=== PATIENT | male | born 1960 | race Caucasian/White ===

== ENCOUNTER 2023-09-16 15:38 | Observation (INO) ==
[2023-09-16 16:28] LABS: Basophils # (auto) 0.02 K/uL (0.00-0.20); Basophils % (auto) 0.5 %; Eosinophils # (auto) 0.02 K/uL (0.00-0.50); Eosinophils % (auto) 0.5 %; Hematocrit (blood only) 39.7 % (42.0-52.0); Hemoglobin 13.3 g/dl (14.0-18.0); Immature Granulocytes # (auto) 0.01 K/uL (0.01-0.20); Immature Granulocytes % (auto) 0.2 %; Lymphocytes # (auto) 0.83 K/uL (1.20-3.40); Lymphocytes % (auto) 19.3 %; Mean Corpuscular Hemoglobin 28.9 pg (25.0-34.0); Mean Corpuscular Hgb Conc 33.5 g/dL (32.0-36.0); Mean Corpuscular Volume 86.3 fL (80.0-100.0); Mean Platelet Volume 9.8 fL (9.4-12.4); Monocytes # (auto) 0.33 K/uL (0.11-0.59); Monocytes % (auto) 7.7 %; Neutrophils % (auto) 71.8 %; Platelet Count 212 K/uL (130-400); RDW Coefficient of Variation 14.6 % (11.5-14.5); RDW Standard Deviation 45.6 fL (36.4-46.3); White Blood Count 4.31 K/ul (4.8-10.8)
[2023-09-16 16:43] LABS: Albumin Globulin Ratio 1.1 (0.9-2); Albumin Level 3.9 gm/dl (3.4-5.0); BUN Creatinine Ratio 14.3 (10-20); Bilirubin,Total 0.6 mg/dl (0.2-1.0); Est GFR (African American) 94.1 ml/min; Est GFR (Non-African American) 81.2 ml/min; Globulin 3.5 gm/dl (2.5-4.0); Potassium 3.8 mmol/L (3.5-5.1); Total Protein 7.4 gm/dl (6.0-8.3)
--- NOTE | 2023-09-16 16:49 | XRay Report ---
XR chest 1V not portable CLINICAL HISTORY: Chest pain, nonspecific TECHNIQUE: Single frontal radiograph of the chest was obtained. Comparison: None available at the time of this dictation. FINDINGS: No lines and tubes are seen. Calcified aortic knob is seen. The lungs are clear. No evidence of pleur al effusion or pneumothorax. IMPRESSION: No acute chest disease. ACT 112: Negative or not required by law. Electronically signed by: Gage Sanford M.D. 09/16/2023 4:48 PM
[2023-09-16 16:50] LABS: Troponin I High Sensitivity 7.1 pg/ml (0-20)
[2023-09-16 16:53] LABS: INR 2.5 (0.9-1.1); Partial Thromboplastin Ratio 1.2; Partial Thromboplastin Time 35 Seconds (21-31); Prothrombin Time 25.7 Seconds (9.0-12.0)
--- NOTE | 2023-09-16 17:21 | Emergency Department Note ---
Impression & Plan Chest pain ADMIT ED Provider Note HPI: History obtained from patient. The patient is a 62-year-old gentleman with history of coronary artery disease, status post stent placement this past April at [facility] in [place], history of hypercoagulable state currently on Coumadin, presents emergency department chief complaint of increasing episodes of chest pain and dyspnea on exertion. Patient states his symptoms have been worsening over about the past month, patient states that they seem to be worsening more acutely over the past several days including shortness of breath on exertion. Patient states that the pain does feel similar to pain that he had in the past associated with acute coronary syndrome and failure of a stress test that led to his stent placement. On arrival here to the ED the patient is hemodynamically stable, he is not complaining of any pain at rest on my evaluation. ROS: - Per HPI Differential Diagnosis: Acute coronary syndrome/stent re- stenosis, pulmonary embolism, pneumonia, pneumothorax, acute CHF exacerbation, amongst other potential pathologies. *Outpatient medications and allergy history reviewed. PE: General: Alert, obese, no acute distress HEENT: Normocephalic, trachea midline Eyes: Extraocular eye movement is intact, no scleral erythema Pulmonary: Clear to auscultation bilaterally, no wheezing Cardio: Regular rate and rhythm GI: Abdomen is soft to palpation : No suprapubic tenderness MSK: No evidence of trauma or malformation of the extremities, no edema Skin: No evidence of rash Neuro: Alert, no focal deficits Psychiatric: Cooperative INDEPENDENT INTERPRETATIONS: school lunch monitor: (As interpreted by myself): - An order was placed for continuous cardiac monitoring - Patient was noted to be in sinus rhythm with a rate of 70 EKG: (As interpreted by myself): Rate: 81 Rhythm: Sinus rhythm with PVCs Intervals: Within normal limits ST changes: No ST elevation Time: 1546 Chest x-ray: (As interpreted by myself): No acute disease Medical Decision Making: IV was established and lab work obtained, patient was placed on school lunch monitor. EKG per my review shows sinus rhythm without any acute ischemic changes. Lab work shows a mild leukopenia of 4.3, hemoglobin is stable at 13.3, platelet count is normal, CMP does not show any critical findings, troponin is negative x 1, INR is noted to be therapeutic at 2.5. Chest x-ray per my interpretation does not show any evidence of acute disease. Overall, the patient has concerning symptoms of chest pain and dyspnea on exertion with history of ACS and I feel he would benefit from overnight observation admission for trending of troponin levels and likely cardiology consultation in the morning. Patient is high risk. He is in agreement for admission as this is significant other at the bedside. Case was discussed with the on-call midlevel provider for [facility], Ana Marina, and the patient was placed for admission in stable condition to the service of Dr. Cochran. Consultants/Discussions held with other healthcare providers: -Dr. Cochran, hospitalist service Disposition discussion held by myself with: -Patient Diagnosis: 1. Chest pain, acute 2. History of coronary artery disease Disposition: Admission Aditya Mack, Emergency Medicine Past Med/Surg History Social History Smoking Status: Never smoker Feels Safe at Home: Yes Allergies Allergies Allergy/AdvReac Type Severity Reaction Status Date / Time Sulfa (Sulfonamide Allergy Hives Verified 09/16/23 17:54 Antibiotics) Home Meds Home Medications Medication Instructions Recorded Confirmed atorvastatin 40 mg tablet 40 mg PO DAILY 09/16/23 09/16/23 diclofenac sodium 1 % topical gel 1 ea topical BID PRN knee pain 09/16/23 09/16/23 (Voltaren Arthritis Pain) guaifenesin 600 mg tablet, 600 mg PO BID PRN Congestion 09/16/23 09/16/23 extended release 12 hr (Mucinex) hydrochlorothiazide 12.5 mg capsule 12.5 mg PO DAILY 09/16/23 09/16/23 hydroxychloroquine 200 mg tablet 400 mg PO HS 09/16/23 09/16/23 metoprolol tartrate 25 mg tablet 25 mg PO BID 09/16/23 09/16/23 multivitamin 1 tab PO DAILY 09/16/23 09/16/23 nitroglycerin 0.4 mg sublingual 0.4 mg sublingual UD PRN Chest Pain 09/16/23 09/16/23 tablet prednisone 5 mg tablet 2.5 mg PO UD 09/16/23 09/16/23 terazosin 10 mg capsule 10 mg PO HS 09/16/23 09/16/23 ticagrelor 90 mg tablet (Brilinta) 90 mg PO BID 09/16/23 09/16/23 warfarin 5 mg tablet (Jantoven) 5 mg PO 5XWK 09/16/23 09/16/23 warfarin 5 mg tablet (Jantoven) 7.5 mg PO 2XWK 09/16/23 09/16/23 Results & Data (ED) Vital Signs Vital Signs - 24 hr 09/16/23 15:41 09/16/23 16:49 09/16/23 16:49 Temperature 36.6 C Temperature Source Temporal Artery Scan Pulse Rate 80 72 Pulse Rate [Apical] 66 Respiratory Rate 20 18 Respiratory Effort / Characteristics Non-Labored Non-Labored Spontaneous Respiratory Depth Normal Normal Respiratory Pattern Regular Blood Pressure 127/83 Blood Pressure [Right Arm] 140/80 Blood Pressure Mean 97 Blood Pressure Mean [Right Arm] 100 Blood Pressure Position [Right Arm] Semi-fowlers Pulse Oximetry 99 97 Oxygen Delivery Method Room Air Room Air Sepsis Recent Fever Within 48 Hours No Sepsis New/Unexplained Change in Mental Status No Sepsis Action Taken by Nursing No Action Required 09/16/23 16:50 09/16/23 16:50 09/16/23 17:49 Temperature Temperature Source Pulse Rate 66 Pulse Rate [Apical] Respiratory Rate 18 Respiratory Effort / Characteristics Respiratory Depth Respiratory Pattern Blood Pressure Blood Pressure [Right Arm] Blood Pressure Mean Blood Pressure Mean [Right Arm] Blood Pressure Position [Right Arm] Pulse Oximetry 96 96 96 Oxygen Delivery Method Room Air Room Air Room Air Sepsis Recent Fever Within 48 Hours Sepsis New/Unexplained Change in Mental Status Sepsis Action Taken by Nursing Laboratory Data 09/16/23 15:54 09/16/23 15:54 Lab Results 09/16/23 Range/Units 15:54 WBC 4.31 L (4.8-10.8) K/ul RBC 4.60 L (4.70-6.10) M/uL Hgb 13.3 L (14.0-18.0) g/dl Hct 39.7 L (42.0-52.0) % MCV 86.3 (80.0-100.0) fL MCH 28.9 (25.0-34.0) pg MCHC 33.5 (32.0-36.0) g/dL RDW Std Deviation 45.6 (36.4-46.3) fL RDW Coeff of Loly 14.6 H (11.5-14.5) % Plt Count 212 (130-400) K/uL MPV 9.8 (9.4-12.4) fL Immature Gran % (Auto) 0.2 % Neut % (Auto) 71.8 % Lymph % (Auto) 19.3 % Vernon % (Auto) 7.7 % Eos % (Auto) 0.5 % Baso % (Auto) 0.5 % Neut # (Auto) 3.10 (1.40-6.50) K/uL Lymph # (Auto) 0.83 L (1.20-3.40) K/uL Vernon # (Auto) 0.33 (0.11-0.59) K/uL Eos # (Auto) 0.02 (0.00-0.50) K/uL Baso # (Auto) 0.02 (0.00-0.20) K/uL Immature Gran # (Auto) 0.01 (0.01-0.20) K/uL PT 25.7 H (9.0-12.0) Seconds INR 2.5 H (0.9-1.1) APTT 35 H (21-31) Seconds PTT Ratio 1.2 Sodium 139 (136-145) mmol/L Potassium 3.8 (3.5-5.1) mmol/L Chloride 107 (98-107) mmol/L Carbon Dioxide 27 (21-32) mmol/L Anion Gap 5 (3-11) BUN 14 (6-23) mg/dl Creatinine 0.98 (0.6-1.4) mg/dl Est Cr Clr Drug Dosing 109.0 ml/min Est GFR ( Amer) 94.1 ml/min Est GFR (Non-Af Amer) 81.2 ml/min BUN/Creatinine Ratio 14.3 (10-20) Glucose 99 (70-99(Fasting)) mg/dl Calcium 9.0 (8.6-10.3) mg/dl Total Bilirubin 0.6 (0.2-1.0) mg/dl AST 33 (13-39) U/L ALT 32 (7-52) U/L Alkaline Phosphatase 65 (34-104) U/L Troponin I High Sens 7.1 (0-20) pg/ml Total Protein 7.4 (6.0-8.3) gm/dl Albumin 3.9 (3.4-5.0) gm/dl Globulin 3.5 (2.5-4.0) gm/dl Albumin/Globulin Ratio 1.1 (0.9-2) Administered Medications Guaifenesin (Guaifenesin 600 Mg Tabcr) 600 mg PO BID PRN PRN Reason: Congestion Stop: 10/16/23 20:40 Last Admin: 09/16/23 21:39 Dose: 600 mg Documented By: ELLY Hydroxychloroquine Sulfate (Hydroxychloroquine Sulfate 200 Mg Tab) 400 mg PO HS [facility] Stop: 10/16/23 20:59 Last Admin: 09/16/23 21:39 Dose: 400 mg Documented By: ELLY Metoprolol Tartrate (Metoprolol Tartrate 25 Mg Tab) 25 mg PO BID [facility] Stop: 10/16/23 20:59 Last Admin: 09/16/23 21:40 Dose: 25 mg Documented By: ELLY Terazosin HCl (Terazosin Hcl 5 Mg Cap) 10 mg PO HS [facility] Stop: 10/16/23 20:59 Last Admin: 09/16/23 21:39 Dose: 10 mg Documented By: ELLY Ticagrelor (Ticagrelor 90 Mg Tab) 90 mg PO BID [facility] Stop: 10/16/23 20:59 Last Admin: 09/16/23 21:40 Dose: 90 mg Documented By: ELLY Imaging Data Radiologist's Impression: Chest X-Ray 09/16/23 15:44 XR chest 1V not portable CLINICAL HISTORY: Chest pain, nonspecific TECHNIQUE: Single frontal radiograph of the chest was obtained. Comparison: None available at the time of this dictation. FINDINGS: No lines and tubes are seen. Calcified aortic knob is seen. The lungs are clear. No evidence of pleural effusion or pneumothorax. IMPRESSION: No acute chest disease. ACT 112: Negative or not required by law. Electronically signed by: Gage Sanford M.D. 09/16/2023 4:48 PM Discharge Plan Visit Data Chief Complaint: Chest Pain Stated Complaint: SOB, CHEST PAIN, HAND NUMBNESS ED Provider: Aditya Mack Discharge Problem: Chest pain Patient Disposition: Admitted As Inpatient Discharge Instructions Interventions: ED Discharge Assessment Last Done: 09/16/23 20:18 Discharge Problem: Chest pain Qualifiers: Chest pain type: unspecified Qualified Code(s): R07.9 - Chest pain, unspecified
--- NOTE | 2023-09-16 17:52 | History & Physical Report ---
Date of Service September 16, 2023 Assessment & Plan (1) Chest pain: (2) Exertional dyspnea: (3) History of CAD (coronary artery disease): Plan: Patient is 62 y/o M with PMH CAD s/p PCI, KIESHA to LAD on 05/20/23, Factor V Leiden, history DVT, PE, on chronic warfarin, HTN, dyslipidemia, mixed connective tissue disease, Sjogren's disease, history retinal branch occlusion presented to ER with c/o CP and SOB. Recurrent chest pressure past 1.5 months s/p stent. Ongoing exertional shortness of breath for 10 months without significant change after stent placement R/O ACS. DDX: pulmonary etiology INR: 2.5. HS troponin negative x 2. EKG without acute ST elevation per my interpretation No current chest pain. No shortness of breath at rest Trend troponin Echo NPO midnight Continue Brilinta, metoprolol tartrate, atorvastatin Will hold warfarin and start Lovenox bridge in case of procedure Obtain CT chest to evaluate for ILD EKG prn CP and repeat EKG in am CBC, BMP, lipid panel in am Cardiology consult (4) HTN (hypertension): Plan: Stable Continue metoprolol tartrate, HCTZ (5) Factor V Leiden: (6) Personal history of DVT (deep vein thrombosis): Plan: Chronically anticoagulated on warfarin INR: 2.5 Hold warfarin tonight and start Lovenox bridge in case of possible upcoming procedure (7) Mixed connective tissue disease: (8) Sjogren's disease: Plan: On chronic prednisone Continue prednisone, Plaquenil Follows with rheumatology, Dr. Cazares (9) BPH (benign prostatic hyperplasia): Plan: Continue terazosin DVT Prophylaxis Lovenox Full Code as per discussion with pt Follows with Dr Thornton for routine care Pt was seen and care coordinated with Dr Cochran. See addendum History of Present Illness Chief Complaint: CP Primary Care Provider: Dr Thornton Patient is 62 y/o M with PMH CAD s/p PCI, KIESHA to LAD on 05/20/23, Factor V Leiden, history DVT, PE, on chronic warfarin, HTN, dyslipidemia, mixed connective tissue disease, Sjogren's disease, history retinal branch occlusion presented to ER with c/o CP and SOB. History obtained from patient, spouse and outpatient chart review. Patient reports early 2023 having intermittent central chest pressure as well as exertional SOB. He had symptoms for months and followed up with cardiology and had positive stress test. Cardiac cath on 05/20/23 coronary arteries have significant 1 vessel disease. 60% distal LAD lesion s/p PCI with KIESHA. Patient states immediately after stent exertional SOB was gone as well as chest pressure. Reports approximately 1-2 weeks after stent placement exertional SOB returned. SOB with minimal ambulation through house. Also reports chest pressure started approximately 1.5 months ago. Describes as chest pressure that lasts 30-45 minutes. Self resolves. Has nitro to use as needed but has never tried it. Denies any associated diaphoresis, N/V, dizziness, palpations. Chest pressure can occur at rest or exertion but states occurs mostly at rest in the evening or during the night. Does not feel SOB with chest pressure typically. has had decreased appetite for months. Has been trying to cut back portion sizes and eat more balanced diet. Reports losing approximately 30 pounds in past 4 months. Does admit to a lot of stress in his life. had rhinorrhea, yellow/green productive cough for several weeks and was treated with doxycycline and recently finished. Denies pulmonary outpatient workup recently. States taking medications as prescribed. Denies fever/chills, diaphoresis, N/V/D/C, CONLEY, dizziness, syncope, neck pain, PND, palpitations, hemoptysis, choking, otalgia, abdominal pain, paresthesias, weakness, extremity edema, rashes, urinary symptoms. Allergies Allergy/AdvReac Type Severity Reaction Status Date / Time Sulfa (Sulfonamide Allergy Hives Verified 09/16/23 17:54 Antibiotics) Home Medications Medication Instructions Recorded Confirmed Type atorvastatin 40 mg tablet 40 mg PO DAILY 09/16/23 09/16/23 History diclofenac sodium 1 % topical gel 1 ea topical BID PRN knee pain 09/16/23 09/16/23 History (Voltaren Arthritis Pain) guaifenesin 600 mg tablet, 600 mg PO BID PRN Congestion 09/16/23 09/16/23 History extended release 12 hr (Mucinex) hydrochlorothiazide 12.5 mg capsule 12.5 mg PO DAILY 09/16/23 09/16/23 History hydroxychloroquine 200 mg tablet 400 mg PO HS 09/16/23 09/16/23 History metoprolol tartrate 25 mg tablet 25 mg PO BID 09/16/23 09/16/23 History multivitamin 1 tab PO DAILY 09/16/23 09/16/23 History nitroglycerin 0.4 mg sublingual 0.4 mg sublingual UD PRN Chest Pain 09/16/23 09/16/23 History tablet prednisone 5 mg tablet 2.5 mg PO UD 09/16/23 09/16/23 History terazosin 10 mg capsule 10 mg PO HS 09/16/23 09/16/23 History ticagrelor 90 mg tablet (Brilinta) 90 mg PO BID 09/16/23 09/16/23 History warfarin 5 mg tablet (Jantoven) 5 mg PO 5XWK 09/16/23 09/16/23 History warfarin 5 mg tablet (Jantoven) 7.5 mg PO 2XWK 09/16/23 09/16/23 History Past Med/Surg History Medical History (Updated 09/16/23 @ 22:24 by Beatriz Davidson PA-C) History of CAD (coronary artery disease) Personal history of DVT (deep vein thrombosis) Factor V Leiden BPH (benign prostatic hyperplasia) Mixed connective tissue disease Sjogren's disease HTN (hypertension) Surgical History History of cardiac catheterization 05/20/2023. S/P KIESHA SIMMS,[place] [facility] [place] Ryan Social History Smoking Status: Former smoker Hx Alcohol Use: Yes (4 drinks per week) Alcohol type: wine Hx Substance Use: Yes Last Used Substance Other:: 30 years ago Preferred Language: Bulgarian Communication Ability: Effective Yarn Salvager Required: No Beliefs That Will Affect Care: None Current Living Situation: Spouse Feels Safe at Home: Yes Assistive Devices: Glasses Review of Systems Review of Systems: All systems reviewed & are unremarkable except as noted in HPI & below Physical Exam Physical Exam: General: no distress, obese Head: normocephalic, atraumatic Eyes: conjunctiva non-injected, anicteric ENT: normal inspection external ears, nose, mucous membranes moist Neck: supple, trachea midline Lungs: clear, no respiratory distress, no wheezing/rhonchi/rales CV: RRR, no murmur, no pretibial edema Abd: normal BS, soft, non-tender Ext: no cyanosis, no calf tenderness Neuro: A&O x 3, no focal deficits noted, normal affect Skin: warm, dry Results & Data Results & Data Vital Signs (Past 12 Hours) Vital Signs Temp Pulse Pulse Resp BP BP Pulse Ox 09/16/23 16:50 66 18 96 09/16/23 16:50 96 09/16/23 16:49 72 09/16/23 16:49 66 18 140/80 97 09/16/23 15:41 36.6 C 80 20 127/83 99 O2 Del Method 09/16/23 16:50 Room Air 09/16/23 16:50 Room Air 09/16/23 16:49 09/16/23 16:49 Room Air 09/16/23 15:41 Room Air Laboratory Results Short CBC 09/16/23 Range/Units 15:54 WBC 4.31 L (4.8-10.8) K/ul Hgb 13.3 L (14.0-18.0) g/dl Hct 39.7 L (42.0-52.0) % Plt Count 212 (130-400) K/uL BMP 09/16/23 15:54 Sodium 139 Potassium 3.8 Chloride 107 Carbon Dioxide 27 BUN 14 Creatinine 0.98 Glucose 99 Calcium 9.0 Liver Function 09/16/23 Range/Units 15:54 Total Bilirubin 0.6 (0.2-1.0) mg/dl AST 33 (13-39) U/L ALT 32 (7-52) U/L Alkaline Phosphatase 65 (34-104) U/L Albumin 3.9 (3.4-5.0) gm/dl Diagnostic Findings Chest X-Ray 09/16/23 15:44 XR chest 1V not portable CLINICAL HISTORY: Chest pain, nonspecific TECHNIQUE: Single frontal radiograph of the chest was obtained. Comparison: None available at the time of this dictation. FINDINGS: No lines and tubes are seen. Calcified aortic knob is seen. The lungs are clear. No evidence of pleural effusion or pneumothorax. IMPRESSION: No acute chest disease. ACT 112: Negative or not required by law. Electronically signed by: Gage Sanford M.D. 09/16/2023 4:48 PM Supervising Physician Co-Signing Physician Notes I have seen and discussed the case with the collaborating ANTON. I agree with the above H&P. I have reviewed and confirmed the patients medical history, the findings on physical examination, and the patients diagnosis and treatment plan with Kiran WALTON and agree with the information documented. In short, Mr. Caruso is a 62 year old gentleman with history of factor Leiden v on Coumadin, Sjogrens, mixed connective tissue d/o, and CAD s/p stent 04/2023 who is being admitted for eval of KRISHNAN and atypical chest pain. KRISHNAN is long standing, ongoing follow up since 2017--at which point thought to be related to autoimmunity and improved with plaquenil reportedly. This year, KRISHNAN progressed--prompting work up for ischemic etiology, ultimately resulting in KIESHA placement, but out side of intervention, no other lesions that would lend itself to presentation. Patient also reports KRISHNAN has not improved since occult lesion stented. He "researched Brilinta" and feels maybe it is contributing--but does endorse that the KRISHNAN is no worse/better prior to its initiation. Chest pain is mostly in evening and described as pressure, but not on exertion, just as he lays down. He has not tried nitro to alleviate symptoms. Review of EMR shows multiple chest imaging with nodules and "subsegmental atelectasis" but no PFTS, or pulm work up. PE revealed clear airways, chest pain free Plan #Atypical Chest Pain -No suspicion for active ACS, will hold warfarin and start lovenox in case Cardiology feels otherwise -Trend troponin x 3, EKG for chest pain, nitro prn -Cards consult -Can discuss alternative to brilinta given fixation as contributing factor to KRISHNAN -INR 2.5, less likely PE/clot related -No pulm HTN noted on prior ECHO--will repeat #KRISHNAN -hx of autoimmunity; reports improvement years ago with initiation of plaquenil, OP CT chest with presence of scattered nodules, subsegmental atelectasis, no history of high res CT--will obtain to eval for ILD development. -PT/OT -Can consider pulm consult contingent on CT--otherwise no hypoxia, possible deconditioning contributing (no conversational dyspnea or hypoxia during exam) . Rest of plan as above (1) Chest pain Chest pain type: unspecified Qualified Code(s): R07.9 - Chest pain, unspecified
[2023-09-16] MEDS ORDERED: NITROGLYCERIN SL 0.4 MG/TAB TAB SL PRN (20:41)
[2023-09-16] MEDS ORDERED: ACETAMINOPHEN 325 MG TAB PO PRN (20:41)
[2023-09-16] MEDS ORDERED: POLYETHYLENE (MIRALAX) 17 GM PACK PO PRN (20:41)
[2023-09-16] MEDS ORDERED: ONDANSETRON INJ 2 MG/ML 2 ML VIAL IV PRN (20:41)
[2023-09-16] MEDS: guaiFENesin 600 MG TABCR PO PRN (21:39)
[2023-09-16] MEDS: TERAZOSIN HCL 5 MG CAP PO SCH (21:39)
[2023-09-16] MEDS: HYDROXYCHLOROQUINE SULFATE 200 MG TAB PO SCH (21:39)
[2023-09-16] MEDS: TICAGRELOR 90 MG TAB PO SCH (21:40)
[2023-09-16] MEDS: METOPROLOL TARTRATE 25 MG TAB PO SCH (21:40)
--- OUTSIDE RECORDS SUMMARY | 2023-09-16 22:38 | External Medical Summary | Summary of Care ---
Author Name Unknown Organization [facility] Address [address] [facility] [place] [address] Phone [phone] Care Team Providers Care Drywall Foreman Name Role Phone Louise Thornton MD Primary Care Provide r Encounter Details Date Type Department Care Team (Late st Contact Info) Description 09/16/2023 Telephone Pharmacy, [address] [place] [address] [facility] [place] [address] Allergies Active Allergy Reactions Criticality Noted Date Comments Sulfa Antibiotics 01/05/2001 rash documented as of this encounter (statuses as of 09/16/2023) Medications Medication Sig Dispensed Refills Start Date End Date Status Ammonium Lactate 12 % External Cream 0 01/06/2021 Active Multivitamin Men 50+ Oral Tablet Take by mouth as needed . 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,USP current use of anticoagulant therapy take 1 & 1/2 tablets on mondays and fridays. take 1 tablet all other days or as directed by anticoagulation clinic 110 Tablet 3 01/10/2023 Active Hydroxychloroquine Sulfate 200 MG Oral Tablet (Plaquenil) Take 2 Tablets by mouth at bedtime. 180 Tablet 3 01/28/2023 Active Metoprolol Tartrate 25 MG Oral Tablet (Lopressor)Indicat ions:Essential hypertension with goal blood pressure less than 140/90 TAKE ONE TABLET BY MOUTH TWICE DAILY 180 Tablet 3 03/23/2023 Active Ibuprofen 200 MG Oral Tablet (Motrin) Take 2 Tablets by mouth as needed. A couple times a week 0 Active predniSONE 5 MG Oral Tablet (Deltasone) take 1/2 tablet daily on tuesday, tuesday and tuesday. 6 Tablet 5 04/11/2023 Active hydroCHLOROthiazid e 12.5 MG Oral Capsule (Hydrodiuril) TAKE ONE CAPSULE BY MOUTH EVERY DAY 90 Capsule 1 04/23/2023 Active Atorvastatin Calcium 40 MG Oral Tablet (Lipitor) Take 1 Tablet by mouth in the morning. 34 Tablet 5 05/21/2023 Active Nitroglycerin 0.4 MG Sublingual Tablet Sublingual (Nitrostat) Place 1 Tablet under the tongue every 5 minutes as needed for Pain, Chest. up to 3 doses in 15 minutes 25 Tablet 11 06/07/2023 Active Terazosin HCl 10 MG Oral CapsuleIndications :BPH with obstruction/lower urinary tract symptoms Take 1 Capsule by mouth at bedtime. 90 Capsule 1 07/01/2023 Active Brilinta 90 MG Oral Tablet (Ticagrelor)Indica tions:Coronary artery disease involving [place] coronary artery of akut[place] heart without angina pectoris TAKE 1 TABLET BY MOUTH IN THE MORNING AND 1 TABLET BEFORE BEDTIME 60 Tablet 11 08/22/2023 Active documented as of this encounter (statuses as of 09/16/2023) Active Problems Problem Noted Date Diagnosed Date Acute right-sided low back pain with right-sided sciatica 07/23/2023 DDD (degenerative disc disease), lumbar 07/23/20 23 Current use of shelter anticoagulation 023 Presence of drug coated stent in LAD coronary ar joshua 06/07/2023 Coronary artery disease invo lving akut[place] coronary artery of akutan heart without angina pectoris 06/07/2023 S/P angioplasty with stent 05/24/2023 Branch retinal artery occlusion 05/24/2023 Anemia 05/24/2023 Abnormal nuclear stress test 05/24/2023 SOB (shortness of breath) 05/24/2023 Ascending aorta dilatation 04/04/2023 Dyslipidemia, goal LDL below 70 01/26/2022 Seasonal allergic rhinitis due to pollen 022 Prediabetes 10/09/2018 Overview: Per Prediabetes protocol #1 Primary osteoarthritis of both knees 06/19/2018 Encounter for long-term (current) use of medicat ions 02/09/2017 MCTD (mixed connective tissue disease) 7 Sjogren's syndrome with keratoconjunctivitis sic ca 12/30/2016 Elevated liver enzymes 12/28/2016 Hx of nonmelanoma skin cancer 10/20/2016 Overview: BCC (posterior neck) AK (actinic keratosis) 10/20/2016 Factor V Leiden mutation 09/16/2014 History of pulmonary embolism 09/02/2014 HTN, goal below 140/90 08/13/2009 Overview: Modified per HTN protocol #16. Venous insufficiency 11/05/2008 ADVANCE DIRECTIVE INFORMATION 09/13/2006 Overview: No, Advance Directive brochure given to patient at prior appointment. Displacement of lumbar inter vertebral disc without myelopathy History of DVT (deep vein thrombosis) Overview: right leg BPH (benign prostatic hyperplasia) documented as of this encounter (statuses as of 09/16/2023) Resolved Problems Problem Noted Date Diagnosed Date Resolved Date Elevated homocysteine 12/26/20182018 Pancytopenia 02/27/2018 09/17/2019 Primary osteoarthritis of left knee 02/27/2018 09/17/2019 Venous stasis dermatitis of right lower extremity 03/30/2016 09/17/2019 Other pulmonary embolism and infarction 08/09/2014 07/10/2015 Obesity, Class II, BMI 35-39 .9, isolated (see actual BMI) 12/22/2009 08/01/2014 Overview: Per Obesity Taxonomy HTN, goal to be determined 11/05/2008 1 10/13/2008 Overview: Modified per HTN protocol #16. Sicca syndrome 11/05/2008 02/09/2017 PEPTIC ULCER NOS 01/20/2006 09/17/2019 OBESITY, UNSPECIFIED 07/23/2004 010 Overview: Per Obesity Taxonomy BMI 40.0-44.9, adult 023 Impaired glucose tolerance 1 11/18/2018 Osteoarthritis of right knee 09/17/2019 documented as of this encounter (statuses as of 09/16/2023) Immunizations Name Administration Dates Next Due COVID-19 mRNA, LNP-s, No Pre serve, 2-Dose Series ([employer]) 06/30/2021,12/06/2020,11/15/2020 COVID-19, LNP-s, No Preserve , Tani-sucrose, Ages 12+ (Pfizer) 03/09/2022 COVID-19, MRNA-LNP, 23-24, P F, 30 MCG/0.3 mL, 12 YRS AND ABOVE, IM ([facility]) 06/30/2023 Covid-19, Mrna, Lnp-s, Pf, B ivalent, 30 Mcg, IM, 12 yrs and above ([employer]) 08/31/2022 PPD 04/20/2000 Pneumococcal Conjugate Vacci ne, 20-valent ([id number]) 08/09/2022 Season Influenza, Cell Cultu re, 18+ Yrs, With Preserv (Flucelvax) 08/09/2013 Seasonal Influenza, PF, 6 M & above, IM , (FluLaval or Fluzone) 07/19/2023,07/02/2022,08/12/2021,2019,07/03/2019,07/18/2018,09/09/2017 Seasonal Influenza, Quadriva lent, No Preserve, IM 07/08/2016,07/10/2015 Seasonal Influenza, Split, I IV3, With Preserve, Inj 07/02/2014,09/15/2012,09/14/2011,2009 TD - Tetanus/Diptheria (ADULT) 04/11/1995 TDAP (age 10 and older)(Boostrix) 09/17/2019 TDAP (age 11 and older)(Adacel) 05/06/2009 Zoster Vaccine Recombinant (Shingrix) 12/22/2020 ,10/07/2020 documented as of this encounter Social History Tobacco Use Types Packs/Day Years Used Date Smoking Tobacco: Former Smokeless Tobacco: Never Alcohol Use Standard Drinks/Week Comments Yes 0 (1 standard drink = 0.6 oz pur e alcohol) social PHQ-2 Answer Date Recorded PHQ Adult Total Score 0 08/24/2023 Sex and Gender Information Value Date Recorded Sex Assigned at Not on file Gender Identity Not on file Sexual Orientation Not on file Job Start Date Occupation Industry Not on file Not on file Not on file documented as of this encounter Functional Status Functional Status Response Date of Assess ment Are you deaf or do you have serious difficulty h earing? No 05/20/2023 Are you blind or do you have serious difficulty seeing, even when wearing glasses? No 05/20/2023 Do you have serious difficul ty walking or climbing stairs? (5 years old or older) No 05/20/2023 Do you have difficulty dress ing or bathing? (5 years old or older) No 05/20/2023 Because of a physical, menta l, or emotional condition, do you have difficulty doing errands alone such as visiting a doctor s office or shopping? (15 years old or older) No 05/20/20 Cognitive Status Response Date of Assessm ent Because of a physical, menta l, or emotional condition, do you have serious difficulty concentrating, remembering, or making decisions? (5 years old or older) No 05/20/2023 documented as of this encounter Miscellaneous Notes * Telephone Encounter - Louise Thornton MD - 09/16/2023 11:40 AM EST Recommend ED * Telephone Encounter - Eneida Navarro RPh - 09/16/2023 11:15 AM EST Patient presented to [facility] appointment today. Noted to having SOB/chest pain. States this has been occurring the last month. MyG message sent to cardio today. Patient declined further evaluation/ER visit. ER precautions given. Patient expressed understanding. Inquiring on sooner visit with Cardiology. Please advise patient with any additional recommendations at this time. Eneida Navarro RPh, PharmD Clinical Pharmacist - Rubber Production Machine Operator Medication Therapy Disease Management [facility] 09/16/2023, 11:16 AM [phone] documented in this encounter Plan of Treatment Upcoming Encounters Date Type Department Care Team (Late st Contact Info) Description 10/17/2023 8:10 AM EST 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ion Pharmacy, [address] [place] [address] [place] [address] 10/17/2023 8:40 AM EST Office Visit Rheumatology [address] [place] [phone] Jayson Villalobos MD [facility] [place] [address] 10/26/2023 8:15 AM EST Office Visit Ophthalmology, [facility] [address] [place] [address] Dewey Gross DO [address] [place] [address] 11/14/2023 2:20 PM EST Office Visit Family Medicine [address] [place] [phone] oLuise Tohrnton MD [address] [place] [address] [place] [address] 01/10/2024 8:30 AM EDT Office Visit Cardiology, [facility] [address] [place] [address] Bonnie Akins PA-C [address] [place] [address] 03/11/2025 8:40 AM EDT Office Visit Dermatology [address] [place] [address] Jennifer Lopez PA-C [address] [place] [address] [place] [address] Scheduled Procedures Name Priority Associated Diagnoses Date/Ti me COLONOSCOPY FLEXIBLE PROXIMAL DIAGNOSTIC Recall History of colon polyps Health Maintenance Due Date Last Done Comments HbA1c 05/21/2024 05/21/2023, 050 01/2023, 03/01/2022, Additional history exists Depression Screening 08/24/2024 08/24/2023 GFR 08/24/2024 08/24/2023, 04/27, 05/20/2023, Additional history exists Albumin/Creatinine Ratio 03/01/2025 03/01/2022, 02/24 COLONOSCOPY-EVERY 5 YRS AGES 18-100 06/23/2027 06/23/2022, 06/23/2022, 09/24/2016, Additional history exists DTaP,Tdap,and Td Vaccines (3 - Td or Tdap) 09/17/2029 09/17/2019, 05/06/2009, 04/11/1995 Zoster Vaccines Completed 12/22/2020, 10/07/2020 Pneumococcal Vaccine: Pediatrics (0 to 5 Years) and At-Risk Patients (6 to 64 Years) Completed 08/09/2022 COVID-19 Vaccine Completed 06/30/2023, 02/2022, 03/09/2022, Additional history exists Influenza Vaccine (FLU shot) Completed , 07/02/2022, 08/12/2021, Additional history exists GARDASIL-HPV IMMUNIZATION SERIES Aged Out No longer eligible based on patient's age to complete this topic Hepatitis B Aged Out No longer eligi ble based on patient's age to complete this topic MENINGOCOCCAL (MENACTRA/MENVEO) Aged Out No longer eligible based on patient's age to complete this topic documented as of this encounter Medical Devices Implanted Type Area Spinning Lathe Operator Automatic Device Identifier Shelf Expiration Date Model / Serial / Lot Stent Synergy Xd Mr [id number] - [id number] Implanted:Qty: 1 on 05/20/2023 by Cee Ryan MD at [facility] [place] [employer] [id number] 06/17/2023 [id number] 270 / / [id number] documented as of this encounter Visit Diagnoses Diagnosis 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ion management encounter- Primary Encounter for therapeutic drug monitoring documented in this encounter Advance Directives Latest Code Status on File Code Status Date Activated Date Inactivated Comments Full Code 05/20/2023 3:32 PM 05/21/2023 6:14 PM This order reflects the patients wishes and were consensually agreed upon. Question Answer Comments Discussion of Advance Directives occurred with: Patient Does the patient have a Living Will? No Does the patient have Health Care Power of Organic Chemistry Teacher? No Care Teams Drywall Foreman Relationship Specialty Start Date End Date Louise Thornton MD [address] [place] [address] [place] [address] PCP - General Family Medicine 07/10/15 documented as of this encounter
--- OUTSIDE RECORDS SUMMARY | 2023-09-16 22:38 | External Medical Summary | Summary of Care ---
Author Name Unknown Organization [facility] Address [address] [facility] [place] [address] Phone [phone] Care Team Providers Care Academic Counselor Name Role Phone Louise Thornton MD Primary Care Provide r Encounter Details Date Type Department Care Team (Late st Contact Info) Description 09/16/2023 Telephone Pharmacy, [address] [place] [address] [facility] 200 [facility] [place] [address] Allergies Active Allergy Reactions Criticality Noted Date [...] ons:Factor V Leiden mutation (HCC),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,[facility] current use of anticoagulant therapy take 1 [...] Oral Tablet (Ticagrelor)Indica tions:Coronary artery disease involving [place] coronary artery of [place] heart without angina pectoris TAKE 1 TABLET BY MOUTH IN THE MORNING AND 1 TABLET BEFORE BEDTIME 60 Tablet 11 08/22/2023 Active documented as of this encounter (statuses as of 09/16/2023) Active Problems Problem Noted Date Diagnosed Date Acute right-sided low back pain with right-sided sciatica 07/23/2023 DDD (degenerative disc disease), lumbar 07/23/20 23 Current use of [facility] anticoagulation 023 Presence of drug coated stent in LAD coronary ar joshua 06/07/2023 Coronary artery disease invo lving [place] coronary artery of [place] heart without angina pectoris 06/07/2023 S/P angioplasty [...] mRNA, LNP-s, No Pre serve, 2-Dose Series ([employer]) 06/30/2021,12/06/2020,11/15/2020 COVID-19, LNP-s, No Preserve , Tani-sucrose, Ages 12+ ([employer]) 03/09/2022 COVID-19, MRNA-LNP, 23-24, P F, 30 MCG/0.3 mL, 12 YRS AND ABOVE, IM ([facility]) 06/30/2023 Covid-19, Mrna, Lnp-s, Pf, B ivalent, 30 Mcg, IM, 12 yrs and above ([employer]) 08/31/2022 Pneumococcal Conjugate Vacci ne, 20-valent ([id number]) 08/09/2022 Season Influenza, Cell Cultu re, 18+ Yrs, With Preserv (Flucelvax) 08/09/2013 Seasonal Influenza, PF, 6 M & above, IM , (FluLaval or Fluzone) 07/19/2023,07/02/2022,08/12/2021,2019,07/03/2019,07/18/2018,09/09/2017 Seasonal Influenza, Quadriva lent, No Preserve, IM 07/08/2016,07/10/2015 Seasonal Influenza, Split, I IV3, With Preserve, Inj 07/02/2014,09/15/2012,09/14/2011,2009 TDAP (age 10 and older)(Boostrix) 09/17/2019 TDAP [...] encounter Miscellaneous Notes * Telephone Encounter - Eneida Navarro RPh - 09/16/2023 11:15 AM EST Patient presented to [facility] appointment today. Noted to having SOB/chest pain. States this has been occurring the last month. [employer] message sent to cardio today. Patient declined further evaluation/ER visit. ER precautions given. Patient expressed understanding. Inquiring on sooner visit with Cardiology. Please advise patient with any additional recommendations at this time. Eneida Navarro RPh, PharmD Clinical Pharmacist - In Flight Refueling System Repairer Medication Therapy Disease Management Clinic 09/16/2023, 11:16 AM [phone] documented in this encounter Plan of Treatment Upcoming Encounters Date Type Department Care Team (Late st Contact Info) Description 10/17/2023 8:10 AM EST 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ion Pharmacy, [address] [place] [address] [place] [address] 10/17/2023 8:40 AM EST Office Visit Rheumatology [address] [place] [phone] Jayson Villalobos MD [facility] [place] [address] 10/26/2023 8:15 AM EST Office Visit Ophthalmology, [facility] [address] [place] [address] Dewey Gross, [address] [place] [address] 11/14/2023 2:20 PM EST Office Visit Family Medicine [address] [place] [phone] Louise Thornton MD [address] [place] [address] [place] [address] 01/10/2024 8:30 AM EDT Office Visit Cardiology, [facility] [address] [place] [address] Bonnie Akins PA-C [address] [place] [address] 03/11/2025 8:40 AM EDT Office Visit Dermatology [address] [place] [address] Jennifer Lopez PA-C [address] [place] [address] [place] [address] Scheduled Procedures Name Priority Associated Diagnoses Date/Ti me COLONOSCOPY FLEXIBLE PROXIMAL DIAGNOSTIC Recall History of colon polyps Health Maintenance Due Date Last Done Comments HbA1c 05/21/2024 05/21/2023, 05/0 01/2023, 03/01/2022, Additional history exists Depression Screening [...] this encounter Medical Devices Implanted Type Area Pulper Tender Device Identifier Shelf Expiration Date Model / Serial / Lot Stent Synergy Xd Mr [id number] - [id number] Implanted:Qty: 1 on 05/20/2023 by Cee Ryan MD at [facility] [place] [email or web address] [id number] 06/17/2023 [id number] 270 / / [id number] documented as of this encounter Visit Diagnoses [...] the patient have Health Care Power of Evp Chief Exploration Officer? No Care Teams Academic Counselor Relationship Specialty Start Date End Date Louise Thornton MD [address] [place] [address] [place] [phone] PCP - General Family Medicine 07/10/15 documented as of this encounter
--- OUTSIDE RECORDS SUMMARY | 2023-09-16 22:38 | External Medical Summary | Summary of Care ---
Author Name Unknown Organization [facility] Address [address] [facility] [address] Phone [phone] Care Team Providers Care Freight Car Inspector Name Role Phone Louise Thornton MD Primary Care Provide r Reason for Visit * Reason Onset Date Comments Information 09/16/2023 Encounter Details Date Type Department Care Team (Late st Contact Info) Description 09/16/2023 Telephone Pharmacy, [address] [place] [phone] [facility] 200 [facility] [place] [address] Information Allergies Active Allergy Reactions Criticality Noted Date [...] ons:Factor V Leiden mutation (HCC),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,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 current use of anticoagulant therapy take 1 [...] Oral Tablet (Ticagrelor)Indica tions:Coronary artery disease involving [place] coronary artery of [place] heart without angina pectoris TAKE 1 TABLET BY MOUTH IN THE MORNING AND 1 TABLET BEFORE BEDTIME 60 Tablet 11 08/22/2023 Active documented as of this encounter (statuses as of 09/16/2023) Active Problems Problem Noted Date Diagnosed Date Acute right-sided low back pain with right-sided sciatica 07/23/2023 DDD (degenerative disc disease), lumbar 07/23/20 23 Current use of [facility] anticoagulation 023 Presence of drug coated stent in LAD coronary ar joshua 06/07/2023 Coronary artery disease invo lving [place] coronary artery of [place] heart without angina pectoris 06/07/2023 S/P angioplasty [...] mRNA, LNP-s, No Pre serve, 2-Dose Series ([facility]) 06/30/2021,12/06/2020,11/15/2020 COVID-19, LNP-s, No Preserve , Tani-sucrose, Ages 12+ ([facility]) 03/09/2022 COVID-19, MRNA-LNP, 23-24, P F, 30 MCG/0.3 mL, 12 YRS AND ABOVE, IM ([facility]) 06/30/2023 Covid-19, Mrna, Lnp-s, Pf, B ivalent, 30 Mcg, IM, 12 yrs and above ([facility]) 08/31/2022 PPD 04/20/2000 Pneumococcal Conjugate Vacci ne, 20-valent ([id number]) 08/09/2022 Season Influenza, Cell Cultu re, 18+ [...] encounter Miscellaneous Notes * Telephone Encounter - Susan Smith LPN - 09/16/2023 1:49 PM EST See also pt mychart message from today. Attempted pt on both home and mobile phone number, no answer. Left message for pt to return call [facility] office. * Telephone Encounter - Bonnie Akins PA-C - 09/16/2023 1:28 PM EST Patient needs to be seen in ER for current symptoms of CP and SOB. This is the only way to do quick testing/evaluation and verify nothing acute is going on. * Telephone Encounter - Louise Thornton MD - 09/16/2023 11:40 AM EST Recommend ED * Telephone Encounter - Eneida Navarro RPh - 09/16/2023 11:15 AM EST Patient presented to [facility] appointment today. Noted to having SOB/chest pain. States this has been occurring the last month. [employer] message sent to cardio today. Patient declined further evaluation/ER visit. ER precautions given. Patient expressed understanding. Inquiring on sooner visit with Cardiology. Please advise patient with any additional recommendations at this time. Eneida Navarro RP, PharmD Clinical Pharmacist - Senior Windows Engineer Medication Therapy Disease Management Clinic 09/16/2023, 11:16 AM [phone] documented in this encounter Plan of Treatment Upcoming Encounters Date Type Department Care Team (Late st Contact Info) Description 10/17/2023 8:10 AM EST 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ion Pharmacy, [address] [place] [address] [place] [address] 10/17/2023 8:40 AM EST Office Visit Rheumatology [address] [place] [phone] Jayson Villalobos MD [address] [place] [address] [place] [address] 10/26/2023 8:15 AM EST Office Visit Ophthalmology, [facility] [address] [place] [address] Dewey Gross DO [address] [place] [address] 11/14/2023 2:20 PM EST Office Visit Family Medicine [address] [place] [phone] Louise Thornton MD [address] [place] [address] [place] [address] 01/10/2024 8:30 AM EDT Office Visit Cardiology, [facility] [address] [place] [address] Bonnie Akins PA-C [address] [place] [address] 03/11/2025 8:40 AM EDT Office Visit Dermatology [address] [place] [address] Jennifer Lopez PA-C [address] [place] [address] [place] [address] Scheduled Procedures Name Priority Associated Diagnoses Date/Ti me COLONOSCOPY FLEXIBLE PROXIMAL DIAGNOSTIC Recall History of colon polyps Health Maintenance Due Date Last Done Comments HbA1c 05/21/2024 05/21/2023, 01/2023, 03/01/2022, Additional history exists Depression Screening [...] this encounter Medical Devices Implanted Type Area Resident Director Device Identifier Shelf Expiration Date Model / Serial / Lot Stent Synergy Xd Mr [id number] - [id number] Implanted:Qty: 1 on 05/20/2023 by Cee Ryan MD at [facility] [place] [place] [employer] [id number] 06/17/2023 [id number] / / [id number] documented as of this encounter Visit Diagnoses [...] the patient have Health Care Power of Supervisor Shop? No Care Teams Freight Car Inspector Relationship Specialty Start Date End Date Louise Thornton MD [address] [place] [address] [place] [address] PCP - General Family Medicine 07/10/15 documented as of this encounter
--- OUTSIDE RECORDS SUMMARY | 2023-09-16 22:38 | External Medical Summary | Summary of Care ---
Author Name Unknown Organization [facility] Address [address] [place] [address] Phone [phone] Care Team Providers Care Petrol Tanker Driver Name Role Phone Louise Thornton MD Primary Care Provide r Encounter Details Date Type Department Care Team (Late st Contact Info) Description 09/16/2023 Telephone Pharmacy, [address] [place] [address] [facility] [place] [address] Allergies Active Allergy Reactions Criticality Noted Date [...] ons:Factor V Leiden mutation (HCC),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,alf current use of anticoagulant therapy take 1 [...] Oral Tablet (Ticagrelor)Indica tions:Coronary artery disease involving [place] coronary artery of [place] heart without angina pectoris TAKE 1 TABLET BY MOUTH IN THE MORNING AND 1 TABLET BEFORE BEDTIME 60 Tablet 11 08/22/2023 Active documented as of this encounter (statuses as of 09/16/2023) Active Problems Problem Noted Date Diagnosed Date Acute right-sided low back pain with right-sided sciatica 07/23/2023 DDD (degenerative disc disease), lumbar 07/23/20 23 Current use of alf anticoagulation 023 Presence of drug coated stent in LAD coronary ar joshua 06/07/2023 Coronary artery disease invo lving [place] coronary artery of [place] heart without angina pectoris 06/07/2023 S/P angioplasty [...] mRNA, LNP-s, No Pre serve, 2-Dose Series ([employer]uc[employer]) 06/30/2021,12/06/2020,11/15/2020 COVID-19, LNP-s, No Preserve , Tani-sucrose, Ages 12+ (Pfizer) 03/09/2022 COVID-19, MRNA-LNP, 23-24, P F, 30 MCG/0.3 mL, 12 YRS AND ABOVE, IM ([employer]-Comirnat) 06/30/2023 Covid-19, Mrna, Lnp-s, Pf, B ivalent, 30 Mcg, IM, 12 yrs and above (GlucoTec) 08/31/2022 PPD 04/20/2000 Pneumococcal Conjugate Vacci ne, 20-valent ([id number]) 08/09/2022 Season Influenza, Cell Cultu re, 18+ [...] Eneida Navarro RPh, PharmD Clinical Pharmacist - National Facilities Manager Medication Therapy [facility] 09/16/2023, 11:16 AM [phone] documented in this encounter Plan of Treatment Upcoming Encounters Date Type Department Care Team (Late st Contact Info) Description 10/17/2023 8:10 AM EST 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ion Pharmacy, [address] [place] [address] [place] [address] 10/17/2023 8:40 AM EST Office Visit Rheumatology [address] [place] [address] Jayson Villalobos MD [facility] [place] [address] 10/26/2023 8:15 AM EST Office Visit Ophthalmology, [facility] [address] [place] [address] Dewey Gross DO [address] [place] [address] 11/14/2023 2:20 PM EST Office Visit Family Medicine [address] [place] [address] Louise Thornton MD [address] [place] [address] [place] [address] 01/10/2024 8:30 AM EDT Office Visit Cardiology, [facility] [address] [place] [address] Bonnie Akins PA-C [address] [place] [address] 03/11/2025 8:40 AM EDT Office Visit Dermatology [address] [place] [address] Jennifer Lopez PA-C [address] [place] [address] [place] [address] Scheduled Procedures Name Priority Associated Diagnoses Date/Ti [...] this encounter Medical Devices Implanted Type Area Import/Export Administrator Device Identifier Shelf Expiration Date Model / Serial / Lot Stent Synergy Xd Mr [id number] - [id number] Implanted:Qty: 1 on 05/20/2023 by Cee Ryan MD at [facility] [employer] [id number] 06/17/2023 [id number] 270 / / [id number] documented as of this encounter Visit Diagnoses [...] the patient have Health Care Power of Veterinary Milk Specialist? No Care Teams Petrol Tanker Driver Relationship Specialty Start Date End Date Louise Thornton MD [address] [place] [address] [place] [address] PCP - General Family Medicine 07/10/15 documented as of this encounter
--- OUTSIDE RECORDS SUMMARY | 2023-09-16 22:38 | External Medical Summary ---
Author Name Unknown Address Unknown Organization : Laboratory Report Ordering Provider Test Date Status SUMA STEPHENS 09/16/2023 11:08:13 Final Therapeutic ranges for non-o perative patients:
Prophylaxsis/treatment of DVT: (Range:2.0-3.0)
Treatment of pulmonary embolism:(Range:2.0-3.0)
Prevention of systemic embolism from:
-tissue heart valves
-acute myocardial infarction
-valvular heart disease
-atrial fibrillation
(Range: 2.0-3.0)
Mechanical prosthetic valves: (Range: 2.5-3.5) Observation Date Value Abnormality Reference (Units ) Status INR in Capillary blood by Coagulation assay 09/16/2023 11:08:13 2.7 (INR) Final Performing Location
--- OUTSIDE RECORDS SUMMARY | 2023-09-16 22:38 | External Medical Summary | Summary of Care ---
Author Name Unknown Organization [facility] Address [address] [facility] [place] [address] Phone [phone] Care Team Providers Care Nailing Machine Operator Automatic Name Role Phone Louise Thornton MD Primary Care Provide r Reason for Visit * Reason Comments Dosage Adjustment In Person (Anticoag Cl inic) Encounter Details Date Type Department Care Team (Latest Contact Info) Description 09/16/2023 11:00 AM [facility] 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ion Pharmacy, [address] [place] [address] [place] [address] Factor V Leiden mutation ([facility])*; 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ion management encounter; long term current use of anticoagulant therapy Allergies Active Allergy Reactions Criticality Noted Date [...] ons:Factor V Leiden mutation (HCC),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,[facility] current use of anticoagulant therapy take 1 [...] Oral Tablet (Ticagrelor)Indica tions:Coronary artery disease involving [place] coronary artery of [place] heart without angina pectoris TAKE 1 TABLET BY MOUTH IN THE MORNING AND 1 TABLET BEFORE BEDTIME 60 Tablet 11 08/22/2023 Active documented as of this encounter (statuses as of 09/16/2023) Active Problems Problem Noted Date Diagnosed Date Acute right-sided low back pain with right-sided sciatica 07/23/2023 DDD (degenerative disc disease), lumbar 07/23/20 23 Current use of fdc anticoagulation 023 Presence of drug coated stent in LAD coronary ar joshua 06/07/2023 Coronary artery disease invo lving [place] coronary artery of [place] heart without angina pectoris 06/07/2023 S/P angioplasty [...] mRNA, LNP-s, No Pre serve, 2-Dose Series ([employer]) 06/30/2021,12/06/2020,11/15/2020 COVID-19, LNP-s, No Preserve , Tani-sucrose, Ages 12+ ([employer]) 03/09/2022 COVID-19, MRNA-LNP, 23-24, P F, 30 MCG/0.3 mL, 12 YRS AND ABOVE, IM ([employer]) 06/30/2023 Covid-19, Mrna, Lnp-s, Pf, B ivalent, 30 Mcg, IM, 12 yrs and above ([employer]) 08/31/2022 Pneumococcal Conjugate Vacci ne, 20-valent ([id number]) 08/09/2022 Season Influenza, Cell Cultu re, 18+ [...] No 05/20/2023 documented as of this encounter Progress Notes * Eneida Navarro, [facility] - 09/16/2023 11:02 AM EST Medication Therapy Disease Management - 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ion Patient: Peter Caruso | : 1960 Subjective Patient-Reported Symptoms: Patient Findings Positives: Other complaints Negatives: Signs/symptoms of thrombosis, Signs/symptoms of bleeding, Change in health, Change in alcohol use, Change in activity, Upcoming invasive procedure, Missed doses, Extra doses, Change in medications, Change in diet/appetite, Bruising Objective Current Warfarin Dose As of 09/16/2023 Warfarin maintenance plan: 7.5 mg (5 mg x 1.5) every Mon, Fri; 5 mg (5 mg x 1) all other days INR Result As of 09/16/2023 INR goal: 2.0-3.0 INR used for dosin.7 (09/16/2023) Assessment & Plan Warfarin Plan As of 09/16/2023 Full warfarin instructions: 7.5 mg every Mon, Fri; 5 mg all other days No change documented: Eneida Navarro RPh Next INR check: 10/17/2023 Repeat PT/INR in 4 week(s) Weekly dose: not changed Additional Dosing Information: Chest pain, discussed in separate TE Eneida Navarro RPh Clinical Pharmacist 09/16/2023, 11:02 AM documented in this encounter Plan of Treatment Upcoming Encounters Date Type Department Care Team (Late st Contact Info) Description 10/17/2023 8:10 AM EST 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ion Pharmacy, [address] [place] [address] [place] [address] 10/17/2023 8:40 AM EST Office Visit Rheumatology [address] [place] [address] Jayson Villalobos MD [address] [place] [address] [place] [address] 10/26/2023 8:15 AM EST Office Visit Ophthalmology, [address] [place] [address] Dewey Gross, 132 [facility] [place] [address] 11/14/2023 2:20 PM EST Office Visit Family Medicine [address] [place] [address] Louise Thornton MD [address] [place] [address] [place] [address] 01/10/2024 8:30 AM EDT Office Visit Cardiology, [facility] [place] [address] Bonnie Akins PA-C [address] [place] [address] 03/11/2025 8:40 AM EDT Office Visit Dermatology [address] [place] [address] Jennifer Lopez PA-C [address] [place] [address] [place] [address] Scheduled Procedures Name Priority Associated Diagnoses Date/Ti [...] this encounter Medical Devices Implanted Type Area Controller Coal Or Ore Device Identifier Shelf Expiration Date Model / Serial / Lot Stent Synergy Xd Mr [id number] - [id number] Implanted:Qty: 1 on 05/20/2023 by Cee Ryan MD at [facility] [employer] [id number] 06/17/2023 [id number] / / [id number] documented as of this encounter Procedures Procedure Name Priority Date/Time Associated Diagnosis Comments INR FINGERSTICK, POINT OF CARE STAT 09/16/2023 11:08 AM EST Factor V Leiden mutation (HCC) 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ion management encounter long term current use of anticoagulant therapy documented in this encounter Results * INR FINGERSTICK, POINT OF CARE (09/16/2023 11:08 AM EST) Fingerstick INR 2.7 INR 11:14 AM EST [facility] Blood 09/16/2023 11:0 8 AM EST 09/16/2023 11:14 AM EST Narrative [facility] [place] 55-00 - 09/16/2023 11:14 AM EST Therapeutic ranges for non-operative patients: Prophylaxsis/treatment of DVT: (Range:2.0-3.0) Treatment of pulmonary embolism:(Range:2.0-3.0) Prevention of systemic embolism from: -tissue heart valves -acute myocardial infarction -valvular heart disease -atrial fibrillation (Range: 2.0-3.0) Mechanical prosthetic valves: (Range: 2.5-3.5) Eneida Navarro [facility] LAB POINT OF CARE TEST DOCKED DEVICE UNSOLICITED RESULTS LABORATORY [facility] [address] [place] [address] documented in this encounter Visit Diagnoses Diagnosis Factor V Leiden mutation (HCC)- Primary Primary hypercoagulable state 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ion management encounter Encounter for therapeutic drug monitoring [facility] current use of anticoagulant therapy documented in this encounter Advance Directives Latest Code Status on File Code Status Date Activated Date Inactivated Comments Full Code 05/20/2023 3:32 PM 05/21/2023 6:14 PM This order reflects the patients wishes and were consensually agreed upon. Question Answer Comments Discussion of Advance Directives occurred with: Patient Does the patient have a Living Will? No Does the patient have Health Care Power of Mud Tank Operator? No Care Teams Nailing Machine Operator Automatic Relationship Specialty Start Date End Date Louise Thornton MD [address] [place] [address] [place] [address] PCP - General Family Medicine 07/10/15 documented as of this encounter"
--- OUTSIDE RECORDS SUMMARY | 2023-09-16 22:38 | External Medical Summary | Summary of Care ---
Author Name Unknown Organization [facility] Address [address] [facility] [place] [address] Phone [phone] Care Team Providers Care Tourist Cabin Keeper Name Role Phone Louise Thornton MD Primary Care Provide r Encounter Details Date Type Department Care Team (Late st Contact Info) Description 09/16/2023 Telephone Pharmacy, [address] [place] [address] [facility] [place] [address] Allergies Active Allergy Reactions Criticality Noted Date [...] ons:Factor V Leiden mutation (HCC),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,[facility] current use of anticoagulant therapy take 1 [...] Oral Tablet (Ticagrelor)Indica tions:Coronary artery disease involving jamul coronary artery of jamul heart without angina pectoris TAKE 1 TABLET BY MOUTH IN THE MORNING AND 1 TABLET BEFORE BEDTIME 60 Tablet 11 08/22/2023 Active documented as of this encounter (statuses as of 09/16/2023) Active Problems Problem Noted Date Diagnosed Date Acute right-sided low back pain with right-sided sciatica 07/23/2023 DDD (degenerative disc disease), lumbar 07/23/20 23 Current use of retirement anticoagulation 023 Presence of drug coated stent in LAD coronary ar joshua 06/07/2023 Coronary artery disease invo lving jamul coronary artery of jamul heart without angina pectoris 06/07/2023 S/P angioplasty [...] mRNA, LNP-s, No Pre serve, 2-Dose Series ([employer]) 06/30/2021,12/06/2020,11/15/2020 COVID-19, LNP-s, No Preserve , Tani-sucrose, Ages 12+ (Pfizer) 03/09/2022 COVID-19, MRNA-LNP, 23-24, P F, 30 MCG/0.3 mL, 12 YRS AND ABOVE, IM ([employer]-Comirnat) 06/30/2023 Covid-19, Mrna, Lnp-s, Pf, B ivalent, 30 Mcg, IM, 12 yrs and above ([employer]) 08/31/2022 PPD 04/20/2000 Pneumococcal Conjugate Vacci ne, 20-valent ([id number]) 08/09/2022 Season Influenza, Cell Cultu re, 18+ [...] encounter Miscellaneous Notes * Telephone Encounter - Bonnie Akins PA-C [...] Eneida Navarro RPh, PharmD Clinical Pharmacist - Head And Neck Surgeon Medication Therapy Disease Management Clinic 09/16/2023, 11:16 AM [phone] documented in this encounter Plan of Treatment Upcoming Encounters Date Type Department Care Team (Late st Contact Info) Description 10/17/2023 8:10 AM EST 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ion Pharmacy, [address] [place] [address] [place] [address] 10/17/2023 8:40 AM EST Office Visit Rheumatology [address] [place] [address] Jayson Villalobos MD [address] [place] [address] [place] [address] 10/26/2023 8:15 AM EST Office Visit Ophthalmology, [address] [place] [address] Dewey Gross, 132 [facility] [place] [address] 11/14/2023 2:20 PM EST Office Visit Family Medicine [address] [place] [phone] Louise Thornton MD [address] [place] [address] [place] [address] 01/10/2024 8:30 AM EDT Office Visit Cardiology, [facility] 132 [facility] [place] [address] Bonnie Barber PA-C [address] [place] [address] 03/11/2025 8:40 AM EDT Office Visit Dermatology [address] [place] [address] Jennifer Lopez PA-C [address] [place] [address] [place] [address] Scheduled Procedures Name Priority Associated Diagnoses Date/Ti [...] this encounter Medical Devices Implanted Type Area Hot Metal Mixer Operator Helper Device Identifier Shelf Expiration Date Model / Serial / Lot Stent Synergy Xd Mr [id number] - [id number] Implanted:Qty: 1 on 05/20/2023 by Cee Ryan MD at [facility] [employer] (T[employer]A) [id number] 06/17/2023 [id number] 270 / / [id number] documented as of this encounter Visit Diagnoses [...] the patient have Health Care Power of Senior Counsel? No Care Teams Tourist Cabin Keeper Relationship Specialty Start Date End Date Louise Thornton MD [address] [place] [address] [place] [address] PCP - General Family Medicine 07/10/15 documented as of this encounter
--- OUTSIDE RECORDS SUMMARY | 2023-09-16 22:39 | External Medical Summary | Summary of Care ---
Author Name Unknown Organization [facility] Address [address] [facility] [place] [address] Phone [phone] Care Team Providers Care Cattle Feeder Name Role Phone Louise Thornton MD Primary Care Provide r Reason for Visit * Reason Onset Date Comments Fax 08/10/2023 Encounter Details Date Type Department Care Team (Late st Contact Info) Description 08/10/2023 Telephone Family [address] [place] [address] Louise Thornton MD [address] [place] [address] [place] [address] Fax Allergies Active Allergy Reactions Criticality Noted Date Comments Sulfa Antibiotics 01/05/2001 rash documented as of this encounter (statuses as of 08/11/2023) Medications Medication Sig Dispensed Refills Start Date [...] EVERY DAY 90 Capsule 1 04/23/2023 Active Ticagrelor 90 MG Oral Tablet (Brilinta)Indicati ons:Coronary artery disease involving [place]re[place] coronary artery of flandre[place] heart without angina pectoris Take 1 Tablet by mouth in the morning and 1 Tablet before bedtime. Do not start before May 21, 2023. 60 Tablet 2 05/21/2023 Active Atorvastatin Calcium 40 MG Oral Tablet [...] at bedtime. 90 Capsule 1 07/01/2023 Active Baclofen 20 MG Oral TabletIndications: Acute right-sided low back pain with right-sided sciatica Take 1 Tablet by mouth in the morning and 1 Tablet before bedtime. As needed for lower back pain. 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 023 Presence of drug coated stent in LAD coronary ar joshua 06/07/2023 Coronary artery disease invo lving flandreau coronary artery of flandre[place] heart without angina pectoris 06/07/2023 S/P angioplasty [...] as of this encounter (statuses as of 08/11/2023) Resolved Problems Problem Noted Date Diagnosed Date [...] as of this encounter (statuses as of 08/11/2023) Immunizations Name Administration Dates Next Due COVID-19 mRNA, LNP-s, No Pre serve, 2-Dose Series ([employer] 06/30/2021,12/06/2020,11/15/2020 COVID-19, LNP-s, No Preserve , Tani-sucrose, Ages 12+ (Pfizer) 03/09/2022 Covid-19, Mrna, Lnp-s, Pf, B ivalent, 30 Mcg, IM, 12 yrs and above (Pfizer) 06/30/2023,08/31/2022 PPD 04/20/2000 Pneumococcal Conjugate Vacci ne, 20-valent ([id number]) 08/09/2022 SEASONAL INFLUENZA, PF, 6 M & Above, IM , (FLULAVAL or FLUZONE) 07/19/2023,07/02/2022,08/12/2021,2019,07/03/2019,07/18/2018,09/09/2017 Season Influenza, Cell Culte r, 18+ Yrs, With Preserv (Flucelvax) 08/09/2013 Seasonal Influenza, Quadriva lent, No Preserve, IM [...] e alcohol) social PHQ-2 Answer Date Recorded PHQ-2 Score 0 03/15/2019 Sex and Gender Information Value Date Recorded [...] (15 years old or older) No 05/20/20 23 Cognitive Status Response Date of Assessm ent Because of a physical, menta l, or emotional condition, do you have serious difficulty concentrating, remembering, or making decisions? (5 years old or older) No 05/20/2023 documented as of this encounter Miscellaneous Notes * Telephone Encounter - Sudha Wilson OSA - 08/11/2023 10:01 AM EST L spine x-ray report faxed to [facility] at [phone]. * Telephone Encounter - Sudha Wilson OSA - 08/10/2023 1:04 PM EST This xray is still in process. * Telephone Encounter - Pamela Richards OSA - 08/10/2023 11:39 AM EST Caller requesting the following information to be faxed: Name/Company of caller: Peter Caruso Information requested to be faxed: Recent Xray on 08/09/23 Fax number: [phone] Attention to Name/Company: Leila MONTEZ Any additional information?: needs results from most recent xray imaging on 08/09/23 sent to [facility] they are resulted. documented in this encounter Plan of Treatment Upcoming Encounters Date Type Department Care Team (Late st Contact Info) Description 08/23/2023 2:20 PM EST 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ion Pharmacy, [address] [place] [address] [place] [address] 08/24/2023 9:40 AM EST Office Visit Family Medicine [address] [place] [address] Susu Burgess PA-C [address] [place] [address] [place] [address] 09/13/2023 8:45 AM EST Office Visit Ophthalmology, [address] [place] [address] Dewey Gross DO 132 [facility] [place] [address] 10/17/2023 8:40 AM EST Office Visit Rheumatology [address] [place] [phone] Jayson Villalobos MD [address] [place] [address] [place] [address] 10/19/2023 10:00 AM EST Office Visit Cardiology, [facility] 132 [facility] [place] [address] TashiBonnie hernandez PA-C [address] [place] [address] 11/14/2023 2:20 PM EST Office Visit Family Medicine [address] [place] [address] Louise Thornton MD [address] [place] [address] [place] [address] 03/11/2025 8:40 AM EDT Office Visit Dermatology [address] [place] [address] Jennifer Lopez PA-C [address] [place] [address] [place] [address] Scheduled Procedures Name Priority Associated Diagnoses Date/Ti me COLONOSCOPY FLEXIBLE PROXIMAL DIAGNOSTIC Recall History of colon polyps Health Maintenance Due Date Last Done Comments Depression Screening 03/15/2020 03/15/2019 COVID-19 Vaccine ( season) 2023 06/30/2023, 08/31/2022, 03/09/2022, Additional history exists GFR 05/21/2024 05/21/2023, 04/27, 05/03/2023, Additional history exists HbA1c 05/21/2024 05/21/2023, 05/0 01/2023, 03/01/2022, Additional history exists Albumin/Creatinine Ratio 03/01/2025 03/01/2022, 02/24 COLONOSCOPY-EVERY 5 YRS AGES 18-100 06/23/2027 06/23/2022, 06/23/2022, 09/24/2016, Additional history exists DTaP,Tdap,and Td Vaccines (3 - Td or Tdap) 09/17/2029 09/17/2019, 05/06/2009, 04/11/1995 Zoster Vaccines Completed 12/22/2020, 10/07/2020 Pneumococcal Vaccine: Pediatrics (0 to 5 Years) and At-Risk Patients (6 to 64 Years) Completed 08/09/2022 Influenza Vaccine (FLU shot) Completed , 07/02/2022, [...] this encounter Medical Devices Implanted Type Area Battery Technician Device Identifier Shelf Expiration Date Model / Serial / Lot Stent Synergy Xd Mr [id number] - [id number] Implanted:Qty: 1 on 05/20/2023 by Cee Ryan MD at [facility] [employer] [id number] 06/17/2023 [id number] 270 / / [id number] documented as of this encounter Advance Directives Latest Code Status on File Code Status Date Activated Date Inactivated Comments Full Code 05/20/2023 3:32 PM 05/21/2023 6:14 PM This order reflects the patients wishes and were consensually agreed upon. Question Answer Comments Discussion of Advance Directives occurred with: Patient Does the patient have a Living Will? No Does the patient have Health Care Power of Auditor/Quality? No Care Teams Cattle Feeder Relationship Specialty Start Date End Date Louise Thornton MD [address] [place] [address] [place] [address] PCP - General Family Medicine 07/10/15 documented as of this encounter
--- OUTSIDE RECORDS SUMMARY | 2023-09-16 22:39 | External Medical Summary | Summary of Care ---
Author Name Unknown Organization [facility] Address [address] [facility] [place] [address] Phone [phone] Care Team Providers Care Varnish Finisher Name Role Phone Louise Thornton MD Primary Care Provide r Reason for Visit * Reason Comments Dosage Adjustment In Person (Anticoag Cl inic) Encounter Details Date Type Department Care Team (Latest Contact Info) Description 08/23/2023 2:20 PM [facility] 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ion Pharmacy, [address] [place] [address] [place] [address] Factor V Leiden mutation ([facility])*; 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ion management encounter; roasterman current use of anticoagulant therapy Allergies Active Allergy Reactions Criticality Noted Date Comments Sulfa Antibiotics 01/05/2001 rash documented as of this encounter (statuses as of 08/23/2023) Medications Medication Sig Dispensed Refills Start Date End Date Status Ammonium Lactate 12 % External Cream 0 01/06/2021 Active Multivitamin Men 50+ Oral Tablet Take by mouth as needed . 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,roasterman current use of anticoagulant therapy take 1 [...] back pain. 30 Tablet 0 08/09/2023 Active Brilinta 90 MG Oral Tablet (Ticagrelor)Indica tions:Coronary artery disease involving [place] coronary artery of [place] heart without angina pectoris TAKE 1 TABLET BY MOUTH IN THE MORNING AND 1 TABLET BEFORE BEDTIME 60 Tablet 11 08/22/2023 Active documented as of this encounter (statuses as of 08/23/2023) Active Problems Problem Noted Date Diagnosed Date Acute right-sided low back pain with right-sided sciatica 07/23/2023 DDD (degenerative disc disease), lumbar 07/23/20 23 Current use of jail anticoagulation 023 Presence of drug coated stent in LAD coronary ar joshua 06/07/2023 Coronary artery disease invo lving [place] coronary artery of [place] heart without angina pectoris 06/07/2023 S/P angioplasty [...] as of this encounter (statuses as of 08/23/2023) Resolved Problems Problem Noted Date Diagnosed Date [...] as of this encounter (statuses as of 08/23/2023) Immunizations Name Administration Dates Next Due COVID-19 mRNA, LNP-s, No Pre serve, 2-Dose Series ([employer]) 06/30/2021,12/06/2020,11/15/2020 COVID-19, LNP-s, No Preserve , Tani-sucrose, Ages 12+ (Pfizer) 03/09/2022 Covid-19, Mrna, Lnp-s, Pf, B ivalent, 30 Mcg, IM, 12 yrs and above (Pfizer) 06/30/2023,08/31/2022 Pneumococcal Conjugate Vacci ne, 20-valent ([id number]) 08/09/2022 SEASONAL INFLUENZA, PF, 6 M & [...] this encounter Progress Notes * Eneida Navarro, [facility] - 08/23/2023 2:11 PM EST Medication Therapy Disease Management - 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ion Patient: Peter Caruso | : 1960 Subjective Patient-Reported Symptoms: Patient Findings Negatives: Signs/symptoms of thrombosis, Signs/symptoms of bleeding, Change in health, Change in alcohol use, Change in activity, Upcoming invasive procedure, Missed doses, Extra doses, Change in medications, Change in diet/appetite, Bruising Objective Current Warfarin Dose As of 08/23/2023 Warfarin maintenance plan: 7.5 mg (5 mg x 1.5) every Mon, Fri; 5 mg (5 mg x 1) all other days INR Result As of 08/23/2023 INR goal: 2.0-3.0 INR used for dosin.7 (08/23/2023) Assessment & Plan Warfarin Plan As of 08/23/2023 Full warfarin instructions: 7.5 mg every Mon, Fri; 5 mg all other days No change documented: Eneida Navarro RPh Next INR check: 09/16/2023 Repeat PT/INR in 4 week(s) Weekly dose: not changed Additional Dosing Information: Eneida Navarro RPh Clinical Pharmacist 08/23/2023, 2:11 PM documented in this encounter Plan of Treatment Upcoming Encounters Date Type Department Care Team (Late st Contact Info) Description 08/24/2023 9:40 AM EST Office Visit Family Medicine [address] [place] [phone] Susu Burgess PA-C [address] [place] [address] [place] [phone] 09/13/2023 8:45 AM EST Office Visit Ophthalmology, [facility] [address] [facility] [place] [address] Dewey Gross DO [address] [place] [address] 09/16/2023 11:00 AM EST 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ion Pharmacy, [address] [place] [address] [place] [address] 10/17/2023 8:40 AM EST Office Visit Rheumatology [address] [place] [phone] Jayson Villalobos MD [address] [facility] [place] [address] 10/19/2023 10:00 AM EST Office Visit Cardiology, [facility] [address] [facility] [place] [address] Bonnie Akins PA-C [address] [place] [address] 11/14/2023 2:20 PM EST Office Visit Family Medicine [address] [place] [phone] Louise Thornton MD [address] [place] [address] [place] [address] 03/11/2025 8:40 AM EDT Office Visit Dermatology [address] [place] [address] Jennifer Lopez PA-C [address] [place] [address] [place] [address] Scheduled Procedures Name Priority Associated Diagnoses Date/Ti me COLONOSCOPY FLEXIBLE PROXIMAL DIAGNOSTIC Recall History of colon polyps Health Maintenance Due Date Last Done Comments Depression Screening 03/15/2020 03/15/2019 COVID-19 Vaccine (2022- season) 2023 06/30/2023, 08/31/2022, 03/09/2022, Additional history exists GFR 05/21/2024 05/21/2023, 082 01/2023, 05/03/2023, Additional history exists HbA1c 05/21/2024 05/21/2023, [...] this encounter Medical Devices Implanted Type Area Hide Mill Man Device Identifier Shelf Expiration Date Model / Serial / Lot Stent Synergy Xd Mr [id number] - [id number] Implanted:Qty: 1 on 05/20/2023 by Cee Ryan MD at [facility] [employer] [id number] 06/17/2023 [id number] 270 / / [id number] documented as of this encounter Procedures Procedure Name Priority Date/Time Associated Diagnosis Comments INR FINGERSTICK, POINT OF CARE STAT 08/23/2023 2:18 PM EST Factor V Leiden mutation (HCC) 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ion management encounter [facility] current use of anticoagulant therapy documented in this encounter Results * INR FINGERSTICK, POINT OF CARE (08/23/2023 2:18 PM EST) Fingerstick INR 2.7 INR 2:19 PM EST [facility] [place] 55-00 Blood 08/23/2023 2:18 PM EST 08/23/2023 2:[address] [facility] [place] 55-00 - 08/23/2023 2:19 PM EST Therapeutic ranges for non-operative patients: Prophylaxsis/treatment of DVT: (Range:2.0-3.0) Treatment of pulmonary embolism:(Range:2.0-3.0) Prevention of systemic embolism from: -tissue heart valves -acute myocardial infarction -valvular heart disease -atrial fibrillation (Range: 2.0-3.0) Mechanical prosthetic valves: (Range: 2.5-3.5) Eneida Navarro [facility] POINT OF CARE TEST DOCKED DEVICE UNSOLICITED RESULTS [facility] 55-[address] [place] [address] Mariam [place] [address] documented in this encounter Visit Diagnoses Diagnosis Factor V Leiden mutation (HCC)- Primary Primary hypercoagulable state 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ion management encounter Encounter for therapeutic drug monitoring roasterman current use of anticoagulant therapy documented in [...] the patient have Health Care Power of Enamel Sprayer? No Care Teams Varnish Finisher Relationship Specialty Start Date End Date Louise Thornton MD [address] [place] [address] [place] [address] PCP - General Family Medicine 07/10/15 documented as of this encounter"
--- OUTSIDE RECORDS SUMMARY | 2023-09-16 22:39 | External Medical Summary | Summary of Care ---
Author Name Unknown Organization [facility] Address [address] [facility] [place] [address] Phone [phone] Care Team Providers Care Manager International Name Role Phone Louise Thornton MD Primary Care Provide r Reason for Visit * Reason Comments Outpatient Testing Encounter Details Date Type Department Care Team (Late st Contact Info) Description 08/24/2023 10:00 AM EST Laboratory Laboratory [address] [place] [phone] [address] [place] [address] SOB (shortness of breath) Allergies Active Allergy Reactions Criticality Noted Date Comments Sulfa Antibiotics 01/05/2001 rash documented as of this encounter (statuses as of 08/24/2023) Medications Medication Sig Dispensed Refills Start Date End Date Status Ammonium Lactate 12 % External Cream 0 01/06/2021 Active Multivitamin Men 50+ Oral Tablet Take by mouth as needed . 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,[facility] current use of anticoagulant therapy take 1 [...] Oral Tablet (Ticagrelor)Indica tions:Coronary artery disease involving [place] coronary artery of [place] heart without angina pectoris TAKE 1 TABLET BY MOUTH IN THE MORNING AND 1 TABLET BEFORE BEDTIME 60 Tablet 11 08/22/2023 Active documented as of this encounter (statuses as of 08/24/2023) Active Problems Problem Noted Date Diagnosed Date Acute right-sided low back pain with right-sided sciatica 07/23/2023 DDD (degenerative disc disease), lumbar 07/23/20 23 Current use of care home anticoagulation 023 Presence of drug coated stent in LAD coronary ar joshua 06/07/2023 Coronary artery disease invo lving [place] coronary artery of [place] heart without angina pectoris 06/07/2023 S/P angioplasty [...] as of this encounter (statuses as of 08/24/2023) Resolved Problems Problem Noted Date Diagnosed Date [...] as of this encounter (statuses as of 08/24/2023) Immunizations Name Administration Dates Next Due COVID-19 mRNA, LNP-s, No Pre serve, 2-Dose Series ([employer]) 06/30/2021,12/06/2020,11/15/2020 COVID-19, LNP-s, No Preserve , Tani-sucrose, Ages 12+ ([employer]) 03/09/2022 COVID-19, MRNA-LNP, 23-24, P F, 30 MCG/0.3 mL, 12 YRS AND ABOVE, IM ([facility]) 06/30/2023 Covid-19, Mrna, Lnp-s, Pf, B ivalent, 30 Mcg, IM, 12 yrs and above ([employer]) 08/31/2022 Pneumococcal Conjugate Vacci ne, 20-valent ([id number]) 08/09/2022 SEASONAL INFLUENZA, PF, 6 M & [...] No 05/20/2023 documented as of this encounter Plan of Treatment Upcoming Encounters Date Type Department Care Team (Late st Contact Info) Description 09/13/2023 8:45 AM EST Office Visit Ophthalmology, [facility] [address] [place] [address] Dewey Gross, DO [address] [place] [address] 09/16/2023 11:00 AM EST 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ion Pharmacy, [address] [place] [address] [place] [address] 10/17/2023 8:40 AM EST Office Visit Rheumatology [address] [place] [phone] Jayson Villalobos MD [address] [place], [place] [address] [address] 10/19/2023 10:00 AM EST Office Visit Cardiology, [facility] [address] [place] [address] Bonnie Akins PA-C [address] [place] [address] 11/14/2023 2:20 PM EST Office Visit Family Medicine [address] [place] [phone] Louise Thornton MD [address] [place] [address] [place] [address] 03/11/2025 8:40 AM EDT Office Visit Dermatology [address] [place] [address] Jennifer Lopez PA-C [address] [place] [address] [place] [address] Pending Results Name Type Priority Associated Diagnoses Date /Time CBC WITH WBC DIFFERENTIAL AND ANEMIA REFLEX WORKUP Lab Routine SOB (shortness of breath) 08/24/2023 9:57 AM EST COMPREHENSIVE METABOLIC PANEL Lab Routine SOB (shortness of breath) 08/24/2023 9:57 AM EST ANEMIA CBC Lab Routine SOB (shortness of breath) 08/24/2023 9:57 AM EST DIFFERENTIAL, AUTOMATED Lab Routine SOB (shortness of breath) 08/24/2023 9:57 AM EST ANEMIA REFLEX CHEMISTRY HOLD Lab Routine SOB (shortness of breath) 08/24/2023 9:57 AM EST Scheduled Procedures Name Priority Associated Diagnoses Date/Ti me COLONOSCOPY FLEXIBLE PROXIMAL DIAGNOSTIC Recall History of colon polyps Health Maintenance Due Date Last Done Comments Depression Screening 03/15/2020 03/15/2019 GFR 05/21/2024 05/21/2023, 082 01/2023, 05/03/2023, Additional [...] this encounter Medical Devices Implanted Type Area Rubber Stamp Die Inspector Device Identifier Shelf Expiration Date Model / Serial / Lot Stent Synergy Xd Mr [id number] - [id number] Implanted:Qty: 1 on 05/20/2023 by Cee Ryan MD at [facility] [employer] [id number] 06/17/2023 [id number] / / [id number] documented as of this encounter Visit Diagnoses Diagnosis SOB (shortness of breath) Shortness of breath documented in this encounter Advance Directives Latest Code Status on File Code Status Date Activated Date Inactivated Comments Full Code 05/20/2023 3:32 PM 05/21/2023 6:14 PM This order reflects the patients wishes and were consensually agreed upon. Question Answer Comments Discussion of Advance Directives occurred with: Patient Does the patient have a Living Will? No Does the patient have Health Care Power of Stiff Neck Loader? No Care Teams Manager International Relationship Specialty Start Date End Date Louise Thornton MD [address] [place] [address] [place] [phone] PCP - General Family Medicine 07/10/15 documented as of this encounter
--- OUTSIDE RECORDS SUMMARY | 2023-09-16 22:39 | External Medical Summary | Summary of Care ---
Author Name Unknown Organization [facility] Address [address] [facility] [place] [address] Phone [phone] Care Team Providers Care Rf Manager Name Role Phone Louise Thornton MD Primary Care Provide r Reason for Referral * Evaluate & Treat - Unlimited Visits (Within 30 days (routine)) - Pending Review Specialty Diagnoses / Procedures Referred By Katie t Referred To Contact Physical Therapy / Physical Medicine And Rehab Diagnoses DDD (degenerative disc disease), lumbar Acute right-sided low back pain with right-sided sciatica Kitty Murphy CRNP [address] [place] [address] Referral ID Status Reason Start Date Expiration Date Visits Requested Visits Authorized [id number] Pending Review Specialty Services Required 3 [phone] Question Answer Referral Priority Within 30 days (routine) Where should this appointment be scheduled? [facility] Reason for Visit * Reason Comments Acute Pt here for complain ts of back pain since Tuesday. Pt was shooting archery and believes this is the cause. Sitting here in the office pain is 8 out of 10. Pt states he has been using heat, bengay, rest and ibuprofen for the pain. Pt states that the heat has helped the most for the pain. 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,snf current use of anticoagulant therapy take 1 [...] Oral Tablet (Brilinta)Indicati ons:Coronary artery disease involving hopi coronary artery of hopi heart without angina pectoris Take 1 Tablet by mouth in the morning and 1 Tablet before bedtime. Do not start before May 21, 2023. 60 Tablet 2 05/21/2023 3 Active Atorvastatin Calcium 40 MG Oral Tablet [...] at bedtime. 90 Capsule 1 07/01/2023 Active predniSONE 20 MG Oral Tablet (Deltasone) Take 2 Tablets by mouth daily for 3 days, THEN 1 Tablet daily for 5 days, THEN 0.5 Tablets daily for 3 days. 13 Tablet 0 07/23/2023 3 Active Cyclobenzaprine HCl 10 MG Oral Tablet (Flexeril) Take 1 Tablet by mouth 2 times a day as needed for Muscle spasms. 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 023 Presence of drug coated stent in LAD coronary ar joshua 06/07/2023 Coronary artery disease invo lving hopi coronary artery of hopi heart without angina pectoris 06/07/2023 S/P angioplasty [...] as of this encounter (statuses as of 07/23/2023) Resolved Problems Problem Noted Date Diagnosed Date [...] as of this encounter (statuses as of 07/23/2023) Immunizations Name Administration Dates Next Due COVID-19 mRNA, LNP-s, No Pre serve, 2-Dose Series (CAD Best) 06/30/2021,12/06/2020,11/15/2020 COVID-19, LNP-s, No Preserve , Tani-sucrose, Ages 12+ (Pfizer) 03/09/2022 Covid-19, Mrna, Lnp-s, Pf, B ivalent, 30 Mcg, IM, 12 yrs and above (Pfizer) 06/30/2023,08/31/2022 Pneumococcal Conjugate Vacci ne, 20-valent ([id number]) 08/09/2022 SEASONAL INFLUENZA, PF, 6 M & [...] Date Smoking Tobacco: Former Smokeless Tobacco: Never Tobacco Cessation:Counseling Given: Not Answered Alcohol Use Standard Drinks/Week Comments Yes 0 [...] on file documented as of this encounter Last Filed Vital Signs Vital Sign Reading Time Taken Comments Blood Pressure 118/74 07/23/2023 10:10 AM EDT Pulse 63 07/23/2023 10:10 AM EDT Temperature 36.3 C (97.4 F) 07/23/2023 1 0:10 AM EDT Respiratory Rate 16 07/23/2023 10:1 0 AM EDT Oxygen Saturation 97% 07/23/2023 10: 10 AM EDT Inhaled Oxygen Concentration - - Weight 133.3 kg (293 lb 14.4 oz) 2022 10:10 AM EDT Height 186.7 cm (6' 1.5") 07/23/2023 10 :10 AM EDT Body Mass Index 38.25 07/23/2023 10:10 AM EDT documented in this encounter Functional Status Functional Status Response [...] or making decisions? (5 years old or older No 05/20/2023 documented as of this encounter Progress Notes * Kitty Murphy CRNP - 07/23/2023 10:17 AM EDT Acute Family Medicine Visit CC: Chief Complaint Patient presents with Acute Pt here for complaints of back pain since Tuesday night. Pt was shooting archery and believes this is the cause. Sitting here in the office pain is 8 out of 10. Pt states he has been using heat, bengay, rest and ibuprofen for the pain. Pt states that the heat has helped the most for the pain. History of Present Illness: Peter Caruso is a 62 year old male presenting with complaints of acute back pain. This started when he was pulling an arrow out of target on Tuesday. Denies hx of chornic pain. Started in the right lower back. There is sharp shooting pain down the back of right lower leg. He does have numbmenss and tingling. Denies weakness. Denies loss of bowel or bladder. 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 Tobacco Use Smoking status: Former Smokeless tobacco: Never Vaping Use Vaping Use: Never used Substance and Sexual Activity Alcohol use: Yes Comment: social Drug use: No Sexual activity: Yes Partners: Female Comment: Other Topics Concern Not on file Social History Narrative Not on file Social Determinants of Health Financial Resource Strain: Not on file Food Insecurity: Not on file Transportation Needs: Not on file Physical Activity: Not on file Stress: Not on file Social Connections: Not on file Intimate Partner Violence: Not on file Housing Stability: Not on file PMH: Past Medical History: Diagnosis Date BMI 40.0-44.9, adult (HCC) BPH (benign prostatic hyperplasia) Displacement of lumbar intervertebral disc without myelopathy DVT (deep venous thrombosis) (HCC) 08/09 right leg Factor V Leiden mutation (HCC) 09/16/2014 HTN, goal below 140/90 Impaired glucose tolerance Osteoarthritis of right knee Phlebitis and thrombophlebitis of other deep vessels of lower extremities 1980s right leg 19 years ago/ coumadin therapy Phlebitis and thrombophlebitis of superficial vessels of lower extremities 07/01 right leg ongoing Pulmonary emboli (HCC) 08/09 Sicca syndrome (HCC) Venous stasis ulcer (HCC) 2013 Past Surgical History: Procedure Laterality Date COLONOSCOPY, DIAGNOSTIC (RECTUM) 07/09/2009 wnl repeat in 10 yrs COLONOSCOPY, DIAGNOSTIC (RECTUM) 09/24/2016 adenomatous polyps, repeat 5 yrs/COLONOSCOPY FLEXIBLE PROXIMAL DIAGNOSTIC performed by Raf Perez MD at [facility] COLONOSCOPY, DIAGNOSTIC (RECTUM) 06/23/2022 MULTI POLYPS IN ASCENDING, HEPATIC , OTHERWISE NORMAL / BIOPSIE Stubulovillous adenoma / 3 YEAR RECALL / COLONOSCOPY FLEXIBLE PROXIMAL DIAGNOSTIC performed by Toshia Thorpe MD at [facility] CORONARY ANGIOGRAPHY W/LEFT HEART CATH N/A 05/20/2023 CORONARY ANGIOGRAPHY W/LEFT HEART CATH performed by Cee Ryan MD at [facility] [place] EGD, FLEXIBLE, DIAGNOSTIC 09/24/2016 acid reflux on bx/ESOPHAGOGASTRODUODENOSCOPY (EGD), FLEXIBLE, TRANSORAL, DIAGNOSTIC performed by Raf Perez MD at [facility] OTHER (INFORMATION) ACT 112 signed 05/26/23; dr gross [facility] ANKLE BRACHIAL INDEX 07/22/2014 1.2 right, 1.1 left, normal VASC DUPLEX VENOUS LE BILAT 07/29/2006 venous thrombophlebitis right greater saphenous vein VASC DUPLEX VENOUS LE BILAT 08/01/2014 Positive acute DVT in right common femoral vein, superficial venous thrombosis bilaterally Outpatient Medications Marked as Taking for the 07/23/23 encounter (Office Visit) with Emir Murphy CRNP Medication Sig Terazosin HCl 10 MG Oral Capsule Take 1 Capsule by mouth at bedtime. Nitroglycerin 0.4 MG Sublingual Tablet Sublingual (Nitrostat) Place 1 Tablet under the tongue every5 minutes as needed for Pain, Chest. up to 3 doses in 15 minutes Atorvastatin Calcium 40 MG Oral Tablet (Lipitor) Take 1 Tablet by mouth in the morning. Ticagrelor 90 MG Oral Tablet (Brilinta) Take 1 Tablet by mouth in the morning and 1 Tablet before bedtime. Do not start before May 21, 2023. hydroCHLOROthiazide 12.5 MG Oral Capsule (Hydrodiuril) TAKE ONE CAPSULE BY MOUTH EVERY DAY predniSONE 5 MG Oral Tablet (Deltasone) take 1/2 tablet daily on tuesday, tuesday and tuesday. Ibuprofen 200 MG Oral Tablet (Motrin) Take 2 Tablets by mouth as needed. A couple times a week Metoprolol Tartrate 25 MG Oral Tablet (Lopressor) TAKE ONE TABLET BY MOUTH TWICE DAILY Hydroxychloroquine Sulfate 200 MG Oral Tablet (Plaquenil) Take 2 Tablets by mouth at bedtime. Warfarin Sodium 5 MG Oral Tablet (Jantoven) take 1 & 1/2 tablets on mondays and fridays. take 1tablet all other days or as directed by anticoagulation clinic Multivitamin Men 50+ Oral Tablet Take by mouth as needed . Review of patient's allergies indicates: Allergen Reactions Sulfa Antibiotics rash Most Recent Immunizations Administered Date(s) Administered COVID-19 mRNA, LNP-s, No Preserve, 2-Dose Series (CAD Best) 06/30/2021 COVID-19, LNP-s, No Preserve, Tani-sucrose, Ages 12+ (CAD Best) 03/09/2022 Covid-19, Mrna, Lnp-s, Pf, Bivalent, 30 Mcg, IM, 12 yrs and above (Pfizer) 06/30/2023 PPD 04/20/2000 Pneumococcal Conjugate Vaccine, 20-valent ([id number]) 08/09/2022 SEASONAL INFLUENZA, PF, 6 M & Above, IM , (FLULAVAL or FLUZONE) 07/19/2023 Season Influenza, Cell Culter, 18+ Yrs, With Preserv (Flucelvax) 08/09/2013 Seasonal Influenza, Quadrivalent, No Preserve, IM 07/08/2016 Seasonal Influenza, Split, IIV3, With Preserve, Inj 07/02/2014 TD - Tetanus/Diptheria (ADULT) 04/11/1995 TDAP (age 10 and older)(Boostrix) 09/17/2019 TDAP (age 11 and older)(Adacel) 05/06/2009 Zoster Vaccine Recombinant (Shingrix) 12/22/2020 Review of Systems: Review of Systems Constitutional: Negative for fatigue and fever. Genitourinary: Negative for frequency and hematuria. Musculoskeletal: Positive for back pain and myalgias. Neurological: Positive for numbness. Psychiatric/Behavioral: Negative for sleep disturbance. Physical Exam: BP 118/74 | Pulse 63 | Temp 36.3 C (97.4 F) | Resp 16 | Ht 1.867 m (6' 1.5") | Wt 133.3 kg (293lb 14.4 oz) | SpO2 97% | BMI 38.25 kg/m | BSA 2.63 m Physical Exam Constitutional: Appearance: He is obese. HENT: Head: Normocephalic. Cardiovascular: Rate and Rhythm: Normal rate and regular rhythm. Pulmonary: Effort: Pulmonary effort is normal. Breath sounds: Normal breath sounds. Musculoskeletal: Lumbar back: Positive right straight leg raise test. Neurological: General: No focal deficit present. Mental Status: He is alert and oriented to person, place, and time. Psychiatric: Mood and Affect: Mood normal. Behavior: Behavior normal. Thought Content: Thought content normal. Judgment: Judgment normal. Back Exam Tenderness The patient is experiencing tenderness in the lumbar and sacroiliac. Range of Motion Extension: abnormal Flexion: abnormal Lateral bend right: abnormal Lateral bend left: abnormal Rotation right: abnormal Rotation left: abnormal Muscle Strength The patient has normal back strength. Tests Straight leg raise right: positive Other Gait: normal Assessment and Plan: 1. Acute right-sided low back pain with right-sided sciatica ACUTE ON CHRONIC hX OF l4-5/S1 ADD PREDNISONE TAPER ADD FLEXERIL Hold on x ray for now MEDICATION USE AND PRECAUTIONS - PHYSICAL THERAPY REFERRAL OP 2. DDD (degenerative disc disease), lumbar NOTED ON PREVIOUS MRI in 1998 - PHYSICAL THERAPY REFERRAL OP 3. 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 I spent a total of 20-29 minutes (exact time 25 mins) on the date of service in preparation, delivery, and documentation of the care provided to Peter Caruso excluding any time spent in the performance of separately billed services. Gary, MSN, [facility] documented in this encounter Plan of Treatment Upcoming Encounters Date Type Department Care Team (Late st Contact Info) Description 07/28/2023 9:40 AM EDT 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ion Pharmacy, [address] [place] [address] [place] [address] 09/13/2023 8:45 AM EST Office Visit Ophthalmology, [facility] [address] [facility] [place] [address] Dewey Gross, [address] [place] [address] 10/17/2023 8:40 AM EST Office Visit Rheumatology [address] [place] [phone] Jayson Villalobos MD [address] [facility] [place] [address] 10/19/2023 10:00 AM EST Office Visit Cardiology, [facility] [address] [place] [address] Bonnie Akins, ANTON [address] [place] [address] 11/14/2023 2:20 PM EST Office Visit Family [address] [place] [phone] Louise Thornton MD [address] [place] [address] [place] [address] Scheduled Procedures Name Priority Associated Diagnoses Date/Ti me COLONOSCOPY FLEXIBLE PROXIMAL DIAGNOSTIC Recall History of colon polyps Scheduled Referrals Name Type Priority Associated Diagnoses Orde r Schedule PHYSICAL THERAPY REFERRAL OP Referral Within 30 days (routine) DDD (degenerative disc disease), lumbar Acute right-sided low back pain with right-sided sciatica Ordered: 07/23/2023 Health Maintenance Due Date Last Done Comments [...] this encounter Medical Devices Implanted Type Area Start Up Specialist Device Identifier Shelf Expiration Date Model / Serial / Lot Stent Synergy Xd Mr [id number] - [id number] Implanted:Qty: 1 on 05/20/2023 by Cee Ryan MD at [facility] [employer] [id number] 06/17/2023 [id number] / / [id number] documented as of this encounter Visit Diagnoses Diagnosis Acute right-sided low back pain with right-sided sciatica- Primary DDD (degenerative disc disease), lumbar Degeneration of lumbar or lumbosacral intervertebral disc 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 Question Answer Comments Discussion of Advance Directives occurred with: Patient Does the patient have a Living Will? No Does the patient have Health Care Power of Design Drafter? No Care Teams Rf Manager Relationship Specialty Start Date End Date Louise Thornton MD [address] [place] [address] [place] [address] PCP - General Family Medicine 07/10/15 documented as of this encounter
--- OUTSIDE RECORDS SUMMARY | 2023-09-16 22:39 | External Medical Summary ---
Author Name Unknown Address Unknown Organization : Laboratory Report Ordering Provider Test Date Status SUMA STEPHENS 08/23/2023 14:18:06 Final Therapeutic ranges for non-o perative patients:
Prophylaxsis/treatment of DVT: (Range:2.0-3.0)
Treatment of pulmonary embolism:(Range:2.0-3.0)
Prevention of systemic embolism from:
-tissue heart valves
-acute myocardial infarction
-valvular heart disease
-atrial fibrillation
(Range: 2.0-3.0)
Mechanical prosthetic valves: (Range: 2.5-3.5) Observation Date Value Abnormality Reference (Units ) Status INR in Capillary blood by Coagulation assay 08/23/2023 14:18:06 2.7 (INR) Final Performing Location
--- OUTSIDE RECORDS SUMMARY | 2023-09-16 22:39 | External Medical Summary | Summary of Care ---
Author Name Unknown Organization [facility] [address] [facility] [address] Phone [phone] Care Team Providers Care Benefits Analyst Name Role Phone Louise Thornton MD Primary Care Provide r Reason for Visit * Reason Onset Date Comments Order Request 08/04/2023 Encounter Details Date Type Department Care Team (Late st Contact Info) Description 08/04/[address] [phone] Kitty Murphy CRNP [address] [place] [address] Order Request Allergies Active Allergy Reactions Criticality Noted Date Comments Sulfa Antibiotics 01/05/2001 rash documented as of this encounter (statuses as of 08/10/2023) Medications Medication Sig Dispensed Refills Start Date End Date Status Ammonium Lactate 12 % External Cream 0 01/06/2021 Active Multivitamin Men 50+ Oral Tablet Take by mouth as needed . 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,shelter current use of anticoagulant therapy take 1 [...] Oral Tablet (Brilinta)Indicati ons:Coronary artery disease involving huslia coronary artery of huslia heart without angina pectoris Take 1 Tablet [...] at bedtime. 90 Capsule 1 07/01/2023 Active documented as of this encounter (statuses as of 08/10/2023) Active Problems Problem Noted Date Diagnosed Date Acute right-sided low back pain with right-sided sciatica 07/23/2023 DDD (degenerative disc disease), lumbar 07/23/20 23 Current use of intermediate anticoagulation 023 Presence of drug coated stent in LAD coronary ar joshua 06/07/2023 Coronary artery disease invo lving huslia coronary artery of huslia heart without angina pectoris 06/07/2023 S/P angioplasty [...] as of this encounter (statuses as of 08/10/2023) Resolved Problems Problem Noted Date Diagnosed Date [...] as of this encounter (statuses as of 08/10/2023) Immunizations Name Administration Dates Next Due COVID-19 mRNA, LNP-s, No Pre serve, 2-Dose Series (Joystickers) 06/30/2021,12/06/2020,11/15/2020 COVID-19, LNP-s, No Preserve , Tani-sucrose, Ages 12+ (Pfizer) 03/09/2022 Covid-19, Mrna, Lnp-s, Pf, B ivalent, 30 Mcg, IM, 12 yrs and above (Joystickers) 06/30/2023,08/31/2022 PPD 04/20/2000 Pneumococcal Conjugate Vacci ne, 20-valent ([id number]) 08/09/2022 SEASONAL INFLUENZA, PF, 6 M & [...] encounter Miscellaneous Notes * Telephone Encounter - Pamela Richards OSA - 08/10/2023 11:31 AM EST Patient going to Physical therapy at [facility], [address] [facility] Phone number: [phone] And set up for follow up on: 08/24/23 at 9:40 with Susu Burgess * Telephone Encounter - Viktoriya Hall LPN - 08/09/2023 7:12 PM EST Patient active via myg. Sent message * Telephone Encounter - Lora Mirza LPN - 08/09/2023 11:31 AM EST Called pt and left a vm message Need to know where pt is going to PT Needs a f/u appoint with pcp * Telephone Encounter - Kitty Murphy CRNP - 08/04/2023 1:56 PM EST Need PT notes and needs follow up with pcp Gary, HANH, JOHN [facility] * Telephone Encounter - Cris Gomez LPN - 08/04/2023 1:50 PM EST 05/24/2023 (in office), Visit date not found (telemedicine) * Telephone Encounter - Sharyn Alcantara OSA - 08/04/2023 10:33 AM EST An order was requested for this patient. Name of Requesting Provider: Peter Caruso /patient Order Requested: MRI Back Diagnosis/Reason for Request: Patient was seen for his back and states that the pain is not gettingbetter. What location AND department does the patient wish to have their order completed at? [facility] Fax Number, if applicable: NA Call Back Number: [phone] If the caller is not a current patient, please advise the patient to call their current PCP to havethe order's prior to being seen in our office. The patient was informed that our providers would not order anything (medication, labs, etc.) prior to being seen. documented in this encounter Plan of Treatment Upcoming Encounters Date Type Department Care Team (Late st Contact Info) Description 08/23/2023 2:20 PM EST 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ion Pharmacy, [address] [place] [address] [place] [address] 08/24/2023 9:40 AM EST Office Visit Family Medicine [address] [phone] Susu Burgess PA-C [address] [place] [address] [place] [address] 09/13/2023 8:45 AM EST Office Visit Ophthalmology, [facility] [address] [facility] [place] [address] Dewey Gross DO [address] [place] [address] 10/17/2023 8:40 AM EST Office Visit Rheumatology [address] [place] [phone] Jayson Villalobos MD [address] [place], [place] [address] [address] 10/19/2023 10:00 AM EST Office Visit Cardiology, [facility] [address] [facility] [place] [address] Bonnie Akins PA-C [address] [facility] [place] [address] 11/14/2023 2:20 PM EST Office Visit Family Medicine [address] [phone] Louise Thornton MD [address] [place] [address] [place] [address] 03/11/2025 8:40 AM EDT Office Visit Dermatology [address] [place] [address] Jennifer Lopez PA-C [address] [place] [address] [place] [address] Scheduled Procedures Name Priority Associated Diagnoses Date/Ti [...] this encounter Medical Devices Implanted Type Area Journalist Device Identifier Shelf Expiration Date Model / Serial / Lot Stent Synergy Xd Mr [id number] - [id number] Implanted:Qty: 1 on 05/20/2023 by Cee [place] MD at [facility] [employer] 401 [id number] 06/17/2023 [id number] / / [id number] documented as of this encounter Advance Directives [...] the patient have Health Care Power of Isotope Technician? No Care Teams Benefits Analyst Relationship Specialty Start Date End Date Louise Thornton MD [address] [place] [address] [place] [address] PCP - General Family Medicine 07/10/15 documented as of this encounter
--- OUTSIDE RECORDS SUMMARY | 2023-09-16 22:39 | External Medical Summary | Summary of Care ---
Author Name Unknown Organization [facility] Address [address] [facility] [place] [address] Phone [phone] Care Team Providers Care Photographer'S Assistant Name Role Phone Louise Thornton MD Primary Care Provide r Reason for Referral * Evaluate & Treat - Unlimited Visits (Within 30 days (routine)) - Pending Review Specialty Diagnoses / Procedures Referred By Contac t Referred To Contact CARDIAC REHAB / Cardiology Diagnoses Coronary artery disease involving [place] coronary artery of [place] heart without angina pectoris Presence of drug coated stent in LAD coronary artery Factor V Leiden mutation (HCC) HTN, goal below 140/90 Dyslipidemia, goal LDL below 70 Ascending aorta dilatation (HCC) Branch retinal artery occlusion, unspecified laterality Javon Smith DO [address] [place] [id number] Referral ID Status Reason Start Date Expiration Date Visits Requested Visits Authorized [id number] Pending Review Specialty Services Required 06/08/[phone] Question Answer Referral Priority Within 30 days (routine) Cardiac Rehabilitation Modality No Preference, either is clinically appropriate Identify Cardiac Risk Low to Moderate Risk Comments S/p KIESHA to the LAD on April - patient prefers [place] Reason for Visit * Reason Onset Date Comments Fax 06/08/2023 Encounter Details Date Type Department Care Team (Late st Contact Info) Description 06/08/2023 Telephone Cardiology, [facility] [address] [place] [address] Bonnie Akins PA-C [address] [place] [address] Fax Allergies Active Allergy Reactions Criticality Noted Date Comments Sulfa Antibiotics 01/05/2001 rash documented as of this encounter (statuses as of 09/07/2023) Medications Medication Sig Dispensed Refills Start Date End Date Status Ammonium Lactate 12 % External Cream 0 01/06/2021 Active Multivitamin Men 50+ Oral Tablet Take by mouth as needed . 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 take 1 [...] 15 minutes 25 Tablet 11 06/07/2023 Active documented as of this encounter (statuses as of 09/07/2023) Active Problems Problem Noted Date Diagnosed Date Acute right-sided low back pain with right-sided sciatica 07/23/2023 DDD (degenerative disc disease), lumbar 10/28/20 23 Current use of chcf anticoagulation 023 Presence of drug coated stent in LAD coronary ar joshua 06/07/2023 Coronary artery disease invo lving [place] coronary artery of king [place] heart without angina pectoris 06/07/2023 S/P angioplasty [...] as of this encounter (statuses as of 09/07/2023) Resolved Problems Problem Noted Date Diagnosed Date [...] as of this encounter (statuses as of 09/07/2023) Immunizations Name Administration Dates Next Due COVID-19 mRNA, LNP-s, No Pre serve, 2-Dose Series ([employer]) 06/30/2021,12/06/2020,11/15/2020 COVID-19, LNP-s, No Preserve , Tani-sucrose, Ages 12+ ([employer]) 03/09/2022 Covid-19, Mrna, Lnp-s, Pf, B ivalent, 30 Mcg, IM, 12 yrs and above ([employer]) 08/31/2022 Pneumococcal Conjugate Vacci ne, 20-valent ([id number]) 08/09/2022 Season Influenza, Cell Cultu re, 18+ Yrs, With Preserv (Flucelvax) 08/09/2013 Seasonal Influenza, PF, 6 M & above, IM , (FluLaval or Fluzone) 07/02/2022,08/12/2021,06/24/2020,2018,07/18/2018,09/09/2017 Seasonal Influenza, Quadriva lent, No Preserve, IM [...] encounter Miscellaneous Notes * Telephone Encounter - Yue Aranda CMA - 06/08/2023 11:12 AM EDT Faxed updated Cardiac Rehab referral placed under Dr. Smith. Successful confirmation received. * Telephone Encounter - Juliet Machuca OSA - 06/08/2023 10:42 AM EDT Juliet calling in from [facility] stating they received an order for patient that was signed by Bonnie Akins PA-C, but the order needs to be signed by the doctor. Pleasefax signed order to [phone]. documented in this encounter Plan of Treatment Upcoming Encounters Date Type Department Care Team (Late st Contact Info) Description 09/13/2023 8:45 AM EST Office Visit Ophthalmology, [facility] [address] [place] [address] Dewey Gross, [address] [place] [address] 09/16/2023 11:00 AM EST 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ion Pharmacy, [address] [place] [address] [place] [address] 10/17/2023 8:40 AM EST Office Visit Rheumatology [address] [place] [phone] Jayson Villalobos MD [address] [place] [address] [place] [address] 10/19/2023 10:00 AM EST Office Visit Cardiology, [facility] [address] [place] [address] Bonnie Akins PA-C [address] [place] [address] 11/14/2023 2:20 PM EST Office Visit Family Medicine [address] [place] [phone] Louise Thornton MD [address] [place] [address] [place] [address] 03/11/2025 8:40 AM EDT Office Visit Dermatology [address] [place] [address] Jennifer Lopez PA-C [address] [place] [address] [place] [address] Scheduled Procedures Name Priority Associated Diagnoses Date/Ti me COLONOSCOPY FLEXIBLE PROXIMAL DIAGNOSTIC Recall History of colon polyps Scheduled Referrals Name Type Priority Associated Diagnoses Orde r Schedule CARDIAC REHAB REFERRAL OP Referral Within 30 days (routine) Coronary artery disease involving [place] coronary artery of king [place] heart without angina pectoris Presence of drug coated stent in LAD coronary artery Factor V Leiden mutation (HCC) HTN, goal below 140/90 Dyslipidemia, goal LDL below 70 Ascending aorta dilatation (HCC) Branch retinal artery occlusion, unspecified laterality Ordered: 06/08/2023 Health Maintenance Due Date Last Done Comments [...] this encounter Medical Devices Implanted Type Area Lead Systems Engineer Device Identifier Shelf Expiration Date Model / Serial / Lot Stent Benita Xd Mr [id number] - [id number] Implanted:Qty: 1 on 05/20/2023 by Cee Ryan MD at [facility] [place] [employer] [id number] 06/17/2023 [id number] 270 / / [id number] documented as of this encounter Visit Diagnoses Diagnosis Coronary artery disease involving [place] coronary artery of king [place] heart without angina pectoris- Primary Presence of drug coated stent in LAD coronary artery Postsurgical percutaneous transluminal coronary angioplasty status Factor V Leiden mutation (HCC) Primary hypercoagulable state HTN, goal below 140/90 Unspecified essential hypertension Dyslipidemia, goal LDL below 70 Other and unspecified hyperlipidemia Ascending aorta dilatation (HCC) Thoracic aortic ectasia Branch retinal artery occlusion, unspecified laterality documented in this encounter Advance Directives Latest Code Status on File Code Status Date Activated Date Inactivated Comments Full Code 05/20/2023 3:32 PM 05/21/2023 6:14 PM This order reflects the patients wishes and were consensually agreed upon. Question Answer Comments Discussion of Advance Directives occurred with: Patient Does the patient have a Living Will? No Does the patient have Health Care Power of Carbon Coater Machine Operator? No Care Teams Photographer'S Assistant Relationship Specialty Start Date End Date Louise Thornton MD [address] [place] [address] [place] [address] PCP - General Family Medicine 07/10/15 documented as of this encounter
--- OUTSIDE RECORDS SUMMARY | 2023-09-16 22:39 | External Medical Summary | Summary of Care ---
Author Name Unknown Organization [facility] Address [address] [place] [address] Phone [phone] Care Team Providers Care Stenciler Name Role Phone Louise Thornton MD Primary Care Provide r Reason for Visit * Reason Comments eRx-Medication Refill Encounter Details Date Type Department Care Team (Late st Contact Info) Description 08/20/2023 Refill Cardiology [facility] [address] [place] [address] Vance Reinoso CRNP [address] [place] [address] Coronary artery disease involving [place] coronary artery of [place] heart without angina pectoris Allergies Active Allergy Reactions Criticality Noted Date Comments Sulfa Antibiotics 01/05/2001 rash documented as of this encounter (statuses as of 08/22/2023) Medications Medication Sig Dispensed Refills Start Date End Date Status Ammonium Lactate 12 % External Cream 0 01/07/20 21 Active Multivitamin Men 50+ Oral Tablet Take by mouth as needed . 0 Active Warfarin Sodium 5 MG Oral Tablet (Jantoven)Indicat ions:Factor V Leiden mutation (HCC),Anticoagula tion management encounter,alf current use of anticoagulant therapy take 1 & 1/2 tablets on mondays and fridays. take 1 tablet all other days or as directed by anticoagulation clinic 110 Tablet 3 01/11/20 23 Active Hydroxychloroquin e Sulfate 200 MG Oral Tablet (Plaquenil) Take 2 Tablets by mouth at bedtime. 180 Tablet 3 01/29/20 23 Active Metoprolol Tartrate 25 MG Oral Tablet (Lopressor)Indica tions:Essential hypertension with goal blood pressure less than 140/90 TAKE ONE TABLET BY MOUTH TWICE DAILY 180 Tablet 3 03/23/20 23 Active Ibuprofen 200 MG Oral Tablet (Motrin) Take 2 Tablets by mouth as needed. A couple times a week 0 Active predniSONE 5 MG Oral Tablet (Deltasone) take 1/2 tablet daily on tuesday, tuesday and tuesday. 6 Tablet 5 04/11/20 23 Active hydroCHLOROthiazi de 12.5 MG Oral Capsule (Hydrodiuril) TAKE ONE CAPSULE BY MOUTH EVERY DAY 90 Capsule 1 04/23/20 23 Active Atorvastatin Calcium 40 MG Oral Tablet (Lipitor) Take 1 Tablet by mouth in the morning. 34 Tablet 5 05/21/20 23 Active Nitroglycerin 0.4 MG Sublingual Tablet Sublingual (Nitrostat) Place 1 Tablet under the tongue every 5 minutes as needed for Pain, Chest. up to 3 doses in 15 minutes 25 Tablet 11 06/07/20 23 Active Terazosin HCl 10 MG Oral CapsuleIndication s:BPH with obstruction/lower urinary tract symptoms Take 1 Capsule by mouth at bedtime. 90 Capsule 1 07/01/20 23 Active Baclofen 20 MG Oral TabletIndications :Acute right-sided low back pain with right-sided sciatica Take 1 Tablet by mouth in the morning and 1 Tablet before bedtime. As needed for lower back pain. 30 Tablet 0 08/09/20 23 Active Brilinta 90 MG Oral Tablet (Ticagrelor)Indic ations:Coronary artery disease involving [place] coronary artery of [place] heart without angina pectoris TAKE 1 TABLET BY MOUTH IN THE MORNING AND 1 TABLET BEFORE BEDTIME 60 Tablet 11 08/22/20 23 Active Ticagrelor 90 MG Oral Tablet (Brilinta)Indicat ions:Coronary artery disease involving [place] coronary artery of [place] heart without angina pectoris Take 1 Tablet by mouth in the morning and 1 Tablet before bedtime. Do not start before May 21, 2023. 60 Tablet 2 05/21/20 23 023 Discontinued documented as of this encounter (statuses as of 08/22/2023) Active Problems Problem Noted Date Diagnosed Date Acute right-sided low back pain with right-sided sciatica 07/23/2023 DDD (degenerative disc disease), lumbar 10/28/20 23 Current use of alf anticoagulation 023 Presence of drug coated stent in LAD coronary ar joshua 06/07/2023 Coronary artery disease invo lving [place] coronary artery of [place] heart without angina pectoris 06/07/2023 S/P angioplasty [...] as of this encounter (statuses as of 08/22/2023) Resolved Problems Problem Noted Date Diagnosed Date [...] as of this encounter (statuses as of 08/22/2023) Immunizations Name Administration Dates Next Due COVID-19 mRNA, LNP-s, No Pre serve, 2-Dose Series ([employer]) 06/30/2021,12/06/2020,11/15/2020 COVID-19, LNP-s, No Preserve , Tani-sucrose, Ages 12+ ([employer]) 03/09/2022 Covid-19, Mrna, Lnp-s, Pf, B ivalent, 30 Mcg, IM, 12 yrs and above ([employer]) 06/30/2023,08/31/2022 Pneumococcal Conjugate Vacci ne, 20-valent ([id number]) 08/09/2022 SEASONAL INFLUENZA, PF, 6 M & [...] encounter Miscellaneous Notes * Telephone Encounter - Katrin Silva PA-C - 08/22/2023 3:29 PM EST Signed Prescriptions: Disp Refills Brilinta 90 MG Oral Tablet (Ticagrelor) 60 Tab*11 Sig: TAKE 1 TABLET BY MOUTH IN THE MORNING AND 1 TABLET BEFORE BEDTIMEAuthorizing Provider: KATRIN SILVA-- documented in this encounter Plan of Treatment Upcoming Encounters Date Type Department Care Team (Late st Contact Info) Description 08/23/2023 2:20 PM EST 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ion Pharmacy, [address] [place] [phone] [place] [address] 08/24/2023 9:40 AM EST Office Visit Family Medicine [address] [place] [phone] Susu Burgess PA-C [address] [place] [address] [place] [address] 09/13/2023 8:45 AM EST Office Visit Ophthalmology, [facility] [address] [place] [address] Dewey Gross DO [address] [place] [address] 10/17/2023 8:40 AM EST Office Visit Rheumatology [address] [place] [phone] Jayson Villalobos MD [facility] [place] [address] 10/19/2023 10:00 AM EST Office Visit Cardiology, [facility] [address] [place] [address] Katrin iSlva PA-C [address] [place] [address] 11/14/2023 2:20 PM EST Office Visit Family Medicine [address] [place] [phone] Louise Thornton MD [address] [place] [address] [place] [address] 03/11/2025 8:40 AM EDT Office Visit Dermatology [address] [place] [address] Jennifer Lopez PA-C [address] [place] [address] [place] [address] Scheduled Procedures Name Priority Associated Diagnoses Date/Ti [...] this encounter Medical Devices Implanted Type Area Call Center Trainer Device Identifier Shelf Expiration Date Model / Serial / Lot Stent Benita Xd Mr [id number] - [id number] Implanted:Qty: 1 on 05/20/2023 by Cee Ryan MD at [facility] [employer] [id number] 06/17/2023 [id number] 270 / / [id number] documented as of this encounter Visit Diagnoses Diagnosis Coronary artery disease involving [place] coronary artery of [place] heart without angina pectoris documented in this encounter Advance Directives Latest Code Status on File Code Status Date Activated Date Inactivated Comments Full Code 05/20/2023 3:32 PM 05/21/2023 6:14 PM This order reflects the patients wishes and were consensually agreed upon. Question Answer Comments Discussion of Advance Directives occurred with: Patient Does the patient have a Living Will? No Does the patient have Health Care Power of Vessel Engineer? No Care Teams Stenciler Relationship Specialty Start Date End Date Louise Thornton MD [address] [place] [address] [place] [phone] PCP - General Family Medicine 07/10/15 documented as of this encounter
--- OUTSIDE RECORDS SUMMARY | 2023-09-16 22:39 | External Medical Summary ---
Author Name Unknown Address Unknown Organization : Laboratory Report Ordering Provider Test Date Status SUMA STEPHENS 08/02/2023 14:23:04 Final Therapeutic ranges for non-o perative patients:
Prophylaxsis/treatment of DVT: (Range:2.0-3.0)
Treatment of pulmonary embolism:(Range:2.0-3.0)
Prevention of systemic embolism from:
-tissue heart valves
-acute myocardial infarction
-valvular heart disease
-atrial fibrillation
(Range: 2.0-3.0)
Mechanical prosthetic valves: (Range: 2.5-3.5) Observation Date Value Abnormality Reference (Units ) Status INR in Capillary blood by Coagulation assay 08/02/2023 14:23:04 3.2 (INR) Final Performing Location
--- OUTSIDE RECORDS SUMMARY | 2023-09-16 22:39 | External Medical Summary | Summary of Care ---
Author Name Unknown Organization [facility] [address] [facility] [address] Phone [phone] Care Team Providers Care Supervisor Erection Shop Name Role Phone Louise Thornton MD Primary Care Provide r Reason for Visit * Reason Onset Date Comments Order Request 08/04/2023 Encounter Details Date Type Department Care Team (Late st Contact Info) Description 08/04/[address] [phone] Kitty Murphy CRNP [address] [place] [address] Order Request Allergies Active Allergy Reactions Criticality Noted Date Comments Sulfa Antibiotics 01/05/2001 rash documented as of this encounter (statuses as of 08/09/2023) Medications Medication Sig Dispensed Refills Start Date End Date Status Ammonium Lactate 12 % External Cream 0 01/06/2021 Active Multivitamin Men 50+ Oral Tablet Take by mouth as needed . 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 take 1 [...] Oral Tablet (Brilinta)Indicati ons:Coronary artery disease involving [place] coronary artery of [place] heart without angina pectoris Take 1 Tablet [...] as of this encounter (statuses as of 08/09/2023) Active Problems Problem Noted Date Diagnosed Date Acute right-sided low back pain with right-sided sciatica 07/23/2023 DDD (degenerative disc disease), lumbar 07/23/20 23 Current use of correction anticoagulation 023 Presence of drug coated stent in LAD coronary ar joshua 06/07/2023 Coronary artery disease invo lving [place] coronary artery of [place] heart without angina pectoris 06/07/2023 S/P angioplasty [...] as of this encounter (statuses as of 08/09/2023) Resolved Problems Problem Noted Date Diagnosed Date [...] as of this encounter (statuses as of 08/09/2023) Immunizations Name Administration Dates Next Due COVID-19 mRNA, LNP-s, No Pre serve, 2-Dose Series ([employer]) 06/30/2021,12/06/2020,11/15/2020 COVID-19, LNP-s, No Preserve , Tani-sucrose, Ages 12+ ([employer]) 03/09/2022 Covid-19, Mrna, Lnp-s, Pf, B ivalent, 30 Mcg, IM, 12 yrs and above ([employer]) 06/30/2023,08/31/2022 Pneumococcal Conjugate Vacci ne, 20-valent ([id number]) 08/09/2022 SEASONAL INFLUENZA, PF, 6 M & [...] encounter Miscellaneous Notes * Telephone Encounter - Viktoriya Hall LPN [...] follow up with pcp Gary, HANH, JOHN [facility] * Telephone Encounter - Cris Gomez LPN - 08/04/2023 1:50 PM EST 05/24/2023 (in office), Visit date not found (telemedicine) * Telephone Encounter - Shayrn Alcantara OSA - 08/04/2023 10:33 AM EST An order was requested for this patient. Name of Requesting Provider: Peter Caruso /patient Order Requested: MRI Back Diagnosis/Reason for Request: Patient was seen for his back and states that the pain is not gettingbetter. What location AND department does the patient wish to have their order completed at? [facility] Fax Number, if applicable: NA Call Back Number: [phone] If the caller is not a current [...] Description 08/23/2023 2:20 PM EST 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ion Pharmacy, [address] [place] [address] [place] [address] 09/13/2023 8:45 AM EST Office Visit Ophthalmology, [facility] [address] [place] [address] Dewey Gross DO [address] [place] [address] 10/17/2023 8:40 AM EST Office Visit Rheumatology [address] [place] [phone] Jayson Villalobos MD [address] [place] [address] 10/19/2023 10:00 AM EST Office Visit Cardiology, [facility] [address] [place] [address] Bonnie Akins PA-C [address] [place] [address] 11/14/2023 2:20 PM EST Office Visit Family Medicine [address] [place] [phone] Louise Thornton MD [address] [place] [address] [place] [address] 03/11/2025 8:40 AM EDT Office Visit Dermatology [address] [place] [address] Jennifer Lopez PA-C [address] [place] [address] [place] [address] Scheduled Procedures Name Priority Associated Diagnoses Date/Ti me COLONOSCOPY FLEXIBLE PROXIMAL DIAGNOSTIC Recall History of colon polyps Health Maintenance Due Date Last Done Comments Depression Screening 03/15/2020 03/15/2019 COVID-19 Vaccine ( season) 2023 06/30/2023, 08/31/2022, 03/09/2022, Additional history exists GFR 05/21/2024 05/21/2023, 0801/2023, 05/03/2023, Additional history exists HbA1c 05/21/2024 05/21/2023, 0501/2023, 03/01/2022, Additional history exists Albumin/Creatinine Ratio 03/01/2025 [...] this encounter Medical Devices Implanted Type Area Dancing Teacher Device Identifier Shelf Expiration Date Model / Serial / Lot Stent Synergy Xd Mr [id number] - [id number] Implanted:Qty: 1 on 05/20/2023 [place] Ryan [place] [facility] [place] [facility] [id number] 06/17/2023 [id number] / / [id number] documented as of this encounter Advance Directives [...] the patient have Health Care Power of Navy Diver? No Care Teams Supervisor Erection Shop Relationship Specialty Start Date End Date Louise Thornton MD [address] [place] [address] [place] [address] PCP - General Family Medicine 07/10/15 documented as of this encounter
--- OUTSIDE RECORDS SUMMARY | 2023-09-16 22:39 | External Medical Summary | Summary of Care ---
Author Name Unknown Organization [facility] Address [address] [facility] [place] [address] Phone [phone] Care Team Providers Care Body Make Up Artist Name Role Phone Louise Thornton MD Primary Care Provide r Reason for Visit * Reason Comments Re-Check Encounter Details Date Type Department Care Team (Late st Contact Info) Description 08/24/2023 9:40 AM EST Office Visit Family Medicine [address] [place] [address] Susu Burgess PA-C [address] [place] [address] [place] [address] SOB (shortness of breath)* Allergies Active Allergy Reactions Criticality Noted Date Comments Sulfa Antibiotics 01/05/2001 rash documented as of this encounter (statuses as of 08/24/2023) Medications Medication Sig Dispensed Refills Start Date End Date Status Ammonium Lactate 12 % External Cream 0 1 Active Multivitamin Men 50+ Oral Tablet Take by mouth as needed . 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,half-way current use of anticoagulant therapy take 1 & 1/2 tablets on mondays and fridays. take 1 tablet all other days or as directed by anticoagulation clinic 110 Tablet 3 3 Active Hydroxychloroquine Sulfate 200 MG Oral Tablet (Plaquenil) Take 2 Tablets by mouth at bedtime. 180 Tablet 3 3 Active Metoprolol Tartrate 25 MG Oral Tablet (Lopressor)Indicat ions:Essential hypertension with goal blood pressure less than 140/90 TAKE ONE TABLET BY MOUTH TWICE DAILY 180 Tablet 3 3 Active Ibuprofen 200 MG Oral Tablet (Motrin) Take 2 Tablets by mouth as needed. A couple times a week 0 Active predniSONE 5 MG Oral Tablet (Deltasone) take 1/2 tablet daily on tuesday, tuesday and tuesday. 6 Tablet 5 3 Active hydroCHLOROthiazid e 12.5 MG Oral Capsule (Hydrodiuril) TAKE ONE CAPSULE BY MOUTH EVERY DAY 90 Capsule 1 3 Active Atorvastatin Calcium 40 MG Oral Tablet (Lipitor) Take 1 Tablet by mouth in the morning. 34 Tablet 5 3 Active Nitroglycerin 0.4 MG Sublingual Tablet Sublingual (Nitrostat) Place 1 Tablet under the tongue every 5 minutes as needed for Pain, Chest. up to 3 doses in 15 minutes 25 Tablet 11 3 Active Terazosin HCl 10 MG Oral CapsuleIndications :BPH with obstruction/lower urinary tract symptoms Take 1 Capsule by mouth at bedtime. 90 Capsule 1 3 Active Brilinta 90 MG Oral Tablet (Ticagrelor)Indica tions:Coronary artery disease involving [place] coronary artery of [place]well heart without angina pectoris TAKE 1 TABLET BY MOUTH IN THE MORNING AND 1 TABLET BEFORE BEDTIME 60 Tablet 11 3 Active Aspirin 81 MG Oral Tablet Delayed Release Take 1 Tablet by mouth in the morning for 6 days. Do not start before May 22, 2023. 6 Tablet 0 3 08/24/20 23 Discontinu ed(Patient preference /discontin uation) Baclofen 20 MG Oral TabletIndications: Acute right-sided low back pain with right-sided sciatica Take 1 Tablet by mouth in the morning and 1 Tablet before bedtime. As needed for lower back pain. 30 Tablet 0 3 08/24/20 23 Discontinu ed(Patient preference /discontin uation) documented as of this encounter (statuses as of 08/24/2023) Active Problems Problem Noted Date Diagnosed Date Acute right-sided low back pain with right-sided sciatica 07/23/2023 DDD (degenerative disc disease), lumbar 07/23/20 23 Current use of assisted anticoagulation 023 Presence of drug coated stent in LAD coronary ar joshua 06/07/2023 Coronary artery disease invo lving [place] coronary artery of [place]well heart without angina pectoris 06/07/2023 S/P angioplasty [...] mRNA, LNP-s, No Pre serve, 2-Dose Series (tribalX) 06/30/2021,12/06/2020,11/15/2020 COVID-19, LNP-s, No Preserve , Tani-sucrose, Ages 12+ (tribalX) 03/09/2022 COVID-19, MRNA-LNP, 23-24, P F, 30 MCG/0.3 mL, 12 YRS AND ABOVE, IM ([facility] 06/30/2023 Covid-19, Mrna, Lnp-s, Pf, B ivalent, 30 Mcg, IM, 12 yrs and above (tribalX) 08/31/2022 Pneumococcal Conjugate Vacci ne, 20-valent ([id number]) 08/09/2022 SEASONAL INFLUENZA, PF, 6 M & [...] Sign Reading Time Taken Comments Blood Pressure 128/78 08/24/2023 9:25 AM EST Pulse 60 08/24/2023 9:25 AM EST Temperature 36.1 C (96.9 F) 08/24/2023 9:25 AM ES T Respiratory Rate 16 08/24/2023 9:25 AM EST Oxygen Saturation - - Inhaled Oxygen Concentration - - Weight 130.6 kg (288 lb) 08/24/2023 9:25 AM EST Height 186.7 cm (6' 1.5") 08/24/2023 9:25 AM EST Body Mass Index 37.48 08/24/2023 9:25 AM EST documented in this encounter Functional Status Functional [...] as of this encounter Progress Notes * Susu Burgess PA-C - 08/24/2023 9:30 AM EST Nursing Notes: Nhi Turpin RN 08/24/23 1391 Sign at exiting of workspace Check up Pt has been getting more SOB, even on Flat walking. Wonders if this is from his Brillinta. Pt had a stent placed in April. Next Cardio appt is in September Seeing [facility] for his back Pt here today with increasing SOB. It is worse with exertion. This is nothing new. This has been ongoing for nearly a year. He does follow with cardiology and has has complained about this. He doesn't see them for another 2 months. Pt denies chest pain, pain with deep breath, swelling in legs. Pt denies orthopnea or SOB at rest. He is taking brilinta and wondering if this is the cause. He knows it can be a side effect. EKG today is normal. Review of patient's allergies indicates: Allergen Reactions Sulfa Antibiotics rash Current Outpatient Medications Medication Sig Dispense Refill Ammonium Lactate 12 % External Cream Multivitamin Men 50+ Oral Tablet Take by mouth as needed . Warfarin Sodium 5 MG Oral Tablet (Jantoven) take 1 & 1/2 tablets on mondays and fridays. take 1tablet all other days or as directed by anticoagulation clinic 110 Tablet 3 Hydroxychloroquine Sulfate 200 MG Oral Tablet (Plaquenil) Take 2 Tablets by mouth at bedtime. 180 Tablet 3 Metoprolol Tartrate 25 MG Oral Tablet (Lopressor) TAKE ONE TABLET BY MOUTH TWICE DAILY 180 Tablet 3 Ibuprofen 200 MG Oral Tablet (Motrin) Take 2 Tablets by mouth as needed. A couple times a week predniSONE 5 MG Oral Tablet (Deltasone) take 1/2 tablet daily on tuesday, tuesday and tuesday. 6 Tablet 5 hydroCHLOROthiazide 12.5 MG Oral Capsule (Hydrodiuril) TAKE ONE CAPSULE BY MOUTH EVERY DAY 90 Capsule 1 Atorvastatin Calcium 40 MG Oral Tablet (Lipitor) Take 1 Tablet by mouth in the morning. 34 Tablet 5 Nitroglycerin 0.4 MG Sublingual Tablet Sublingual (Nitrostat) Place 1 Tablet under the tongue every5 minutes as needed for Pain, Chest. up to 3 doses in 15 minutes 25 Tablet 11 Terazosin HCl 10 MG Oral Capsule Take 1 Capsule by mouth at bedtime. 90 Capsule 1 Brilinta 90 MG Oral Tablet (Ticagrelor) TAKE 1 TABLET BY MOUTH IN THE MORNING AND 1 TABLET BEFORE BEDTIME 60 Tablet 11 No current facility-administered medications for this visit. Past Medical History: Diagnosis Date BMI 40.0-44.9, adult ([facility]) BPH (benign prostatic hyperplasia) Displacement of lumbar intervertebral disc without myelopathy DVT (deep venous thrombosis) ([facility]) 08/09 right leg Factor V Leiden mutation ([facility]) 09/16/2014 HTN, goal below 140/90 Impaired glucose tolerance Osteoarthritis of right knee Phlebitis and thrombophlebitis of other deep vessels of lower extremities 1980s right leg 19 years ago/ coumadin therapy Phlebitis and thrombophlebitis of superficial vessels of lower extremities 07/01 right leg ongoing Pulmonary emboli ([facility]) 08/09 Sicca syndrome ([facility]) Venous stasis ulcer ([facility]) 2013 Social History Socioeconomic History Marital status: Spouse name: Not on file Number of children: 2 Years of education: Not on file Highest education level: Not on file Occupational History 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 rate 16, height 1.867 m (6' 1.5"), weight 130.6 kg (288 lb). GENERAL: alert, healthy, and no distress HEART: regular rate & rhythm, no murmur, and no gallops LUNGS: chest symmetric with normal AP diameter, no chest deformities noted, no chest wall tenderness, lungs clear to auscultation EXTREMITIES: no edema A:SOB (shortness of breath) (Primary) - EKG; Future; Expected date: 08/24/2023 - EKG - CBC WITH WBC DIFFERENTIAL AND ANEMIA REFLEX WORKUP; Future; Expected date: 08/24/2023 - COMPREHENSIVE METABOLIC PANEL; Future; Expected date: 08/24/2023 Will check some labs. EKG normal. Needs to message cardiology. Any questions/problems, please call.If anything changes, worsens, develops new sx, please call [facility]ESS[facility]. Follow Up: Return if symptoms worsen or fail to improve. Susu Burgess PA-C documented in this encounter Nursing Notes * Nhi Turpin RN - 08/24/2023 9:25 AM EST Check up Pt has been getting more SOB, even on Flat walking. Wonders if this is from his Brillinta. Pt had a stent placed in April. Next Cardio appt is in September Seeing Leila for his back documented in this encounter Plan of Treatment Upcoming Encounters Date Type Department Care Team (Late st Contact Info) Description 09/13/2023 8:45 AM EST Office Visit Ophthalmology, [facility] [address] [place] [address] Dewey Gross, [address] [place] [address] 09/16/2023 11:00 AM EST 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ion Pharmacy, [address] [place] [address] [place] [address] 10/17/2023 8:40 AM EST Office Visit Rheumatology [address] [place] [phone] Jayson Villalobos MD [address] [place] [address] [facility] [address] 10/19/2023 10:00 AM EST Office Visit Cardiology, [facility] [address] [place] [address] Bonnie Akins PA-C [address] [place] [address] 11/14/2023 2:20 PM EST Office Visit Family Medicine [address] [place] [phone] Louise Thornton MD [address] [place] [address] [place] [address] 03/11/2025 8:40 AM EDT Office Visit Dermatology [address] [place] [address] Jennifer Lopez PA-C [address] [place] [address] [place] [address] Pending Results Name Type Priority Associated Diagnoses Date /Time CBC WITH WBC DIFFERENTIAL AND ANEMIA REFLEX WORKUP Lab Routine SOB (shortness of breath) 08/24/2023 9:57 AM EST COMPREHENSIVE METABOLIC PANEL Lab Routine SOB (shortness of breath) 08/24/2023 9:57 AM EST Scheduled Orders Name Type Priority Associated Diagnoses Orde r Schedule EKG EKG Routine SOB (shortness of breath) Expected: 08/24/2023 (Approximate), Expires: 09/23/2024 CBC WITH WBC DIFFERENTIAL AND ANEMIA REFLEX WORKUP Lab Routine SOB (shortness of breath) Expected: 08/24/2023 (Approximate), Expires: 08/24/2024 COMPREHENSIVE METABOLIC PANEL Lab Routine SOB (shortness of breath) Expected: 08/24/2023 (Approximate), Expires: 08/23/2024 Scheduled Procedures Name Priority Associated Diagnoses Date/Ti me COLONOSCOPY FLEXIBLE PROXIMAL DIAGNOSTIC Recall History of colon polyps Health Maintenance Due Date Last Done Comments Depression Screening 03/15/2020 03/15/2019 GFR 05/21/2024 05/21/2023, 04/27, 05/03/2023, Additional history [...] this encounter Medical Devices Implanted Type Area Bulkhead Carpenter Device Identifier Shelf Expiration Date Model / Serial / Lot Stent Synergy Xd Mr [id number] - [id number] Implanted:Qty: 1 on 05/20/2023 [place]ee Ryan [place] [facility] [place] [employer] [id number] 06/17/2023 [id number] / / [id number] documented as of this encounter Visit Diagnoses Diagnosis SOB (shortness of breath)- Primary Shortness of breath documented in this encounter [...] patient have Health Care Power of Supervisor Slitting And Shipping? No Care Teams Body Make Up Artist Relationship Specialty Start Date End Date Louise Thornton MD [address] [place] [address] [place] [address] PCP - General Family Medicine 07/10/15 documented as of this encounter
--- OUTSIDE RECORDS SUMMARY | 2023-09-16 22:39 | External Medical Summary | Summary of Care ---
Author Name Unknown Organization [facility] Address [address] [facility] [place] [address] Phone [phone] Care Team Providers Care Planning And Analysis Manager Name Role Phone Louise Thornton MD Primary Care Provide r Reason for Visit * Reason Onset Date Comments Fax 08/10/2023 Encounter Details Date Type Department Care Team (Late st Contact Info) Description 08/10/2023 Telephone [address] [place] [address] Louise Thornton MD [address] [place] [address] [place] [address] Fax Allergies Active Allergy Reactions Criticality Noted [...] ons:Factor V Leiden mutation (HCC),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,[facility] current use of anticoagulant therapy take 1 [...] Oral Tablet (Brilinta)Indicati ons:Coronary artery disease involving [place] coronary artery of [place] heart without angina pectoris Take 1 Tablet [...] disease), lumbar 07/23/20 23 Current use of buttermaker helper anticoagulation 023 Presence of drug coated stent in LAD coronary ar joshua 06/07/2023 Coronary artery disease invo lving [place] coronary artery of [place] heart without angina pectoris 06/07/2023 S/P [...] mRNA, LNP-s, No Pre serve, 2-Dose Series ([employer]) 06/30/2021,12/06/2020,11/15/2020 COVID-19, LNP-s, No Preserve , Tani-sucrose, Ages 12+ (Pfizer) 03/09/2022 Covid-19, Mrna, Lnp-s, Pf, B ivalent, 30 Mcg, IM, 12 yrs and above (Pfizer) 06/30/2023,08/31/2022 Pneumococcal Conjugate Vacci ne, 20-valent ([id number]) 08/09/2022 SEASONAL INFLUENZA, PF, 6 M & [...] faxed: Recent Xray on 08/09/23 Fax number: [phone] Attention to Name/Company: Leila MONTEZ Any additional information?: needs results from most recent xray imaging on 08/09/23 sent to [facility] they are resulted. documented in this encounter Plan of Treatment Upcoming Encounters Date Type Department Care Team (Late st Contact Info) Description 08/23/2023 2:20 PM EST 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ion Pharmacy, [address] [place] [address] [place] [address] 08/24/2023 9:40 AM EST Office Visit Family Medicine [address] [place] [phone] Susu Burgess PA-C [address] [place] [address] [place] [address] 09/13/2023 8:45 AM EST Office Visit Ophthalmology, [facility] [address] [place] [address] Dewey Gross DO [address] [place] [address] 10/17/2023 8:40 AM EST Office Visit Rheumatology [address] [place] [phone] Jayson Villalobos MD [address] [place], [place] [address] [address] 10/19/2023 10:00 AM EST Office Visit Cardiology, [facility] [address] [place] [address] Bonnie Akins PA-C [address] [place] [address] 11/14/2023 2:20 PM EST Office Visit Family Medicine [address] [place] [phone] Louise Thornton MD [address] [place] [address] [place] [address] 03/11/2025 8:40 AM EDT Office Visit Dermatology [address] [place] [address] Jennifer Lopez PA-C [address] [place] [address] [place] [address] Scheduled Procedures Name Priority Associated Diagnoses Date/Ti [...] this encounter Medical Devices Implanted Type Area Data Report Analyst Device Identifier Shelf Expiration Date Model / Serial / Lot Stent Synergy Xd Mr [id number] - [id number] Implanted:Qty: 1 on 05/20/2023 [place] Ryan [place] [facility] [place] [employer] [id number] 06/17/2023 [id number] / / [id number] documented as of this encounter Advance Directives [...] the patient have Health Care Power of Global Regulatory Affairs Manager? No Care Teams Planning And Analysis Manager Relationship Specialty Start Date End Date Louise Thornton MD [address] [place] [address] [place] [address] PCP - General Family Medicine 07/10/15 documented as of this encounter
--- OUTSIDE RECORDS SUMMARY | 2023-09-16 22:39 | External Medical Summary | Summary of Care ---
Author Name Unknown Organization [facility] [address] [facility] [address] Phone [phone] Care Team Providers Care Supervisor Fertilizer Processing Name Role Phone Louise Thornton MD Primary Care Provide r Reason for Visit * Reason Onset Date Comments Order Request 08/04/2023 Encounter Details Date Type Department Care Team (Late st Contact Info) Description 08/04/[address] [address] Kitty Murphy CRNP [address] [place] [address] Order Request Allergies Active Allergy [...] ons:Factor V Leiden mutation (HCC),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,care home current use of anticoagulant therapy take 1 [...] Oral Tablet (Brilinta)Indicati ons:Coronary artery disease involving [place] coronary artery of [place] heart without angina pectoris Take 1 [...] disease), lumbar 07/23/20 23 Current use of group home anticoagulation 023 Presence of drug coated [...] mRNA, LNP-s, No Pre serve, 2-Dose Series ([employer]) 06/30/2021,12/06/2020,11/15/2020 COVID-19, LNP-s, No Preserve , Tani-sucrose, Ages 12+ (Pfizer) 03/09/2022 Covid-19, Mrna, Lnp-s, Pf, B ivalent, 30 Mcg, IM, 12 yrs and above ([employer]) 06/30/2023,08/31/2022 PPD 04/20/2000 Pneumococcal Conjugate Vacci ne, 20-valent ([id number]) 08/09/2022 SEASONAL INFLUENZA, PF, 6 M & [...] EST Patient going to Physical therapy at [facility], [address] [facility] Phone number: [phone] And set up for follow up on: [...] up with pcp Gary, HANH, JOHN [facility] * Telephone Encounter - Cris Gomez LPN [...] wish to have their order completed at? [facility] Fax Number, if applicable: NA Call Back Number: [phone] If the caller is not a current [...] Description 08/23/2023 2:20 PM EST 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ion Pharmacy, [address] [place] [address] [place] [address] 08/24/2023 9:40 AM EST Office Visit Family Medicine [address] [phone] Suus Burgess PA-C [address] [place] [address] [place] [address] 09/13/2023 8:45 AM EST Office Visit Ophthalmology, [facility] [address] [facility] [place] [address] Dewey Gross DO [address] [place] [address] 10/17/2023 8:40 AM EST Office Visit Rheumatology [address] [place] [phone] Jayson Villalobos MD [address] [place], [place] [address] [address] 10/19/2023 10:00 AM EST Office Visit Cardiology, [facility] [address] [facility] [place] [address] Bonnie Akins PA-C [address] [facility] [place] [address] 11/14/2023 2:20 PM EST Office Visit Family Medicine [address] [phone] Louise Thornton MD [address] [place] [address] [place] [address] 03/11/2025 8:40 AM EDT Office Visit Dermatology [address] [place] [address] Jennifer Lopez PA-C [address] [place] [address] [place] [address] Scheduled Procedures Name Priority Associated Diagnoses Date/Ti [...] this encounter Medical Devices Implanted Type Area Tooling Engineering Tech Device Identifier Shelf Expiration Date Model / Serial / Lot Stent Synergy Xd Mr [id number] - [id number] Implanted:Qty: 1 on 05/20/2023 by Cee Ryan MD at [facility] [place] [employer] [id number] 06/17/2023 [id number] / / [id number] documented as of this encounter Advance Directives [...] the patient have Health Care Power of Director Of Convention Services? No Care Teams Supervisor Fertilizer Processing Relationship Specialty Start Date End Date Louise Thornton MD [address] [place] [address] [place] [address] PCP - General Family Medicine 07/10/15 documented as of this encounter
--- OUTSIDE RECORDS SUMMARY | 2023-09-16 22:39 | External Medical Summary | Summary of Care ---
Author Name Unknown Organization [facility] Address [address] [facility] [place] [address] Phone [phone] Care Team Providers Care Public Interviewer Name Role Phone Louise Thornton MD Primary Care Provide r Reason for Visit * Reason Comments Dosage Adjustment In Person (Anticoag Cl inic) Encounter Details Date Type Department Care Team (Latest Contact Info) Description 08/02/2023 2:20 PM [facility] 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ion Pharmacy, [address] [place] [address] [place] [address] Factor V Leiden mutation ([facility])*; 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ion management encounter; emt intermediate current use of anticoagulant therapy Allergies Active Allergy Reactions Criticality Noted Date Comments Sulfa Antibiotics 01/05/2001 rash documented as of this encounter (statuses as of 08/02/2023) Medications Medication Sig Dispensed Refills Start Date End Date Status Ammonium Lactate 12 % External Cream 0 01/06/2021 Active Multivitamin Men 50+ Oral Tablet Take by mouth as needed . 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,emt intermediate current use of anticoagulant therapy take 1 [...] Oral Tablet (Brilinta)Indicati ons:Coronary artery disease involving lower brule coronary artery of lower brule heart without angina pectoris Take 1 Tablet [...] as of this encounter (statuses as of 08/02/2023) Active Problems Problem Noted Date Diagnosed Date Acute right-sided low back pain with right-sided sciatica 07/23/2023 DDD (degenerative disc disease), lumbar 07/23/20 23 Current use of emt intermediate anticoagulation 023 Presence of drug coated stent in LAD coronary ar joshua 06/07/2023 Coronary artery disease invo lving lower brule coronary artery of lower brule heart without angina pectoris 06/07/2023 S/P angioplasty [...] as of this encounter (statuses as of 08/02/2023) Resolved Problems Problem Noted Date Diagnosed Date [...] as of this encounter (statuses as of 08/02/2023) Immunizations Name Administration Dates Next Due COVID-19 mRNA, LNP-s, No Pre serve, 2-Dose Series ([employer]) 06/30/2021,12/06/2020,11/15/2020 COVID-19, LNP-s, No Preserve , Tani-sucrose, Ages 12+ (Pfizer) 03/09/2022 Covid-19, Mrna, Lnp-s, Pf, B ivalent, 30 Mcg, IM, 12 yrs and above (Pfizer) 06/30/2023,08/31/2022 Pneumococcal Conjugate Vacci ne, 20-valent ([id number]) 08/09/2022 SEASONAL INFLUENZA, PF, 6 M & [...] this encounter Progress Notes * Eneida Navarro, [facility] - 08/02/2023 2:14 PM EST Images from the original note were not included. Medication Therapy Disease Management - 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ion Patient: Peter Caruso | : 1960 Subjective Patient-Reported Symptoms: Patient Findings Positives: Change in health, Change in medications Negatives: Signs/symptoms of thrombosis, Signs/symptoms of bleeding, Change in alcohol use, Change in activity, Upcoming invasive procedure, Missed doses, Extra doses, Change in diet/appetite, Bruising Objective Current Warfarin Dose As of 08/02/2023 Warfarin maintenance plan: 7.5 mg (5 mg x 1.5) every Mon, Fri; 5 mg (5 mg x 1) all other days INR Result As of 08/02/2023 INR goal: 2.0-3.0 INR used for dosin.2 (08/02/2023) Assessment & Plan Warfarin Plan As of 08/02/2023 Full warfarin instructions: 08/02: 2.5 mg; Otherwise 7.5 mg every Mon, Fri; 5 mg all other days Next INR check: 08/23/2023 Repeat PT/INR in 3 week(s) Weekly dose: not changed Additional Dosing Information: Recent back injury; course of prednisone; patient reports weight loss Eneida Navarro [facility] Clinical Pharmacist 08/02/2023, 2:14 PM documented in this encounter Plan of Treatment Upcoming Encounters Date Type Department Care Team (Late st Contact Info) Description 08/23/2023 2:20 PM EST 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ion Pharmacy, [address] [place] [address] [place] [address] 09/13/2023 8:45 AM EST Office Visit Ophthalmology, [facility] [address] [place] [address] Dewey Gross DO [address] [place] [address] 10/17/2023 8:40 AM EST Office Visit Rheumatology [address] [place] [phone] Jayson Villalobos MD [address] [place] [address] [place] [address] 10/19/2023 10:00 AM EST Office Visit Cardiology, [facility] [address] [place] [address] Bonnie Akins, PAHerreraC [address] [place] [address] 11/14/2023 2:20 PM EST Office Visit Family Medicine [address] [place] [phone] Louise Thornton MD [address] [place] [address] [place] [phone] Scheduled Procedures Name Priority Associated Diagnoses Date/Ti me COLONOSCOPY FLEXIBLE PROXIMAL DIAGNOSTIC Recall History of colon polyps Health Maintenance Due Date Last Done Comments Depression Screening 03/15/2020 03/15/2019 COVID-19 Vaccine (2022- season) 2023 06/30/2023, 08/31/2022, 03/09/2022, Additional history exists GFR 05/21/2024 05/21/2023, 2 01/2023, 05/03/2023, Additional history exists HbA1c 05/21/2024 [...] this encounter Medical Devices Implanted Type Area Enterprise Security Architect Device Identifier Shelf Expiration Date Model / Serial / Lot Stent Benita Xd Mr [id number] - [id number] Implanted:Qty: 1 on 05/20/2023 by Cee Ryan MD at [facility] [place] [employer] [id number] 06/17/2023 [id number] / / [id number] documented as of this encounter Procedures Procedure Name Priority Date/Time Associated Diagnosis Comments INR FINGERSTICK, POINT OF CARE STAT 08/02/2023 2:23 PM EST Factor V Leiden mutation (HCC) 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ion management encounter emt intermediate current use of anticoagulant therapy documented in this encounter Results * INR FINGERSTICK, POINT OF CARE (08/02/2023 2:23 PM EST) Fingerstick INR 3.2 INR 2:25 PM EST [facility] [employer] Blood 08/02/2023 2:23 PM EST 08/02/2023 2:25 PM EST Narrative [facility] 55-00 - 08/02/2023 2:25 PM EST Therapeutic ranges for non-operative patients: Prophylaxsis/treatment of DVT: (Range:2.0-3.0) Treatment of pulmonary embolism:(Range:2.0-3.0) Prevention of systemic embolism from: -tissue heart valves -acute myocardial infarction -valvular heart disease -atrial fibrillation (Range: 2.0-3.0) Mechanical prosthetic valves: (Range: 2.5-3.5) Eneida Navarro [facility] LAB POINT OF CARE TEST DOCKED DEVICE UNSOLICITED RESULTS [facility] [address] [place] [id number] documented in this encounter Visit Diagnoses Diagnosis Factor V Leiden mutation (HCC)- Primary Primary hypercoagulable state 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ion management encounter Encounter for therapeutic drug monitoring emt intermediate current use of anticoagulant therapy documented in [...] the patient have Health Care Power of Semiconductor Assembler? No Care Teams Public Interviewer Relationship Specialty Start Date End Date Louise Thornton MD [address] [place] [address] [place] [address] PCP - General Family Medicine 07/10/15 documented as of this encounter"
--- OUTSIDE RECORDS SUMMARY | 2023-09-16 22:39 | External Medical Summary ---
Author Name Unknown Address Unknown Organization [id number]:[facility] [place] [facility] [address] [facility] [place] [address] Laboratory Report Ordering Provider Test Date Status SOLIS MODI 08/24/2023 09:57:34 Final Observation Date Value Abnormality Reference (Units ) Status WBC, Total 08/24/2023 09:57:34 4.56 4.00-10.8 0 (K/uL) Final RBC 08/24/2023 09:57:34 4.57 4.50-5.25 (M/uL) Final Hemoglobin 08/24/2023 09:57:34 13.5 Below low normal 14 .0-16.8 (g/dL) Final Anemia reflex testing trigge rs on a HGB < 12.0 for Females and HGB < 13.0 for Males in accordance with the WHO Anemia Guidelines
Anemia reflex testing triggers on a HGB < 12.0 for Females and HGB < 13.0 for Males in accordance with the WHO Anemia Guidelines HCT 08/24/2023 09:57:34 42.2 40.0-48.4 (%) Final MCV 08/24/2023 09:57:34 92.3 82.0-99.5 (fL) Final MCH 08/24/2023 09:57:34 29.5 27.0-34.0 (pg) Final MCHC 08/24/2023 09:57:34 32.0 32.0-36.0 (g/dL) Final RDW 08/24/2023 09:57:34 14.7 11.5-15.5 (%) Final Platelets 08/24/2023 09:57:34 189 140-400 (K /uL) Final MPV 08/24/2023 09:57:34 10.0 6.6-11.1 ( fL) Final Nucleated erythrocytes/100 leukocytes [Ratio] in Blood by Automated count 08/24/2023 09:57:34 0 <=0 (/100 WBCs) Fi nal Performing Location LABOR[facility]ORY [facility] [place] - [address] [facility] [address]
--- OUTSIDE RECORDS SUMMARY | 2023-09-16 22:39 | External Medical Summary ---
Author Name Unknown Address Unknown Organization [id number]:[facility] [place] [place] [facility] [address] [facility] [place] [address] Laboratory Report Ordering Provider Test Date Status SOLIS MODI 08/24/2023 09:57:34 Final Observation Date Value Abnormality Reference (Units ) Status BUN 08/24/2023 09:57:34 13 6-20 (mg/dL) Final Creatinine 08/24/2023 09:57:34 1.0 0.6-1.2 (mg/dL) Final Glomerular filtration rate/1.73 sq M.predicted [Volume Rate/Area] in Serum, Plasma or Blood by Creatinine-based formula (CKD-EPI) 08/24/2023 09:57:34 82 >=60 (mL/min) Final eGFR is calculated based on the CKD-EPI 2020 equation SODIUM 08/24/2023 09:57:34 139 135-146 (m mol/L) Final Potassium 08/24/2023 09:57:34 4.1 3.5-5.1 (m mol/L) Final Cl 08/24/2023 09:57:34 105 98-107 (mm ol/L) Final CO2 08/24/2023 09:57:34 22 22-32 (mmo l/L) Final Anion gap 08/24/2023 09:57:34 12 7-15 (mmol /L) Final Glucose 08/24/2023 09:57:34 106 70-120 (mg /dL) Final Albumin 08/24/2023 09:57:34 4.1 3.8-5.0 (g /dL) Final AST (Aspartate aminotransferase) 08/24/2023 09:57:34 35 10-50 (U/L) Final Alk Phos 08/24/2023 09:57:34 78 35-130 (U/ L) Final Bilirubin, Total 08/24/2023 09:57:34 0.4 <=1 .2 (mg/dL) Final Calcium 08/24/2023 09:57:34 9.0 8.4-10.2 ( mg/dL) Final Protein 08/24/2023 09:57:34 6.9 6.0-8.3 (g /dL) Final ALT (Alanine aminotransferase) 08/24/2023 09:57:34 49 10-50 (U/L) Final Performing Location [facility]ORY [facility] [place] - [facility] [address] [facility] [address]
--- OUTSIDE RECORDS SUMMARY | 2023-09-16 22:39 | External Medical Summary | Summary of Care ---
Author Name Unknown Organization [facility] Address [address] [facility] [place] [address] Phone [phone] Care Team Providers Care Lead Software Qa Engineer Name Role Phone Louise Thornton MD Primary Care Provide r Reason for Visit * Reason Comments Acute Encounter Details Date Type Department Care Team (Late st Contact Info) Description 08/09/2023 11:40 AM EST Office Visit Family Medicine [address] [place] [phone] Susu Burgess PA-C [address] [place] [address] [place] [address] Acute right-sided low back pain with right-sided sciatica* Allergies Active Allergy Reactions Criticality Noted Date [...] ons:Factor V Leiden mutation (HCC),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,group home current use of anticoagulant therapy take [...] EVERY DAY 90 Capsule 1 3 Active Ticagrelor 90 MG Oral Tablet (Brilinta)Indicati ons:Coronary artery disease involving chitina coronary artery of chitina heart without angina pectoris Take 1 Tablet by mouth in the morning and 1 Tablet before bedtime. Do not start before May 21, 2023. 60 Tablet 2 3 08/19/20 23 Active Atorvastatin Calcium 40 MG Oral [...] at bedtime. 90 Capsule 1 3 Active Baclofen 20 MG Oral TabletIndications: Acute right-sided low back pain with right-sided sciatica Take 1 Tablet by mouth in the morning and 1 Tablet before bedtime. As needed for lower back pain. 30 Tablet 0 3 Active predniSONE 20 MG Oral Tablet (Deltasone) Take 2 Tablets by mouth daily for 3 days, THEN 1 Tablet daily for 5 days, THEN 0.5 Tablets daily for 3 days. 13 Tablet 0 3 08/09/20 23 Discontinu ed(Patient preference /discontin uation) Cyclobenzaprine HCl 10 MG Oral Tablet (Flexeril) Take 1 Tablet by mouth 2 times a day as needed for Muscle spasms. 20 Tablet 0 3 08/09/20 23 Discontinu ed(Patient preference /discontin uation) documented as of this encounter (statuses as of 08/09/2023) Active Problems Problem Noted Date Diagnosed Date Acute right-sided low back pain with right-sided sciatica 07/23/2023 DDD (degenerative disc disease), lumbar 07/23/20 23 Current use of alf anticoagulation 023 Presence of drug coated stent in LAD coronary ar joshua 06/07/2023 Coronary artery disease invo lving chitina coronary artery of chitina heart without angina pectoris 06/07/2023 S/P angioplasty [...] mRNA, LNP-s, No Pre serve, 2-Dose Series ([employer]) 06/30/2021,12/06/2020,11/15/2020 COVID-19, LNP-s, No Preserve , Tani-sucrose, Ages 12+ (Pfizer) 03/09/2022 Covid-19, Mrna, Lnp-s, Pf, B ivalent, 30 Mcg, IM, 12 yrs and above (Pfizer) 06/30/2023,08/31/2022 Pneumococcal Conjugate Vacci ne, 20-valent ([id number]) 08/09/2022 SEASONAL INFLUENZA, PF, 6 M & [...] Sign Reading Time Taken Comments Blood Pressure 118/62 08/09/2023 11:20 AM EST Pulse 68 08/09/2023 11:20 AM EST Temperature 36.1 C (96.9 F) 08/09/2023 11:[address] Respiratory Rate 16 08/09/2023 11:20 AM EST Oxygen Saturation - - Inhaled Oxygen Concentration - - Weight 131.1 kg (289 lb) 08/09/2023 11:20 AM EST Height - - Body Mass Index 37.61 07/23/2023 10:10 AM EDT documented in this [...] Progress Notes * Susu Burgess PA-C - 08/09/2023 11:26 AM EST Nursing Notes: Nhi Turpin RN 08/09/23 1125 Sign at exiting of workspace Acute visit for ongoing low back pain( pt was seen for this on 07/23/23 by Kitty Murphy) pt was given Flexeril and prednisone, he did not tolerate the Flexeril, but the prednisone did help while he was taking it. Pt starts PT tomorrow Pt here today with lower back pain. Pt states that it started a couple of weeks ago. He hurt it pulling an arrow out of his target. Pt doesn't normally have back issues. Pt does have pain into right leg. Numbness/tingling. Pt denies weakness. Pt has pain with movements. Pt denies bowel or bladder issues. Pt denies swelling, redness, bruising. Pt denies pain at left back or left leg. Pt did have an appt about 2 weeks ago. Was given prednisone and flexeril. The flexeril made him dizzy so he stopped it. The prednisone did help. He was referred to PT and his first candi tis tomorrow. He has been doing some home stretching exercises. Review of patient's allergies indicates: Allergen Reactions [...] BY MOUTH EVERY DAY 90 Capsule 1 Ticagrelor 90 MG Oral Tablet (Brilinta) Take 1 Tablet by mouth in the morning and 1 Tablet before bedtime. Do not start before May 21, 2023. 60 Tablet 2 Atorvastatin Calcium 40 MG Oral Tablet (Lipitor) [...] by mouth at bedtime. 90 Capsule 1 No current facility-administered medications for this visit. Past Medical History: Diagnosis Date BMI 40.0-44.9, adult ([facility]) BPH (benign prostatic hyperplasia) Displacement of lumbar intervertebral disc without myelopathy DVT (deep venous thrombosis) ([facility]) 08/09 right leg Factor V Leiden mutation ([facility]) 09/16/2014 HTN, goal below 140/90 Impaired glucose tolerance Osteoarthritis of right knee Phlebitis and thrombophlebitis of other deep vessels of lower extremities 1980s right leg 19 years ago/ coumadin therapy Phlebitis and thrombophlebitis of superficial vessels of lower extremities 07/01 right leg ongoing Pulmonary emboli ([facility]) 08/09 Sicca syndrome ([facility]) Venous stasis ulcer ([facility]) 2013 Social History Socioeconomic History Marital status: [...] Housing Stability: Not on file O:Blood pressure 118/62, pulse 68, temperature 36.1 C (96.9 F), resp. rate 16, weight 131.1 kg (289 lb). GENERAL: alert, healthy, and no distress A:Acute right-sided low back pain with right-sided sciatica (Primary) - XR L SPINE COMPLETE - Baclofen 20 MG Oral Tablet; Take 1 Tablet by mouth in the morning and 1 Tablet before bedtime. Asneeded for lower back pain. Baclofen as needed. Keep PT appt. Will xray today. Any questions/problems, please call. If anythingchanges, worsens, develops new sx, please call [facility]. Follow Up: Return if symptoms worsen or fail to improve. Susu Burgess PA-C documented in this encounter Nursing Notes * Nhi Turpin RN - 08/09/2023 11:20 AM EST Acute visit for ongoing low back pain( pt was seen for this on 07/23/23 by Kitty Murphy) pt was given Flexeril and prednisone, he did not tolerate the Flexeril, but the prednisone did help while he was taking it. Pt starts PT tomorrow documented in this encounter Plan of Treatment Upcoming Encounters Date Type Department Care Team (Late st Contact Info) Description 08/23/2023 2:20 PM EST 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ion Pharmacy, [address] [place] [address] [place] [address] 09/13/2023 8:45 AM EST Office Visit Ophthalmology, [facility] [address] [place] [address] Dewey Gross DO [address] [address] 10/17/2023 8:40 AM EST Office Visit Rheumatology [address] [place] [phone] Jayson Villalobos MD [address] [facility] [place] [address] 10/19/2023 10:00 AM EST Office Visit Cardiology, [facility] [address] [place] [address] Bonnie Akins PA-C [address] [place] [address] 11/14/2023 2:20 PM EST Office Visit Family Medicine [address] [place] [phone] Louise Thornton MD [address] [place] [address] [place] [address] 03/11/2025 8:40 AM EDT Office Visit Dermatology [address] [place] [address] Jennifer Lopez PA-C [address] [place] [address] [place] [address] Pending Results Name Type Priority Associated Diagnoses Date /Time XR L SPINE COMPLETE Medical Imaging Routine Acute right-sided low back pain with right-sided sciatica 08/09/2023 12:00 PM EST Scheduled Procedures Name Priority Associated Diagnoses [...] this encounter Medical Devices Implanted Type Area Supervisor Brew House Device Identifier Shelf Expiration Date Model / Serial / Lot Stent Synergy Xd Mr [id number] - [id number] Implanted:Qty: 1 on 05/20/2023 by Cee Ryan MD at [facility] [place] [employer] [id number] 06/17/2023 [id number] / / [id number] documented as of this encounter Visit Diagnoses Diagnosis Acute right-sided low back pain with right-sided sciatica- Primary documented in this encounter Advance Directives Latest Code Status on File Code Status Date Activated Date Inactivated Comments Full Code 05/20/2023 3:32 PM 05/21/2023 6:14 PM This order reflects the patients wishes and were consensually agreed upon. Question Answer Comments Discussion of Advance Directives occurred with: Patient Does the patient have a Living Will? No Does the patient have Health Care Power of Curb Attendant? No Care Teams Lead Software Qa Engineer Relationship Specialty Start Date End Date Louise Thornton MD [address] [place] [address] [place] [phone] PCP - General Family Medicine 07/10/15 documented as of this encounter
--- OUTSIDE RECORDS SUMMARY | 2023-09-16 22:40 | External Medical Summary | Summary of Care ---
Author Name Unknown Organization [facility] Address [address] [facility] [place] [address] Phone [phone] Care Team Providers Care Consulting It Architect Name Role Phone Louise Thornton MD Primary Care Provide r Reason for Visit * Reason Comments eRx-Medication Refill Encounter Details Date Type Department Care Team Description 06/30/2023 Refill Family Medicine [address] [place] [address] Kym Sulilvan PA-C [address] [place] [address] [place] [id number] BPH with obstruction/lower urinary tract symptoms Allergies Active Allergy Reactions Severity Noted Date Comments Sulfa Antibiotics 01/05/2001 rash documented as of this encounter (statuses as of 07/01/2023) Medications Medication Sig Dispensed Refills Start Date End Date Status Ammonium Lactate 12 % External Cream 0 01/06/2021 Active Multivitamin Men 50+ Oral Tablet Take by mouth as needed . 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 current use of anticoagulant therapy take 1 [...] (Brilinta)Indicati ons:Coronary artery disease involving [place] coronary artery of [place] heart without angina pectoris Take 1 Tablet [...] as of this encounter (statuses as of 07/01/2023) Active Problems Problem Noted Date Presence of drug coated stent in LAD cor onary artery 06/07/2023 Coronary artery disease invo lving [place] coronary artery of [place] heart without angina pectoris 06/07/2023 S/P angioplasty with stent 05/24/2023 Branch retinal artery occlusion 05/24/20 23 Anemia 05/24/2023 Abnormal nuclear stress test 05/24/2023 SOB (shortness of breath) 05/24/2023 Ascending aorta dilatation 04/04/2023 Dyslipidemia, goal LDL below 70 01/27/20 22 Seasonal allergic rhinitis due to pollen 01/26/2022 Prediabetes 10/09/2018 Overview: Per Prediabetes protocol #1 Primary osteoarthritis of both knees Encounter for long-term (current) use of medications 02/09/2017 MCTD (mixed connective tissue disease) 0 02/09/2017 Sjogren's syndrome with keratoconjunctiv itis sicca 12/30/2016 Elevated liver enzymes 12/28/2016 Hx of nonmelanoma skin cancer 10/20/2016 Overview: BCC (posterior neck) AK (actinic keratosis) 10/20/2016 Factor V Leiden mutation 09/16/2014 History of pulmonary embolism 09/02/2014 HTN, goal below 140/90 08/13/2009 Overview: Modified per HTN protocol #16. Venous insufficiency 11/05/2008 ADVANCE DIRECTIVE INFORMATION 09/13/2006 Overview: No, Advance Directive brochure given to patient at prior appointment. 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 History of DVT (deep vein thrombosis) Overview: right leg BPH (benign prostatic hyperplasia) documented as of this encounter (statuses as of 07/01/2023) Resolved Problems Problem Noted Date Resolved Date Elevated homocysteine 12/26/2018 09/17/2019 Pancytopenia 02/27/2018 09/17/2019 Primary osteoarthritis of left knee 02/27/2018 09/17/2019 Venous stasis dermatitis of right lower extremit y 03/30/2016 09/17/2019 Other pulmonary embolism and infarction 08/09/20 14 07/10/2015 Obesity, Class II, BMI 35-39.9, isolated (see ac tual BMI) 12/22/2009 08/01/2014 Overview: Per Obesity Taxonomy HTN, goal to be determined 11/05/200808/13 Overview: Modified per HTN protocol #16. Sicca syndrome 11/05/2008 02/09/2017 PEPTIC ULCER NOS 01/20/2006 09/17/2019 OBESITY, UNSPECIFIED 07/23/2004 12/22/2009 Overview: Per Obesity Taxonomy BMI 40.0-44.9, adult 03/22/2023 Impaired glucose tolerance 09/17 Osteoarthritis of right knee documented as of this encounter (statuses as of 07/01/2023) Immunizations Name Administration Dates Next Due COVID-19 mRNA, LNP-s, No Pre serve, 2-Dose Series (disco volante) 06/30/2021,12/06/2020,11/15/2020 COVID-19, LNP-s, No Preserve , Tani-sucrose, Ages 12+ (Pfizer) 03/09/2022 Covid-19, Mrna, Lnp-s, Pf, B ivalent, 30 Mcg, IM, 12 yrs and above (Pfizer) 08/31/2022 Pneumococcal Conjugate Vacci ne, 20-valent ([id number]) 08/09/2022 SEASONAL INFLUENZA, PF, 6 M & Above, IM , (FLULAVAL or FLUZONE) 07/02/2022,08/12/2021,06/24/2020,2018,07/18/2018,09/09/2017 Season Influenza, Cell Culte r, 18+ Yrs, [...] = 0.6 oz pur e alcohol) social Sex Assigned at Date Recorded Not on file Job Start Date Occupation [...] encounter Miscellaneous Notes * Telephone Encounter - Agusto Way RPh - 07/01/2023 11:20 AM EDTRefused Prescriptions: Disp Refills Terazosin HCl 10 MG Oral Capsule 90 Cap*0 Sig: TAKE ONE CAPSULEBY MOUTH AT BEDTIMERefused By: Keon WAY for Refusal: Duplicate Request documented in this encounter Plan of Treatment Upcoming Encounters Date Type Specialty Care Team Description 07/19/2023 Office Visit Ophthalmology Dewey Gross DO [address] [place] [address] 07/28/2023 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ion Pharmacy [address] [place] [phone] 10/17/2023 Office Visit Rheumatology Jayson Villalobos MD [address] [facility] [place] [address] 10/19/2023 Office Visit Cardiology Bonnie Akins PA-C [address] [place] [address] 11/14/2023 Office Visit Family Medicine NorbertoLouise leblanc MD [address] [place] [address] [place] [phone] Scheduled Procedures Name Priority Associated Diagnoses Date/Ti me COLONOSCOPY FLEXIBLE PROXIMAL DIAGNOSTIC Recall History of colon polyps Health Maintenance Due Date Last Done Comments Depression Screening 03/15/2020 03/15/2019 COVID-19 Vaccine (2022- season) 2023 08/31/2022, 03/09/2022, 06/30/2021, Additional history exists Influenza Vaccine (FLU shot) (#1) 2023 07/02/2022, 08/12/2021, 06/24/2020, Additional history exists GFR 05/21/2024 05/21/2023, 08/2 01/2023, 05/03/2023, Additional history exists HbA1c 05/21/2024 [...] Patients (6 to 64 Years) Completed 08/09/2022 GARDASIL-HPV IMMUNIZATION SERIES Aged Out No longer eligible based on patient's age to complete this topic Hepatitis B Aged Out No longer eligi ble based on patient's age to complete this topic MENINGOCOCCAL (MENACTRA/MENVEO) Aged Out No longer eligible based on patient's age to complete this topic documented as of this encounter Medical Devices Implanted Type Area Multi Disciplined Language Analyst Device Identifier Shelf Expiration Date Model / Serial / Lot Stent Synergy Xd Mr [id number] - [id number] Implanted:Qty: 1 on 05/20/2023 by Cee Ryan MD at [facility] [place], [place] Driverdo [id number] 06/17/2023 [id number] / / [id number] documented as of this encounter Visit Diagnoses Diagnosis BPH with obstruction/lower urinary tract symptoms Hypertrophy of prostate with urinary obstruction and other lower urinary tract symptoms (LUTS) documented in this encounter Advance Directives Latest Code Status on File Code Status Date Activated Date Inactivated Comments Full Code 05/20/2023 3:32 PM 05/21/2023 6:14 PM This order reflects the patients wishes and were consensually agreed upon. Question Answer Comments Discussion of Advance Directives occurred with: Patient Does the patient have a Living Will? No Does the patient have Health Care Power of Press Smith Helper? No Care Teams Consulting It Architect Relationship Specialty Start Date End Date Louise Thornton MD [address] [place] [address] [place] [phone] PCP - General Family Medicine 07/10/15 documented as of this encounter
--- OUTSIDE RECORDS SUMMARY | 2023-09-16 22:40 | External Medical Summary | Summary of Care ---
Author Name Unknown Organization [facility] Address [address] [facility] [place] [address] Phone [phone] Care Team Providers Care Contract Administration Specialist Name Role Phone Louise Thornton MD Primary Care Provide r Reason for Referral * Evaluate & Treat - Unlimited Visits (Within 30 days (routine)) - Pending Review Specialty Diagnoses / Procedures Referred By Contac t Referred To Contact CARDIAC REHAB / Cardiology Diagnoses Coronary artery disease involving [place] coronary artery of [place] heart without angina pectoris Presence of drug coated stent in LAD coronary artery Factor V Leiden mutation (HCC) HTN, goal below 140/90 Dyslipidemia, goal LDL below 70 Ascending aorta dilatation (HCC) Branch retinal artery occlusion, unspecified laterality Bonnie Akins PA-C [address] [place] [address] Referral ID Status Reason Start Date Expiration Date Visits Requested Visits Authorized [id number] Pending Review Specialty Services Required 06/07/[phone] Question Answer Referral Priority Within 30 days (routine) Cardiac Rehabilitation Modality No Preference, either is clinically appropriate Identify Cardiac Risk Low to Moderate Risk Comments S/p KIESHA to the LAD on April - patient prefers [place] Reason for Visit * Reason Comments Hospital Follow-Up C 05/20-05/21/23. Ca rdiac Cath 05/20/23. Doing better week by week- building stamina and strength. SOB has been improving since discharge. Dizziness once in awhile when SOB- will last about 5-10 seconds when getting up. Edema in ankles and feet about the same as prior. Denies chest pain and palpitations. * Evaluate & Treat - Unlimited Visits (Within 30 days (routine)) - Pending Review Specialty Diagnoses / Procedures Referred By Contact Referred To Contact Cardiovascular Medicine / Cardiology Diagnoses Coronary artery disease involving [place] coronary artery of [place] heart without angina pectoris S/P drug eluting coronary stent placement Molina Florez, DO [address] [place] [address] Javon Smith, [address] [facility] [place] [address] Referral ID Status Reason Start Date Expiration Date Visits Requested Visits Authorized [id number] Pending Review Specialty Services Required 05/21/[phone] Encounter Details Date Type Department Care Team Description 06/07/2023 Office Visit Cardiology, [facility] [address] [place] [id number] Bonnie Akins PA-C [address] [place] [address] Coronary artery disease involving [place] coronary artery of [place] heart without angina pectoris*; Presence of drug coated stent in LAD coronary artery; Factor V Leiden mutation ([facility]); HTN, goal below 140/90; Dyslipidemia, goal LDL below 70; Ascending aorta dilatation (HCC); Branch retinal artery occlusion, unspecified laterality Allergies Active Allergy Reactions Severity Noted Date Comments Sulfa Antibiotics 01/05/2001 rash documented as of this encounter (statuses as of 06/08/2023) Medications Medication Sig Dispensed Refills Start Date End Date Status Ammonium Lactate 12 % External Cream 0 01/06/2021 Active Multivitamin Men 50+ Oral Tablet Take by mouth as needed . 0 Active Terazosin HCl 10 MG Oral CapsuleIndications :BPH with obstruction/lower urinary tract symptoms Take 1 Capsule by mouth at bedtime. 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 take 1 [...] Oral Tablet (Brilinta)Indicati ons:Coronary artery disease involving [place] coronary artery of [place] heart without angina pectoris Take 1 Tablet [...] as of this encounter (statuses as of 06/08/2023) Active Problems Problem Noted Date Presence of drug coated stent in LAD cor onary artery 06/07/2023 Coronary artery disease invo lving color[place] river coronary artery of [place] heart without angina pectoris 06/07/2023 S/P angioplasty [...] as of this encounter (statuses as of 06/08/2023) Resolved Problems Problem Noted Date Resolved Date [...] as of this encounter (statuses as of 06/08/2023) Immunizations Name Administration Dates Next Due COVID-19 mRNA, LNP-s, No Pre serve, 2-Dose Series ([employer]) 06/30/2021,12/06/2020,11/15/2020 COVID-19, LNP-s, No Preserve , Tani-sucrose, Ages 12+ (Pfizer) 03/09/2022 Covid-19, Mrna, Lnp-s, Pf, B ivalent, 30 Mcg, IM, 12 yrs and above (Pfizer) 08/31/2022 Pneumococcal Conjugate Vacci ne, 20-valent ([id number]) 08/09/2022 Season Influenza, Cell Culte r, 18+ Yrs, With Preserv (Flucelvax) 08/09/2013 Seasonal Influenza, PF, 6 mo ns & Above, IM , (Flulaval) 07/02/2022,08/12/2021,06/24/2020,2018,07/18/2018,09/09/2017 Seasonal Influenza, Quadriva lent, No Preserve, [...] Sign Reading Time Taken Comments Blood Pressure 126/74 06/07/2023 2:58 PM EDT Pulse 64 06/07/2023 2:58 PM EDT Temperature - - Respiratory Rate 16 06/07/2023 2:58 PM EDT Oxygen Saturation - - Inhaled Oxygen Concentration - - Weight 137.1 kg (302 lb 4 oz) 06/07/2023 2:58 PM EDT Height - - Body Mass Index 39.34 03/22/2023 8:39 AM EDT documented in this encounter Functional [...] as of this encounter Progress Notes * Bonnie Akins PA-C - 06/07/2023 3:08 PM EDT 06/07/2023 Cardiology F/U: SUBJECTIVE: Peter Caruso is a 62 year old male here today for close cardiology follow-up. Last clinic evaluation approximately 2 months ago with the undersigned. Primary p 3 armament/ordnance ima technician is Dr. Smith. Since last visit, patient underwent nuclear stress testing which was abnormal with filling defect in the apical anterior wall. He was subsequently sent for diagnostic cardiac catheterization at [facility] on May 20, 2023. Cardiac catheterization revealed significant 1 vessel disease with 60% distal LAD lesion that was hemodynamically significant. He received PCI with 1 KIESHA on 05/20/23. After the procedure, the patient noted blurry/cloudy vision with red discoloration in the right hemisphere of vision of his left eye. This gradually improved such that the cloudiness only involved the right lower quadrant of his left eye visual field. The visual defect resolved with closure ofhis left eye. Neuro exam was otherwise benign. Neurology was consulted and he was diagnosed with a branch retinal artery occlusion. CTA of the head and neck showed mild atherosclerotic disease but nolarge defects or residual thrombi in or occlusion of larger vessels. They recommended outpatient follow up with ophthalmology. Which he has been seeing. The morning of 05/21/23, the patient's vision had improved further with the red discoloration softening to pink and the blurriness now confined to less than one quarter of his left eye field of vision. No other symptoms. No bleeding from cath siteor significant hematoma or complications. Atorvastatin was increased to 40 mg daily. Given patient's history of Factor V Leiden and history of DVT, he was scheduled for a Lovenox bridge while continuing his coumadin per pharmacy instructions. He is to continue with Lovenox/warfarin, Ticagrelor, andaspirin for one week and then continue with warfarin and Ticagrelor thereafter. Neurology agreed with antiplatelet/anticoagulation recommendations. Patient reports still mild blurred vision, but slow improvement. Continues to follow with ophthalmology. They are hopeful his symptoms will continue to improve. He reports improved chest pain/pressure. Still has mild dyspnea but also improving. Trying to lose weight. Tolerating medications. BP controlled. No chest pain, shortness of breath, palpitations, dizziness, syncope or near syncope. No orthopnea,PND, or increased lower extremity edema. No fever, chills, cough, hematochezia, melena, or hemoptysis. Review of Systems: See HPI for pertinent positives. All others negative, other than those noted in HPI. History includes: Hypertension dyslipidemia family history of coronary heart disease Obesity pulmonary embolism and factor V Leiden mutation with his initial DVT having been diagnosed in his 20's. He therefore remains on chronic anticoagulation with Coumadin. He follows with rheumatology due to his history of mixed connective tissue disease, Sjogren's and osteoarthritis and is on chronic low-dose prednisone and Plaquenil. 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 ADVANCE DIRECTIVE INFORMATION Venous insufficiency I87.2 Essential hypertension with goal blood pressure less than 140/90 I10 History of pulmonary embolism Z86.711 Factor V Leiden mutation (HCC) D68.51 History of DVT (deep vein thrombosis) Z86.718 BPH (benign prostatic hyperplasia) N40.0 Hx of nonmelanoma skin cancer Z85.828 AK (actinic keratosis) L57.0 Elevated liver enzymes R74.8 Sjogren's syndrome with keratoconjunctivitis sicca ([facility]) M35.01 Encounter for long-term (current) use of medications Z79.899 MCTD (mixed connective tissue disease) ([facility]) M35.1 Primary osteoarthritis of both knees M17.0 Prediabetes R73.03 Dyslipidemia, goal LDL below 130 E78.5 Seasonal allergic rhinitis due to pollen J30.1 Ascending aorta dilatation ([facility]) I77.810 S/P angioplasty with stent Z95.820 Branch retinal artery occlusion H34.239 Anemia D64.9 Abnormal nuclear stress test R94.39 SOB (shortness of breath) R06.02 Social History Tobacco Use Smoking status: Former Smokeless tobacco: Never Vaping Use Vaping Use: Never used Substance Use Topics Alcohol use: Yes Comment: social Drug use: No Family History: Mother: alive in her late 80's.H/O CAD, past coronary stents Father: in his 80's, H/O pacemaker, dementia Worked for [employer] Siblings: no heart problems Past Surgical History: Procedure Laterality Date COLONOSCOPY, DIAGNOSTIC (RECTUM) 07/09/2009 wnl repeat in 10 yrs COLONOSCOPY, DIAGNOSTIC (RECTUM) 09/24/2016 adenomatous polyps, repeat 5 yrs/COLONOSCOPY FLEXIBLE PROXIMAL DIAGNOSTIC performed by Raf Perez MD at ENDOSCOPY [facility] COLONOSCOPY, DIAGNOSTIC (RECTUM) 06/23/2022 MULTI POLYPS IN ASCENDING, HEPATIC , OTHERWISE NORMAL / BIOPSIE Stubulovillous adenoma / 3 YEAR RECALL / COLONOSCOPY FLEXIBLE PROXIMAL DIAGNOSTIC performed by Toshia Thorpe MD at ENDOSCOPY [facility] CORONARY ANGIOGRAPHY W/LEFT HEART CATH N/A 05/20/2023 CORONARY ANGIOGRAPHY W/LEFT HEART CATH performed by Cee Ryan MD at [facility] [place]GD, FLEXIBLE, DIAGNOSTIC 09/24/2016 acid reflux on bx/ESOPHAGOGASTRODUODENOSCOPY (EGD), FLEXIBLE, TRANSORAL, DIAGNOSTIC performed by Raf Perez MD at ENDOSCOPY [facility] OTHER (INFORMATION) ACT 112 signed 05/26/23; dr christine BANEGAS ANKLE BRACHIAL INDEX 07/22/2014 1.2 right, 1.1 left, normal VASC DUPLEX VENOUS LE BILAT 07/29/2006 venous thrombophlebitis right greater saphenous vein VASC DUPLEX VENOUS LE BILAT 08/01/2014 Positive acute DVT in right common femoral vein, superficial venous thrombosis bilaterally Review of patient's allergies indicates: Allergen Reactions Sulfa Antibiotics rash Current Outpatient Medications Medication Sig Dispense Refill Ammonium Lactate 12 % External Cream Multivitamin Men 50+ Oral Tablet Take by mouth as needed . Terazosin HCl 10 MG Oral Capsule Take 1 Capsule by mouth at bedtime. 90 Capsule 1 Warfarin Sodium 5 MG Oral Tablet (Jantoven) [...] doses in 15 minutes 25 Tablet 11 No current facility-administered medications for this visit. OBJECTIVE/PHYSICAL EXAMINATION: BP 126/74 | Pulse 64 | Resp 16 | Wt (!) 137.1 kg (302 lb 4 oz) | BMI 39.34 kg/m | BSA 2.67 m Wt Readings from Last 3 Encounters: 06/07/23 (!) 137.1 kg (302 lb 4 oz) 05/24/23 (!) 137.4 kg (302 lb 14.4 oz) 04/04/23 (!) 139.5 kg (307 lb 8 oz) General: no acute distress and stated age Eyes: conjunctiva are pink and non-injected, sclera clear Neck: normal jugular venous pulse, no hepatojugular reflux Chest: normal shape and normal respiratory effort Lungs: clear to auscultation , no rales rhonchi or wheezing Cardiac Exam: - regular heart sounds, no murmurs, rubs, or gallops Abdomen: abdomen soft, non-tender, no abnormal masses and no hepatosplenomegaly Musculoskeletal: no gait disturbance, no weakness Extremities: no edema and no cyanosis Neuro: grossly normal exam Psych: appropriate affect and insight. Data: Cardiac cath report reviewed dated May 20, 2023: * The coronary arteries have significant 1 vessel disease. * 60% distal LAD lesion that is hemodynamically significant (FFR 0.74) S/P PCI with KIESHA (2.75 mm x 24 mm Synergy XD, post-dilated with 3.0 mm x 12 mm NC Euphoria balloon) Nuclear stress test report reviewed dated March 2023: Interpretation Summary The combined low intensity exercise/pharmacologic myocardial perfusion imaging study is mildly abnormal. Stress images reveal a small-sized reversible perfusion defect encompassing the apical anterior segment and sparing the apex. On quantitative analysis, the reversible perfusion defect encompasses 15% of the left anterior descending coronary artery territory. Gated SPECT imaging reveals normal myocardial thickening and wall motion. The left ventricular ejection fraction was calculated to be 66% An amendment was made to the report on 04/06/2023 at 5:34 p.m. to correct a spelling air in the conclusion. Echocardiogram report reviewed dated January 2023: Interpretation Summary The examination is adequate to evaluate the referral indication. Sinus rhythm with premature atrial contractions present during the echocardiogram study. The LV wall thickness is mildly increased (concentric). The left ventricular wall motion is normal. The qualitative LV ejection fraction is 55-59% (normal). Mild mitral regurgitation is present. Mild tricuspid regurgitation is present. The estimated pulmonary artery systolic pressure is 36 mm Hg. The aortic root is mildly enlarged, 4 cm.. The proximal ascending thoracic aorta is mildly enlarged, 4.2 cm. Compared to the report of the prior study dated 03/24/2012, the aortic root diameter was 3.9 cm andthe proximal ascending aorta diameter was 3.8 cm at that time. EKG performed 01/31/2023 revealed sinus rhythm at 60 beats per minute with occasional PAC's, no significant repolarization changes. Latest Reference Range & Units 05/21/23 04:29 Triglycerides <=174 mg/dL 53 Cholesterol <200 mg/dL 115 Non-HDL Cholesterol <=159 mg/dL 77 HDL Cholesterol >39 mg/dL 38 (L) LDL Cholesterol <=129 mg/dL 66 Sodium 135 - 146 mmol/L 138 Potassium 3.5 - 5.1 mmol/L 4.1 Chloride 98 - 107 mmol/L 106 CO2 22 - 32 mmol/L 23 BUN 6 - 20 mg/dL 12 Creatinine 0.6 - 1.2 mg/dL 1.0 Estimated Glomerular Filtration Rate >=60 mL/min 84 Anion Gap 7 - 15 mmol/L 9 Glucose 70 - 120 mg/dL 103 Calcium 8.4 - 10.2 mg/dL 8.5 Estimated Average Glucose <126 mg/dL 117 (L): Data is abnormally low Latest Reference Range & Units 05/21/23 04:30 WBC 4.00 - 10.80 K/uL 3.68 (L) HGB 14.0 - 16.8 g/dL 11.9 (L) HCT 40.0 - 48.4 % 37.0 (L) MCV 82.0 - 99.5 fL 90.9 PLT 140 - 400 K/uL 145 (L): Data is abnormally low ASSESSMENT / PLAN: 62 year old male ICD-10-CM 1. Coronary artery disease involving [place] coronary artery of [place] heart without angina [id number] 2. Presence of drug coated stent in LAD coronary artery Z95.5 3. Factor V Leiden mutation ([facility]) D68.51 4. HTN, goal below 140/90 I10 5. Dyslipidemia, goal LDL below 70 E78.5 6. Ascending aorta dilatation ([facility]) I77.810 7. Branch retinal artery occlusion, unspecified laterality H34.239 PLAN: Patient doing well post cath without recurrent chest pressure/tightness. Ongoing dyspnea reported but improving. BP controlled. Appears euvolemic. Importance of antiplatelet and anticoagulation discussed. Unfortunately he still has mild visual field defect from retinal branch occlusion and is following with ophthalmology. Continue Brilinta and coumadin. He stopped ASA after 1 week post cath as per discharge instructions. We discussed cardiac rehab. He is interested in pursuing if available near his house in [facility]. Will refer. Increase activities as tolerated. Lipids controlled. Continue higher dose atorvastatin. The patient is to continue all current medications as listed above. No changes were made at today'is. I spent a total of 45 minutes on the date of service in preparation, delivery, and documentation ofthe care provided to Peter Caruso excluding any time spent in the performance of separately billedservices. The patient agrees to the above plan and will call with additional questions or concerns. ER with all emergencies advised. Follow-up: Return in about 3 months (around 09/06/2023). | Check-out note: [address] Luis Akins PA-C Department of Cardiology This chart was completed in part utilizing [email or web address] Speech Voice Recognition Software. Grammatical errors, random word insertions, prounoun errors, and incomplete sentences are an occasional consequence of this system due to software limitations, ambient noise, and hardware issues. Any formal questions or concerns about the content, text, or information contained within the body of this dictation should be directly addressed to the provider for clarification. documented in this encounter Nursing Notes * Rudy Good, JC - 06/07/2023 2:56 PM EDT Patient identified by full name and date of Chief Complaint Patient presents with Hospital Follow[place] [facility] [place]20-05[place]. Cardiac Cath 05/20/23. Doing better week by week- building stamina and strength. SOB has been improving since discharge. Dizziness once in awhile when SOB- will last about 5-10 seconds when getting up. Edema in ankles and feet about the same as prior. Denies chest pain and palpitations. Examination Room: 6 Name: Peter Caruso Date of : (1960). Reason for Visit: HD follow up Interim Hospitalization(s): [facility] [place] Problems/Concerns: See chief complaint Chest Pain/SOB: See chief complaint [facility] Discussed: Not applicable [facility] is a way you can talk to your provider online through e-mail. Would you like to sign up? I can activate it for you? ALREADY ACTIVE Patient was instructed to not get up on the exam table until directed and assisted by their provider; patient is to remain seated in the chair/ wheelchair/ exam table for fall prevention and safety reasons. Patient is aware to have assistance to step down off exam table with personnel. Patient voiced full comprehension of instructions. documented in this encounter Plan of Treatment Upcoming Encounters Date Type Specialty Care Team Description 06/29/2023 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ion Pharmacy [address] [place] [id number] 07/19/2023 Office Visit Ophthalmology Dewey Gross, [address] [place] [address] 10/17/2023 Office Visit Rheumatology Jayson Villalobos MD [facility] [place] [address] 10/19/2023 Office Visit Cardiology Bonnie Akins PA-C [address] [place] [address] 11/14/2023 Office Visit Family Medicine Louise Thornton MD [address] [place] [address] [place] [id number] Scheduled Procedures Name Priority Associated Diagnoses Date/Ti me COLONOSCOPY FLEXIBLE PROXIMAL DIAGNOSTIC Recall History of colon polyps Scheduled Referrals Name Type Priority Associated Diagnoses Orde r Schedule CARDIAC REHAB REFERRAL OP Referral Within 30 days (routine) Coronary artery disease involving [place] coronary artery of [place] heart without angina pectoris Presence of drug coated stent in LAD coronary artery Factor V Leiden mutation (HCC) HTN, goal below 140/90 Dyslipidemia, goal LDL below 70 Ascending aorta dilatation (HCC) Branch retinal artery occlusion, unspecified laterality Ordered: 06/07/2023 Health Maintenance Due Date Last Done Comments Depression Screening 03/15/2020 03/15/2019 Influenza Vaccine (FLU shot) (#1) 2023 07/02/2022, [...] 62 Years) Completed 08/09/2022 COVID-19 Vaccine Completed 08/31/2022, , 06/30/2021, Additional history exists GARDASIL-HPV IMMUNIZATION SERIES Aged Out No longer eligible based on patient's age to complete this topic Hepatitis B Aged Out No longer eligi ble based on patient's age to complete this topic MENINGOCOCCAL (MENACTRA/MENVEO) Aged Out No longer eligible based on patient's age to complete this topic documented as of this encounter Medical Devices Implanted Type Area Equipment Cleaner And Tester Device Identifier Shelf Expiration Date Model / Serial / Lot Stent Synergy Xd Mr [id number] - [id number] Implanted:Qty: 1 on 05/20/2023 by Cee Ryan MD at [facility] [place] TATTOFF [id number] 06/17/2023 [id number] 270 / / [id number] documented as of this encounter Visit Diagnoses Diagnosis Coronary artery disease involving [place] coronary artery of [place] heart without angina pectoris- Primary Presence of [...] the patient have Health Care Power of Lien Searcher? No Care Teams Contract Administration Specialist Relationship Specialty Start Date End Date Louise Thornton MD [address] [place] [address] [place] [phone] PCP - General Family Medicine 07/10/15 documented as of this encounter"
--- OUTSIDE RECORDS SUMMARY | 2023-09-16 22:40 | External Medical Summary | Summary of Care ---
Author Name Unknown Organization [facility] Address [address] [facility] [place] [address] Phone [phone] Care Team Providers Care Money Counter Name Role Phone Anne Thornton MD Primary Care Provide r Reason for Visit * Reason Onset Date Comments Medication Refill 06/30/2023 Encounter Details Date Type Department Care Team Description 06/30/2023 Refill Family Medicine [address] [phone] Anne Thornton MD [address] [place] [address] [place] [id number] BPH with obstruction/lower urinary tract symptoms Allergies [...] ons:Factor V Leiden mutation (HCC),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,jail current use of anticoagulant therapy take 1 [...] Oral Tablet (Brilinta)Indicati ons:Coronary artery disease involving [place] coronary artery of [place] heart without angina pectoris Take 1 Tablet [...] at bedtime. 90 Capsule 1 3 Active Terazosin HCl 10 MG Oral CapsuleIndications :BPH with obstruction/lower urinary tract symptoms Take 1 Capsule by mouth at bedtime. 90 Capsule 1 3 06/30/20 23 Discontinu ed(Refill) documented as of this encounter (statuses as of 07/01/2023) Active Problems Problem Noted Date Presence of drug coated stent in LAD cor onary artery 06/07/2023 Coronary artery disease invo lving [place] coronary artery of [place] heart without angina pectoris 06/07/2023 S/P angioplasty [...] mRNA, LNP-s, No Pre serve, 2-Dose Series (Anki) 06/30/2021,12/06/2020,11/15/2020 COVID-19, LNP-s, No Preserve , Tani-sucrose, Ages 12+ (Pfizer) 03/09/2022 Covid-19, Mrna, Lnp-s, Pf, B ivalent, 30 Mcg, IM, 12 yrs and above (Pfizer) 08/31/2022 Pneumococcal Conjugate Vacci ne, 20-valent ([id number]) 08/09/2022 SEASONAL INFLUENZA, PF, 6 M & [...] encounter Miscellaneous Notes * Telephone Encounter - Vidal Roberts RPh - 07/01/2023 10:38 AM EDTSigned Prescriptions: Disp Refills Terazosin HCl 10 MG Oral Capsule 90 Cap*1 Sig: Take 1 Capsule bymouth at bedtime.Authorizing Provider: ANNE THORNTON User: VIDAL ROBERTS----- documented in this encounter Plan of Treatment Upcoming Encounters Date Type Specialty Care Team Description 07/19/2023 Office Visit Ophthalmology Dewey Gross, DO [address] [place] [address] 07/28/[address] [place] [address] 10/17/2023 Office Visit Rheumatology Jayson Villalobos MD [address] [place], [place] [address] 10/19/2023 Office Visit Cardiology Bonnie Akins PA-C [address] [place] [address] 11/14/2023 Office Visit Family Medicine Anne Thornton MD [address] [place] [address] [place] [phone] Scheduled Procedures Name Priority Associated Diagnoses Date/Ti me COLONOSCOPY FLEXIBLE PROXIMAL DIAGNOSTIC Recall History of colon polyps Health Maintenance Due Date Last Done Comments Depression Screening 03/15/2020 03/15/2019 COVID-19 Vaccine ( season) 2023 08/31/2022, 03/09/2022, 06/30/2021, Additional history exists Influenza Vaccine (FLU shot) (#1) 2023 07/02/2022, 08/12/2021, 06/24/2020, Additional history exists GFR 05/21/2024 05/21/2023, 04/27, [...] this encounter Medical Devices Implanted Type Area Cook Starch Device Identifier Shelf Expiration Date Model / Serial / Lot Stent Benita Xd Mr [id number] - [id number] Implanted:Qty: 1 on 05/20/2023 by Cee Ryan MD at [facility] [employer] [id number] 06/17/2023 [id number] / / [id number] documented as of this encounter Visit Diagnoses [...] the patient have Health Care Power of Import/Export Specialist? No Care Teams Money Counter Relationship Specialty Start Date End Date Anne Thornton MD [address] [place] [address] [place] [address] PCP - General Family Medicine 07/10/15 documented as of this encounter
--- OUTSIDE RECORDS SUMMARY | 2023-09-16 22:40 | External Medical Summary | Summary of Care ---
Author Name Unknown Organization [facility] Address [address] [facility] [place] [address] Phone [phone] Care Team Providers Care Clerk Of Scales Name Role Phone Louise Thornton MD Primary Care Provide r Reason for Visit * Reason Comments Follow Up 6-8 week f/u; pt has no complaints since FRANK Encounter Details Date Type Department Care Team (Late st Contact Info) Description 07/19/2023 8:45 AM EDT Office Visit Ophthalmology, [facility] [address] [place] [address] Dewey Gross, [address] [place] [address] Retinal artery occlusion, branch, left*; Visual distortions of shape and size Allergies Active Allergy Reactions Criticality Noted Date Comments Sulfa Antibiotics 01/05/2001 rash documented as of this encounter (statuses as of 07/19/2023) Medications Medication Sig Dispensed Refills Start Date End Date Status Ammonium Lactate 12 % External Cream 0 01/06/2021 Active Multivitamin Men 50+ Oral Tablet Take by mouth as needed . 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 take 1 [...] Oral Tablet (Brilinta)Indicati ons:Coronary artery disease involving [place] coronary artery of [place] heart without angina pectoris Take 1 [...] as of this encounter (statuses as of 07/19/2023) Active Problems Problem Noted Date Diagnosed Date Presence of drug coated stent in LAD coronary ar joshua 06/07/2023 Coronary artery disease invo lving [place] coronary artery of [place] heart without angina pectoris 06/07/2023 S/P [...] as of this encounter (statuses as of 07/19/2023) Resolved Problems Problem Noted Date Diagnosed Date [...] as of this encounter (statuses as of 07/19/2023) Immunizations Name Administration Dates Next Due COVID-19 mRNA, LNP-s, No Pre serve, 2-Dose Series ([employer]) 06/30/2021,12/06/2020,11/15/2020 COVID-19, LNP-s, No Preserve , Tani-sucrose, Ages 12+ (Pfizer) 03/09/2022 Covid-19, Mrna, Lnp-s, Pf, B ivalent, 30 Mcg, IM, 12 yrs and above (Pfizer) 06/30/2023,08/31/2022 Pneumococcal Conjugate Vacci ne, 20-valent ([id number]) 08/09/2022 SEASONAL INFLUENZA, PF, 6 M & [...] as of this encounter Progress Notes * Dewey Gross, - 07/19/2023 8:45 AM EDT [facility] [place] Nursing notes reviewed. Eye vitals reviewed. Mood and Affect: normal HPI: Peter Caruso is a 62 year old male who presents for evaluation of BRAO No other eye complaints. Denies significant pain. Base Eye Exam Visual Acuity (Snellen - Linear) Right Left Dist cc 20/15 -1 20/40 Dist ph cc 20/30 -1 Tonometry (Tonopen, 8:51 AM) Right Left Pressure 11 13 Pupils Pupils Right PERRL Left PERRL Visual Tena (Counting fingers) Right Left Full Full Extraocular Movement Right Left Full, Ortho Full, Ortho Neuro/Psych Oriented x3: Yes Mood/Affect: Normal Dilation Both eyes: 0.5% Proparacaine @ 8:49 AM Dilation #2 Left eye: 1.0% Mydriacyl, 2.5% Phenylephrine @ 8:50 AM Dilation Comments Patient cautioned that effects of dilation may last 2-7 hours dependant upon individual reaction. It was discussed that driving while dilated is not recommended. EXTERNAL: The ocular adnexae are unremarkable. SLE: Lids/Lashes: wnl OU Conjunctiva/Sclera: quiet OU Cornea: clear OU Anterior Chamber: deep and quiet OU Iris: normal OU; no NVI OU Lens: +NSC OU Dilated fundus exam OD: vitreous: clear optic nerve: 0.3, no edema/pallor/NVD macula: wnl vessels: wnl periphery: wnl, no RT/RD Dilated fundus exam OS: vitreous: clear optic nerve: 0.3, no edema/pallor/NVD macula: resolved superior whitening vessels: wnl periphery: wnl, no RT/RD OCT Interpretation: OD: 05/26/23: no irf/srf, no pvd OS: superior thinning, hyperreflectivity inner superior macula(PAMM), no pvd-- OCTA Interpretation: 05/26/2023 OD: nml OS: nml A/P: 1. BRAO OS onset: 05/20/23 at time of cardiac cath -no HH plaque -had stent for CAD, VA symptoms following cardiac cath -Factor V Leiden, h/o DVT and PE's in past -on ASA 81 +coumadin -VF defect has improved, some residual defect to be expected -monitor for complications 2. Plaquenil -400mg/day x 5 years = 2.9 mg/kg/day -on for RA and Sjogren's -goal of screening is early detection, but it cannot prevent toxicity -retinopathy may progress even after cessation of drug F/u 8-10 weeks, OCT OS, OCTA OS Dewey Gross DO CC: Dr. Quiroz CC: PCP: Louise Thornton MD documented in this encounter Nursing Notes * VALARIE [place] - 07/19/2023 8:44 AM EDT Peter Caruso is a 62 year old year old male who presents for BRAO OS. Last Office Visit: 05/26/2023 (in office), Visit date not found (telemedicine) Patient currently states no change in vision. Are you diabetic? No Do you drive? yes OCT image(s) of left eye acquired and filed/scanned into chart. documented in this encounter Plan of Treatment Upcoming Encounters Date Type Department Care Team (Late st Contact Info) Description 07/28/2023 9:40 AM EDT 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ion Pharmacy, [address] [place] [address] [place] [address] 09/13/2023 8:45 AM EST Office Visit Ophthalmology, [facility] [address] [place] [address] Dewey Gross DO [address] [address] 10/17/2023 8:40 AM EST Office Visit Rheumatology [address] [place] [phone] Jayson Villalobos MD [address] [facility], [place] [address] 10/19/2023 10:00 AM EST Office Visit Cardiology, [facility] [address] [place] [address] Bonnie Akins, PAHerreraC [address] [place] [address] 11/14/2023 2:20 PM EST Office Visit Family Medicine [address] [place] [phone] Louise Thornton MD [address] [place] [address] [place] [phone] Scheduled Orders Name Type Priority Associated Diagnoses Orde r Schedule RETINA SCAN DIAGNOSTIC IMAGE, POSTERIOR Procedures Routine Retinal artery occlusion, branch, left Ordered: 07/19/2023 Scheduled Procedures Name Priority Associated Diagnoses Date/Ti [...] this encounter Medical Devices Implanted Type Area Private Duty Rn Device Identifier Shelf Expiration Date Model / Serial / Lot Stent Synergy Xd Mr [id number] - [id number] Implanted:Qty: 1 on 05/20/2023 by Cee Ryan [place] [facility] [employer] [id number] 06/17/2023 [id number] 270 / / [id number] documented as of this encounter Visit Diagnoses Diagnosis Retinal artery occlusion, branch, left- Primary Visual distortions of shape and size documented in this encounter Advance Directives Latest Code Status on File Code Status Date Activated Date Inactivated Comments Full Code 05/20/2023 3:32 PM 05/21/2023 6:14 PM This order reflects the patients wishes and were consensually agreed upon. Question Answer Comments Discussion of Advance Directives occurred with: Patient Does the patient have a Living Will? No Does the patient have Health Care Power of Bolt Labeler? No Care Teams Clerk Of Scales Relationship Specialty Start Date End Date Louise Thornton MD [address] [place] [address] [place] [address] PCP - General Family Medicine 07/10/15 documented as of this encounter
--- OUTSIDE RECORDS SUMMARY | 2023-09-16 22:40 | External Medical Summary | Summary of Care ---
Author Name Unknown Organization [facility] Address [address] [facility] [place] [address] Phone [phone] Care Team Providers Care Lead Technical Writer Name Role Phone Louise Thornton MD Primary Care Provide r Reason for Visit * Reason Comments Dosage Adjustment In Person (Anticoag Cl inic) Encounter Details Date Type Department Care Team Description 06/03/2023 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ion Pharmacy, [address] [place] [address] [place] [address] Factor V Leiden mutation ([facility]; 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ion management encounter; [facility] current use of anticoagulant therapy Allergies Active Allergy Reactions Severity Noted Date Comments Sulfa Antibiotics 01/05/2001 rash documented as of this encounter (statuses as of 06/03/2023) Medications Medication Sig Dispensed Refills Start Date [...] Oral Tablet (Brilinta)Indicati ons:Coronary artery disease involving tribal coronary artery of tribal heart without angina pectoris Take 1 Tablet by mouth in the morning and 1 Tablet before bedtime. Do not start before May 21, 2023. 60 Tablet 2 05/21/2023 Active Atorvastatin Calcium 40 MG Oral Tablet (Lipitor) Take 1 Tablet by mouth in the morning. 34 Tablet 5 05/21/2023 Active documented as of this encounter (statuses as of 06/03/2023) Active Problems Problem Noted Date S/P angioplasty with stent 05/24/2023 Branch retinal artery occlusion 05/24/20 23 Anemia 05/24/2023 Abnormal nuclear stress test 05/24/2023 SOB (shortness of breath) 05/24/2023 Ascending aorta dilatation 04/04/2023 Dyslipidemia, goal LDL below 130 022 Seasonal allergic rhinitis due to pollen 01/26/2022 [...] mutation 09/16/2014 History of pulmonary embolism 09/02/2014 Essential hypertension with goal blood p ressure less than 140/90 08/13/2009 Overview: Modified per HTN protocol #16. Venous insufficiency 11/05/2008 ADVANCE DIRECTIVE INFORMATION 09/13/2006 Overview: No, Advance Directive brochure given to patient at prior appointment. 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 History of DVT (deep vein thrombosis) Overview: right leg BPH (benign prostatic hyperplasia) documented as of this encounter (statuses as of 06/03/2023) Resolved Problems Problem Noted Date Resolved Date [...] as of this encounter (statuses as of 06/03/2023) Immunizations Name Administration Dates Next Due COVID-19 mRNA, LNP-s, No Pre serve, 2-Dose Series ([employer]) 06/30/2021,12/06/2020,11/15/2020 COVID-19, LNP-s, No Preserve , Tani-sucrose, Ages 12+ (Pfizer) 03/09/2022 Covid-19, Mrna, Lnp-s, Pf, B ivalent, 30 Mcg, IM, 12 yrs and above (Pfizer) 08/31/2022 Pneumococcal Conjugate Vacci ne, 20-valent ([id number]) 08/09/2022 Season Influenza, Cell Culte r, 18+ [...] of this encounter Progress Notes * Eneida Navarro RPh - 06/03/2023 8:49 AM EDT Medication Therapy Disease Management - 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ion Patient: Peter Caruso | : 1960 Subjective Patient-Reported Symptoms: Patient Findings Positives: Hospital admission Negatives: Signs/symptoms of thrombosis, Signs/symptoms of bleeding, Change in health, Change in alcohol use, Change in activity, Upcoming invasive procedure, Missed doses, Extra doses, Change in medications, Change in diet/appetite, Bruising Objective Current Warfarin Dose As of 06/03/2023 Warfarin maintenance plan: 7.5 mg (5 mg x 1.5) every Mon, Fri; 5 mg (5 mg x 1) all other days INR Result As of 06/03/2023 INR goal: 2.0-3.0 INR used for dosin.5 (06/03/2023) Assessment & Plan Warfarin Plan As of 06/03/2023 Full warfarin instructions: 7.5 mg every Mon, Fri; 5 mg all other days No change documented: Eneida Navarro RPh Next INR check: 06/29/2023 Repeat PT/INR in 4 week(s) Weekly dose: not changed Additional Dosing Information: Patient successfully completed Lovenox bridge. Underwent PCI with drug-eluting stent placement. Concerns with vision following procedure. Upon neuro consult was diagnosed with stroke with branch retinal artery occlusion. Following up with ophthalmology regarding this. Started on Brilinta 90mg BID + ASA 81mg daily. ASA now stopped. F/u with cardio next week. Eneida Navarro RPh Clinical Pharmacist 06/03/2023, 8:49 AM documented in this encounter Plan of Treatment Upcoming Encounters Date Type Specialty Care Team Description 06/07/2023 Office Visit Cardiology Bonnie Akins PA-C [address] [place] [address] 06/29/2023 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ion Pharmacy [facility], [address] [place] [address] 07/19/2023 Office Visit Ophthalmology Dewey Gross, [address] [place] [address] 10/17/2023 Office Visit Rheumatology Jayson Villalobos MD [address] [facility] [place] [address] 11/14/2023 Office Visit Family Medicine Louise Thornton MD [address] [place] [address] [place] [address] Scheduled Procedures Name Priority Associated Diagnoses Date/Ti me COLONOSCOPY FLEXIBLE PROXIMAL DIAGNOSTIC Recall History of colon polyps Health Maintenance Due Date Last Done Comments Depression Screening 03/15/2020 03/15/2019 Influenza Vaccine (FLU shot) (#1) 2023 07/02/2022, 08/12/2021, 06/24/2020, Additional history exists GFR 05/21/2024 05/21/2023, 04/27, 05/03/2023, Additional history exists HbA1c 05/21/2024 05/21/2023, 050 01/2023, 03/01/2022, Additional history exists Albumin/Creatinine Ratio 03/01/2025 03/01/2022, 02/24 COLONOSCOPY-EVERY 5 YRS AGES 18-100 06/23/2027 06/23/2022, 06/23/2022, 09/24/2016, Additional history exists Lipid Panel 05/21/2028 05/21/2023, 050 01/2023, 03/01/2022, Additional history exists DTaP,Tdap,and Td Vaccines (3 [...] this encounter Medical Devices Implanted Type Area Machinery Rigger Device Identifier Shelf Expiration Date Model / Serial / Lot Stent Synergy Xd Mr [id number] - [id number] Implanted:Qty: 1 on 05/20/2023 by Cee Ryan MD at [facility] [employer] [id number] 06/17/2023 [id number] / / [id number] documented as of this encounter Procedures Procedure Name Priority Date/Time Associated Diagnosis Comments INR FINGERSTICK, POINT OF CARE STAT 06/03/2023 8:54 AM EDT Factor V Leiden mutation (HCC) 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ion management encounter [facility] current use of anticoagulant therapy documented in this encounter Results * INR FINGERSTICK, POINT OF CARE (06/03/2023 8:54 AM EDT) Fingerstick INR 2.5 INR 8:55 AM EDT [facility] 55-00 Blood 06/03/2023 8:54 AM EDT 06/03/2023 8:55 AM EDT Narrative [facility] 55-00 - 06/03/2023 8:55 AM EDT Therapeutic ranges for non-operative patients: Prophylaxsis/treatment of DVT: (Range:2.0-3.0) Treatment of pulmonary embolism:(Range:2.0-3.0) Prevention of systemic embolism from: -tissue heart valves -acute myocardial infarction -valvular heart disease -atrial fibrillation (Range: 2.0-3.0) Mechanical prosthetic valves: (Range: 2.5-3.5) Eneida Navarro [facility] LAB POINT OF CARE TEST DOCKED DEVICE UNSOLICITED RESULTS LIGIA BLOOM 55-[address] [place] [address] [place] [address] documented in this encounter Visit Diagnoses Diagnosis Factor V Leiden mutation (HCC)- Primary Primary hypercoagulable state 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ion management encounter 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 No Care Teams Lead Technical Writer Relationship Specialty Start Date End Date Louise Thornton MD [address] [place] [address] [place] [address] PCP - General Family Medicine 07/10/15 documented as of this encounter"
--- OUTSIDE RECORDS SUMMARY | 2023-09-16 22:40 | External Medical Summary | Summary of Care ---
Author Name Unknown Organization [facility] Address [address] [facility] [place] [address] Phone [phone] Care Team Providers Care Clerk Funeral Detail Name Role Phone Louise Thornton MD Primary Care Provide r Reason for Visit * Reason Comments Rheum Follow Up Follow up - bilatera l knee injections Encounter Details Date Type Department Care Team Description 07/01/2023 Office Visit Rheumatology [address] [place] [phone] Jayson Villalobos MD [address] [facility] [place] [address] Primary osteoarthritis of both knees* Allergies Active Allergy Reactions Severity Noted Date [...] ons:Factor V Leiden mutation (HCC),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,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 90 Capsule 1 07/01/2023 Active Hospital, Clinic, or Other Facility Administered Medication Ordered Dose Route Frequency Start Date End Date Status Lidocaine (PF) 2 % (PF) inj 20 mgIndications:Primary osteoarthritis of both knees 20 mg IX ONCE 07/01/2023 07/01/2023 Ended Lidocaine (PF) 2 % (PF) inj 20 mgIndications:Primary osteoarthritis of both knees 20 mg IX ONCE 07/01/2023 07/01/2023 Ended methylPREDNISolone acetate (Depo-Medrol) 40 MG/ML inj 40 mgIndications:Primary osteoarthritis of both knees 40 mg IX ONCE 07/01/2023 07/01/2023 Ended methylPREDNISolone acetate (Depo-Medrol) 40 MG/ML inj 40 mgIndications:Primary osteoarthritis of both knees 40 mg IX ONCE 07/01/2023 07/01/2023 Ended documented as of this encounter (statuses as of 07/01/2023) Active Problems Problem Noted Date Presence of drug coated stent in LAD cor onary artery 06/07/2023 Coronary artery disease invo lving [place] coronary artery of [place] heart without angina pectoris 06/07/2023 S/P angioplasty with stent 05/24/2023 Branch retinal artery occlusion 05/24/20 Anemia 05/24/2023 Abnormal nuclear stress test 05/24/2023 SOB (shortness of breath) 05/24/2023 Ascending aorta dilatation 04/04/2023 Dyslipidemia, goal LDL below 70 01/27/20 Seasonal allergic rhinitis due to pollen 01/26/2022 [...] mRNA, LNP-s, No Pre serve, 2-Dose Series (CartiCure) 06/30/2021,12/06/2020,11/15/2020 COVID-19, LNP-s, No Preserve , Tani-sucrose, Ages 12+ (CartiCure) 03/09/2022 Covid-19, Mrna, Lnp-s, Pf, B ivalent, 30 Mcg, IM, 12 yrs and above (CartiCure) 06/30/2023,08/31/2022 Pneumococcal Conjugate Vacci ne, 20-valent ([id number]) 08/09/2022 SEASONAL INFLUENZA, PF, 6 M & [...] Sign Reading Time Taken Comments Blood Pressure - - Pulse - - Temperature 36.3 C (97.3 F) 07/01/2023 3:29 PM ED T Respiratory Rate - - Oxygen Saturation - - Inhaled Oxygen Concentration - - Weight 136.1 kg (300 lb) 07/01/2023 3:29 PM EDT Height - - Body Mass Index 39.04 03/22/2023 8:39 AM EDT documented in this [...] as of this encounter Progress Notes * Jayson Villalobos MD - 07/01/2023 4:01 PM EDTAssociated Order(s): LG Joint Inj/Arthro: bilateral knee Post-Procedure Diagnose(s): Primary osteoarthritis of both knees Peter Caruso is a 62 year old male patient. ICD-10-CM 1. Primary osteoarthritis of both knees M17.0 Past Medical History: Diagnosis Date BMI 40.0-44.9, adult (HCC) BPH (benign prostatic hyperplasia) Displacement of lumbar intervertebral disc without myelopathy DVT (deep venous thrombosis) ([facility]) 08/09 right leg Factor V Leiden mutation ([facility]) 09/16/2014 HTN, goal below 140/90 Impaired glucose tolerance Osteoarthritis of right knee Phlebitis and thrombophlebitis of other deep vessels of lower extremities 1980s right leg 19 years ago/ coumadin therapy Phlebitis and thrombophlebitis of superficial vessels of lower extremities 07/01 right leg ongoing Pulmonary emboli ([facility]) 08/09 Sicca syndrome ([facility]) Venous stasis ulcer ([facility]) 2013 Temperature 36.3 C (97.3 F), temperature source Infrared , weight 136.1 kg (300 lb). LG Joint Inj/Arthro: bilateral knee on 07/01/2023 4:01 PM Indications: pain Details: 25 G needle, anterior approach Medications (Right): (40mg of depomedrol and 1 ml of 2% lidocaine) Medications (Left): (40mg of depomedrol and 1 ml of 2% lidocaine) Outcome: tolerated well, no immediate complications Procedure, treatment alternatives, risks and benefits explained, specific risks discussed. Consent was given by the patient. Immediately prior to procedure a time out was called to verify the correctpatient, procedure, equipment, academic support specialist and site/side marked as required. Patient was prepped and draped in the usual sterile fashion. Jayson Villalobos MD 07/01/2023 documented in this encounter Nursing Notes * Mery Turner LPN - 07/01/2023 3:29 PM EDT Chief Complaint Patient presents with Rheum Follow Up Follow up - bilateral knee injections documented in this encounter Plan of Treatment Upcoming Encounters Date Type Specialty Care Team Description 07/19/2023 Office Visit Ophthalmology Dewey Gross, DO [address] [place] [address] 07/28/2023 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ion [facility], [address] [place] [address] 10/17/2023 Office Visit Rheumatology Jayson Villalobos MD [facility] [place] [address] 10/19/2023 Office Visit Cardiology Bonnie Akins PA-C [address] [place] [address] 11/14/2023 Office Visit Family Medicine Louise Thornton MD [address] [place] [address] [place] [address] Scheduled Procedures Name Priority Associated Diagnoses Date/Ti me COLONOSCOPY FLEXIBLE PROXIMAL DIAGNOSTIC Recall History of colon polyps Health Maintenance Due Date Last Done Comments Depression Screening 03/15/2020 03/15/2019 Influenza Vaccine (FLU shot) (#1) 2023 07/02/2022, 08/12/2021, 06/24/2020, Additional history exists COVID-19 Vaccine ( season) 2023 06/30/2023, 08/31/2022, [...] this encounter Medical Devices Implanted Type Area Ladies' Locker Room Attendant Device Identifier Shelf Expiration Date Model / Serial / Lot Stent Synergy Xd Mr [id number] - [id number] Implanted:Qty: 1 on 05/20/2023 by Cee Ryan MD at [facility] [employer] [id number] 06/17/2023 [id number] / / [id number] documented as of this encounter Procedures Procedure Name Priority Date/Time Associated Diagnosis Comments SC ARTHROCENTESIS ASPIR&/INJ MAJOR JT/BURSA W/O US Routine 07/01/2023 4:01 PM EDT Primary osteoarthritis of both knees documented in this encounter Results * SC ARTHROCENTESIS ASPIR&/INJ MAJOR JT/BURSA W/O US (07/01/2023 4:01 PM EDT) Narrative Jayson Villalobos MD - 07/01/2023 4:01 PM EDT Jayson Villalobos MD 07/01/2023 4:16 PM LG Joint Inj/Arthro: bilateral knee on 07/01/2023 4:01 PM Indications: pain Details: 25 G needle, anterior approach Medications (Right): (40mg of depomedrol and 1 ml of 2% lidocaine) Medications (Left): (40mg of depomedrol and 1 ml of 2% lidocaine) Outcome: tolerated well, no immediate complications Procedure, treatment alternatives, risks and benefits explained, specific risks discussed. Consent was given by the patient. Immediately prior to procedure a time out was called to verify the correct patient, procedure, equipment, academic support specialist and site/side marked as required. Patient was prepped and draped in the usual sterile fashion. Jayson Villalobos MD PROCDOC FORM documented in this encounter Visit Diagnoses Diagnosis Primary osteoarthritis of both knees- Primary Primary localized osteoarthrosis, lower leg documented in this encounter Administered Medications Inactive Administered Medications - up to 3 most recent administrations Medication Order MAR Action Action Date Dose Rate Site Lidocaine (PF) 2 % (PF) inj 20 mg 20 mg, Intra-Articular, ONCE, On Tue07/01/23 at 1645, For 1 dose Given 07/01/2023 4:01 PM EDT 20 mg Knee Left Lidocaine (PF) 2 % (PF) inj 20 mg 20 mg, Intra-Articular, ONCE, On Tue07/01/23 at 1645, For 1 dose Given 07/01/2023 4:01 PM EDT 20 mg Knee Right methylPREDNISolone acetate (Depo-Medrol) 40 MG/ML inj 40 mg 40 mg, Intra-Articular, ONCE, On Tue07/01/23 at 1645, For 1 dose Given 07/01/2023 4:01 PM EDT 40 mg Knee Right methylPREDNISolone acetate (Depo-Medrol) 40 MG/ML inj 40 mg 40 mg, Intra-Articular, ONCE, On Tue07/01/23 at 1645, For 1 dose Given 07/01/2023 4:00 PM EDT 40 mg Knee Left documented in this encounter Advance Directives Latest Code Status on File Code Status Date Activated Date Inactivated Comments Full Code 05/20/2023 3:32 PM 05/21/2023 6:14 PM This order reflects the patients wishes and were consensually agreed upon. Question Answer Comments Discussion of Advance Directives occurred with: Patient Does the patient have a Living Will? No Does the patient have Health Care Power of Psychology Fellow? No Care Teams Clerk Funeral Detail Relationship Specialty Start Date End Date Louise Thornton MD [address] [place] [address] [place] [address] PCP - General Family Medicine 07/10/15 documented as of this encounter
--- OUTSIDE RECORDS SUMMARY | 2023-09-16 22:40 | External Medical Summary ---
Author Name Unknown Address Unknown Organization : Laboratory Report Ordering Provider Test Date Status SUMA STEPHENS 06/03/2023 08:54:17 Final Therapeutic ranges for non-o perative patients:
Prophylaxsis/treatment of DVT: (Range:2.0-3.0)
Treatment of pulmonary embolism:(Range:2.0-3.0)
Prevention of systemic embolism from:
-tissue heart valves
-acute myocardial infarction
-valvular heart disease
-atrial fibrillation
(Range: 2.0-3.0)
Mechanical prosthetic valves: (Range: 2.5-3.5) Observation Date Value Abnormality Reference (Units ) Status INR in Capillary blood by Coagulation assay 06/03/2023 08:54:17 2.5 (INR) Final Performing Location
--- OUTSIDE RECORDS SUMMARY | 2023-09-16 22:40 | External Medical Summary | Summary of Care ---
Author Name Unknown Organization [facility] Address [address] [facility] [place] [address] Phone [phone] Care Team Providers Care Automobile Service Station Manager Name Role Phone Louise Thornton MD Primary Care Provide r Reason for Visit * Reason Onset Date Comments Appointment 06/30/2023 Both knees need injected Encounter Details Date Type Department Care Team Description 06/30/2023 Telephone [facility] [address] [facility] [place] [address] Jayson Villalobos MD [facility] [place] [address] Appointment (Both knees need injected) Allergies Active Allergy Reactions Severity Noted Date [...] ons:Factor V Leiden mutation (HCC),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,custodial current use of anticoagulant therapy take 1 [...] Oral Tablet (Brilinta)Indicati ons:Coronary artery disease involving [place] coronary artery of [place] heart without angina pectoris Take 1 Tablet [...] 15 minutes 25 Tablet 11 3 Active Additional Information Patient not taking.Reported on [...] artery 06/07/2023 Coronary artery disease invo lving [place] coronary artery of [place] heart without angina pectoris 06/07/2023 S/P angioplasty [...] mRNA, LNP-s, No Pre serve, 2-Dose Series ([employer]) 06/30/2021,12/06/2020,11/15/2020 COVID-19, LNP-s, No Preserve , Tani-sucrose, Ages 12+ (Pfizer) 03/09/2022 Covid-19, Mrna, Lnp-s, Pf, B ivalent, 30 Mcg, IM, 12 yrs and above (Pfizer) 06/30/2023,08/31/2022 Pneumococcal Conjugate Vacci ne, 20-valent ([id number]) 08/09/2022 SEASONAL INFLUENZA, PF, 6 M & [...] encounter Miscellaneous Notes * Telephone Encounter - Jayson Villalobos MD - 07/01/2023 4:39 PM EDT Seen today * Telephone Encounter - Johana Nava - 06/30/2023 10:04 AM EDT Patient would like apt to have both Knee's injected having problems. Unable to find an apt in the near future. Willing to go to [facility] or [place]. Please call with apt documented in this encounter Plan of Treatment Upcoming Encounters Date Type Specialty Care Team Description 07/19/2023 Office Visit Ophthalmology Dewey Gross, [address] [place] [address] 07/28/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 [place] [address] 10/17/2023 Office Visit Rheumatology Jayson Villalobos MD [address] [place] [address] [place] [address] 10/19/2023 Office Visit Cardiology Bonnie Akins PA-C [address] [place] [address] 11/14/2023 Office Visit Family Medicine Louise Thornton MD [address] [place] [address] [place] [address] Scheduled Procedures Name Priority Associated Diagnoses Date/Ti [...] this encounter Medical Devices Implanted Type Area Freezer Unloader Device Identifier Shelf Expiration Date Model / Serial / Lot Stent Synergy Xd Mr [id number] - [id number] Implanted:Qty: 1 on 05/20/2023 by Cee Ryan MD [place] [facility] [employer] [id number] 06/17/2023 [id number] 270 / / [id number] documented as of this encounter Advance Directives [...] the patient have Health Care Power of Solidworks Mechanical Designer? No Care Teams Automobile Service Station Manager Relationship Specialty Start Date End Date Louise Thornton MD [address] [place] [address] [place] [address] PCP - General Family Medicine 07/10/15 documented as of this encounter
--- OUTSIDE RECORDS SUMMARY | 2023-09-16 22:40 | External Medical Summary | Summary of Care ---
Author Name Unknown Organization [facility] Address [address] [facility] [place] [address] Phone [phone] Care Team Providers Care Manager Electronic Name Role Phone Louise Thornton MD Primary Care Provide r Reason for Visit * Reason Comments Dosage Adjustment In Person (Anticoag Cl inic) Encounter Details Date Type Department Care Team Description 05/03/2023 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ion Pharmacy, [address] [place] [address] [place] [address] Factor V Leiden mutation ([facility])*; 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ion management encounter; alf current use of anticoagulant therapy Allergies Active [...] 0 Active Terazosin HCl 10 MG Oral CapsuleIndication s:BPH with obstruction/lower urinary tract symptoms Take 1 Capsule by mouth at bedtime. 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 take [...] Capsule 1 04/23/20 23 Active Atorvastatin Calcium 10 MG Oral Tablet (Lipitor)Indicati ons:Elevated liver enzymes TAKE ONE TABLET BY MOUTH EVERY DAY 90 Tablet 3 06/10/20 22 023 Discontinued documented as of this encounter [...] mRNA, LNP-s, No Pre serve, 2-Dose Series (trippiece) 06/30/2021,12/06/2020,11/15/2020 COVID-19, LNP-s, No Preserve , Tani-sucrose, Ages 12+ (Pfizer) 03/09/2022 Covid-19, Mrna, Lnp-s, Pf, B ivalent, 30 Mcg, IM, 12 yrs and above (trippiece) 08/31/2022 PPD 04/20/2000 Pneumococcal Conjugate Vacci ne, 20-valent ([id number]) 08/09/2022 Season Influenza, Cell Culte r, 18+ [...] on file documented as of this encounter Progress Notes * Kat Navarro, [facility] - 05/03/2023 3:41 PM EDT Medication Therapy Disease Management - 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ion Patient: Peter Caruso | : 1960 Subjective Patient-Reported Symptoms: Patient Findings Positives: Upcoming invasive procedure Negatives: Signs/symptoms of thrombosis, Signs/symptoms of bleeding, Change in health, Change in alcohol use, Change in activity, Missed doses, Extra doses, Change in medications, Change in diet/appetite, Bruising Objective Current Warfarin Dose As of 05/03/2023 Warfarin maintenance plan: 7.5 mg (5 mg x 1.5) every Mon, Fri; 5 mg (5 mg x 1) all other days INR Result As of 05/03/2023 INR goal: 2.0-3.0 INR used for dosin.3 (05/03/2023) Assessment & Plan Warfarin Plan As of 05/03/2023 Full warfarin instructions: 05/04: Hold; 05/05: Hold; 05/06: Hold; 05/07: Hold; 05/08: Hold; 05/09: 10 mg;05/10: 10 mg; 05/11: 7.5 mg; Otherwise 7.5 mg every Mon, Fri; 5 mg all other days No change documented: Kat Navarro RPh Next INR check: 05/23/2023 Repeat PT/INR in 3 week(s) (2 weeks post proc) Weekly dose: not changed Additional Dosing Information: Patient is scheduled for cardiac catheterization at [facility] on 05/[address] Aranda[address] Dr Smith, would like to proceed with Lovenox bridge with 5-day hold. Last warfarin dose is today. Lovenox Dose: 140mg BID (patient feels comfortable wasting 10mg) Call placed to f/u on lab results tomorrow then will send in Lovenox syringes to pharmacy. Kat Navarro RPh Clinical Pharmacist 05/03/2023, 3:41 PM documented in this encounter Miscellaneous Notes * Addendum Note - Kat Navarro RPh - 06/03/2023 2:37 PM EDTAddended by: KAT NAVARRO on: 06/03/2023 02:37 PM Modules accepted: Level of Service documented in this encounter Plan of Treatment Upcoming Encounters Date Type Specialty Care Team Description 06/07/2023 Office Visit Cardiology Bonnie Akins PA-C [address] [place] [address] 06/29/2023 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ion Pharmacy [address] [place] [address] 07/19/2023 Office Visit Ophthalmology Dewey Gross, DO [address] [place] [address] 10/17/2023 Office Visit Rheumatology Jayson Villalobos MD [address] [employer] [place] [address] 11/14/2023 Office Visit Family Medicine Louise Thornton MD [address] [place] [address] [place] [address] Scheduled Procedures Name Priority Associated Diagnoses Date/Ti [...] Additional history exists Lipid Panel 05/21/2028 05/21/2023, 05/0 01/2023, 03/01/2022, Additional history exists DTaP,Tdap,and Td [...] this encounter Medical Devices Implanted Type Area Reconciliation Manager Device Identifier Shelf Expiration Date Model / Serial / Lot Stent Synergy Xd Mr [id number] - [id number] Implanted:Qty: 1 on 05/20/2023 by Cee Ryan MD at [facility] [employer] [id number] 06/17/2023 [id number] / / [id number] documented as of this encounter Procedures Procedure Name Priority Date/Time Associated Diagnosis Comments INR FINGERSTICK, POINT OF CARE STAT 05/03/2023 3:52 PM EDT Factor V Leiden mutation (HCC) 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ion management encounter alf current use of anticoagulant therapy documented in this encounter Results * INR FINGERSTICK, POINT OF CARE (05/03/2023 3:52 PM EDT) Fingerstick INR 2.3 INR 3:53 PM EDT [facility] [place] [address] Blood 05/03/2023 3:52 PM EDT 05/03/2023 3:53 PM EDT [facility] [place] - - 05/03/2023 3:53 PM EDT Therapeutic ranges for non-operative patients: Prophylaxsis/treatment of DVT: (Range:2.0-3.0) Treatment of pulmonary embolism:(Range:2.0-3.0) Prevention of systemic embolism from: -tissue heart valves -acute myocardial infarction -valvular heart disease -atrial fibrillation (Range: 2.0-3.0) Mechanical prosthetic valves: (Range: 2.5-3.5) Kat Navarro [facility] POINT OF CARE TEST DOCKED DEVICE UNSOLICITED RESULTS [facility] [place] [address] [place] [address] documented in this encounter Visit Diagnoses Diagnosis Factor V Leiden mutation (HCC)- Primary Primary hypercoagulable state 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ion management encounter 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 No Care Teams Manager Electronic Relationship Specialty Start Date End Date Louise Thornton MD [address] [place] [address] [place] [id number] PCP - General Family Medicine 07/10/15 documented as of this encounter"
--- OUTSIDE RECORDS SUMMARY | 2023-09-16 22:40 | External Medical Summary | Summary of Care ---
Author Name Unknown Organization [facility] Address [address] [facility] [place] [address] Phone [phone] Care Team Providers Care Terra Cotta Roofer Name Role Phone Louise Thornton MD Primary Care Provide r Reason for Visit * Reason Onset Date Comments Hospital Follow-Up 05/20/2023 Encounter Details Date Type Department Care Team Description 05/20/2023 Telephone Cardiology, [facility] [address] [place] [address] Javon Smith, [address] [place] [address] Hospital Follow-Up Allergies Active Allergy Reactions Severity Noted Date Comments Sulfa Antibiotics 01/05/2001 rash documented as of this encounter (statuses as of 06/12/2023) Medications Medication Sig Dispensed Refills Start Date End Date Status Ammonium Lactate 12 % External Cream 0 1 Active Multivitamin Men 50+ Oral Tablet Take by mouth as needed . 0 Active Terazosin HCl 10 MG Oral CapsuleIndications :BPH with obstruction/lower urinary tract symptoms Take 1 Capsule by mouth at bedtime. 90 Capsule 1 3 Active Warfarin Sodium 5 MG Oral Tablet (Jantoven)Indicati ons:Factor V Leiden mutation (HCC),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,assisted current use of anticoagulant therapy take 1 [...] Oral Tablet (Brilinta)Indicati ons:Coronary artery disease involving marshall coronary artery of marshall heart without angina pectoris Take 1 Tablet by mouth in the morning and 1 Tablet before bedtime. Do not start before May 21, 2023. 60 Tablet 2 3 08/19/20 23 Active Enoxaparin Sodium 150 MG/ML Injection Solution Prefilled Syringe (Lovenox) Inject 140 mg under the skin up to two times daily as directed by anticoagulation clinic 10 mL 0 3 05/24/20 23 Discontinu ed(Medicat ion List Clean Up) documented as of this encounter (statuses as of 06/12/2023) Active Problems Problem Noted Date Presence of drug coated stent in LAD cor onary artery 06/07/2023 Coronary artery disease invo lving marshall coronary artery of marshall heart without angina pectoris 06/07/2023 S/P angioplasty [...] as of this encounter (statuses as of 06/12/2023) Resolved Problems Problem Noted Date Resolved Date [...] as of this encounter (statuses as of 06/12/2023) Immunizations Name Administration Dates Next Due COVID-19 mRNA, LNP-s, No Pre serve, 2-Dose Series (Pfizer) 06/30/2021,12/06/2020,11/15/2020 COVID-19, LNP-s, No Preserve , Tani-sucrose, Ages 12+ (Pfizer) 03/09/2022 Covid-19, Mrna, Lnp-s, Pf, B ivalent, 30 Mcg, IM, 12 yrs and above (Pfizer) 08/31/2022 Pneumococcal Conjugate Vacci ne, 20-valent ([id number]) 08/09/2022 Season Influenza, Cell Culte r, 18+ [...] on file documented as of this encounter Miscellaneous Notes * Telephone Encounter - PHILOMENA Parrish - 05/23/2023 10:20 AM EDT Spoke with pt. Pt is scheduled 06/07/23 with Bonnie Akins PA-C. * Telephone Encounter - Javon Smith DO - 05/20/2023 4:45 PM EDT Cardio scheduling: pt had cardiac catheterization and stent at [facility] on 05/20/23. Please help arrange follow up visit with or Bonnie in 1-4 weeks. Javon Smith DO documented in this encounter Plan of Treatment Upcoming Encounters Date Type Specialty Care Team Description 06/29/2023 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ion Pharmacy [address] [place] [address] 07/19/2023 Office Visit Ophthalmology Dewey Gross DO [address] [place] [address] 10/17/2023 Office Visit Rheumatology Jayson Villalobos MD [address] [place] [address] [place] [address] 10/19/2023 Office Visit Cardiology Bonnie Akins PA-C [address] [place] [address] 11/14/2023 Office Visit Family Medicine Louise Thornton MD [address] [place] [address] [place] [address] Scheduled Procedures Name Priority Associated Diagnoses Date/Ti me COLONOSCOPY FLEXIBLE PROXIMAL DIAGNOSTIC Recall History of colon polyps Health Maintenance Due Date Last Done Comments Depression Screening 03/15/2020 03/15/2019 Influenza Vaccine (FLU shot) (#1) 2023 07/02/2022, 08/12/2021, 06/24/2020, Additional history exists GFR 05/21/2024 05/21/2023, 0801/2023, [...] this encounter Medical Devices Implanted Type Area Loan Underwriter Device Identifier Shelf Expiration Date Model / Serial / Lot Stent Synergy Xd Mr [id number] - [id number] Implanted:Qty: 1 on 05/20/2023 by Cee Ryan MD at [facility] [employer] [id number] 06/17/2023 [id number] / / [id number] documented as of this encounter Advance Directives [...] the patient have Health Care Power of Hotbed Operator? No Care Teams Terra Cotta Roofer Relationship Specialty Start Date End Date Louise Thornton MD [address] [place] [address] [place] [address] PCP - General Family Medicine 07/10/15 documented as of this encounter
--- OUTSIDE RECORDS SUMMARY | 2023-09-16 22:40 | External Medical Summary | Summary of Care ---
Author Name Unknown Organization [facility] Address [address] [place] [address] Phone [phone] Care Team Providers Care Blankbook Forwarder Name Role Phone Louise Thornton MD Primary Care Provide r Encounter Details Date Type Department Care Team Description 05/20/2023 CardioDiagnostic Study Cardiology [facility] [address] [place] [address] Vance Reinoso CRNP [address] [place] [address] EKG Report Allergies Active Allergy Reactions Severity Noted Date Comments Sulfa Antibiotics 01/05/2001 rash documented as of this encounter (statuses as of 05/30/2023) Medications Medication Sig Dispensed Refills Start Date [...] ons:Factor V Leiden mutation (HCC),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,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 Do not start before May 21, 2023. 60 Tablet 2 05/21/2023 Active Atorvastatin Calcium 40 MG Oral Tablet (Lipitor) Take 1 Tablet by mouth in the morning. 34 Tablet 5 05/21/2023 Active documented as of this encounter (statuses as of 05/30/2023) Active Problems Problem Noted Date S/P angioplasty [...] as of this encounter (statuses as of 05/30/2023) Resolved Problems Problem Noted Date Resolved Date [...] as of this encounter (statuses as of 05/30/2023) Immunizations Name Administration Dates Next Due COVID-19 mRNA, LNP-s, No Pre serve, 2-Dose Series (Venturesity) 06/30/2021,12/06/2020,11/15/2020 COVID-19, LNP-s, No Preserve , Tani-sucrose, Ages 12+ (Venturesity) 03/09/2022 Covid-19, Mrna, Lnp-s, Pf, B ivalent, 30 Mcg, IM, 12 yrs and above (Pfizer) 08/31/2022 Pneumococcal Conjugate Vacci ne, 20-valent ([id number]) 08/09/2022 Season Influenza, Cell Culte r, 18+ [...] on file documented as of this encounter Procedure Notes * Arturo Handley MD - 05/20/2023 12:23 PM EDTAssociated Order(s): EKG REPORT REASON FOR STUDY: POST PROCEDURE CONCLUSIONS: Sinus rhythm with Premature atrial complexes Otherwise normal ECG When compared with ECG of 20-MAY-2023 09:51, No significant change was found Ventricular Rate: 73 Atrial Rate: 73 AK Interval: 192 QRS Duration: 96 QT/QTc: 420/462 ms P-R-T [place]: 88 : 72 : 53 degrees documented in this encounter Plan of Treatment Upcoming Encounters Date Type Specialty Care Team Description 06/03/2023 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ion Pharmacy [place], [facility] [address] [place] [address] 06/07/2023 Office Visit Cardiology Bonnie Akins PA-C [address] [place] [address] 07/19/2023 Office Visit Ophthalmology Dewey Gross DO [address] [place] [address] 10/17/2023 Office Visit Rheumatology Jayson Villalobos MD [address] [place] [address] [place] [address] 11/14/2023 Office Visit Family Medicine Louise Thornton MD [address] [place] [address] [place] [address] Scheduled Procedures Name Priority Associated Diagnoses Date/Ti me COLONOSCOPY FLEXIBLE PROXIMAL DIAGNOSTIC Recall History of colon polyps Health Maintenance Due Date Last Done Comments Depression Screening, Annual for Pts 12 and Over 03/15/2020 03/15/2019 Influenza Vaccine (FLU shot) (#1) [...] this encounter Medical Devices Implanted Type Area Touring Production Manager Device Identifier Shelf Expiration Date Model / Serial / Lot Stent Synergy Xd Mr [id number] - [id number] Implanted:Qty: 1 on 05/20/2023 by Cee Ryan MD at [facility] [employer] [id number] 06/17/2023 [id number] 270 / / [id number] documented as of this encounter Procedures Procedure Name Priority Date/Time Associated Diagnosis Comments EKG REPORT 05/20/2023 12:23 PM EDT documented in this encounter Results * EKG REPORT (05/20/2023 12:23 PM EDT) 05/20/2023 12:2 3 PM EDT Procedure Note Arturo Handley MD - 05/20/2023 12:23 PM EDT REASON FOR STUDY: POST PROCEDURE CONCLUSIONS: Sinus rhythm with Premature atrial complexes Otherwise normal ECG When compared with ECG of 20-MAY-2023 09:51, No significant change was found Ventricular Rate: 73 Atrial Rate: 73 [place] Interval: 192 QRS Duration: 96 QT/QTc: 420/462 ms P-R-T [place]: 88 : 72 : 53 degrees Vance LOPEZ EKG documented in this encounter Advance Directives Latest Code Status on File Code Status Date Activated Date Inactivated Comments Full Code 05/20/2023 3:32 PM 05/21/2023 6:14 PM This order reflects the patients wishes and were consensually agreed upon. Question Answer Comments Discussion of Advance Directives occurred with: Patient Does the patient have a Living Will? No Does the patient have Health Care Power of Gifts Officer? No Care Teams Blankbook Forwarder Relationship Specialty Start Date End Date Louise Thornton MD [address] [place] [address] [place] [phone] PCP - General Family Medicine 07/10/15 documented as of this encounter
--- OUTSIDE RECORDS SUMMARY | 2023-09-16 22:40 | External Medical Summary | Summary of Care ---
Author Name Unknown Organization [facility] Address [address] [facility] [place] [address] Phone [phone] Care Team Providers Care Iron Melter Name Role Phone Louise Thornton MD Primary Care Provide r Reason for Visit * Reason Onset Date Comments Medication Administration 07/19/2023 Flu an d/or Pneumo Inj Encounter Details Date Type Department Care Team (Late st Contact Info) Description 07/19/2023 9:40 AM EDT Immunization Ancillary [address] [place] [address] [place] [address] [place] [address] Need for prophylactic vaccination and inoculation against influenza* Allergies Active Allergy Reactions Criticality Noted Date [...] ons:Factor V Leiden mutation (HCC),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,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 take [...] (Brilinta)Indicati ons:Coronary artery disease involving [place] coronary artery of [place] heart without angina pectoris Take 1 Tablet [...] Coronary artery disease invo lving [place] coronary artery of [place] heart without angina pectoris 06/07/2023 S/P angioplasty [...] mRNA, LNP-s, No Pre serve, 2-Dose Series (Symtavision) 06/30/2021,12/06/2020,11/15/2020 COVID-19, LNP-s, No Preserve , Tani-sucrose, Ages 12+ (Pfizer) 03/09/2022 Covid-19, Mrna, Lnp-s, Pf, B ivalent, 30 Mcg, IM, 12 yrs and above (Pfizer) 06/30/2023,08/31/2022 Pneumococcal Conjugate Vacci ne, 20-valent ([id number]) 08/09/2022 SEASONAL INFLUENZA, PF, 6 M & [...] as of this encounter Progress Notes * Nhi Turpin RN - 07/19/2023 9:45 AM EDT PRE - ADMINISTRATION DOCUMENTATION Are you experiencing any cold symptoms or fever? No Have you had Guillain-Panama Syndrome (an illness that causes paralysis) within the last 6 weeks? No Have you had the flu shot in the past? YES Have you ever had a reaction to the flu shot? No Nhi Turpin RN, 07/19/2023 9:45 AM Immunization Administration Documentation Time Out Procedure Performed: Yes Patient Identified (Ask Name/Date of ): Yes Does the patient have a fever greater than 101 degrees today? No Patient allergic to latex? No C Stock: No Immunization(s) verified: Yes, Immunization Name: Flu, VIS Sheet(s) given: Yes Verified Side and Site: Yes Verified Shot(s) with Parent(s)/Patient: Yes documented in this encounter Plan of Treatment Upcoming Encounters Date Type Department Care Team (Late st Contact Info) Description 07/28/2023 9:40 AM EDT 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ion Pharmacy, [address] [place] [address] [place] [address] 09/13/2023 8:45 AM EST Office Visit Ophthalmology, [facility] [address] [facility] [place] [address] Dewey Gross DO [address] [place] [address] 10/17/2023 8:40 AM EST Office Visit Rheumatology [address] [place] [phone] Jayson Villalobos MD [address] [place] [address] [place] [address] 10/19/2023 10:00 AM EST [facility], [facility] [place] [address] Bonnie Akins, PASonya [address] [place] [address] 11/14/2023 2:20 PM EST Office Visit Family Medicine [address] [place] [address] Louise Thornton MD [address] [place] [address] [place] [address] Scheduled Procedures Name Priority Associated Diagnoses Date/Ti [...] this encounter Medical Devices Implanted Type Area Laboratory Sampler Device Identifier Shelf Expiration Date Model / Serial / Lot Stent Synergy Xd Mr [id number] - [id number] Implanted:Qty: 1 on 05/20/2023 by Cee Ryan MD at [facility] [employer] [id number] 06/17/2023 [id number] 270 / / [id number] documented as of this encounter Visit Diagnoses Diagnosis Need for prophylactic vaccination and inoculation against influenza- Primary documented in this encounter Advance Directives [...] the patient have Health Care Power of Instructional Design Specialist? No Care Teams Iron Melter Relationship Specialty Start Date End Date Louise Thornton MD [address] [place] [address] [place] [address] PCP - General Family Medicine 07/10/15 documented as of this encounter
--- OUTSIDE RECORDS SUMMARY | 2023-09-16 22:40 | External Medical Summary | Summary of Care ---
Author Name Unknown Organization [facility] Address [address] [facility] [place] [address] Phone [phone] Care Team Providers Care Grants Officer Name Role Phone Louise Thornton MD Primary Care Provide r Reason for Visit * Reason Comments Follow Up 6-8 week f/u; pt has no complaints since FRANK Encounter Details Date Type Department Care Team (Late st Contact Info) Description 07/19/2023 8:45 AM EDT Office Visit Ophthalmology, [facility] [address] [place] [address] Dewey Gross, [address] [place] [address] Retinal artery occlusion, branch, left*; Visual distortions [...] ons:Factor V Leiden mutation (HCC),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,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 take 1 [...] (Brilinta)Indicati ons:Coronary artery disease involving [place] coronary artery of [place] heart without angina pectoris Take 1 Tablet [...] Coronary artery disease invo lving [place] coronary artery of [place] heart without angina pectoris 06/07/2023 S/P angioplasty [...] mRNA, LNP-s, No Pre serve, 2-Dose Series ([employer] App) 06/30/2021,12/06/2020,11/15/2020 COVID-19, LNP-s, No Preserve , Tani-sucrose, Ages 12+ (Pfizer) 03/09/2022 Covid-19, Mrna, Lnp-s, Pf, B ivalent, 30 Mcg, IM, 12 yrs and above (Pfizer) 06/30/2023,08/31/2022 Pneumococcal Conjugate Vacci ne, 20-valent ([id number]) 08/09/2022 SEASONAL INFLUENZA, PF, 6 M & [...] - 07/19/2023 8:45 AM EDT [facility] [place] Nursing notes reviewed. [...] Description 07/28/2023 9:40 AM EDT 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ion Pharmacy, [address] [place] [address] [place] [address] 09/13/2023 8:45 AM EST Office Visit Ophthalmology, [facility] [address] [place] [address] Dewey Gross DO [place] [address] 10/17/2023 8:40 AM EST Office Visit Rheumatology [address] [place] [phone] Jayson Villalobos MD [address] [facility], [place] [address] 10/19/2023 10:00 AM EST Office Visit Cardiology, [facility] [address] [place] [address] Bonnie Akins, PAHerreraC [address] [place] [address] 11/14/2023 2:20 PM EST Office Visit Family Medicine [address] [place] [phone] Louise Thornton MD [address] [place] [address] [place] [address] Scheduled Orders Name Type Priority Associated Diagnoses [...] this encounter Medical Devices Implanted Type Area Chocolate Dipper Device Identifier Shelf Expiration Date Model / Serial / Lot Stent Synergy Xd Mr [id number] - [id number] Implanted:Qty: 1 on 05/20/2023 by Cee Ryan MD at CARDIAC LABS [facility] [employer] [id number] 06/17/2023 [id number] / / [id number] documented as of this encounter Visit Diagnoses [...] the patient have Health Care Power of Home [employer]ot Rep? No Care Teams Grants Officer Relationship Specialty Start Date End Date Louise Thornton MD [address] [place] [address] [place] [address] PCP - General Family Medicine 07/10/15 documented as of this encounter
--- OUTSIDE RECORDS SUMMARY | 2023-09-16 22:40 | External Medical Summary ---
Author Name Unknown Address Unknown Organization : Laboratory Report Ordering Provider Test Date Status SUMA STEPHENS 06/30/2023 10:22:51 Final Therapeutic ranges for non-o perative patients:
Prophylaxsis/treatment of DVT: (Range:2.0-3.0)
Treatment of pulmonary embolism:(Range:2.0-3.0)
Prevention of systemic embolism from:
-tissue heart valves
-acute myocardial infarction
-valvular heart disease
-atrial fibrillation
(Range: 2.0-3.0)
Mechanical prosthetic valves: (Range: 2.5-3.5) Observation Date Value Abnormality Reference (Units ) Status INR in Capillary blood by Coagulation assay 06/30/2023 10:22:51 2.8 (INR) Final Performing Location
--- OUTSIDE RECORDS SUMMARY | 2023-09-16 22:40 | External Medical Summary | Summary of Care ---
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 coronary artery of [place] heart without angina pectoris Take 1 Tablet [...] as of this encounter (statuses as of 06/30/2023) Active Problems Problem Noted Date Presence of drug coated stent in LAD cor onary artery 06/07/2023 Coronary artery disease invo lving [place] coronary artery of [place] heart without angina pectoris 06/07/2023 S/P angioplasty [...] as of this encounter (statuses as of 06/30/2023) Resolved Problems Problem Noted Date Resolved Date [...] as of this encounter (statuses as of 06/30/2023) Immunizations Name Administration Dates Next Due COVID-19 mRNA, LNP-s, No Pre serve, 2-Dose Series (SpazioDati) 06/30/2021,12/06/2020,11/15/2020 COVID-19, LNP-s, No Preserve , Tani-sucrose, Ages 12+ (Pfizer) 03/09/2022 Covid-19, Mrna, Lnp-s, Pf, B ivalent, 30 Mcg, IM, 12 yrs and above (Pfizer) 08/31/2022 Pneumococcal Conjugate Vacci ne, 20-valent ([id number]) 08/09/2022 SEASONAL INFLUENZA, PF, 6 M & [...] Progress Notes * Eneida Navarro RPh - 06/30/2023 10:18 AM EDT Medication Therapy Disease Management - 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ion Patient: Peter Caruso | : 1960 Subjective Patient-Reported Symptoms: Patient Findings Negatives: Signs/symptoms of thrombosis, Signs/symptoms of bleeding, Change in health, Change in alcohol use, Change in activity, Upcoming invasive procedure, Missed doses, Extra doses, Change in medications, Change in diet/appetite, Bruising Objective Current Warfarin Dose As of 06/30/2023 Warfarin maintenance plan: 7.5 mg (5 mg x 1.5) every Mon, Fri; 5 mg (5 mg x 1) all other days INR Result As of 06/30/2023 INR goal: 2.0-3.0 INR used for dosin.8 (06/30/2023) Assessment & Plan Warfarin Plan As of 06/30/2023 Full warfarin instructions: 7.5 mg every Mon, Fri; 5 mg all other days No change documented: Eneida Navarro RPh Next INR check: 07/28/2023 Repeat PT/INR in 4 week(s) Weekly dose: not changed Additional Dosing Information: Eneida Navarro RPh Clinical Pharmacist 06/30/2023, 10:18 AM documented in this encounter Plan of Treatment Upcoming Encounters Date Type Specialty Care Team Description 07/19/2023 Office Visit Ophthalmology Dewey Gross DO [address] [place] [address] 07/28/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 [place] [address] 10/17/2023 Office Visit Rheumatology Jayson Villalobos MD [address] [place] [address] [place] [address] 10/19/2023 Office Visit Cardiology Bonnie Akins PA-C [address] [place] [address] 11/14/2023 Office Visit Family Medicine Louise Thornton MD [address] [place] [address] [place] [address] Scheduled Procedures Name Priority Associated Diagnoses Date/Ti [...] encounter Medical Devices Implanted Type Area Enterprise Systems Administrator Device Identifier Shelf Expiration Date Model / Serial / Lot Stent Synergy Xd Mr [id number] - [id number] Implanted:Qty: 1 on 05/20/2023 by Cee Ryan MD at [facility] [employer] [id number] 06/17/2023 [id number] / / [id number] documented as of this encounter Procedures Procedure Name Priority Date/Time Associated Diagnosis Comments INR FINGERSTICK, POINT OF CARE STAT 06/30/2023 10:22 AM EDT Factor V Leiden mutation (HCC) 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 documented in this encounter Results * INR FINGERSTICK, POINT OF CARE (06/30/2023 10:22 AM EDT) Fingerstick INR 2.8 INR 10:24 AM EDT LABORATORY [facility] 55-00 Blood 06/30/2023 10:2 2 AM EDT 06/30/2023 10:24 AM EDT Narrative LABORATORY [facility] 55-00 - 06/30/2023 10:24 AM EDT Therapeutic ranges for non-operative patients: Prophylaxsis/treatment of DVT: (Range:2.0-3.0) Treatment of pulmonary embolism:(Range:2.0-3.0) Prevention of systemic embolism from: -tissue heart valves -acute myocardial infarction -valvular heart disease -atrial fibrillation (Range: 2.0-3.0) Mechanical prosthetic valves: (Range: 2.5-3.5) Eneida Navarro [facility] LAB POINT OF CARE TEST DOCKED DEVICE UNSOLICITED RESULTS LABORATORY [facility] 55-[address] [place] [address] [place] [address] documented in this encounter Visit Diagnoses Diagnosis Factor V Leiden mutation (HCC)- Primary Primary hypercoagulable state 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ion management encounter Encounter for therapeutic drug monitoring assisted current use of anticoagulant therapy documented in [...] the patient have Health Care Power of Vector Control Assistant? No Care Teams Pediatric Speech Therapist Relationship Specialty Start Date End Date Louise Thornton MD [address] [place] [address] [place] [address] PCP - General Family Medicine 07/10/15 documented as of this encounter"
--- OUTSIDE RECORDS SUMMARY | 2023-09-16 22:41 | External Medical Summary ---
Author Name Unknown Address Unknown Organization [id number]:[facility] [place] [address] [place] [address] Laboratory Report Ordering Provider Test Date Status ELKE ALAS 05/20/2023 18:01:00 Final Observation Date Value Abnormality Reference (Units ) Status BUN 05/20/2023 18:01:00 11 6-20 (mg/dL) Final Creatinine 05/20/2023 18:01:00 1.0 0.6-1.2 (mg/dL) Final Glomerular filtration rate/1.73 sq M.predicted [Volume Rate/Area] in Serum, Plasma or Blood by Creatinine-based formula (CKD-EPI) 05/20/2023 18:01:00 88 >=60 (mL/min) Final eGFR is calculated based on the CKD-EPI 2020 equation SODIUM 05/20/2023 18:01:00 138 135-146 (m mol/L) Final Potassium 05/20/2023 18:01:00 4.0 3.5-5.1 (m mol/L) Final Cl 05/20/2023 18:01:00 106 98-107 (mm ol/L) Final CO2 05/20/2023 18:01:00 23 22-32 (mmo l/L) Final Anion gap 05/20/2023 18:01:00 9 7-15 (mmol /L) Final Glucose 05/20/2023 18:01:00 92 70-120 (mg /dL) Final Calcium 05/20/2023 18:01:00 9.0 8.4-10.2 ( mg/dL) Final Performing Location [facility] [place] [facility] [address] [place] [id number]
--- OUTSIDE RECORDS SUMMARY | 2023-09-16 22:41 | External Medical Summary | Summary of Care ---
Author Name Unknown Organization [facility] Address [address] [place] [address] Phone [phone] Care Team Providers Care Major Account Representative Name Role Phone Louise Thornton MD Primary Care Provide r Reason for Referral * Evaluate & Treat - Unlimited Visits (Within 30 days (routine)) - Pending Review Specialty Diagnoses / Procedures Referred By Contact Referred To Contact Cardiovascular Medicine / Cardiology Diagnoses Coronary artery disease involving saxman coronary artery of saxman heart without angina pectoris S/P drug eluting coronary stent placement Molina Florez DO [address] [place] [address] Franco Shaffer, [address] [place] [address] Referral ID Status Reason Start Date Expiration Date Visits Requested Visits Authorized [id number] Pending Review Specialty Services Required 05/21/[phone] Question Answer Referral Priority Within 30 days (routine) To which of the following clinics are you referring your patient? General Cardiology Clinic Comments Discharge Order * Evaluate & Treat - Unlimited Visits (Within 10 days (routine)) - Pending Review Specialty Diagnoses / Procedures Referred By Katie greene Referred To Contact Ophthalmology Diagnoses Retinal artery occlusion, branch, left Molina Florez DO [address] [place] [address] Referral ID Status Reason Start Date Expiration Date Visits Requested Visits Authorized [id number] Pending Review Specialty Services Required 05/21/[phone] Question Answer Referral Priority Within 10 days (routine) Comments Discharge Order Reason for Visit * Auth/Cert Specialty Diagnoses / Procedures Referred By Katie t Referred To Contact Diagnoses Abnormal nuclear stress test Abnormal nuclear stress test [R94.39] Procedures CORONARY ANGIOGRAPHY W/LEFT HEART CATH CORONARY ANGIOGRAPHY W/LEFT HEART CATH Referral ID Status Reason Start Date Expiration Date Visits Re quested Visits Authorized [id number] [phone] Encounter Details Date Type Department Care Team Description 05/20/2023 - 05/21/2023 Hospital Encounter [facility], [facility] 8th [address] [place], [place] [id number] Cee Ryan MD [address], [place] [address] Allergies Active Allergy Reactions Severity Noted Date Comments Sulfa Antibiotics 01/05/2001 rash documented as of this encounter (statuses as of 05/22/2023) Medications Medication Sig Dispensed Refills Start Date [...] ions:Factor V Leiden mutation (HCC),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 Do not start before May 21, 2023. 60 Tablet 2 05/21/20 23 023 Active Aspirin 81 MG Oral Tablet Delayed Release Take 1 Tablet by mouth in the morning for 6 days. Do not start before May 22, 2023. 6 Tablet 0 05/22/20 23 023 Active Atorvastatin Calcium 40 MG Oral Tablet (Lipitor) Take 1 Tablet by mouth in the morning. 34 Tablet 5 05/21/20 23 Active Atorvastatin Calcium 10 MG Oral Tablet (Lipitor)Indicati ons:Elevated liver enzymes TAKE ONE TABLET BY MOUTH EVERY DAY 90 Tablet 3 06/10/20 22 023 Discontinued documented as of this encounter (statuses as of 05/22/2023) Active Problems Problem Noted Date Ascending aorta dilatation 04/04/2023 Dyslipidemia, goal LDL [...] as of this encounter (statuses as of 05/22/2023) Resolved Problems Problem Noted Date Resolved Date [...] as of this encounter (statuses as of 05/22/2023) Immunizations Name Administration Dates Next Due COVID-19 mRNA, LNP-s, No Pre serve, 2-Dose Series (Instructure) 06/30/2021,12/06/2020,11/15/2020 COVID-19, LNP-s, No Preserve , Tani-sucrose, Ages 12+ (Pfizer) 03/09/2022 Covid-19, Mrna, Lnp-s, Pf, B ivalent, 30 Mcg, IM, 12 yrs and above (Pfizer) 08/31/2022 Pneumococcal Conjugate Vacci ne, 20-valent ([id number]) 08/09/2022 Season Influenza, Cell Culte r, 18+ [...] Sign Reading Time Taken Comments Blood Pressure 140/81 05/21/2023 7:30 AM EDT Pulse 64 05/21/2023 7:30 AM EDT Temperature 36 C (96.8 F) 05/21/2023 7:30 AM EDT Respiratory Rate 16 05/21/2023 7:30 AM EDT Oxygen Saturation 97% 05/21/2023 7:30 AM EDT Inhaled Oxygen Concentration - - Weight - - Height - - Body Mass Index - - documented in this encounter Functional Status Functional [...] No 05/20/2023 documented as of this encounter Discharge Summaries * Molina Stevevasile Florez, - 05/21/2023 7:31 AM EDT [address] [address] Admission Date: 05/20/2023 Discharge Date: 05/21/2023 DISCHARGE DIAGNOSES: There are no hospital problems to display for this patient. Attending Provider: Cee Ryan MD CONDITION ON DISCHARGE: stable DISPOSITION ON DISCHARGE: home FOLLOW-UP: Future Appointments Appt Date/Time Provider Department 06/03/2023 9:00 AM [facility] 10/17/2023 8:40 AM Jayson Villalobos MD Rheumatology [facility] 11/14/2023 2:20 PM Louise Thornton MD Family Medicine [facility] Ophthalmology referral placed for routine appointment within 10 days. Cardiology referral made to follow up with Dr. Shaffer within 2-4 weeks. Outpatient testing already scheduled: n/a Outpatient testing that needs to be arranged: n/a Inpatient test results pending: n/a MEDICATIONS ON DISCHARGE: MEDICATION UPDATES AT DISCHARGE START taking these medications INSTRUCTIONS aspirin enteric coated 81 MG Tbec Start taking on: May 22, 2023 Take 1 Tablet by mouth in the morning for 6 days. Do not start before May 22, 2023. Brilinta 90 MG Tablet Generic drug: Ticagrelor Take 1 Tablet by mouth in the morning and 1 Tablet before bedtime. Do not start before May 21, 2023. CHANGE how you take these medications INSTRUCTIONS atorvaSTATin 40 MG Tablet Commonly known as: Lipitor What changed: medication strength how much to take Take 1 Tablet by mouth in the morning. CONTINUE taking these medications INSTRUCTIONS Ammonium Lactate 12 % cream Commonly known as: Lac-Hydrin Enoxaparin 150 MG/ML injection Commonly known as: Lovenox Inject 140 mg under the skin up to two times daily as directed by anticoagulation clinic hydroCHLOROthiazide 12.5 MG Capsule Commonly known as: Hydrodiuril TAKE ONE CAPSULE BY MOUTH EVERY DAY hydroxychloroquine 200 MG Tablet Commonly known as: Plaquenil Take 2 Tablets by mouth at bedtime. Ibuprofen 200 MG Tablet Commonly known as: Motrin Take 2 Tablets by mouth as needed. A couple times a week Metoprolol Tartrate 25 MG Tablet Commonly known as: Lopressor TAKE ONE TABLET BY MOUTH TWICE DAILY Multivitamin Men 50+ Tabs Take by mouth as needed . predniSONE 5 MG Tabs Commonly known as: Deltasone take 1/2 tablet daily on tuesday, tuesday and tuesday. Terazosin HCl 10 MG Capsule Take 1 Capsule by mouth at bedtime. Warfarin Sodium 5 MG Tablet Commonly known as: Jantoven Take as directed. If you are unsure how to take this medication, talk to your nurse or doctor. Original instructions: take 1 & 1/2 tablets on mondays and fridays. take 1 tablet all other days or as directed by anticoagulation clinic ALLERGIES: Sulfa antibiotics INSTRUCTIONS: Activity: no strenuous activity for 24 hours Diet: heart healthy diet, 2 gram sodium diet Code status (this admission): Full Code Discussion of adv directives occurred with - adult: Patient Does patient have living will: No Does patient have health care power of mergers and acquisitions attorney: No [employer] patient: no ADMISSION HISTORY & PHYSICAL EXAM (focused): 62-year-old man with pertinent PMHx of HTN, dyslipidemia, and Factor V Leiden with DVT on warfarin who is referred for coronary angiogram after small perfusion defect on pharmacologic nuclear stress testing. Physical Examination: BP: 132 mmHg/83 mmHg (05/20/23 1018) Pulse: 72 (05/20/23 1018) Temp: 35.72 C (05/20/23 1018) Resp: 17 (05/20/23 1018) SpO2: 98 % (05/20/23 1018) Cardiac: Regular Rate, Irregular Rhythm Sinus c PAC Lungs: normal respiratory effort, lungs clear to auscultation and percussion Right Radial pulse 2+ Allens test normal Right Femoral pulse 1+ Right Femoral Bruit no HOSPITAL COURSE (focused): Patient presented 05/20/23 for cardiac catheterization after angina and abnormal stress test. 60% dLAD lesion was found with FFR of 0.74, hemodynamically significant. PCI with KIESHA placed (2.75 mm x 24mm Synergy XD, post-dilated with 3.0 mm x 12 mm NC Euphora balloon). After the procedure, the patient noted blurry/cloudy vision with red discoloration in the right hemisphere of vision of his left eye. This gradually improved such that the cloudiness only involved the right lower quadrant of his left eye visual field. The visual defect resolved with closure of his left eye. Neuro exam was otherwise benign. Neurology was consulted and he was diagnosed with a branch retinal artery occlusion. CTA of the head and neck showed mild atherosclerotic disease but no large defects or residual thrombi in or occlusion of larger vessels. They recommended outpatient follow up with ophthalmology. The morning of 05/21/23, the patient's vision had improved further with the red discoloration softening to pink and the blurriness now confined to less than one quarter of his left eye field of vision. No other symptoms. No bleeding from cath site or significant hematoma or complications. Atorvastatin was increased to 40mg daily. Given patient's history of Factor V Leiden and history of DVT, he was scheduled for a lovenox bridge while continuing his coumaind per pharmacy instructions. He has INR follow up arranged next week. He is to continue with lovenox/warfarin, ticagrelor, and aspirin for one week and then continue withwarfarin and ticagrelor thereafter. Neurology agreed with antiplatelet/anticoagulation recommendations. Physical Exam Constitutional: Appearance: Normal appearance. He is obese. HENT: Head: Normocephalic and atraumatic. Eyes: General: No scleral icterus. Right eye: No discharge. Left eye: No discharge. Extraocular Movements: Extraocular movements intact. Conjunctiva/sclera: Conjunctivae normal. Cardiovascular: Rate and Rhythm: Normal rate and regular rhythm. Pulses: Normal pulses. Heart sounds: No murmur heard. Pulmonary: Effort: Pulmonary effort is normal. Breath sounds: Normal breath sounds. Abdominal: General: Abdomen is flat. Palpations: Abdomen is soft. Musculoskeletal: Cervical back: Normal range of motion. Right lower leg: Edema present. Left lower leg: Edema present. Skin: General: Skin is warm and dry. Neurological: Mental Status: He is alert. Operations & Procedures: cardiac catheterization, coronary intervention or stent placement, andCTA head and neck [place] Interpretation (focused): 60% distal LAD lesion that is hemodynamically significant (FFR 0.74) s/p PCI with KIESHA (2.75 mm x 24mm Synergy XD, post-dilated with 3.0 mm x 12 mm NC Euphora balloon) SELECTED RESULTS: Last recorded weight: Laboratory: CARDIAC: Troponin T (see below for last three most recent values): No results found for: TROPT CHEMISTRY: BUN, Creatinine, GFR Estimated, Sodium, Potassium, Chloride, Carbon Dioxide, Glucose, Calcium (see below for most recent value): Lab Results Component Value Date/Time BUN 12 05/21/2023 04:29 AM BUN 14 10/07/2020 02:43 PM BUN 14 01/02/1997 12:00 PM CREAT 1.0 05/21/2023 04:29 AM CREAT 1.0 10/07/2020 02:43 PM CREAT 0.8 01/02/1997 12:00 PM GFRESTIMATED >60.0 10/07/2020 02:43 PM NA 138 05/21/2023 04:29 AM NA 139 10/07/2020 02:43 PM POTASSIUM 4.1 05/21/2023 04:29 AM POTASSIUM 4.4 10/07/2020 02:43 PM CL 106 05/21/2023 04:29 AM CL 104 10/07/2020 02:43 PM CO2 23 05/21/2023 04:29 AM CO2 25 10/07/2020 02:43 PM CA 8.5 05/21/2023 04:29 AM CA 9.2 10/07/2020 02:43 PM CREATININE: Creatinine (see below for last three most recent values): Lab Results Component Value Date/Time CREAT 1.0 05/21/2023 04:29 AM CREAT 1.0 05/20/2023 06:01 PM CREAT 1.0 05/03/2023 03:04 PM CREAT 1.0 10/07/2020 02:43 PM CREAT 1.0 10/07/2020 02:42 PM CREAT 1.0 03/20/2020 04:08 PM CREAT 0.8 01/02/1997 12:00 PM COAGS: PT, INR (see below for three most recent values): Lab Results Component Value Date/Time INR 1.1 05/21/2023 04:29 AM INR 1.0 05/20/2023 10:09 AM INR 2.3 05/03/2023 03:52 PM INR 2.0 (H) 05/03/2023 03:04 PM INR 2.7 03/24/2023 09:58 AM INR 2.4 02/14/2023 09:56 AM INR 2.21 (H) 10/07/2020 02:43 PM INR 2.5 10/07/2020 01:40 PM INR 2.6 08/06/2020 09:26 AM INR 2.4 06/24/2020 08:41 AM INR 3.17 (H) 08/09/2014 01:47 PM BLOOD COUNT: WBC, Hgb, Platelets (see below for most recent value): Lab Results Component Value Date/Time WBC 3.68 (L) 05/21/2023 04:30 AM WBC 3.14 (L) 10/07/2020 02:43 PM HGB 11.9 (L) 05/21/2023 04:30 AM HGB 12.9 (L) 10/07/2020 02:43 PM PLT 145 05/21/2023 04:30 AM PLT 164 10/07/2020 02:43 PM HEMOGLOBIN: Hgb (see below for last three most recent values): Lab Results Component Value Date/Time HGB 11.9 (L) 05/21/2023 04:30 AM HGB 13.9 (L) 05/03/2023 03:04 PM HGB 13.0 (L) 03/01/2022 10:10 AM HGB 12.9 (L) 10/07/2020 02:43 PM HGB 12.8 (L) 10/07/2020 02:42 PM HGB 12.2 (L) 03/20/2020 04:08 PM HEMOGLOBIN A1C: (see below for most recent value): Lab Results Component Value Date/Time HGBA1C 5.7 (H) 05/21/2023 04:29 AM HGBA1C 5.9 (H) 10/07/2020 02:43 PM LIVER FUNCTION TEST: Albumin, AST, ASTCMC (resulted at [facility] lab), Alkaline Phosphatase, ALT, ALTCMC (resulted at [facility] lab), Bilirubin Total, TBilCMC (resulted at [facility] lab), Protein - (see below for most recent value of each component): Lab Results Component Value Date/Time AST 26 01/28/2023 08:26 AM AST 33 10/07/2020 02:43 PM ALKP 61 01/28/2023 08:26 AM ALKP 64 10/07/2020 02:43 PM ALT 26 01/28/2023 08:26 AM ALT 32 10/07/2020 02:43 PM TBIL 0.3 01/28/2023 08:26 AM TBIL 0.4 10/07/2020 02:43 PM PROT 7.0 01/28/2023 08:26 AM PROT 8.2 10/07/2020 02:43 PM Complications: stroke and retinal artery occlusion CONSULTS ORDERED: NEUROLOGY CONSULT IP REFERRING PHYSICIAN: Ref: FRANCO SHAFFER[[id number]] [address] [place] [address] (office) [phone] (fax) PRIMARY CARE PROVIDER: PCP: Louise Thornton MD [address] [place] [address] Dr Arnulfo MOLINA [address] (office) [phone] (fax) Note: To contact a physician responsible for this patients hospital care, please call [facility] [phone]. documented in this encounter Discharge Instructions * Discharge Instr - AVS* Molina Florez DO - 05/20/2023 12:31 PM EDT Discharge Date: 05/20/[address] Ryan of the Department of Cardiology at [phone] during business hours for any questions or test results. For after-hours emergencies call [phone] and have your doctor paged. Scheduling services is available between the hours of 8:00 am and 9:00 pm by calling . For routine questions, your [facility] Cardiology Team prefers the use of [employer]ogen. [employer] is an online internet tool to help you meet your health care needs quickly by providing a secure, confidential way to view your health records and communicate with your [facility] Cardiology Team. To sign up for [employer] go to [email or web address], "Click" [place] Now on the right side of the screen and complete the user registration information. The information below provides you with the instructions and the list of medications you need to betaking following discharge from the hospital. If you have any questions, please ask before leaving.Please carry this letter with you when you see your doctor in the clinic. If you have questions, you can reach us at the numbers above. Brief summary of your inpatient care: There was a Stent placed in your Distal Left Anterior Descending Heart Artery. - 60% distal LAD lesion that is hemodynamically significant (FFR 0.74) s/p PCI with KIESHA (2.75 mm x 24 mm Synergy XD, post-dilated with 3.0 mm x 12 mm NC Euphora balloon) Your primary diagnosis at discharge was Coronary Artery Disease Your doctors during this hospitalization included: Dr. Ryan of the Department of Cardiology Inpatient test results pending: None Operations & Procedures: Cardiac Cath Stent Placement Complications: none significant Advance Directive Documented: Advance Directive Does the Patient have an Advance Directive? Not Addressed Diet: Heart healthy diet, 2 gram sodium diet Activity: no strenuous activity for 24 hours Driving: You may resume driving 24 hours . Laboratory tests: None Please call your primary care physician (Louise Thornton MD) for an appointment within 1 Month. Special Instructions: - Aspirin - You need to take aspirin every day for one week. The preferred dose of aspirin is 81 mgper day (one baby aspirin). - Statin Drugs (cholesterol pill) slow the growth of heart artery blockages. Your statin drug is Lipitor. - Nitroglycerin (nitro): Your should carry nitro at all times. When chest pain occurs take one nitro under tongue and call 911. You may take additional nitro every five minutes as needed for ongoing chest pain up to three pills. Lie down after using nitro. Do not drive after using nitro. Patients with chronic stable chest pain who frequently use nitro may not need to call 911. Ask your physician about this.. - Beta blockers are important for some cardiac patients and after a heart attack. Your beta blockeris Metoprolol - Do not use Motrin/Ibuprofen/Advil and other types of "NSAIDs" (nonsteroidal anti-inflammatory drugs) - "NSAIDs" make aspirin ineffective, can raise blood pressure, and can damage your kidneys. Try Tylenol for pain. Consult your pharmacist for questions about "NSAIDs".. Radial Artery Catheterization Instructions for Post Care Activity: Do not use the arm we used for your procedure today. Do not lift more than 10 lbs for 3 days with arm used for procedure. A responsible adult must be with the patient for 24 hours after your procedure. Rest today but you may resume your usual activity tomorrow. Do not drive, operate any appliances and/or machinery or sign legal documents for 24 hours due to the anesthesia. You may return to work in 24 hours. You may wash the wrist with soap and water and you may shower. Do not soak the wrist in water without a waterproof bandage until the small incision is healed. If you notice bleeding, increased swelling, tingling in the fingers or pain in your forearm that is not relieved by Tylenol, please seek medical attention. If you develop a fever over 101 degrees F you should contact your steeple jack. It is normal to have a small amount of discomfort for up to one week following your procedure but this should continue to improve with time, not worsen. If you have any questions or are concerned with how your arm is healing, call the doctor who did your procedure at . Keep the puncture site covered with a dry bandage for 24 hours, then remove the bandage. You shouldreplace it every 24 hours or if it gets wet. This should be done until the puncture site has completely healed. Cardiovascular RISK FACTOR control YOUR RISK FACTOR TREATMENT GOALS: Controlling the factors that cause arteries to form blockages will reduce your chance of having new blockages. Work with your health care providers to control your risk factors. If you have trouble reaching these goals then ask your health care provider to work with you further until they are controlled. Hypertension - Goal is less than 120/80. High cholesterol LDL cholesterol (bad cholesterol) - goal is less than 70 mg/dl. HDL cholesterol (good cholesterol) - goal is greater than 40 mg/dl in men and 50 mg/dl in women. Triglycerides (other blood fats that are especially elevated in diabetics and pre-diabetics) - goal is less than 150 mg/dl. Your Lipid Panel Results are: Results for orders placed or performed in visit on 01/28/23 LIPID PANEL WITH DIRECT LDL IF TG IS HIGH Result Value Ref Range Triglycerides 74 <=174 mg/dL Cholesterol 135 <200 mg/dL HDL Cholesterol 44 >39 mg/dL Non-HDL Cholesterol 91 <=159 mg/dL LDL Cholesterol 76 <=129 mg/dL Tobacco - Tobacco is poison to your arteries. It will cause blockages. Continuing to smoke tobacco may lead to heart attacks, strokes, or leg amputation. You should avoid tobacco. Your goal is to notsmoke at all. Talk with your primary care provider about counseling and medications to help you stop smoking. Exercise - The [place] [employer] recommends walking 30 minutes a day most days of the week; if you have to lose weight you should walk 60-90 minutes a day. Remember that if you develop chestpain, you should stop what you are doing. Do not continue to exercise if you have chest pain. See your special activity instructions above. * Pharmacy Instr - [facility]* Chele Peterson [facility] - 05/20/2023 4:40 PM EDT Dosing instructions for after discharge: You should have a prescription for Warfarin 5 mg tablets. Please take the following doses of warfarin by mouth after Discharge: This is the same plan from the coumadin clinic -just follow your chart Date Dose using warfarin 5 mg Tablets 05-21 Take 2 tablets = 10 mg 05-22 Take 1.5 tablets = 7.5 mg 05-23 Resume normal dosing Your dose of ENOXAPARIN is 140 mg subcutaneous injection twice daily. Take first dose on 05-21 in the pm, last dose on 05-23 in the pm. This is the same plan from the coumadin clinic -just follow your chart Your INR is scheduled for 06-03-23 at the coumadin clinic. The anticoagulation clinic pharmacist willprovide you with further dosing and appointment instructions. If you have any questions regarding your anticoagulation therapy, please Contact 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ion Clinic at [phone] or . documented in this encounter Progress Notes * Eri Goldberg [facility] - 05/20/2023 4:37 PM EDT Images from the original note were not included. PHARMACY ANTICOAGULATION WARFARIN (Coumadin) Assessment [address] [address] Name: Peter Caruso Location: [facility] Date: 05/20/2023 Time: 4:37 PM Peter Caruso is a 62 year old male admitted for No Principal Problem: There is no principal problem currently on the Problem List. Please update the Problem List and refresh.. Pharmacy was consultedfor warfarin dosing and monitoring. 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ion Therapy Goals Indication for 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ion: Deep Vein Thrombosis (DVT) acquired prior to this admission, Other (please specify) Other please comment: Factor 5 Leiden Anticipated Duration of Therapy: Lifetime Target INR: 2.0-3.0 (DVT/PE Treatment) Risk factors for anticoagulation therapy: Hypertension, Heart Failure Prior to Admission Management 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ion Managed By: 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ion Clinic Tablet Size/Strength: 5 mg 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ion Regimen: 7.5 mg every Mon, Fri; 5 mg all other days 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ion Episode Summary Current INR goal: 2.0-3.0 TTR: 95.4 % (1 y) Next INR check: 05/23/2023 INR from last check: Most recent INR: 1.0 (05/20/2023) Weekly max warfarin dose: Target end date: Indefinite INR check location: Preferred lab: Send INR reminders to: Indications Factor V Leiden mutation (HCC) (Primary) [D68.51] Other pulmonary embolism and infarction (Resolved) [I26.99] Comments: h/o of multiple VTE's, bridge; 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; heterozygous factor V leiden 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ion Care Providers Provider Role Specialty Phone number Louise Thornton MD Referring Family Medicine [phone] Labs INR Date/Time Value Ref Range Status 05/20/2023 10:09 AM 1.0 0.8 - 1.2 Final No results found for: HGB No results found for: HCT No results found for: PLT Objective Warfarin Administrations (last 720 hours) None Assessment & Plan Assessment Dietary Assessment: Normal/expected PO intake Today's INR : Subtherapeutic Does the patient have any medication interactions: Yes Are there bleeding concerns with the patient: No Does the patient have any upcoming procedures or bleeding concerns: No Plan Warfarin Plan: Start warfarin Specify Warfarin Dose: Warfarin 10 mg Is the patient receiving a Bridging Agent: No Warfarin Patient Education : Complete and documented Eri Goldberg [facility] * Chele Peterson [facility] - 05/20/2023 4:29 PM EDT PHARMACY ANTICOAGULATION CONSULT INPATIENT [address] [address] Name: Peter Caruso Location: [facility] Date: 05/20/2023 Time: 4:29 PM 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ion Therapy Goals: Indication for anticoagulation: Deep Vein Thrombosis (DVT) acquired prior to this admission This is an Existing diagnosis Anticipated duration of therapy: Lifetime Target INR: 2.0 - 3.0 (Prophylaxis of venous thrombosis) Risk factors for anticoagulation therapy: Other (please list): n/a Prior to admission management: 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ion regimen: 7.5 mg Mon and Fri and 5 mg all other days Tablet size/strength: 5 mg 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ion managed by: [facility]ueva [facility] [place]: Diet: Orders Placed This Encounter Procedures Heart Healthy Diet : Sodium: 2 gm --- Fluid Restriction (ml): None Patient Vitals for the past 24 hrs: PO %Meal/Snack 05/20/23 1300 240 ml -- 05/20/23 1400 360 ml 100 % Labs: Lab Results Component Value Date/Time INR 1.0 05/20/2023 10:09 AM INR 2.3 05/03/2023 03:52 PM INR 2.0 (H) 05/03/2023 03:04 PM INR 2.7 03/24/2023 09:58 AM INR 2.4 02/14/2023 09:56 AM INR 2.21 (H) 10/07/2020 02:43 PM INR 2.5 10/07/2020 01:40 PM INR 2.6 08/06/2020 09:26 AM INR 2.4 06/24/2020 08:41 AM INR 3.17 (H) 08/09/2014 01:47 PM HGB 13.9 (L) 05/03/2023 03:04 PM HGB 13.0 (L) 03/01/2022 10:10 AM HGB 13.0 (L) 03/25/2021 08:51 AM HGB 12.9 (L) 10/07/2020 02:43 PM HGB 12.8 (L) 10/07/2020 02:42 PM HGB 12.2 (L) 03/20/2020 04:08 PM PLT 177 05/03/2023 03:04 PM PLT 176 03/01/2022 10:10 AM PLT 162 03/25/2021 08:51 AM PLT 156 12/01/2020 08:53 AM PLT 164 10/07/2020 02:43 PM PLT 161 10/07/2020 02:42 PM PLT 280 03/20/2020 04:08 PM Planned upcoming inpatient/outpatient procedures: cardiac cath / PCI completed today Bleeding or other issues requiring modifications to therapy: no Summary of dosing to date: Date Warfarin Dose INR Interacting Medications 05/20/2023 10 mg 1 Brilinta/ASA Recommendations/Plan: This evenings warfarin dose: 10 mg PT/INR: daily Pharmacy will continue to follow and manage warfarin therapy. Discharge Planning: Patient will be followed by: 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ion clinic Preferred lab: [facility] Next appointment/lab date: 06-03-23 Patient education completed this admission: no 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ion clinic referral: currently followed by the anticoagulation clinic If you have any additional questions, please contact pharmacy at extension: [phone] documented in this encounter H&P Notes * JOHN Ramos - 05/20/2023 11:35 AM EDT HISTORY & PHYSICAL INTERVAL NOTE - Cardiology Service [address] [address] History and Physical Update: Name: Peter Caruso Location: CATH/Cath Date: 05/20/2023 Time: 11:35 AM DATE OF HISTORY AND PHYSICAL: 05/06/2023 REFERRED BY: Franco Shaffer DO Chief Complaint: SOB, Abnormal Stress Test I have reviewed the H&P previously performed and examined the patient today. There are no new findings noted. Physical Examination: BP: 132 mmHg/83 mmHg (05/20/23 1018) Pulse: 72 (05/20/23 1018) Temp: 35.72 C (05/20/23 1018) Resp: 17 (05/20/23 1018) SpO2: 98 % (05/20/23 1018) Cardiac: Regular Rate, Irregular Rhythm Sinus c PAC Lungs: normal respiratory effort, lungs clear to auscultation and percussion Right Radial pulse 2+ Allens test normal Right Femoral pulse 1+ Right Femoral Bruit no IV Contrast Allergy: no Contraindications to dual anti-platelet therapy: No History of anemia: Yes (Factor Deficiency) ASA: 325 mg of ASA given if not on chronic daily ASA (ASA TO BE CHEWED IF GIVEN JUST PRIOR TO CATH) 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ion: Yes - Warfarin Bridged to Lovenox for Cath Labs reviewed as indicated below: PT INR 05/20/2023 Latest Reference Range & Units 05/20/23 10:09 INR 0.8 - 1.2 1.0 Prothrombin Time 11.6 - 15.2 seconds 13.9 CBC 05/03/2023 Latest Reference Range & Units 05/03/23 15:04 WBC 4.00 - 10.80 K/uL 4.09 HGB 14.0 - 16.8 g/dL 13.9 (L) HCT 40.0 - 48.4 % 43.1 MCV 82.0 - 99.5 fL 91.7 PLT 140 - 400 K/uL 177 BMP 05/03/2023 Latest Reference Range & Units 05/03/23 15:04 Sodium 135 - 146 mmol/L 139 Potassium 3.5 - 5.1 mmol/L 4.7 Chloride 98 - 107 mmol/L 104 CO2 22 - 32 mmol/L 24 BUN 6 - 20 mg/dL 15 Creatinine 0.6 - 1.2 mg/dL 1.0 Estimated Glomerular Filtration Rate >=60 mL/min 85 Anion Gap 7 - 15 mmol/L 11 Glucose 70 - 120 mg/dL 105 Calcium 8.4 - 10.2 mg/dL 9.4 * Carl JOHN Harris - 05/06/2023 8:04 AM EDT CARDIOLOGY H&P 05/06/2023 PCP: Louise Thornton MD Billboard Erector Helper: Franco Shaffer DO CC: KRISHNAN, abnormal nuclear stress test HPI: Peter Caruso had reported feeling relatively well. Prior complaints of intermittent chest pressure resolved, no recent recurrences. Continues to report dyspnea, but this is stable and recovers quickly. He was gardening and noted mild dyspnea after about 15 min of activity. He took a quick break and the symptom resolved. No exertional chest pain. No palpitations. BP controlled. No orthopnea,PND or edema. No fever, cough, chills. In January he consulted with Dr. Shaffer and a nuclear stress test was ordered for evaluation. This showed a small-sized reversible perfusion defect encompassing the apical anterior segment and sparing the apex. He did also have an echocardiogram completed which revealed normal LVEF with mildly dilated aortic root at 4.0 and ascending aorta measuring 4.2 cm. Risk Factors for CAD: ( NO ) Diabetes mellitus, prediabetes ( YES ) Hypertension ( YES ) Dyslipidemia ( former ) Smoking ( NO ) CVA / TIA ( YES ) Other vascular disease ( NO ) Renal disease ( YES ) Family history of premature CAD ( YES ) 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ion, warfarin ( NO ) Upcoming surgeries or procedures ( NO ) Previous coronary procedures ( NO ) Anemia or abnormal bleeding, history of factor V Leiden mutation PERTINENT IMAGING: Nuclear stress test 04/06/2023: Interpretation Summary The combined low intensity exercise/pharmacologic [...] ventricular ejection fraction was calculated to be 66%. TTE 02/11/2023: The examination is adequate to evaluate the referral indication. Sinus rhythm with premature atrial contractions present during the echocardiogram study. The LV wall thickness is mildly increased (concentric). The left ventricular wall motion is normal. The qualitative LV ejection fraction is 55-59% (normal). Mild mitral regurgitation is present. Mild tricuspid regurgitation is present. The estimated pulmonary artery systolic pressure is 36 mmHg. The aortic root is mildly enlarged, 4.0 cm. The proximal ascending thoracic aorta is mildly enlarged, 4.2 cm. Compared to the report of the prior study dated 03/24/2012, the aortic root diameter was 3.9 cm andthe proximal ascending aorta diameter was 3.8 cm at that time. Past Medical History: Diagnosis Date BMI 40.0-44.9, adult (HCC) BPH (benign prostatic hyperplasia) Displacement of lumbar intervertebral disc without myelopathy DVT (deep venous thrombosis) ([facility]) 08/09 right leg Factor V Leiden [...] performed by Raf Perez MD at [facility] COLONOSCOPY, DIAGNOSTIC (RECTUM) 06/23/2022 MULTI POLYPS IN ASCENDING, HEPATIC , OTHERWISE NORMAL / BIOPSIE Stubulovillous adenoma / 3 YEAR RECALL / COLONOSCOPY FLEXIBLE PROXIMAL DIAGNOSTIC performed by Toshia Thorpe MD at [facility] EGD, FLEXIBLE, DIAGNOSTIC 09/24/2016 acid reflux on bx/ESOPHAGOGASTRODUODENOSCOPY (EGD), FLEXIBLE, TRANSORAL, DIAGNOSTIC performed by Raf Perez MD at [facility] VAS ANKLE BRACHIAL INDEX 07/22/2014 1.2 right, 1.1 left, normal VASC DUPLEX VENOUS LE BILAT 07/29/2006 venous thrombophlebitis right greater saphenous vein VASC DUPLEX VENOUS LE BILAT 08/01/2014 Positive acute DVT in right common femoral vein, superficial venous thrombosis bilaterally Social History Socioeconomic History Marital status: Number of children: 2 Occupational History 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 Current Outpatient Medications Medication Instructions Ammonium Lactate 12 % External Cream No dose, route, or frequency recorded. Atorvastatin Calcium 10 MG Oral Tablet (Lipitor) TAKE ONE TABLET BY MOUTH EVERY DAY Enoxaparin Sodium 150 MG/ML Injection Solution Prefilled Syringe (Lovenox) Inject 140 mg under the skin up to two times daily as directed by anticoagulation clinic hydroCHLOROthiazide 12.5 MG Oral Capsule (Hydrodiuril) TAKE ONE CAPSULE BY MOUTH EVERY DAY hydroxychloroquine (PLAQUENIL) 400 mg, Oral, HS Ibuprofen (MOTRIN) 400 mg, Oral, PRN, A couple times a week Metoprolol Tartrate 25 MG Oral Tablet (Lopressor) TAKE ONE TABLET BY MOUTH TWICE DAILY Multivitamin Men 50+ Oral Tablet Oral, PRN predniSONE 5 MG Oral Tablet (Deltasone) take 1/2 tablet daily on tuesday, tuesday and tuesday. Terazosin HCl 10 mg, Oral, HS Warfarin Sodium 5 MG Oral Tablet (Jantoven) take 1 & 1/2 tablets on mondays and fridays. take 1 tablet all other days or as directed by anticoagulation clinic ROS: See HPI. PE: To be performed when patient arrives for cardiac catheterization. IMPRESSION / PLAN: 1. KRISHNAN 2. Abnormal nuclear stress test 3. TAA 4. Cardiac catheterization has been recommended to define the coronary anatomy and the procedure isscheduled to be performed [place] [facility] [place]. Associated attestation - Kendell Aranda DO - 05/06/2023 10:28 AM EDT I have reviewed the advanced practitioner documentation and agree. I saw and evaluated the patient on date of service referenced in note and have performed the following medically appropriate historyand/or exam: . documented in this encounter Procedure Notes * Sorin Edgar MD - 05/20/2023 12:06 PM EDT [address] [address] CARDIAC ARTIFICIAL CANDY MAKER BRIEF PROCEDURE NOTE Name: Peter Caruso Date: 05/20/2023 Time: 12:06 PM Location: CARDIAC LABS [facility] Date of Procedure: 05/20/2023 Pre-op Diagnosis: Angina with abnormal stress test Post-op Diagnosis: Coronary artery disease Procedure: Coronary angiography Licensed And Certified Midwife: Dr. Ryan Factory Helper(s): Dr. Luna, Dr. Edgar Anesthesia: Monitored local anesthesia with sedation Additional Findings: 60% distal LAD lesion that is hemodynamically significant (FFR 0.74) s/p PCI with KIESHA (2.75 mm x 24mm Synergy XD, post-dilated with 3.0 mm x 12 mm NC Euphora balloon) Complications: none Condition of patient: Stable Recommendations: Optimal medical therapy for CAD. Triple therapy for 1 week (warfarin, aspirin, andticagrelor/clopidogrel), followed by indefinite warfarin + ticagrelor/clopidogrel (can be discussedwith outpatient steeple jack). documented in this encounter Consult Notes * Chele Peterson [facility] - 05/20/2023 4:27 PM EDT PHARMACY MEDICATION TEACHING CONSULT ANTIPLATELET THERAPY [address] [address] Name: Peter Caruso Location: [facility] Date: 05/20/2023 Time: 4:27 PM Requesting Service: cardiology Patient Active Problem List Diagnosis Code Displacement of lumbar intervertebral disc without myelopathy M51.26 ADVANCE DIRECTIVE INFORMATION Venous insufficiency I87.2 Essential hypertension with goal blood pressure less than 140/90 I10 History of pulmonary embolism Z86.711 Factor V Leiden mutation ([facility]) D68.51 History of DVT (deep vein thrombosis) Z86.718 BPH (benign prostatic hyperplasia) N40.0 Hx of nonmelanoma skin cancer Z85.828 AK (actinic keratosis) L57.0 Elevated liver enzymes R74.8 Sjogren's syndrome with keratoconjunctivitis sicca ([facility]) M35.01 Encounter for long-term (current) use of medications Z79.899 MCTD (mixed connective tissue disease) ([facility]) M35.1 Primary osteoarthritis of both knees M17.0 Prediabetes R73.03 Dyslipidemia, goal LDL below 130 E78.5 Seasonal allergic rhinitis due to pollen J30.1 Ascending aorta dilatation ([facility]) I77.810 Medication covered during teaching session: Ticagrelor Indication for Antiplatelet Therapy: Stent Duration of Antiplatelet Therapy: 6-12 months Teaching points covered with patient and/or family: Route, Dosage Form and Schedule, Medication Intended Use/Action, Precautions to be Observed while using this Medication, Commonly Encountered Adverse Effects, Methods for Self- monitoring, Laboratory Monitoring, Potential Food and Drug Interactions, Therapeutic Contraindications, Prescription Refill Information, Action for a Missed Dose, and Patient Specific Information Written documentation regarding all of the teaching points was provided to the patient and/or family members present. accepted patient education handout. Outpatient antiplatelet medication supply: Patient requires a prescription for this antiplatelet medication: Patient is agreeable to using [facility] to obtain the supply. The [facility] program and the primary team has been notified. Family member(s) present: Patient agreed to allow visitors to attend teaching, if present. Assessment of teaching effectiveness: reviewed medications with patient, he participated in discussion, all questions were answered. Triple therapy x 1 week then stop ASA Has the patient expressed potential cost concerns? No Length of teaching: Brief (less than 15 minutes) Teaching completed according to pharmacy teaching standard 508. * Arnold Guajardo, DO - 05/20/2023 4:26 PM EDTAssociated Order(s): NEUROLOGY CONSULT IP CONSULT - Stroke / Vascular Neurology [facility] [address] Name: Peter Caruso Location: [facility] Date: 05/20/2023 Time: 4:27 PM Date and Time Service was Contacted: Time: 1630 Date: 05/20/2023 REQUESTING SERVICE: Cardiac Cerner Analyst PRESENTING PROBLEM: Acute post catheterization visual changes. REASON FOR CONSULT: Acute post catheterization visual changes. Last Known Well (LKW): Time: 1100 Date: 05/20/2023 Time patient seen 1650 HPI: Peter Caruso is a 62 year old male with stroke risk factors as outlined below, seen by neurology for acute post catheterization visual changes. He was receiving a heart catheterization today for KRISHNAN and chest pressure. In January he consulted withDr. Shaffer and a nuclear stress test was ordered for evaluation. This showed a small-sized reversible perfusion defect encompassing the apical anterior segment and sparing the apex. He did also have an echocardiogram completed which revealed normal LVEF with mildly dilated aortic root at 4.0 and ascending aorta measuring 4.2 cm. Following the cath he had a cloudy haze obscuring the right half of his left visual field. This gradually improved until the scotoma was only th right lower quadrant in the left eye. If he closes hisleft eye the defect goes away entirely. 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 Ordered medicationsto be given in the future also display. Current Facility-Administered Medications Medication Dose Route Frequency Provider Acetaminophen (Tylenol) tab 650 mg 650 mg Oral Q6H PRN Sorin Edgar MD [START ON 05/21/2023] atorvaSTATin (Lipitor) tab 10 mg 10 mg Oral Daily(AM) JOHN Ramos house antacid (Mi-Acid II) oral susp 30 mL 30 mL Oral Q4H PRN JOHN Ramos [START ON 05/21/2023] hydroCHLOROthiazide (Hydrodiuril) cap 12.5 mg 12.5 mg Oral Daily(AM) JOHN Ramos hydroxychloroquine (Plaquenil) tab 400 mg 400 mg Oral HS JOHN Ramos Metoprolol Tartrate (Lopressor) tab 25 mg 25 mg Oral BID(AM/PM) JOHN Ramos Nitroglycerin (Nitrostat) sl tab 0.4 mg 0.4 mg Sublingual Q5 Min PRN JOHN Ramos NSS infusion 100 mL/hr Intravenous Continuous Sorin Edgar MD terazosin (Hytrin) cap 10 mg 10 mg Oral HS JOHN Ramos Ticagrelor (Brilinta) tab 90 mg 90 mg Oral BID(AM/PM) JOHN Ramos [START ON 05/21/2023] Ticagrelor (Brilinta) tab 90 mg 90 mg Oral BID(AM/PM) JOHN Ramos warfarin check daily dose (PHARMACIST MANAGED) Does Not Apply Daily 1499 Chele Peterson RPh Warfarin Sodium (Coumadin) tab 10 mg 10 mg Oral QPM 1999 Chele Peterson RPh ALLERGIES: Sulfa antibiotics PAST MEDICAL HISTORY: Past Medical History: Diagnosis Date BMI 40.0-44.9, adult (HCC) BPH (benign prostatic hyperplasia) Displacement of lumbar intervertebral disc without myelopathy DVT (deep venous thrombosis) ([facility]) 08/09 right leg Factor V Leiden mutation ([facility]) 09/16/2014 HTN, goal below 140/90 Impaired glucose tolerance Osteoarthritis of right knee Phlebitis and thrombophlebitis of other deep vessels of lower extremities 1980s right leg 19 years ago/ coumadin therapy Phlebitis and thrombophlebitis of superficial vessels of lower extremities 07/01 right leg ongoing Pulmonary emboli (HCC) 08/09 Sicca syndrome (HCC) Venous stasis ulcer (HCC) 2013 PAST SURGICAL HISTORY: Past Surgical History: Procedure Laterality Date COLONOSCOPY, DIAGNOSTIC (RECTUM) 07/09/2009 wnl repeat in 10 yrs COLONOSCOPY, DIAGNOSTIC (RECTUM) 09/24/2016 adenomatous polyps, repeat 5 yrs/COLONOSCOPY FLEXIBLE PROXIMAL DIAGNOSTIC performed by Raf Perez MD at [facility] COLONOSCOPY, DIAGNOSTIC (RECTUM) 06/23/2022 MULTI POLYPS IN ASCENDING, HEPATIC , OTHERWISE NORMAL / BIOPSIE Stubulovillous adenoma / 3 YEAR RECALL / COLONOSCOPY FLEXIBLE PROXIMAL DIAGNOSTIC performed by Toshia Thorpe MD at [facility] EGD, FLEXIBLE, DIAGNOSTIC 09/24/2016 acid reflux on bx/ESOPHAGOGASTRODUODENOSCOPY (EGD), FLEXIBLE, TRANSORAL, DIAGNOSTIC performed by Raf Perez MD at [facility] VAS ANKLE BRACHIAL INDEX 07/22/2014 1.2 right, 1.1 left, normal VASC DUPLEX VENOUS LE BILAT 07/29/2006 venous thrombophlebitis right greater saphenous vein VASC DUPLEX VENOUS LE BILAT 08/01/2014 Positive acute DVT in right common femoral vein, superficial venous thrombosis bilaterally FAMILY HISTORY: Family History Problem Relation Age of Onset Diabetes Mother now 60s Hypertension Mother Hypertension Father Lung Disorder Grandmother (Maternal) Blood Disorder Father ?blood clot leg? No Past Hx Sister No Past Hx Sister varicose veins (spider) Other (aaa) Sister No family history Blood Disorder Son FActor V - Blood clots Other (Other) Aunt (Unspecified) Lupus - paternal Family History: see above SOCIAL HISTORY: Social History Tobacco Use Smoking status: Former Smokeless tobacco: Never Vaping Use Vaping Use: Never used Substance Use Topics Alcohol use: Yes Comment: social Drug use: No ROS: All negative other than as noted in HPI PHYSICAL EXAMINATION: Most Recent Vital Signs: BP: 115 mmHg/70 mmHg (05/20/23 1600) Pulse: 69 (05/20/23 1600) Temp: 36.22 C (05/20/23 1214) Resp: 11 (05/20/23 1600) SpO2: 98 % (05/20/23 1600) There is no height or weight on file to calculate BMI. Vital Signs Last 24 Hours: Systolic BP: Most Recent Systolic BP Av.3 mmHg Min: 115 mmHg Max: 141 mmHg Temperature: Most Recent Temperature Av C Min: 35.72 C Max: 36.22 C Pulse: Pulse Av.4 Min: 65 Max: 80 Respirations: Resp Av.9 Min: 11 Max: 20 SpO2: SpO2 Av.8 % Min: 93 % Max: 100 % General Examination: Constitutional: Appearance non-obese, no deformities, and well groomed Head/face, ears, nose, throat: normocephalic, atraumatic Cardiovascular: normal heart sounds, regular rate, regular rhythm, normal pulses, and no carotid bruit Psychiatric: normal judgement and insight, normal mood, and normal affect Neurologic Examination: Mental Status and Orientation: awake, alert, oriented x 3 Memory: intact to recent and remote recall Attention: normal Knowledge:normal Language: no aphasia Speech: no dysarthria Cranial Nerves: CN 2 - Right lower quadrant of left eye is missing, otherwise visual tena intact to confrontation. CN 3, 4, 6 - extra-ocular movements intact and no nystagmus CN 5 - facial sensation intact V1-3 CN 7 - no facial asymmetry CN 8 - intact hearing CN 9, 10 - palate symmetric, uvula midline, no deviation CN 11 - shoulder shrug full strength CN 12 - tongue protrudes midline Sensory: intact to light touch Coordination: intact with finger to nose testing and heel to vaca normal Gait: stable and no ataxia Muscle Tone: normal Muscle exam: strength 5/5 upper and lower extremities and no drift Reflexes: Brachioradialis Biceps Triceps Patellar Achilles Plantars Ramon's Right 2+ 2+ 2+ 2+ 2+ downgoing not present Left 2+ 2+ 2+ 2+ 2+ downgoing not present SEVERITY SCORES: National [place] [employer] Stroke Scale: 1A. LOC: 0 1B. Question: 0 1C. Commands: 0 2. Gaze: 0 3. Visual Tena: 1 4. Facial Palsy: 0 5A. Arm Left: 0 5B. Arm Right: 0 6A. Leg Left: 0 6B. Leg Right: 0 7. Ataxia: 0 8. Sensory: 0 9. Aphasia: 0 10. Dysarthria: 0 11. Extinction: 0 Total: 1 Baseline / Pre-morbid Level of Function by Modified [place] Scale: 0 - No Sxs; 6 - 3 - Mod disability can walk independently 1 - Sxs no disability 4 - Mod disability walks w/ assistance 2 - Sxs slight disability 5 - Severe disability bedridden Modified Westfield Scale = 0 - No symptoms. ABCD2 (Age, BP, Clinical Features of TIA, Duration, Diabetes) Score: N/A ASPECTS (CT Scan): N/A ASPECTS (CT Angiogram-Source Images): N/A ASPECTS (MRI Brain Diffusion Images): N/A Intracerebral Hemorrhage (ICH) Score: N/A Ji & Guerin Score: N/A Arenas SAH Grade: N/A Personal Review of Neuroimaging, my interpretations are as follows: CT Head without contrast: Unremarkable CT Angiogram: N/A CT Perfusion: N/A MRI Brain: N/A I have reviewed Radiologic Studies and noted significant findings as follows: No relevant studies available for review. I have reviewed the following Diagnostic Tests and noted significant findings as follows: TTE w/o bubble study: : 02/11/23 Interpretation Summary The examination is adequate to [...] diameter was 3.8 cm at that time. VIRIDIANA w bubble study NA EKG NSR Prolonged Cardiac Monitoring NA Carotid US NA TCD US NA Duplex US LE/UE NA EEG NA EMG/NCS NA LABS: Labs reviewed as indicated below: INR 1.0 CONSIDERATION OF ACUTE STROKE THERAPIES: IV Thrombolysis Exclusion Criteria: - Last known well beyond the 4.5 hour time period - LMWH at a treatment dose within 24 hours (ie not a prophylactic dose) IV Thrombolysis Relative Exclusion Criteria: - Nondisabling stroke symptoms (severity too mild) IV Thrombolytic Therapy Considerations and Discussion: Patient is not eligible for IV thrombolytic therapy due to having the exclusion criteria above, andrisk to benefit is considered unfavorable. IV Thrombolysis Administration Recommendation: Do not administer IV thrombolytic agent. See any additional recommendations below for acute stroke care. Reason for delay in thrombolytic initiated > 30 minutes after hospital arrival: None. Endovascular Therapy Exclusion Criteria: - None Endovascular Therapy Relative Exclusion Criteria: - None Endovascular Therapy Assessment: - Patient is not a candidate for endovascular acute stroke therapy due to the above exclusion criteria, and risk to benefit is considered unfavorable. Reason for delay in endovascular therapy: None. IMPRESSION: This is a 62 year old male admitted for routine cardiac cath with subsequent right lower quadrantanopia. History is pertinent for factor V leiden on warfarin (bridging with lovenox for procedure). Last known well 6 hours prior to evaluation. Otherwise exam is nonfocal. 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 It was explained to the patient that this senia known complication of cardiac cath an the most likely outcome is a persistent visual field defectwith with gradual adaptation. RECOMMENDATIONS / PLAN: - CTA head and neck to assess for residual thrombus - Follow up with Ophthalmology as an outpatient - if CTA shows no critical stenosis then neurology will sign off, no neurology follow up needed. - if CTA abnormal will give updated recommendation. Patient discussed with Dr Bell. Associated attestation - Josh Bell MD - 05/20/2023 6:28 PM EDT I saw and evaluated the patient today. I have reviewed the trainee note and agree. 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 Recommend CTA for carotid evaluation but otherwise no further neurologic work up. Continue coumadin when able. documented in this encounter Nursing Notes * Jackie Tripp RN - 05/21/2023 10:21 AM EDT [facility] PATIENT NURSING DISCHARGE [address] [address] Name: Peter Caruso Location: [facility] Date: 05/21/2023 Time: 10:21 AM Date of Discharge:05/21/2023 Time: 1000 Accompanied by: Destination: Home Belongings Present at Discharge: yes Belongings Sent Home Prior to discharge: no FUNCTIONAL INDEPENDENCE MEASURE (FIM): (Must be completed for ALL patients on discharge) Feedin = complete independence Expression: 4 = complete independence Social Interaction: 4 = complete independence Locomotion: 4 = complete independence Transfer Mobility: 4 = complete independence Dressin = complete independence Hygiene: 4 = complete independence COMFORT: Pain or Discomfort: No Analgesia: no COPING: Family/Community Support Systems in place: Yes, explain: ADDITIONAL COMMENTS: none * Lizeth Fernandes RN - 05/21/2023 2:23 AM EDT Pt states vision is improving only noted a small are on left eye the inner lower corner of the eye.Crow any other symptoms . Continuing to monitor eye changes . Advised that is patient notes any changes in his vision to call for nurse. * Jackie Tripp RN - 05/20/2023 4:17 PM EDT Pt states that left eye visual disturbances have improved but not fully resolved. Pt still is visualizing red colors and stars, however states that the cloudiness noted on right side of visual field has improved. Neuro assessment remains benign,strengths are equal and strong-see detailed neuro assessment on flowsheet. however when patient follows finger with eyes, left eye motion noted to be slightly asymmetrical/different than right eye especially when finger is motioned/moved towards patient's nose. Dr. Luna and Dr. Ryan continue to follow up with patient and re-assess at bedside. Willcontinue to monitor, neuro has been consulted awaiting evaluation. * Jackie Tripp RN - 05/20/2023 12:20 PM EDT Pt returned from PCI procedure, complaining of 3/10 non-radiating chest pressure which is unchangedfrom intra-op and also complains of left eye visual disturbances. Pt states he is seeing cloudy on the right side of his visual field and multiple colors and flashing stars. Neuro assessment benign, facial and bilateral UE and LE symmetrical and strong, Pt is able to follow finger with eyes symmetrically. PLUMBING CONTRACTOR Vance at bedside to assess patient and also Dr. Ryan notified and at bedside to assess patient status. IV fluids being administered per orders and will continue to monitor. documented in this encounter Miscellaneous Notes * Communication - Dewey Alejandra MD - 05/21/2023 8:40 AM EDT Mr. Caruso is a 62 yo man with CAD s/p KIESHA to LAD 05/20 who developed mono-ocular left eye - nasal inferior quadrant suspicious for BRAO. Had CTA H/N that showed minimal atherosclerotic disease. He ishypercoagulable from FVL and was off coumadin with bridge for procedure. Could be due to FVL or saeed procedural. Either way, current plan of patient restarting coumadin and treating cardiac and stroke risk factor is appropriate. Would have patient follow up with Ophthalmology as an outpatient. No need for Neurology follow up at this time. * Communication - Liz Dietrich DO - 05/20/2023 5:40 PM EDT Images from the original note were not included. Brief Cardiology Communication Note Peter Caruso is status post left heart catheterization after an abnormal stress test in the setting of angina. Patient was found to have a 60% distal LAD lesion status post KIESHA. Postprocedure the patient was having blurry/cloudy vision on the bottom right quadrant of the left eye. 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 Neurology reached out to the interventional cardiology this evening and asked for CTA of the head and neck to rule out any thrombus lower down. Per Neurology he will have outpatient follow-up with Ophthalmology. PLAN: BMP to assess creatinine Addendum Creat is 1 Fluids at 75/hour for 10 hours given contrast load CTA of the head and neck ordered Addendum 1. No acute intracranial abnormalities identified by CT. 2. Atherosclerosis without significant stenosis by NASCET criteria at the carotid bulbs and no evidence of intracranial large vessel occlusion. Outpatient ophthalmology follow-up Liz Dietrich DO Cardiovascular Disease Fellow, PGY5 [facility] Available on [employer] 05/20/2023 5:41 PM Patient was discussed with interventional straightening press operator * Communication - Joselo Luna DO - 05/20/2023 3:37 PM EDT Patient having blurry/cloudy vision on the bottom right quadrant of the left eye. Patient reported mild improvement initially but not completely resolved. Started after cardiac catheterization. Neuroexam otherwise benign. I spoke to neurology team and they help with assessing the patient. Will keep patient overnight for monitoring. Further recs to follow from neurology. * Ancillary Progress Note - USAMA Hewitt - 05/20/2023 12:15 PM EDT [facility] [address] Ancillary Progress Note Patient Name: Peter Caruso Date: 05/20/2023 Patient will be escorted to Cardiac Recovery Suite. We performed a stent procedure on this patient.We placed 1 stents in the LAD. The right radial artery was used for access with a 6 Monegasque sheath. A Radial Band was applied at 8 mL. of air to close the site. There is no hematoma and no ooze from the cath site noted. No sterile dressing applied to site. Radial band applied. Distal pulses were palpated and instructions to patient were given. There were no complications during the case. Please see the MAR for the medications that were given. See Cath Procedure Log for patient vitals during the case. * Communication - Sorin Edgar MD - 05/20/2023 10:24 AM EDT INFORMED CONSENT FOR CARDIAC CATH AND INTERVENTIONAL PROCEDURES: Dr. Ryan discussed with patient the alternatives to cardiac cath including medical therapy and if appropriate exercise testing. Dr. Ryan discussed the risks of cath including 11/999 , GA, CVA and 2/100 risk of allergic reaction, bleeding, infection, arrhythmia requiring shock, damage to artery requiring surgery or amputation, radiation skin parada. Dr. Ryan discussed technique of catheterization. The patient indicated understanding and a preference for proceeding with catheterization considering these factors. Dr. Ryan discussed with the patient coronary intervention and alternatives i ncluding bypass surgery and medical therapy. Dr. Ryan discussed the risks of intervention including 5-10% risk of GA, 5% risk of bleeding possibly requiring transfusion, 1% risk of , 1% risk ofemergency CABG, and 20- 30% risk of restenosis, and the chance that even a successful procedure will not relieve symptoms if they are not due to cardiac ischemia. The patient would like to have ad hoc intervention done at the time of the catheterization if it seems appropriate. * Communication - Sorin Edgar MD - 05/20/2023 7:11 AM EDT PROGRESS NOTE - Interventional Cardiology [facility] [address] Name: Peter Caruso Date: 05/20/2023 Time: 7:11 AM Name: Peter Caruso Referring Provider: Dr. Shaffer [facility]: [id number] Referring Billboard Erector Helper: same as above Procedure Requested: Left heart cath, Coronary angiography Indication for Cath: abnormal stress test Medical History Medication List ( - ) DM Prior to Admission medications Medication Sig Last Dose Discont. Enoxaparin Sodium 150 MG/ML Injection Solution Prefilled Syringe (Lovenox) Inject 140 mg under the skin up to two times daily as directed by anticoagulation clinic hydroCHLOROthiazide 12.5 MG Oral Capsule (Hydrodiuril) TAKE [...] days or as directed by anticoagulation clinic Terazosin HCl 10 MG Oral Capsule Take 1 Capsule by mouth at bedtime. Multivitamin Men 50+ Oral Tablet Take by mouth as needed . 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 Frailty Score: Very Fit - 1 Well - 2 Managing Well - 3 Vulnerable - 4 Mildly Frail - 5 Moderately Frail - 6 Severely Frail - 7 Very Severely Frail - 8 Terminally Ill - 9 Current Presentation Admission Date: (Not on file) 05/20/2023 | Admission Time: 1000 CAD Presentation: (None, Unlikely to be ischemic, Stable, Unstable): stable Anginal Class: 0 Anti-Anginals in the last 2 weeks: ( +) Beta Blockers | ( - ) Calcium Channel | ( - ) Long Acting Nitrates LV Dysfunction/ Cardiomyopathy: No EF in last 6 months: 55-59% (02/11/2023) Stress Test (Last 6 months): yes | Type of stress test: pharmacologic nuclear (04/06/2023) Result (No test, Low Risk, Intermediate Risk, High Risk, Negative, Indeterminate): small reversibleapical anterior perfusion defect Labs Last Creatinine: Lab Results Component Value Date/Time CREATININE 0.8 01/02/1997 12:00 PM CREATININE - [facility] 1.0 05/03/2023 03:04 PM CREATININE - [facility] 1.0 10/07/2020 02:43 PM CREATININE, RAND URINE-MET 138 03/18/2006 09:28 AM CREATININE, RANDOM URINE - [facility] 114 03/01/2022 10:10 AM CREATININE, RANDOM URINE - [facility] 115 01/07/2017 09:56 AM CREATININE-OUTSIDE LAB 0.98 12/17/2016 12:00 AM Last GFR: No components found for: E GLOM FILT RATE Last INR: INR Date Value 05/03/2023 2.0 (H) 10/07/2020 2.21 (H) Fingerstick INR (INR) Date Value 05/03/2023 2.3 10/07/2020 2.5 Last Hb/Hct: HGB (g/dL) Date Value 05/03/2023 13.9 (L) 10/07/2020 12.9 (L) HCT (%) Date Value 05/03/2023 43.1 10/07/2020 41.4 Misc. Notes 62-year-old man with pertinent PMHx of HTN, dyslipidemia, and Factor V Leiden with DVT on warfarin who is referred for coronary angiogram after small perfusion defect on pharmacologic nuclear stress testing. No dye allergy. Renal function: Cr 1.0, eGFR 85 (05/03/2023) Reg SPECT (04/06/2023): small reversible apical anterior perfusion defect; normal LV thickening and wall motion; LVEF 66%. TTE (02/11/2023): LVEF 55-59%, moderate concentric LVH (15/14 mm), mild MR/TR, ePASP 36 mmHg. * Progress Notes - Non-Billable - Jayson Gao DO - 05/08/2023 10:30 PM EDT PROGRESS NOTE - Interventional Cardiology [facility] [address] Name: Peter Caruso Date: 05/08/2023 Time: 10:30 PM Name: Peter Caruso Referring Provider: Dr. Shaffer [facility]: [id number] Referring Billboard Erector Helper: same as above Procedure Requested: Left heart cath, Coronary angiography Indication for Cath: Abnormal stress test Dyspnea Medical History Medication List (-) DM, if yes, what meds: - Prior to Admission medications Medication Sig Last Dose Discont. Enoxaparin Sodium 150 MG/ML Injection Solution Prefilled Syringe (Lovenox) Inject 140 mg under the skin up to two times daily as directed by anticoagulation clinic hydroCHLOROthiazide 12.5 MG Oral Capsule (Hydrodiuril) TAKE [...] days or as directed by anticoagulation clinic Terazosin HCl 10 MG Oral Capsule Take 1 Capsule by mouth at bedtime. Multivitamin Men 50+ Oral Tablet Take by mouth as needed . Atorvastatin Calcium 10 MG Oral Tablet (Lipitor) TAKE ONE TABLET BY MOUTH EVERY DAY Ammonium Lactate 12 % External Cream (+) HTN (-) Prior CHF in last 2 weeks, NYHA Class: 0 (-) PVD (-) Dialysis (-) Smoked in the past year (former smoking) (+) HLD (+) Family heart disease (male<55, female<65) (-) Prior GA (-) Prior PCI, if yes, when: - (-) Valve Surgery (-) CABG, if yes, when - (-) Stroke/TIA (-) COPD/Emphysema (-) ASA in the last 24 hours (-) Dual Anti-platelet Therapy, if yes, what med: - (-) History of HIT (-) Allergic to Dye, if yes, were they prepped: - Review of patient's allergies indicates: Allergen Reactions Sulfa Antibiotics rash [facility] Frailty Score: Very Fit - 1 Well - 2 Managing Well - 3 Vulnerable - 4 Mildly Frail - 5 Moderately Frail - 6 Severely Frail - 7 Very Severely Frail - 8 Terminally Ill - 9 Current Presentation Admission Date: (Not on file) | Admission Time: 0700 CAD Presentation: (None, Unlikely to be ischemic, Stable, Unstable): stable Anginal Class: 0 Anti-Anginals in the last 2 weeks: + Beta Blockers | - Calcium Channel | - Long Acting Nitrates LV Dysfunction/ Cardiomyopathy: No EF in last 6 months: 55-59 % Stress Test (Last 6 months): yes | Type of stress test: nuclear stress test Result (No test, Low Risk, Intermediate Risk, High Risk, Negative, Indeterminate): positive for reversible perfusion defect Labs Last Creatinine: Lab Results Component Value Date/Time CREATININE 0.8 01/02/1997 12:00 PM CREATININE - [facility] 1.0 05/03/2023 03:04 PM CREATININE - [facility] 1.0 10/07/2020 02:43 PM CREATININE, RAND URINE-MET 138 03/18/2006 09:28 AM CREATININE, RANDOM URINE - [facility] 114 03/01/2022 10:10 AM CREATININE, RANDOM URINE - [facility] 115 01/07/2017 09:56 AM CREATININE-OUTSIDE LAB 0.98 12/17/2016 12:00 AM Last GFR: No components found for: E GLOM FILT RATE Last INR: INR Date Value 05/03/2023 2.0 (H) 10/07/2020 2.21 (H) Fingerstick INR (INR) Date Value 05/03/2023 2.3 10/07/2020 2.5 Last Hb/Hct: HGB (g/dL) Date Value 05/03/2023 13.9 (L) 10/07/2020 12.9 (L) HCT (%) Date Value 05/03/2023 43.1 10/07/2020 41.4 Misc. Notes This is a 62 YO M with significant hx of factor V leiden, HTN, HLD, DVT, and family hx of prematureCAD who recently underwent a nuclear stress test for symptoms of dyspnea and was found to have a small reversible perfusion defect in the apical anterior segment but sparing the apex. He was subsequently referred for coronary angiography to assess for hemodynamically significant CAD. Nuclear stress test 04/06/2023: Interpretation Summary The combined low intensity exercise/pharmacologic [...] ventricular ejection fraction was calculated to be 66%. TTE 02/11/2023: The examination is adequate to evaluate the referral indication. Sinus rhythm with premature atrial contractions present during the echocardiogram study. The LV wall thickness is mildly increased (concentric). The left ventricular wall motion is normal. The qualitative LV ejection fraction is 55-59% (normal). Mild mitral regurgitation is present. Mild tricuspid regurgitation is present. The estimated pulmonary artery systolic pressure is 36 mmHg. The aortic root is mildly enlarged, 4.0 cm. The proximal ascending thoracic aorta is mildly enlarged, 4.2 cm. Compared to the report of the prior study dated 03/24/2012, the aortic root diameter was 3.9 cm andthe proximal ascending aorta diameter was 3.8 cm at that time. documented in this encounter Plan of Treatment Upcoming Encounters Date Type Specialty Care Team Description 06/03/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 [place] [address] 10/17/2023 Office Visit Rheumatology [facility] Villalobos [facility] [address] 11/14/2023 Office Visit Family Medicine Louise Thornton MD [address] [place] [address] [place] [address] Scheduled Orders Name Type Priority Associated Diagnoses Orde r Schedule EKG EKG Routine SOB (shortness of breath) One Time for 1 Occurrences starting 05/20/2023 until 05/20/2023 EKG EKG Routine S/P drug eluting coronary stent placement One Time for 1 Occurrences starting 05/21/2023 until 05/21/2023 Scheduled Procedures Name Priority Associated Diagnoses Date/Ti me COLONOSCOPY FLEXIBLE PROXIMAL DIAGNOSTIC Recall History of colon polyps Scheduled Referrals Name Type Priority Associated Diagnoses Order Schedule OPHTHALMOLOGY REFERRAL OP Referral Within 10 days (routine) Retinal artery occlusion, branch, left Ordered: 05/21/2023 CARDIOLOGY REFERRAL OP Referral Within 30 days (routine) Coronary artery disease involving saxman coronary artery of saxman heart without angina pectoris S/P drug eluting coronary stent placement Ordered: 05/21/2023 Health Maintenance Due Date Last Done Comments [...] this encounter Medical Devices Implanted Type Area District Branch Manager Device Identifier Shelf Expiration Date Model / Serial / Lot Stent Synergy Xd Mr [id number] - [id number] Implanted:Qty: 1 on 05/20/2023 by Cee Ryan MD at [facility] [employer] [id number] 06/17/2023 [id number] / / [id number] documented as of this encounter Procedures Procedure Name Priority Date/Time Associated Diagnosis Comments CBC Routine 05/21/2023 4:30 AM EDT HEMOGLOBIN A1C Routine 05/21/2023 4:29 AM EDT BASIC METABOLIC PANEL Routine 05/21/2023 4:29 AM EDT PT INR Routine 05/21/2023 4:29 AM EDT LIPID PANEL WITHOUT DIRECT LDL Routine 05/21/2023 4:29 AM EDT CTA HEAD/CTA NECK STAT 05/20/2023 7:1 5 PM EDT BASIC METABOLIC PANEL STAT 05/20/2023 6:01 PM EDT ACT, POINT OF CARE YESSY 05/20/2023 12 :06 PM EDT PT INR STAT 05/20/2023 10:09 AM EDT CARDIAC CATHETERIZATION REPORT Routine 05/20/2023 documented in this encounter Results * (ABNORMAL) CBC (05/21/2023 4:30 AM EDT) WBC 3.68(L) 4.00 - 10.80 K/uL 05/21/2023 4:49 AM EDT [facility] RBC 4.07 4.50 - 5.25 M/uL 05/21/2023 4:49 AM EDT [facility] HGB 11.9(L) 14.0 - 16.8 g/dL 05/21/2023 4:49 AM EDT [facility] HCT 37.0(L) 40.0 - 48.4 % 05/21/2023 4:49 AM EDT [facility] MCV 90.9 82.0 - 99.5 fL 05/21/2023 4:49 AM EDT [facility] MCH 29.2 27.0 - 34.0 pg 05/21/2023 4:49 AM EDT [facility] MCHC 32.2 32.0 - 36.0 g/dL 05/21/2023 4:49 AM EDT LABORATORY [facility] RDW 13.7 11.5 - 15.5 % 05/21/2023 4:49 AM EDT LABORATORY [facility] PLT 145 140 - 400 K/uL 05/21/2023 4:49 AM EDT LABORATORY [facility] MPV 9.6 6.6 - 11.1 fL 05/21/2023 4:49 AM EDT LABORATORY [facility] nRBCs 0 <=0 /100 WBCs 05/21/2023 4:49 AM EDT LABOR[facility]ORY [facility] Blood Venous blood specimen / Unknown Venipuncture / Unknown 05/21/2023 4:30 AM EDT 05/21/2023 4:35 AM EDT Vance LOPEZ LAB BLOOD OR DERABLES LAB[facility]ATORY [facility] [address] [place] [address] * BASIC METABOLIC PANEL (05/21/2023 4:29 AM EDT) BUN 12 6 - 20 mg/dL 05/21/2023 5:09 AM EDT LABORATORY [facility] Creatinine 1.0 0.6 - 1.2 mg/dL 05/21/2023 5:09 AM EDT LABORATORY [facility] Estimated Glomerular Filtration Rate 84 >=60 mL/min 05/21/2023 5:09 AM EDT LABORATORY C Comment:eGFR is calculated b ased on the CKD-EPI 2020 equation Sodium 138 135 - 146 mmol/L 05/21/2023 5:09 AM EDT [facility] Potassium 4.1 3.5 - 5.1 mmol/L 05/21/2023 5:09 AM EDT [facility] Chloride 106 98 - 107 mmol/L 05/21/2023 5:09 AM EDT LABORATORY C CO2 23 22 - 32 mmol/L 05/21/2023 5:09 AM EDT LABORATORY C Anion Gap 9 7 - 15 mmol/L 05/21/2023 5:09 AM EDT [facility] Glucose 103 70 - 120 mg/dL 05/21/2023 5:09 AM EDT LABORATORY [facility] Calcium 8.5 8.4 - 10.2 mg/dL 05/21/2023 5:09 AM EDT LABORATORY [facility] Blood Venous blood specimen / Unknown Venipuncture / Unknown 05/21/2023 4:29 AM EDT 05/21/2023 4:35 AM EDT Vance Leal Kemar [facility] LAB BLOOD OR DERABLES Performing Organization Address [facility] Co de Phone Number LABORATORY [facility] [address] [place] [address] * PT INR (05/21/2023 4:29 AM EDT) Prothrombin Time 14.3 11.6 - 15.2 seconds 05/21/2023 5:02 AM EDT LABORATORY [facility] INR 1.1 0.8 - 1.2 05/21/2023 5:02 AM EDT LABORATORY [facility] Blood Venous blood specimen / Unknown Venipuncture / Unknown 05/21/2023 4:29 AM EDT 05/21/2023 4:35 AM EDT Narrative LABORATORY [facility] - 05/21/2023 5:02 AM EDT Warfarin Therapy INR: 2.0-3.0 conventional anticoagulation INR: 2.5-3.5 high intensity anticoagulation Vance LOPEZ LAB BLOOD OR DERABLES Performing Organization Address [facility] de Phone Number LABORATORY [place] [address] [place] [address] * (ABNORMAL) HEMOGLOBIN A1C (05/21/2023 4:29 AM EDT) Hemoglobin A1C 5.7(H) 4.0 - 5.6 % 05/21/2023 4:57 AM EDT LABORATORY [facility] Comment:The use of HbA1c to monitor glycemic status is based on normal hemoglobin and HbA composition. This test should not be used in patients with abnormal hemoglobin that affects the half life of the red blood cell or the in vivo glycation rates. Estimated Average Glucose 117 <126 mg/dL 05/21/2023 4:57 AM EDT LABORATORY [facility] Blood Venous blood specimen / Unknown Venipuncture / Unknown 05/21/2023 4:29 AM EDT 05/21/2023 4:35 AM EDT Vance LOPEZ LAB BLOOD OR DERABLES LABORATORY [facility] [address] [place] [address] * (ABNORMAL) LIPID PANEL WITHOUT DIRECT LDL (05/21/2023 4:29 AM EDT) Triglycerides 53 <=174 mg/dL 05/21/2023 5:09 AM EDT LABORATORY [facility] Comment: Triglyceride Reference Ranges (mg/dL): <150 Acceptable 150-174 Borderline high 175-499 High >=500 Very high Cholesterol 115 <200 mg/dL 05/21/2023 5:09 AM EDT LABORATORY [facility] Comment: Total Cholesterol Reference Ranges (mg/dL): <200 Desirable 200-239 Borderline high >=240 High HDL Cholesterol 38(L) >39 mg/dL 5:09 AM EDT LABORATORY [facility] Comment: HDL Cholesterol Reference Ranges (mg/dL): >=60 High (Desirable) <50 Low (Undesirable) For Females <40 Low (Undesirable) For Males Non-HDL Cholesterol 77 <=159 mg/dL 05/21/2023 5:09 AM EDT LABORATORY [facility] Comment: Non-HDL Cholesterol Reference Range (mg/dL): <100 Target level for high risk ASCVD patient <130 Optimal for general population 130-159 Near optimal for general population 160-189 Borderline High 190-219 High >=220 Very High LDL Cholesterol 66 <=129 mg/dL 05/21/2023 5:09 AM EDT LABORATORY [facility] Comment: LDL Cholesterol Reference Ranges (mg/dL): <70 Target level for high risk ASCVD patient <100 Optimal for general population 100-129 Near optimal for general population 130-159 Borderline high 160-189 High >=190 Very high Blood Venous blood specimen / Unknown Venipuncture / Unknown 05/21/2023 4:29 AM EDT 05/21/2023 4:35 AM EDT Vance Reinoso JOHN LAB BLOOD OR DERABLES [facility] [address] [place] [address] * CTA HEAD/CTA NECK (05/20/2023 7:15 PM EDT) Anatomical Region Laterality Modality Neck, Head, Cspine, Spine Comput ed Tomography 05/20/2023 7:35 PM EDT Impressions 05/20/2023 7:33 PM EDT IMPRESSION 1. No acute intracranial abnormalities identified by CT. 2. Atherosclerosis without significant stenosis by NASCET criteria at the carotid bulbs and no evidence of intracranial large vessel occlusion. Narrative 05/20/2023 7:33 PM EDT EXAM CTA HEAD/CTA NECK-05/20/2023 7:15 pm HISTORY retinal artery occlusion, COMPARISON None TECHNIQUE CT scan of the head was performed without contrast. Subsequently,CT angiogram of the head and neck was performed following dynamic intravenous bolus contrast administration. 3D/MIP reformatted images are provided. FINDINGS CT HEAD: There is no evidence of intracranial hemorrhage or transcortical infarction. Brain volume is within normal limits.Patchy hypodensities in the periventricular and deep cerebral white matter are nonspecific, but most commonly associated chronic microvascular ischemic changes. Mild intracranial vascular calcifications. There is no significant mass effect, hydrocephalus, or extra-axial fluid collection. Minimal mucosal thickening is noted in the paranasal sinuses. The mastoid air cells are clear. The calvarium is intact. Degenerative changes of the right TMJ. There is partial fatty replacement of the parotid glands. CTA: The aortic arch is conventional in branching pattern. The great vessel origins are widely patent. RIGHT ANTERIOR CIRCULATION: The innominate and common carotid arteries are normal in caliber. There is mild calcified plaque at the carotid bifurcation without significant stenosis by NASCET criteria. The cervical segment of the internal carotid artery is normal in caliber. Vascular calcifications are present in the cavernous and supraclinoid segments of the internal carotid artery without significant stenosis. The A1 segment, anterior communicating artery complex, and A2 segment are within normal limits. The M1 segment and MCA bifurcation are unremarkable. LEFT ANTERIOR CIRCULATION: The common carotid artery is normal in caliber. There is mild calcified plaque at the carotid bifurcation without significant stenosis by NASCET criteria. The cervical segment of the internal carotid artery is normal in caliber. Vascular calcifications are present in the cavernous and supraclinoid segments of the internal carotid artery without significant stenosis. The A1 segment, anterior communicating artery complex, and A2 segment are within normal limits. The M1 segment and MCA bifurcation are unremarkable. POSTERIOR CIRCULATION: The vertebral arteries are patent and uniform in caliber throughout the neck. Left vertebral artery is dominant. The intradural vertebral and basilar arteries are normal in caliber. The P1 and P2 segments are within normal limits. OTHER: Multilevel degenerative changes are present in the cervical spine, including moderate neural foraminal narrowing at C5-C6 on the right and C6-C7 on the left. There is chronic deformity involving the right facet joint with mild compression deformity of C6 vertebral body, likely sequela of prior trauma. Procedure Note DebraCharlotte Cecy Cartwright, DO - 05/20/2023 EXAM CTA HEAD/CTA NECK-05/20/2023 7:15 pm HISTORY retinal artery occlusion, COMPARISON None TECHNIQUE CT scan of the head was performed without contrast. Subsequently,CTangiogram of the head and neck was performed following dynamic intravenousbolus contrast administration. 3D/MIP reformatted images are provided. FINDINGS CT HEAD: There is no evidence of intracranial hemorrhage or transcorticalinfarction. Brain volume is within normal limits.Patchy hypodensities in theperiventricular and deep cerebral white matter are nonspecific, but mostcommonly associated chronic microvascular ischemic changes. Mildintracranial vascular calcifications. There is no significant mass effect, hydrocephalus, or extra-axial fluidcollection. Minimal mucosal thickening is noted in the paranasal sinuses. The mastoidair cells are clear. The calvarium is intact. Degenerative changes ofthe right TMJ. There is partial fatty replacement of the parotidglands. CTA: The aortic arch is conventional in branching pattern. The great vesselorigins are widely patent. RIGHT ANTERIOR CIRCULATION: The innominate and common carotid arteries are normal in caliber. Thereis mild calcified plaque at the carotid bifurcation without significantstenosis by NASCET criteria. The cervical segment of the internal carotidartery is normal in caliber. Vascular calcifications are present in the cavernous and supraclinoidsegments of the internal carotid artery without significant stenosis. TheA1 segment, anterior communicating artery complex, and A2 segment arewithin normal limits. The M1 segment and MCA bifurcation areunremarkable. LEFT ANTERIOR CIRCULATION: The common carotid artery is normal in caliber. There is mild calcifiedplaque at the carotid bifurcation without significant stenosis by NASCETcriteria. The cervical segment of the internal carotid artery is normal incaliber. Vascular calcifications are present in the cavernous and supraclinoidsegments of the internal carotid artery without significant stenosis. TheA1 segment, anterior communicating artery complex, and A2 segment arewithin normal limits. The M1 segment and MCA bifurcation areunremarkable. POSTERIOR CIRCULATION: The vertebral arteries are patent and uniform in caliber throughout theneck. Left vertebral artery is dominant. The intradural vertebral and basilar arteries are normal in caliber. TheP1 and P2 segments are within normal limits. OTHER: Multilevel degenerative changes are present in the cervical spine,including moderate neural foraminal narrowing at C5-C6 on the right andC6-C7 on the left. There is chronic deformity involving the right facetjoint with mild compression deformity of C6 vertebral body, likely sequelaof prior trauma. IMPRESSION IMPRESSION 1. No acute intracranial abnormalities identified by CT. 2. Atherosclerosis without significant stenosis by NASCET criteria at thecarotid bulbs and no evidence of intracranial large vessel occlusion. Liz Dietrich DO [facility] CT * BASIC METABOLIC PANEL (05/20/2023 6:01 PM EDT) BUN 11 6 - 20 mg/dL 05/20/2023 6:29 PM EDT [facility] Creatinine 1.0 0.6 - 1.2 mg/dL 05/20/2023 6:29 PM EDT [facility] Estimated Glomerular Filtration Rate 88 >=60 mL/min 05/20/2023 6:29 PM EDT [facility] Comment:eGFR is calculated b ased on the CKD-EPI 2020 equation Sodium 138 135 - 146 mmol/L 05/20/2023 6:29 PM EDT [facility] Potassium 4.0 3.5 - 5.1 mmol/L 05/20/2023 6:29 PM EDT [facility] Chloride 106 98 - 107 mmol/L 05/20/2023 6:29 PM EDT [facility] CO2 23 22 - 32 mmol/L 05/20/2023 6:29 PM EDT [facility] Anion Gap 9 7 - 15 mmol/L 05/20/2023 6:29 PM EDT [facility] Glucose 92 70 - 120 mg/dL 05/20/2023 6:29 PM EDT [facility] Calcium 9.0 8.4 - 10.2 mg/dL 05/20/2023 6:29 PM EDT [facility] Blood Venous blood specimen / Unknown Venipuncture / Unknown 05/20/2023 6:01 PM EDT 05/20/2023 6:08 PM EDT Liz Dietrich DO LAB BLOOD ORDERABLES LAB[facility]AT[facility] [address] [place] [address] * ACT, POINT OF CARE (05/20/2023 12:06 PM EDT) ACT 161 50 - 1,000 secs 05/20/2023 12:45 PM EDT [facility] Blood 05/20/2023 12:0 6 PM EDT 05/20/2023 12:45 PM EDT Narrative [facility] - 05/20/2023 12:45 PM EDT NORMAL (NON-HEPARINIZED) 74-137 SECONDS HEPARINIZED 200+ SECONDS CRITICAL GREATER THAN 1000 SECONDS Cee Ryan MD LAB POINT OF CARE TE ST DOCKED DEVICE UNSOLICITED RESULTS Performing Organization Address City/[facility] Co de Phone Number [facility] [address] [place] [address] * PT INR (05/20/2023 10:09 AM EDT) Prothrombin Time 13.9 11.6 - 15.2 seconds 05/20/2023 10:56 AM EDT LAB[facility]ATORY [facility] INR 1.0 0.8 - 1.2 05/20/2023 10:56 AM EDT [facility] Blood Venous blood specimen / Unknown Venipuncture / Unknown 05/20/2023 10:09 AM EDT 05/20/2023 10:17 AM EDT Narrative [facility]AT[facility] - 05/20/2023 10:56 AM EDT Warfarin Therapy INR: 2.0-3.0 conventional anticoagulation INR: 2.5-3.5 high intensity anticoagulation Carl LOPEZ LAB BLOOD ORDERABLE S LAB[facility]AT[facility] [address] [place] [address] * CARDIAC CATHETERIZATION REPORT (05/20/2023) DATE OF PROCEDURE 05/20/2023 [facility] Cee Bond MD [employer] [facility] [facility] INTERVENTIONAL Cee Bond MD [employer] [employer] [facility] CONCLUSIONS * The coronary arteries have significant 1 vessel disease. * 60% distal LAD lesion that is hemodynamically significant (FFR 0.74) s/p PCI with KIESHA (2.75 mm x 24 mm Synergy XD, post-dilated with 3.0 mm x 12 mm NC Euphora balloon) [facility] CARDIOLOGY PROCEDURES Coronary Angiography - 59 Modifier Procedure Fractional Flow [place] (FFR) KIESHA Stenting 0:38-0:52 hours:minutes Sedation [employer] C[facility] TOTAL CONTRAST VOLUME 100 ml [facility] CARDIOLOGY TOTAL RADIATION 0.39 Gy [employer] CARDIOLOGY COMPLICATIONS No complication None [employer] [facility] 05/20/2023 05/21/2023 12: 06 PM EDT Franco Shaffer DO CARD CATH Performing Organization Address [facility] Co de Phone Number [employer] [facility] documented in this encounter Visit Diagnoses Diagnosis Coronary artery disease involving saxman coronary artery of saxman heart without angina pectoris- Primary SOB (shortness of breath) Shortness of breath Chest pain Chest pain, unspecified S/P drug eluting coronary stent placement Postsurgical percutaneous transluminal coronary angioplasty status Elevated liver enzymes Nonspecific elevation of levels of transaminase or lactic acid dehydrogenase (LDH) Retinal artery occlusion, branch, left documented in this encounter Administered Medications Inactive Administered Medications - up to 3 most recent administrations Medication Order MAR Action Action Date Dose Rate Site Acetaminophen (Tylenol) tab 650 mg 650 mg, Oral, Q6H PRN Pain, Mild, Other, non cardiac pain, Starting on 05/20/23 at 1204, Until 05/21/23 at 1814, Maximum of 4 grams (4000 mg) per day., Post-op adenosine 24 mcg/ml infusion for intracoronary 216 mcg, Intracoronary, PRN, Starting on Tue05/20/23 at 1156, Until Tue05/20/23 at 1218, To be administered in [employer] [employer] intra-procedure only, Intra-Op New Bag 05/20/2023 11:38 AM EDT 216 mcg aspirin chew tab 324 mg 324 mg, Oral, ONCE, On Tue05/20/23 at 1000, For 1 dose, Pre-Op Given 05/20/2023 10:15 AM EDT 324 mg aspirin enteric coated tab 81 mg 81 mg, Oral, ONCE, On 05/21/23 at 0930, For 1 dose, This med should NOT be Crushed or Chewed Given 05/21/2023 9:37 AM EDT 81 mg atorvaSTATin (Lipitor) tab 40 mg 40 mg, Oral, ONCE, On 05/21/23 at 1015, For 1 dose Given 05/21/2023 9:38 AM EDT 40 mg atorvaSTATin (Lipitor) tab 80 mg 80 mg, Oral, ONCE, On Tue05/20/23 at 1000, For 1 dose, Pre-Op Given 05/20/2023 10:15 AM EDT 80 mg fentaNYL (PF) inj 50 mcg 50 mcg, IV Push, PRN Pain, Severe, Starting on Tue05/20/23 at 1118, Until Tue05/20/23 at 1218, For 2 hours, To be administered in [facility] [employer] intra-procedure only When given IV Push its recommended that the dose be given over 3 to 5 minutes. , Intra-Op Given 05/20/2023 11:20 AM EDT 50 mcg hEParin inj 5,000 Units 5,000 Units, Intra-Arterial, PRN Other, Inadequate anticoagulation, Starting on Tue05/20/23 at 1118, Until Tue05/20/23 at 1133, For 1 dose, To be administered in Cardiac [employer] intra-procedure only , Intra-Op Given 05/20/2023 11:33 AM EDT 5,000 Units house antacid (Mi-Acid II) oral susp 30 mL 30 mL, Oral, Q4H PRN Indigestion, Other, dyspepsia, Starting on Tue05/20/23 at 1531, Until 05/21/23 at 1814, [place] hydroCHLOROthiazide (Hydrodiuril) cap 12.5 mg 12.5 mg, Oral, Daily(AM), First dose on Tue05/21/23 at 0900, Until Discontinued Given 05/21/2023 9:38 AM EDT 12.5 mg hydroxychloroquine (Plaquenil) tab 400 mg 400 mg, Oral, HS, First dose on Tue05/20/23 at 2200, Until Discontinued Given 05/20/2023 9:25 PM EDT 400 mg Ioversol (Optiray 350) 74 % inj 100 mL 100 mL, Intracoronary, ONCE, On Tue05/20/23 at 1245, For 1 dose, Intra-Op Given 05/20/2023 12:08 PM EDT 100 mL Ioversol (Optiray 350) 74 % inj 100 mL 100 mL, Intravenous, ONCE, On Tue05/20/23 at 2000, For 1 dose, Radiology Medication Routing (Non-IR) Given 05/20/2023 8:00 PM EDT 100 mL isolyte-S pH 7.4 infusion Intravenous, at 75 mL/hr, Plasma-LYTE 148, isolyte-S, and isolyte-S pH 7.4 are considered equivalent - including for MAR barcode scanning., CONTINUOUS, Starting on Tue05/20/23 at 1815, Until Tue05/21/23 at 0414 New Bag 05/20/2023 6:07 PM EDT 75 mL 75 mL/hr Metoprolol Tartrate (Lopressor) tab 25 mg 25 mg, Oral, BID(AM/PM), First dose on Tue05/20/23 at 2100, Until Discontinued, Hold for HR less than 60 or SBP below 100 and notify service if dose is held Given 05/21/2023 9:38 AM EDT 25 mg Given 05/20/2023 9:25 PM EDT 25 mg midazolam (Versed) 2 MG/2ML inj 1 mg 1 mg, IV Push, PRN Anxiety, Starting on Tue05/20/23 at 1118, Until Tue05/20/23 at 1218, For 2 hours, To be administered in Cardiac [employer] intra-procedure only, Intra-Op Given 05/20/2023 11:38 AM EDT 1 m g Given 05/20/2023 11:20 AM EDT 1 mg Nitroglycerin (Nitrostat) sl tab 0.4 mg 0.4 mg, Sublingual, Q5 MIN PRN Pain, Chest, Starting on Tue05/20/23 at 1531, Until Tue05/21/23 at 1814, May give 2x if systolic BP is greater than 100mm Hg. If no relief after second tablet notify the lead housekeeper STAT. May give third tablet if systolic BP greater than 100 while waiting for response. This med should NOT be Crushed or Chewed NSS infusion Intravenous, at 100 mL/hr, CONTINUOUS, Starting on Tue05/20/23 at 1000, Until Tue05/20/23 at 1205, Pre-Op New Bag 05/20/2023 10:15 AM EDT 100 mL/hr NSS infusion 100 mL/hr, Intravenous, CONTINUOUS, Starting on Tue05/20/23 at 1245, Until Tue05/20/23 at 1744, Post-op Rate Change 05/20/2023 12:45 PM EDT 100 mL/hr 100 mL/hr terazosin (Hytrin) cap 10 mg 10 mg, Oral, HS, First dose on Tue05/20/23 at 2200, Until Discontinued Given 05/20/2023 9:26 PM EDT 10 mg Ticagrelor (Brilinta) tab 180 mg 180 mg, Oral, ONCE, On Tue05/20/23 at 1230, For 1 dose, Intra-Op Given 05/20/2023 12:01 PM EDT 180 mg Ticagrelor (Brilinta) tab 90 mg 90 mg, Oral, BID(AM/PM), First dose on Tue05/20/23 at 2100, Until Discontinued Given 05/20/2023 9:25 PM EDT 90 mg Ticagrelor (Brilinta) tab 90 mg 90 mg, Oral, BID(AM/PM), First dose (after last modification) on 05/21/23 at 0900, Last dose on [place] 08/18/23 at 2100, For 90 days Given 05/21/2023 9:37 AM EDT 90 mg verapamil (Isoptin) inj 2.5 mg 2.5 mg, Intra-Arterial, PRN Other, arterial spasm, Starting on Tue05/20/23 at 1118, Until Tue05/20/23 at 1217, For 1 hour, To be administered in Cardiac [employer] intra-procedure only, Intra-Op Given 05/20/2023 11:33 AM EDT 2.5 mg warfarin check daily dose (PHARMACIST MANAGED) [id number], First dose on Tue05/20/23 at 1700, Until Discontinued, Routine, Contact the pharmacy if there is not a warfarin dose entered by 1500 and document with whom it was discussed. Warfarin Sodium (Coumadin) tab 10 mg 10 mg, Oral, QPM-1999, First dose on Tue05/20/23 at 1999, Last dose on Tue05/20/23 at 1999, For 1 day, WASTE INFO: Return packaging and waste medication in zip lock bag to pharmacy - [facility] container. Given 05/20/2023 9:25 PM EDT 10 mg documented in this encounter Active and Recently Administered Medications Times are shown in EDT. Scheduled Medication Order 05/19/2023 05/20/2023 05/21/2023 aspirin chew tab 324 mg (COMPLETED) 324 mg, Oral, ONCE, On Tue05/20/23 at 1000, For 1 dose, Pre-Op 1015 (Given - Provider: Jackie Tripp RN) aspirin enteric coated tab 81 mg (COMPLETED) 81 mg, Oral, ONCE, On Tue05/21/23 at 0930, For 1 dose, This med should NOT be Crushed or Chewed 0937 (Given - Provid er: Jackie Tripp RN) atorvaSTATin (Lipitor) tab 40 mg (COMPLETED) 40 mg, Oral, ONCE, On Tue05/21/23 at 1015, For 1 dose 0938 (Given - Provid er: Jackie Tripp RN) atorvaSTATin (Lipitor) tab 80 mg (COMPLETED) 80 mg, Oral, ONCE, On Tue05/20/23 at 1000, For 1 dose, Pre-Op 1015 (Given - Provider: Jackie Tripp RN) hydroCHLOROthiazide (Hydrodiuril) cap 12.5 mg 12.5 mg, Oral, Daily(AM), First dose on Tue05/21/23 at 0900, Until Discontinued 937 (Given - Provid er: Jackie Tripp RN) hydroxychloroquine (Plaquenil) tab 400 mg 400 mg, Oral, HS, First dose on Tue05/20/23 at 2200, Until Discontinued 2124 (Given - Provider: Lizeth Fernandes RN) Ioversol (Optiray 350) 74 % inj 100 mL (COMPLETED) 100 mL, Intracoronary, ONCE, On Tue05/20/23 at 1245, For 1 dose, Intra-Op 1208 (Given - Provider: Flakita Gilman, RT) Ioversol (Optiray 350) 74 % inj 100 mL (COMPLETED) 100 mL, Intravenous, ONCE, On Tue05/20/23 at 2000, For 1 dose, Radiology Medication Routing (Non-IR) 1999 (Given - Provider: Olivia Arora, RT (R)) Metoprolol Tartrate (Lopressor) tab 25 mg 25 mg, Oral, BID(AM/PM), First dose on Tue05/20/23 at 2100, Until Discontinued, Hold for HR less than 60 or SBP below 100 and notify service if dose is held 2124 (Given - Provider: Lizeth Fernandes RN) 09 (Given - Provider: Jackie Tripp, DISHA) terazosin (Hytrin) cap 10 mg 10 mg, Oral, HS, First dose on Tue05/20/23 at 2200, Until Discontinued 2125 (Given - Provider: Lizeth Fernandes RN) Ticagrelor (Brilinta) tab 180 mg (COMPLETED) 180 mg, Oral, ONCE, On Tue05/20/23 at 1230, For 1 dose, Intra-Op 1201 (Given - Provider: Haylee Prather RN) Ticagrelor (Brilinta) tab 90 mg 90 mg, Oral, BID(AM/PM), First dose on Tue05/20/23 at 2100, Until Discontinued 2124 (Given - Provider: Lizeth Fernandes RN) 0900 (Due) Ticagrelor (Brilinta) tab 90 mg 90 mg, Oral, BID(AM/PM), First dose (after last modification) on 05/21/23 at 0900, Last dose on [place] 08/18/23 at 2100, For 90 days 0937 (Given - Provid er: Jackie Tripp RN) warfarin check daily dose (PHARMACIST MANAGED) [id number], First dose on Tue05/20/23 at 1700, Until Discontinued, Routine, Contact the pharmacy if there is not a warfarin dose entered by 1500 and document with whom it was discussed. 1700 (Order Check Addressed - Provider: Jackie Tripp, DISHA) Warfarin Sodium (Coumadin) tab 10 mg (COMPLETED) 10 mg, Oral, QPM-1999, First dose on Tue05/20/23 at 2000, Last dose on Tue05/20/23 at 1999, For 1 day, WASTE INFO: Return packaging and waste medication in zip lock bag to pharmacy - [facility] container. 2124 (Given - Provider: Lizeth Fernandes, RN) Continuous Medication Order 05/19/2023 05/20/2023 05/21/2023 isolyte-S pH 7.4 infusion Intravenous, at 75 mL/hr, Plasma-LYTE 148, isolyte-S, and isolyte-S pH 7.4 are considered equivalent - including for MAR barcode scanning., CONTINUOUS, Starting on Tue05/20/23 at 1815, Until 05/21/23 at 0414 1807 (New Bag - Provider: Lauren Bland RN) 0400 (Stopped - Provider: Lizeth Fernandes, DISHA) NSS infusion (CANCELED) Intravenous, at 100 mL/hr, CONTINUOUS, Starting on Tue05/20/23 at 1000, Until Tue05/20/23 at 1205, Pre-Op 1015 (New Bag - Provider: Jackie Tripp RN)1205 (Stopped - Provider: Jackie Tripp RN) NSS infusion 100 mL/hr, Intravenous, CONTINUOUS, Starting on Tue05/20/23 at 1245, Until Tue05/20/23 at 1744, Post-op 1245 (Rate Change - Provider: Jackie Tripp, DISHA) PRN Medication Order 05/19/2023 05/20/2023 05/21/2023 Acetaminophen (Tylenol) tab 650 mg 650 mg, Oral, Q6H PRN Pain, Mild, Other, non cardiac pain, Starting on Tue05/20/23 at 1204, Until 05/21/23 at 1814, Maximum of 4 grams (4000 mg) per day., Post-op adenosine 24 mcg/ml infusion for intracoronary (CANCELED) 216 mcg, Intracoronary, PRN, Starting on Tue05/20/23 at 1156, Until Tue05/20/23 at 1218, To be administered in Cardiac [employer] intra-procedure only, Intra-Op 1138 (New Bag - Provider: Haylee Prather RN - Comment: for FFR IC BOLUS ONLY. NO INFUSION)1218 (Stopped - Provider: Lizeth Fernandes RN) fentaNYL (PF) inj 50 mcg (CANCELED) 50 mcg, IV Push, PRN Pain, Severe, Starting on Tue05/20/23 at 1118, Until Tue05/20/23 at 1218, For 2 hours, To be administered in Cardiac [employer] intra-procedure only When given IV Push its recommended that the dose be given over 3 to 5 minutes. , Intra-Op 1120 (Given - Provider: Thuy Prather RN) hEParin inj 5,000 Units (COMPLETED) 5,000 Units, Intra-Arterial, PRN Other, Inadequate anticoagulation, Starting on Tue05/20/23 at 1118, Until Tue05/20/23 at 1133, For 1 dose, To be administered in Cardiac [employer] intra-procedure only , Intra-Op 1133 (Given - Provider: Thuy Prather RN) house antacid (Mi-Acid II) oral susp 30 mL 30 mL, Oral, Q4H PRN Indigestion, Other, dyspepsia, Starting on Tue05/20/23 at 1531, Until 05/21/23 at 1814, [place]KE [place] midazolam (Versed) 2 MG/2ML inj 1 mg (CANCELED) 1 mg, IV Push, PRN Anxiety, Starting on Tue05/20/23 at 1118, Until Tue05/20/23 at 1218, For 2 hours, To be administered in Cardiac [employer]ner [employer] intra-procedure only, Intra-Op 1120 (Given - Provider: Thyu Prather RN)1138 (Given - Provider: Haylee Prather RN) Nitroglycerin (Nitrostat) sl tab 0.4 mg 0.4 mg, Sublingual, Q5 MIN PRN Pain, Chest, Starting on Tue05/20/23 at 1531, Until 05/21/23 at 1814, May give 2x if systolic BP is greater than 100mm Hg. If no relief after second tablet notify the lead housekeeper STAT. May give third tablet if systolic BP greater than 100 while waiting for response. This med should NOT be Crushed or Chewed verapamil (Isoptin) inj 2.5 mg () 2.5 mg, Intra-Arterial, PRN Other, arterial spasm, Starting on Tue05/20/23 at 1118, Until Tue05/20/23 at 1217, For 1 hour, To be administered in Cardiac [employer] intra-procedure only, Intra-Op 1133 (Given - Provider: Thuy Prather RN) documented in this encounter Advance Directives Latest Code Status on File Code Status Date Activated Date Inactivated Comments Full Code 05/20/2023 3:32 PM 05/21/2023 6:14 PM This order reflects the patients wishes and were consensually agreed upon. Question Answer Comments Discussion of Advance Directives occurred with: Patient Does the patient have a Living Will? No Does the patient have Health Care Power of Deli Department Manager? No Care Teams Major Account Representative Relationship Specialty Start Date End Date Louise Thornton MD [address] [place] [address] TRACY Rodriguez [phone] PCP - General Family Medicine 07/10/15 documented as of this encounter
--- OUTSIDE RECORDS SUMMARY | 2023-09-16 22:41 | External Medical Summary ---
Author Name Unknown Address Unknown Organization [id number]:[facility] [place] [address] [place] [address] Laboratory Report Ordering Provider Test Date Status FAINA SANDRA 05/21/2023 04:29:00 Final Warfarin Therapy
INR: 2 .0-3.0 conventional anticoagulation
INR: 2.5- 3.5 high intensity anticoagulation Observation Date Value Abnormality Reference (Units ) Status PT 05/21/2023 04:29:00 14.3 11.6-15.2 (seconds) Final INR 05/21/2023 04:29:00 1.1 0.8-1.2 Final Performing Location [facility] [place] [address] [place] [address]
--- OUTSIDE RECORDS SUMMARY | 2023-09-16 22:41 | External Medical Summary ---
Author Name Unknown Address Unknown Organization K01:LABORATORY [facility] - [facility] [address] [place] [address] Laboratory Report Ordering Provider Test Date Status JUAN JOSE SANDRAMARIANGEL 05/21/2023 04:29:00 Final Observation Date Value Abnormality Reference (Units ) Status BUN 05/21/2023 04:29:00 12 6-20 (mg/dL) Final Creatinine 05/21/2023 04:29:00 1.0 0.6-1.2 (mg/dL) Final Glomerular filtration rate/1.73 sq M.predicted [Volume Rate/Area] in Serum, Plasma or Blood by Creatinine-based formula (CKD-EPI) 05/21/2023 04:29:00 84 >=60 (mL/min) Final eGFR is calculated based on the CKD-EPI 2020 equation SODIUM 05/21/2023 04:29:00 138 135-146 (m mol/L) Final Potassium 05/21/2023 04:29:00 4.1 3.5-5.1 (m mol/L) Final Cl 05/21/2023 04:29:00 106 98-107 (mm ol/L) Final CO2 05/21/2023 04:29:00 23 22-32 (mmo l/L) Final Anion gap 05/21/2023 04:29:00 9 7-15 (mmol /L) Final Glucose 05/21/2023 04:29:00 103 70-120 (mg /dL) Final Calcium 05/21/2023 04:29:00 8.5 8.4-10.2 ( mg/dL) Final Performing Location LABORATORY [facility] - [address] [place] [address]
--- OUTSIDE RECORDS SUMMARY | 2023-09-16 22:41 | External Medical Summary | Summary of Care ---
Author Name Unknown Organization [facility] Address [address] [place] [address] Phone [phone] Care Team Providers Care Performance Improvement Coordinator Name Role Phone Louise Thornton MD Primary Care Provide r Encounter Details Date Type Department Care Team Description 05/20/2023 Telephone Cardiology [facility] [address] [place] [address] [facility] [address] [place] [address] Allergies Active Allergy Reactions Severity Noted Date Comments Sulfa Antibiotics 01/05/2001 rash documented as of this encounter (statuses as of 05/20/2023) Medications Medication Sig Dispensed Refills Start Date End Date Status Ticagrelor 90 MG Oral Tablet (Brilinta)Indicati ons:Coronary artery disease involving swinomish coronary artery of swinomish heart without angina pectoris Take 1 Tablet by mouth in the morning and 1 Tablet before bedtime. Do not start before May 21, 2023. 60 Tablet 2 3 08/19/20 23 Active Ammonium Lactate 12 % External Cream 0 1 Suspended Atorvastatin Calcium 10 MG Oral Tablet (Lipitor)Indicatio ns:Elevated liver enzymes TAKE ONE TABLET BY MOUTH EVERY DAY 90 Tablet 3 2 Suspended Additional Information Multivitamin Men 50+ Oral Tablet Take by mouth as needed . 0 Suspended Terazosin HCl 10 MG Oral CapsuleIndications :BPH with obstruction/lower urinary tract symptoms Take 1 Capsule by mouth at bedtime. 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 take 1 tablet all other days or as directed by anticoagulation clinic 110 Tablet 3 3 Suspended Additional Information Hydroxychloroquine Sulfate 200 MG Oral Tablet (Plaquenil) Take 2 Tablets by mouth at bedtime. 180 Tablet 3 3 Suspended Additional Information Metoprolol Tartrate 25 MG Oral Tablet (Lopressor)Indicat ions:Essential hypertension with goal blood pressure less than 140/90 TAKE ONE TABLET BY MOUTH TWICE DAILY 180 Tablet 3 3 Suspended Additional Information Ibuprofen 200 MG Oral Tablet (Motrin) Take 2 Tablets by mouth as needed. A couple times a week 0 Suspende d predniSONE 5 MG Oral Tablet (Deltasone) take 1/2 tablet daily on tuesday, tuesday and tuesday. 6 Tablet 5 3 Suspended Additional Information hydroCHLOROthiazid e 12.5 MG Oral Capsule (Hydrodiuril) TAKE ONE CAPSULE BY MOUTH EVERY DAY 90 Capsule 1 3 Suspended Additional Information Enoxaparin Sodium 150 MG/ML Injection Solution Prefilled Syringe (Lovenox) Inject 140 mg under the skin up to two times daily as directed by anticoagulation clinic 10 mL 0 3 Suspended Additional Information documented as of this encounter (statuses as of 05/20/2023) Active Problems Problem Noted Date Ascending aorta [...] as of this encounter (statuses as of 05/20/2023) Resolved Problems Problem Noted Date Resolved Date [...] as of this encounter (statuses as of 05/20/2023) Immunizations Name Administration Dates Next Due COVID-19 mRNA, LNP-s, No Pre serve, 2-Dose Series (SimpliVT) 06/30/2021,12/06/2020,11/15/2020 COVID-19, LNP-s, No Preserve , Tani-sucrose, Ages 12+ (Pfizer) 03/09/2022 Covid-19, Mrna, Lnp-s, Pf, B ivalent, 30 Mcg, IM, 12 yrs and above (Pfizer) 08/31/2022 Pneumococcal Conjugate Vacci ne, 20-valent ([id number]) 08/09/2022 Season Influenza, Cell Culte r, 18+ [...] encounter Miscellaneous Notes * Telephone Encounter - Chele Peterson RPh - 05/20/2023 4:41 PM EDT Patient is s/p PCI-KIESHA, starting on brilinta 90 mg BID and ASA 81 mg daily. He will stop ASA afte 1week. He will resume warfarin with a lovenox bridge - following the plan outlined by the coumadin clinic. INR today is 1. Met patient in CRS, he is agreeable to plan Chele Peterson RP, PharmD Clinical Pharmacist Cardiology 05/20/2023, 4:42 PM documented in this encounter Plan of Treatment Upcoming Encounters Date Type Specialty Care Team Description 06/03/2023 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ion Pharmacy [place], [facility] [address] [place] [address] 10/17/2023 Office Visit Rheumatology Jayson Villalobos MD [facility] [place] [address] 11/14/2023 Office Visit Family Medicine Louise Thornton MD [address] [place] [address] [place] [address] Scheduled Procedures Name Priority Associated Diagnoses Date/Ti me CORONARY ANGIOGRAPHY W/LEFT HEART CATH Abnormal nuclear stress test 05/20/2023 11:14 AM EDT COLONOSCOPY FLEXIBLE PROXIMAL DIAGNOSTIC Recall History of colon polyps Health Maintenance Due Date Last Done Comments Depression Screening, Annual for Pts 12 and Over 03/15/2020 03/15/2019 Influenza Vaccine (FLU shot) (#1) 2023 07/02/2022, 08/12/2021, 06/24/2020, Additional history exists HbA1c 01/29/2024 01/28/2023, 0 02/2022, 03/25/2021, Additional history exists GFR 05/03/2024 05/03/2023, 050 01/2023, 03/01/2022, Additional history exists Albumin/Creatinine Ratio 03/01/2025 03/01/2022, 02/24 COLONOSCOPY-EVERY 5 YRS AGES 18-100 06/23/2027 06/23/2022, 06/23/2022, 09/24/2016, Additional history exists Lipid Panel 01/29/2028 01/28/2023, 060 02/2022, 03/25/2021, Additional history exists DTaP,Tdap,and Td Vaccines (3 [...] this encounter Medical Devices Implanted Type Area Parachute Panel Joiner Device Identifier Shelf Expiration Date Model / Serial / Lot Stent Synergy Xd Mr [id number] - [id number] Implanted:Qty: 1 on 05/20/2023 by Cee Ryan MD at [facility] [employer] [id number] 06/17/2023 [id number] / / [id number] documented as of this encounter Advance Directives Latest Code Status on File Code Status Date Activated Date Inactivated Comments Full Code 05/20/2023 3:32 PM This order reflects the patients wishes and were consensually agreed upon. Question Answer Comments Discussion of Advance Directives occurred with: Patient Does the patient have a Living Will? No Does the patient have Health Care Power of Commercial Airline Pilot? No Care Teams Performance Improvement Coordinator Relationship Specialty Start Date End Date Louise Thornton MD [address] [place] [address] [place] [address] PCP - General Family Medicine 07/10/15 documented as of this encounter
--- OUTSIDE RECORDS SUMMARY | 2023-09-16 22:41 | External Medical Summary | Summary of Care ---
Author Name Unknown Organization [facility] Address [address] [place] [address] Phone [phone] Care Team Providers Care Nude Model Name Role Phone Louise Thornton MD Primary Care Provide r Encounter Details Date Type Department Care Team Description 05/20/2023 Telephone Cardiology [facility] [address] [place] [address] Chele Peterson [facility] [address] [place] [address] Allergies Active Allergy Reactions Severity Noted Date Comments Sulfa Antibiotics 01/05/2001 rash documented as of this encounter (statuses as of 05/23/2023) Medications Medication Sig Dispensed Refills Start Date [...] ions:Factor V Leiden mutation (HCC),Anticoagula 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 Do not start before May 21, 2023. 60 Tablet 2 05/21/20 23 023 Active Atorvastatin Calcium 10 MG Oral Tablet (Lipitor)Indicati ons:Elevated liver enzymes TAKE ONE TABLET BY MOUTH EVERY DAY 90 Tablet 3 06/10/20 22 023 Discontinued documented as of this encounter (statuses as of 05/23/2023) Active Problems Problem Noted Date Ascending aorta [...] as of this encounter (statuses as of 05/23/2023) Resolved Problems Problem Noted Date Resolved Date [...] as of this encounter (statuses as of 05/23/2023) Immunizations Name Administration Dates Next Due COVID-19 mRNA, LNP-s, No Pre serve, 2-Dose Series (Myreks) 06/30/2021,12/06/2020,11/15/2020 COVID-19, LNP-s, No Preserve , Tani-sucrose, Ages 12+ (Myreks) 03/09/2022 Covid-19, Mrna, Lnp-s, Pf, B ivalent, 30 Mcg, IM, 12 yrs and above (Pfizer) 08/31/2022 PPD 04/20/2000 Pneumococcal Conjugate Vacci ne, 20-valent ([id number]) 08/09/2022 Season Influenza, Cell Culte r, 18+ [...] Telephone Encounter - Eneida Navarro RPh - 05/23/2023 8:37 AM EDT Noted by [facility]. Will plan to follow up as previously scheduled. Eneida Navarro RPh, PharmD Clinical Pharmacist - Rag Shredder [facility] 05/23/2023, 8:37 AM [phone] * Telephone Encounter - Chele Peterson RPh [...] he is agreeable to plan Chele Peterson [facility], PharmD Clinical Pharmacist Cardiology 05/20/2023, 4:42 PM documented in this encounter Plan of Treatment Upcoming Encounters Date Type Specialty Care Team Description 06/03/2023 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ion Pharmacy [address] [place] [address] 10/17/2023 Office Visit Rheumatology Jayson [facility] [address] 11/14/2023 Office Visit Family Medicine Louise Thornton MD [address] [place] [address] [place] [address] Scheduled Procedures Name Priority Associated Diagnoses Date/Ti [...] this encounter Medical Devices Implanted Type Area Installment Account Checker Device Identifier Shelf Expiration Date Model / Serial / Lot Stent Synergy Xd Mr [id number] - [id number] Implanted:Qty: 1 on 05/20/2023 by Cee Ryan MD at [facility] [employer] [id number] 06/17/2023 [id number] / / [id number] documented as of this encounter Advance Directives [...] the patient have Health Care Power of Manufacturing Executive? No Care Teams Nude Model Relationship Specialty Start Date End Date Louise Thornton MD [address] [place] [address] [place] [phone] PCP - General Family Medicine 07/10/15 documented as of this encounter
--- OUTSIDE RECORDS SUMMARY | 2023-09-16 22:41 | External Medical Summary | Summary of Care ---
Author Name Unknown Organization [facility] Address [address] [place] [address] Phone [phone] Care Team Providers Care Micropaleontologist Name Role Phone Louise Thornton MD Primary Care Provide r Reason for Visit * Reason Comments NEW PATIENT Referred by cardiolo mame Ryan for poss CRVO; last Tuesday had Cardiac Cath done and noticed after OS was red/cloudy with vision loss, states since then has gotten some better but not much states has vision loss in the 3 and 6 o'clock area * Evaluate & Treat - Unlimited Visits (Within 10 days (routine)) - Pending Review Specialty Diagnoses / Procedures Referred By Katie greene Referred To Contact Ophthalmology Diagnoses Retinal artery occlusion, branch, left Molina Florez, DO [address] [place] [address] Referral ID Status Reason Start Date Expiration Date Visits Requested Visits Authorized [id number] Pending Review Specialty Services Required 05/21/[phone] Encounter Details Date Type Department Care Team Description 05/26/2023 Office Visit Ophthalmology, [facility] [address] [facility] [place] [address] Dewey Gross, DO [address] [facility] [place] [address] Retinal artery occlusion, branch, left [H34.232 (ICD-10-CM)]*; Visual distortions of shape and size Allergies Active Allergy Reactions Severity Noted Date Comments Sulfa Antibiotics 01/05/2001 rash documented as of this encounter (statuses as of 05/26/2023) Medications Medication Sig Dispensed Refills Start Date [...] ons:Factor V Leiden mutation (HCC),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,halfway current use of anticoagulant therapy take 1 [...] Oral Tablet (Brilinta)Indicati ons:Coronary artery disease involving [place] coronary artery of [place] heart without angina pectoris Take 1 Tablet by mouth in the morning and 1 Tablet before bedtime. Do not start before May 21, 2023. 60 Tablet 2 05/21/2023 3 Active Aspirin 81 MG Oral Tablet Delayed Release Take 1 Tablet by mouth in the morning for 6 days. Do not start before May 22, 2023. 6 Tablet 0 05/22/2023 3 Active Atorvastatin Calcium 40 MG Oral Tablet (Lipitor) Take 1 Tablet by mouth in the morning. 34 Tablet 5 05/21/2023 Active documented as of this encounter (statuses as of 05/26/2023) Active Problems Problem Noted Date S/P angioplasty [...] as of this encounter (statuses as of 05/26/2023) Resolved Problems Problem Noted Date Resolved Date [...] as of this encounter (statuses as of 05/26/2023) Immunizations Name Administration Dates Next Due COVID-19 mRNA, LNP-s, No Pre serve, 2-Dose Series (ARKeX) 06/30/2021,12/06/2020,11/15/2020 COVID-19, LNP-s, No Preserve , Tani-sucrose, Ages 12+ (Pfizer) 03/09/2022 Covid-19, Mrna, Lnp-s, Pf, B ivalent, 30 Mcg, IM, 12 yrs and above (Pfizer) 08/31/2022 Pneumococcal Conjugate Vacci ne, 20-valent ([id number]) 08/09/2022 Season Influenza, Cell Culte r, 18+ [...] Sign Reading Time Taken Comments Blood Pressure 107/73 05/26/2023 10:55 AM EDT Pulse 67 05/26/2023 10:55 AM EDT Temperature - - Respiratory Rate - - Oxygen Saturation - - Inhaled Oxygen Concentration - - Weight - [...] of this encounter Progress Notes * Dewey Gross DO - 05/26/2023 10:30 AM EDT [facility] [place] Nursing notes reviewed. Eye vitals reviewed. Mood and Affect: normal HPI: Peter Caruso is a 62 year old male who presents for evaluation of BRAO CC: 'my vision is blurry' Vision: decreased Location (of CC): OS Quality/Severity: moderate Duration: since cardiac cath Timing: sudden Context: nonspecific Associated Signs/Symptoms: none Modifying Factors: none No other eye complaints. Denies significant pain. Base Eye Exam Visual Acuity (Snellen - Linear) Right Left Dist cc 20/20 20/200 -1 Dist ph cc 20/80 -1 Tonometry (Tonopen, 10:38 AM) Right Left Pressure 8 6 Tonometry #2 (Tonopen, 10:38 AM) Right Left Pressure 9 6 Pupils Dark Shape React APD Right 3 Round Slow None Left 3 Round Slow None Visual Tena (Counting fingers) Right Left Full Full Extraocular Movement Right Left Full, Ortho Full, Ortho Neuro/Psych Oriented x3: Yes Mood/Affect: Normal Dilation Both eyes: 0.5% Proparacaine @ 10:35 AM Dilation #2 Both eyes: 1.0% Mydriacyl, 2.5% Phenylephrine @ 10:38 AM Dilation #3 Both eyes: 2.5% Phenylephrine, 1.0% Mydriacyl @ 10:40 AM Dilation Comments Patient cautioned that effects of dilation may last 2-7 hours dependant upon individual reaction. It was discussed that driving while dilated is not recommended. Strabismus Exam Method: Alternate cover Correction: ky Observations: Ortho Distance Near Near +3DS N Bifocals cover/uncover, and alternate cover EXTERNAL: The ocular adnexae are unremarkable. SLE: Lids/Lashes: wnl OU Conjunctiva/Sclera: quiet OU Cornea: clear OU Anterior Chamber: deep and quiet OU Iris: normal OU; no NVI OU Lens: +NSC OU Dilated fundus exam OD: vitreous: clear optic nerve: 0.3, no edema/pallor/NVD macula: wnl vessels: wnl periphery: wnl, no RT/RD Dilated fundus exam OS: vitreous: clear optic nerve: 0.3, no edema/pallor/NVD macula: superior whitening vessels: wnl periphery: wnl, no RT/RD OCT Interpretation: OD: no irf/srf, no pvd OS: hyperreflectivity inner superior macula, no pvd OCTA Interpretation: 05/26/2023 OD: nml OS: nml A/P: 1. BRAO OS onset: 05/20/23 at time of cardiac cath -no HH plaque -had stent for CAD, VA symptoms following cardiac cath -Factor V Leiden, h/o DVT and PE's in past -on ASA 81 +coumadin -VF defect should improve over time, some residual defect to be expected -monitor for complications 2. Plaquenil -400mg/day x 5 years + 2.9 mg/kg/day -on for RA and Sjogren's -goal of screening is early detection, but it cannot prevent toxicity -retinopathy may progress even after cessation of drug F/u 6-8 weeks, OCT OS, OCTA OS -check if pt has had Plaquenil visual tena w/ Dr. Quiroz in the past Dewey Gross DO CC: Dr. Quiroz CC: PCP: Louise Thornton MD documented in this encounter Nursing Notes * Poornima Augustin, MED ASSIST - 05/26/2023 10:29 AM EDT Peter Caruso is a 62 year old year old male referred by Dr Ryan cardiology to evaluate for possible CRVO . Patient's name preference, 'Peter'. Patient currently states Referred by cardiology Dr Ryan for poss CRVO; last Tuesday had Cardiac Cath done and noticed after OS was red/cloudy with vision loss, states since then has gotten some better but not much states has vision loss in the 3 and 6 o'clock area Have you ever had any major surgery of serious injury of or around the eyes- no Are you diabetic? No FAMILY HISTORY: Family History Problem Relation Age of Onset Diabetes Mother now 60s Hypertension Mother Hypertension Father Lung Disorder Grandmother (Maternal) Blood Disorder Father ?blood clot leg? No Past Hx Sister No Past Hx Sister varicose veins (spider) Other (aaa) Sister No family history Blood Disorder Son FActor V - Blood clots Other (Other) Aunt (Unspecified) Lupus - paternal SOCIAL HISTORY: Social History Tobacco Use Smoking status: Former Smokeless tobacco: Never Vaping Use Vaping Use: Never used Substance Use Topics Alcohol use: Yes Comment: social Drug use: No PMH: Past Medical History: Diagnosis Date BMI 40.0-44.9, adult ([facility]) BPH (benign prostatic hyperplasia) Displacement of lumbar intervertebral disc without myelopathy DVT (deep venous thrombosis) ([facility]) 08/09 right leg Factor V Leiden mutation ([facility]) 09/16/2014 HTN, goal below 140/90 Impaired glucose tolerance Osteoarthritis of right knee Phlebitis and thrombophlebitis of other deep vessels of lower extremities 1980s right leg 19 years ago/ coumadin therapy Phlebitis and thrombophlebitis of superficial vessels of lower extremities 07/01 right leg ongoing Pulmonary emboli ([facility]) 08/09 Sicca syndrome ([facility]) Venous stasis ulcer ([facility]) 2013 Patient Active Problem List Diagnosis Code Displacement of lumbar intervertebral disc without myelopathy M51.26 ADVANCE DIRECTIVE INFORMATION Venous insufficiency I87.2 Essential hypertension with goal blood pressure less than 140/90 I10 History of pulmonary embolism Z86.711 Factor V Leiden mutation ([facility]) D68.51 History of DVT (deep vein thrombosis) Z86.718 BPH (benign prostatic hyperplasia) N40.0 Hx of nonmelanoma skin cancer Z85.828 AK (actinic keratosis) L57.0 Elevated liver enzymes R74.8 Sjogren's syndrome with keratoconjunctivitis sicca ([facility]) M35.01 Encounter for long-term (current) use of medications Z79.899 MCTD (mixed connective tissue disease) ([facility]) M35.1 Primary osteoarthritis of both knees M17.0 Prediabetes R73.03 Dyslipidemia, goal LDL below 130 E78.5 Seasonal allergic rhinitis due to pollen J30.1 Ascending aorta dilatation (HCC) I77.810 S/P angioplasty with stent Z95.820 Branch retinal artery occlusion H34.239 Anemia D64.9 Abnormal nuclear stress test R94.39 SOB (shortness of breath) R06.02 History obtained from: Patient Do you drive? yes OCT image(s) of both eyes acquired and filed/scanned into chart. documented in this encounter Plan of Treatment Upcoming Encounters Date Type Specialty Care Team Description 06/03/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 [place] [address] 06/07/2023 Office Visit Cardiology Bonnie Akins PA-C [address] [place] [address] 07/19/2023 Office Visit Ophthalmology Dewey Gross DO [address] [place] [address] 10/17/2023 Office Visit Rheumatology Jayson Villalobos MD [address] [place], [place] [address] [address] 11/14/2023 Office Visit Family Medicine Louise Thornton MD [address] [place] [address] [place] [address] Scheduled Procedures Name Priority Associated Diagnoses Date/Ti me COLONOSCOPY FLEXIBLE PROXIMAL DIAGNOSTIC Recall History of colon polyps Scheduled Referrals Name Type Priority Associated Diagnoses Order Schedule OPHTHALMOLOGY REFERRAL OP Referral Within 10 days (routine) Retinal artery occlusion, branch, left Ordered: 05/21/2023 Health Maintenance Due Date Last [...] this encounter Medical Devices Implanted Type Area Marketing Proposal Coordinator Device Identifier Shelf Expiration Date Model / Serial / Lot Stent Synergy Xd Mr [id number] - [id number] Implanted:Qty: 1 on 05/20/2023 by Cee Ryan MD at [facility] [employer] [id number] 06/17/2023 [id number] / / [id number] documented as of this encounter Visit Diagnoses Diagnosis Retinal artery occlusion, branch, left [H34.232 (ICD-10-CM)]- Primary Visual distortions of shape and size [...] the patient have Health Care Power of Frozen Pie Maker? No Care Teams Micropaleontologist Relationship Specialty Start Date End Date Louise Thornton MD [address] [place] [address] [place] [address] PCP - General Family Medicine 07/10/15 documented as of this encounter
--- OUTSIDE RECORDS SUMMARY | 2023-09-16 22:41 | External Medical Summary ---
Author Name Unknown Address Unknown Organization K01:LABORATORY [facility] - [address] [facility] [place] [address] Laboratory Report Ordering Provider Test Date Status FAINA SANDRA 05/21/2023 04:29:00 Final Observation Date Value Abnormality Reference (Units ) Status Triglyceride 05/21/2023 04:29:00 53 <=174 ( mg/dL) Final Triglyceride Reference Range s (mg/dL):
<150 Acceptable
150-174 Borderline high
175-499 High
>=500 Very high Cholesterol 05/21/2023 04:29:00 115 <200 (mg /dL) Final Total Cholesterol Reference Ranges (mg/dL):
<200 Desirable
200-239 Borderline high
>=240 High HDL 05/21/2023 04:29:00 38 Below low normal >39 (mg/dL) Final HDL Cholesterol Reference Ra nges (mg/dL):
>=60 High (Desirable)
<50 Low (Undesirable) For Females
<40 Low (Undesirable) For Males NON-HDL CHOLESTEROL 05/21/2023 04:29:00 77 <=159 (mg/dL) Final Non-HDL Cholesterol Referenc e Range (mg/dL):
<100 Target level for high risk ASCVD patient
<130 Optimal for general population
130-159 Near optimal for general population
160-189 Borderline High
190-219 High
>=220 Very High LDL, (calculated) 05/21/2023 04:29:00 66 <= 129 (mg/dL) Final LDL Cholesterol Reference Ra nges (mg/dL):
<70 Target level for high risk ASCVD patient
<100 Optimal for general population
100-129 Near optimal for general population
130-159 Borderline high
160-189 High
>=190 Very high Performing Location [facility]ORY [facility] - [address] [facility] [address]
--- OUTSIDE RECORDS SUMMARY | 2023-09-16 22:41 | External Medical Summary ---
Author Name Unknown Address Unknown Organization : Laboratory Report Ordering Provider Test Date Status JOVANNA ABRAMS 05/20/2023 12:06:09 Final NORMAL (NON-HEPARINIZED) 74- 137 SECONDS
HEPARINIZED 200+ SECONDS
CRITICAL GREATER THAN 1000 SECONDS
null Observation Date Value Abnormality Reference (Units ) Status Kaolin activated time [Units/volume] in Blood 05/20/2023 12:06:09 161 50-1000 (secs) Final Performing Location
--- OUTSIDE RECORDS SUMMARY | 2023-09-16 22:41 | External Medical Summary | Summary of Care ---
Author Name Unknown Organization [facility] Address [address] [facility] [place] [address] Phone [phone] Care Team Providers Care Planning Management It Specialist Name Role Phone Louise Thornton MD Primary Care Provide r Reason for Visit * Reason Onset Date Comments Hospital Follow-Up 05/23/2023 Encounter Details Date Type Department Care Team Description 05/23/2023 Telephone Family Medicine [address] [address] Louise Thornton MD [address] [place] [address] [place] [address] Hospital Follow-Up Allergies Active Allergy Reactions Severity [...] ons:Factor V Leiden mutation (HCC),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,penitentiary current use of anticoagulant therapy take 1 [...] EVERY DAY 90 Capsule 1 04/23/2023 Active Enoxaparin Sodium 150 MG/ML Injection Solution Prefilled Syringe (Lovenox) Inject 140 mg under the skin up to two times daily as directed by anticoagulation clinic 10 mL 0 05/09/2023 Active Ticagrelor 90 MG Oral Tablet (Brilinta)Indicati ons:Coronary artery disease involving [place] coronary artery of [place] heart without angina pectoris Take 1 Tablet [...] (Pfizer) 08/31/2022 Pneumococcal Conjugate Vacci ne, 20-valent ([id number]) 08/09/2022 Season Influenza, Cell Culte r, 18+ [...] encounter Miscellaneous Notes * Telephone Encounter - Cristina eFlder RN - 05/23/2023 8:19 AM EDT Transitions of Care Note Reason for Referral:Recent Admission Phone visit for follow up: JUSTO Admitted to: [facility] [place], Date: 05/20/23 Discharged to: Home, Date: 05/21/23 Diagnosis driving hospitalization: observation after cardiac cath No JUSTO call indicated, patient admitted less than 24 hours. documented in this encounter Plan of Treatment Upcoming Encounters Date Type Specialty Care Team Description 06/03/2023 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ion Pharmacy [address] [place] [address] 10/17/2023 Office Visit Rheumatology Jayson Villalobos MD [address] [place] [address] [place] [address] 11/14/2023 Office Visit Family Medicine Louise Thornton MD [address] [place] [address] [place] [address] Scheduled Procedures Name Priority Associated Diagnoses Date/Ti [...] this encounter Medical Devices Implanted Type Area Mechanical Maintenance Supervisor Device Identifier Shelf Expiration Date Model / Serial / Lot Stent Synergy Xd Mr [id number] - [id number] Implanted:Qty: 1 on 05/20/2023 by Cee Ryan MD at [facility] [place] [employer] [id number] 06/17/2023 [id number] / / [id number] documented as of this encounter Advance Directives [...] the patient have Health Care Power of It Infrastructure Project Manager? No Care Teams Planning Management It Specialist Relationship Specialty Start Date End Date Louise Thornton MD [address] [place] [address] [place] [address] PCP - General Family Medicine 07/10/15 documented as of this encounter
--- OUTSIDE RECORDS SUMMARY | 2023-09-16 22:41 | External Medical Summary ---
Author Name Unknown Address Unknown Organization K01:[facility] [address] [facility] [address] [place] [address] Laboratory Report Ordering Provider Test Date Status FAINA SANDRA 05/21/2023 04:30:00 Final Observation Date Value Abnormality Reference (Units ) Status WBC, Total 05/21/2023 04:30:00 3.68 Below low normal 4.00-10.80 (K/uL) Final RBC 05/21/2023 04:30:00 4.07 4.50-5.25 (M/uL) Final Hemoglobin 05/21/2023 04:30:00 11.9 Below low normal 14.0-16.8 (g/dL) Final HCT 05/21/2023 04:30:00 37.0 Below low normal 40.0-48.4 (%) Final MCV 05/21/2023 04:30:00 90.9 82.0-99.5 (fL) Final MCH 05/21/2023 04:30:00 29.2 27.0-34.0 (pg) Final MCHC 05/21/2023 04:30:00 32.2 32.0-36.0 (g/dL) Final RDW 05/21/2023 04:30:00 13.7 11.5-15.5 (%) Final Platelets 05/21/2023 04:30:00 145 140-400 (K/uL) Final MPV 05/21/2023 04:30:00 9.6 6.6-11.1 (fL) Final Nucleated erythrocytes/100 leukocytes [Ratio] in Blood by Automated count 05/21/2023 04:30:00 0 <=0 (/100 WBCs) Final Performing Location [facility] [address] [place] [address]
--- OUTSIDE RECORDS SUMMARY | 2023-09-16 22:41 | External Medical Summary | Summary of Care ---
Author Name Unknown Organization [facility] Address [address] [facility] [place] [address] Phone [phone] Care Team Providers Care Airborne And Air Delivery Specialist Name Role Phone Anne Thornton MD Primary Care Provide r Reason for Visit * Reason Onset Date Comments Hospital Follow-Up 05/21/2023 Encounter Details Date Type Department Care Team Description 05/21/2023 Telephone Family Medicine [address] [address] Anne Thornton MD [address] [place] [address] [place] [address] Hospital Follow-Up Allergies Active [...] Oral Tablet (Brilinta)Indicati ons:Coronary artery disease involving [place] coronary artery of [place] heart without angina pectoris Take 1 Tablet [...] PPD 04/20/2000 Pneumococcal Conjugate Vacci ne, 20-valent ([id number]) 08/09/2022 Season Influenza, Cell Culte r, 18+ [...] Miscellaneous Notes * Telephone Encounter - PHILOMENA Coronel - 05/23/2023 4:11 PM EDT Appt scheduled, pt aware. * Telephone Encounter - PHILOMENA Coronel - 05/23/2023 4:06 PM EDT I left message on patient's VM to call me (RE: Scheduling HD appt). * Telephone Encounter - PHILOMENA Mane - 05/21/2023 12:47 PM EDT Patient Name: CARLOS A BARNARD([id number]) Sex: Male : 1960 PCP: ANNE THORNTON Center: [facility] [place] Types of orders made on 05/21/2023: EKG, IP Discharge, IP Post Discharge , Lab, Medications, Referral Order Date:05/21/2023 Ordering Us er:MOLINA ROACH [[id number]] Attending Provider:Cee Ryan MD [[id number]] Authorizing Provider: Molina Roach DO [[id number]] Department:[facility] EXTEND IP [facility][[id number]] Order Specific Information Order: RETURN APPT [CUSTOM: [id number]] Order #: [id number]: [id number] Priority: Routine Class: Nursing Unit Department (Single Entry) -> Family Practice Released on: 05/21/2023 9 :33 AM Priority: Routine Class: Nursing Unit Department (Single Entry) -> Family Practice Released on: 05/21/2023 9:33 AM documented in this encounter Plan of Treatment Upcoming Encounters Date Type Specialty Care Team Description 05/24/2023 Office Visit Family Medicine Kym Sullivan, PAHerreraC [address] [place] [address] [place] [address] 05/26/2023 Office Visit Ophthalmology Dewey Gross DO [address] [place] [address] 06/03/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 [place] [address] 06/07/2023 Office Visit Cardiology Bonnie Akins PA-C [address] [place] [address] 10/17/2023 Office Visit Rheumatology [facility] [address] 11/14/2023 Office Visit Family Medicine Anne Thornton MD [address] [place] [address] [place] [address] Scheduled Procedures Name Priority Associated Diagnoses Date/Ti me COLONOSCOPY FLEXIBLE PROXIMAL DIAGNOSTIC Recall History of colon polyps Health Maintenance Due Date Last Done Comments Depression Screening, Annual for Pts 12 and Over 03/15/2020 03/15/2019 Influenza Vaccine (FLU shot) (#1) 2023 07/02/2022, 08/12/2021, 06/24/2020, Additional history exists GFR 05/21/2024 05/21/2023, 082 [...] this encounter Medical Devices Implanted Type Area Laser Print Operator Device Identifier Shelf Expiration Date Model / Serial / Lot Stent Synergy Xd Mr [id number] - [id number] Implanted:Qty: 1 on 05/20/2023 by Cee Ryan MD at [facility] [employer] [id number] 06/17/2023 [id number] / / [id number] documented as of this encounter Advance Directives [...] the patient have Health Care Power of Precast Concrete Ironworker? No Care Teams Airborne And Air Delivery Specialist Relationship Specialty Start Date End Date Anne Thornton MD [address] [place] [address] [place] [address] PCP - General Family Medicine 07/10/15 documented as of this encounter
--- OUTSIDE RECORDS SUMMARY | 2023-09-16 22:41 | External Medical Summary | Summary of Care ---
Author Name Unknown Organization [facility] Address [address] [facility] [place] [address] Phone [phone] Care Team Providers Care Credentialing Manager Name Role Phone Louise Thornton MD Primary Care Provide r Reason for Visit * Reason Onset Date Comments Hospital Follow-Up Hospital Follow-Up 05/24/2023 Encounter Details Date Type Department Care Team Description 05/24/2023 Office Visit Family Medicine [address] [place] [address] Kym Sullivan PA-C [address] [place] [address] [place] [address] Hospital discharge follow-up*; Anemia, unspecified type; Visual field loss, post-stroke; Branch retinal artery occlusion, unspecified laterality; S/P angioplasty with stent; Dyslipidemia, goal LDL below 130; Essential hypertension with goal blood pressure less than 140/90 Allergies Active Allergy Reactions Severity Noted Date Comments Sulfa Antibiotics 01/05/2001 rash documented as of this encounter (statuses as of 05/24/2023) Medications Medication Sig Dispensed Refills Start Date [...] (Brilinta)Indicati ons:Coronary artery disease involving [place] coronary artery of [place] heart without angina pectoris Take 1 Tablet by mouth in the morning and 1 Tablet before bedtime. Do not start before May 21, 2023. 60 Tablet 2 3 08/19/20 23 Active Aspirin 81 MG Oral Tablet Delayed Release Take 1 Tablet by mouth in the morning for 6 days. Do not start before May 22, 2023. 6 Tablet 0 3 05/28/20 23 Active Atorvastatin Calcium 40 MG Oral Tablet (Lipitor) Take 1 Tablet by mouth in the morning. 34 Tablet 5 3 Active Enoxaparin Sodium 150 MG/ML Injection Solution Prefilled Syringe (Lovenox) Inject 140 mg under the skin up to two times daily as directed by anticoagulation clinic 10 mL 0 3 05/24/20 23 Discontinu ed(Medicat ion List Clean Up) documented as of this encounter (statuses as of 05/24/2023) Active Problems Problem Noted Date S/P angioplasty with stent 05/24/2023 Branch retinal artery occlusion 05/24/20 23 Anemia 05/24/2023 Ascending aorta dilatation 04/04/2023 Dyslipidemia, goal [...] as of this encounter (statuses as of 05/24/2023) Resolved Problems Problem Noted Date Resolved Date [...] as of this encounter (statuses as of 05/24/2023) Immunizations Name Administration Dates Next Due COVID-19 mRNA, LNP-s, No Pre serve, 2-Dose Series (mySugr) 06/30/2021,12/06/2020,11/15/2020 COVID-19, LNP-s, No Preserve , Tani-sucrose, Ages 12+ (Pfizer) 03/09/2022 Covid-19, Mrna, Lnp-s, Pf, B ivalent, 30 Mcg, IM, 12 yrs and above (Pfizer) 08/31/2022 Pneumococcal Conjugate Vacci ne, 20-valent ([id number]) 08/09/2022 Season Influenza, Cell Culte r, 18+ [...] Sign Reading Time Taken Comments Blood Pressure 132/84 05/24/2023 10:50 AM EDT Pulse 107 05/24/2023 10:50 AM EDT Temperature 36.7 C (98.1 F) 05/24/2023 1 0:50 AM EDT Respiratory Rate - - Oxygen Saturation 96% 05/24/2023 10: 50 AM EDT Inhaled Oxygen Concentration - - Weight 137.4 kg (302 lb 14.4 oz) 2022 10:50 AM EDT Height - - Body Mass Index 39.42 03/22/2023 8:39 AM EDT documented in this [...] as of this encounter Progress Notes * Kym Sullivan PA-C - 05/24/2023 11:03 AM EDT SUBJECTIVE: Peter Caruso is a 62 year old male. Chief Complaint Patient presents with Hospital Follow-Up Hospital Follow-Up Recent Admission: Patient was recently admitted to [facility]. The date of discharge was 05/21/23. Discharge report received and reviewed. HPI: Patient presented on 05/20/23 for cardiac cath after angina and abnormal stress testing with 60% LAD lesion. He underwent PCI with drug-eluting stent placement. After his procedure, he was also noted to have blurry/cloudy vision with red discoloration in his left eye. Neuro was consulted and hewas also diagnosed with stroke with branch retinal artery occlusion. He had CTA of the head that showed mild atherosclerotic disease but no large defects or acute/residual thrombi. He was told to follow up with ophthalmology outpatient as well. On 05/21, his vision improved some. His atorvastatin dose was increased to 40 mg daily. Because of hx of Factor V Leiden and hx DVT, he was given a lovenox bridge with Warfarin. He was continued on ASA and ticagrelor as well x 1 more week and instructed to take only the Warfarin and ticagrelor after1 week of all 3. He was slightly anemic inpatient. Renal function was stable. His ophthalmology follow up is scheduled on with Dr. Gross. His eye symptoms have stabilized but he still has a visual field defect. He has Cardiology F/U on Jun 07. He has INR check scheduled next week. He has been SOB and having KRISHNAN since he left the hospital. He has not had any residual chest pain. That has been gone. He has had some mild constipation since coming home but he has stool softeners to take if needed. Patient Active Problem List Diagnosis Code Displacement of lumbar intervertebral disc without myelopathy M51.26 ADVANCE DIRECTIVE INFORMATION Venous insufficiency I87.2 Essential hypertension with goal blood pressure less than 140/90 I10 History of pulmonary embolism Z86.711 Factor V Leiden mutation ([facility]) D68.51 History of DVT (deep vein thrombosis) Z86.718 BPH (benign prostatic hyperplasia) N40.0 Hx of nonmelanoma skin cancer Z85.828 AK (actinic keratosis) L57.0 Elevated liver enzymes R74.8 Sjogren's syndrome with keratoconjunctivitis sicca ([facility]) M35.01 Encounter for long-term (current) use of medications Z79.899 MCTD (mixed connective tissue disease) ([facility]) M35.1 Primary osteoarthritis of both knees M17.0 Prediabetes R73.03 Dyslipidemia, goal LDL below 130 E78.5 Seasonal allergic rhinitis due to pollen J30.1 Ascending aorta dilatation ([facility]) I77.810 S/P angioplasty with stent Z95.820 Branch retinal artery occlusion H34.239 Anemia D64.9 Current Outpatient Medications Medication Sig Dispense Refill [...] tuesday, tuesday and tuesday. 6 Tablet 5 Ticagrelor 90 MG Oral Tablet (Brilinta) Take 1 Tablet by mouth in the morning and 1 Tablet before bedtime. Do not start before May 21, 2023. 60 Tablet 2 Aspirin 81 MG Oral Tablet Delayed Release Take 1 Tablet by mouth in the morning for 6 days. Do not start before May 22, 2023. 6 Tablet 0 Atorvastatin Calcium 40 MG Oral Tablet (Lipitor) Take 1 Tablet by mouth in the morning. 34 Tablet 5 hydroCHLOROthiazide 12.5 MG Oral Capsule (Hydrodiuril) TAKE ONE CAPSULE BY MOUTH EVERY DAY 90 Capsule 1 No current facility-administered medications for this visit. Current and discharge medications have been reconciled. Review of patient's allergies indicates: Allergen Reactions Sulfa Antibiotics rash OBJECTIVE: BP 132/84 | Pulse 107 | Temp 36.7 C (98.1 F) | Wt (!) 137.4 kg (302 lb 14.4 oz) | SpO2 96% | BMI 39.42 kg/m | BSA 2.67 m REVIEW OF SYSTEMS: Brief ROS per HPI PHYSICAL EXAM: BP 132/84 | Pulse 107 | Temp 36.7 C (98.1 F) | Wt (!) 137.4 kg (302 lb 14.4 oz) | SpO2 96% | BMI 39.42 kg/m | BSA 2.67 m Physical exam: General: Well-Developed. Well appearing. No acute distress. HENT: Normocephalic. Atraumatic. Hearing normal. Eyes: EOMI. Sclera without erythema or icterus. No discharge. Pupils equal, round, reactive to light. Neck: No tracheal deviation. ROM intact. No stridor. Cardiovascular: RRR. Normal S1/S2 noted. No murmur, rub or gallop appreciated. Pulmonary: No respiratory distress. No accessory muscle use. No adventitious sounds appreciated. Normal breath sounds. Musculoskeletal: ROM intact and appears normal. Trace pitting edema of the B/L LE slightly more on the left. Neurologic: Alert. Oriented x 3. Appears stated age. CN 2-12 grossly intact. Skin: Warm and dry. No apparent rashes or ecchymoses. No jaundice or pallor noted. Note residual bruising of the right wrist. Small lump in the area of catheter insertion at the distal wrist without warmth, tenderness or bleeding. Psych: Mood and affect normal. ASSESSMENT: Hospital discharge follow-up (Primary) - DISCH MED RECON CUR MED LIS Anemia, unspecified type - CBC WITH WBC DIFFERENTIAL AND ANEMIA REFLEX WORKUP; Future; Expected date: 05/24/2023 Recheck CBC after Cardiology visit. Visual field loss, post-stroke Branch retinal artery occlusion, unspecified laterality Keep appt for Ophthalmology S/P angioplasty with stent Dyslipidemia, goal LDL below 130 Essential hypertension with goal blood pressure less than 140/90 Keep f/u with Cardiology. Continue current therapy. STOP aspirin after Tuesday (1 week per dischargeinstructions). Continue Brillinta and Warfarin thereafter without the aspirin. Keep [facility] visit as well. Keep planned f/u visits and sooner with any problems. Kym Sullivan PA-C documented in this encounter Nursing Notes * Angelica Long CMA - 05/24/2023 10:48 AM EDT He was [facility] following a cardiac cath. documented in this encounter Plan of Treatment Upcoming Encounters Date Type Specialty Care Team Description 05/26/2023 Office Visit Ophthalmology Dewey Gross, DO [address] [place] [address] 06/03/2023 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ion Pharmacy [address] [place] [address] 06/07/2023 Office Visit Cardiology Bonnie Akins PA-C [address] [place] [address] 10/17/2023 Office Visit Rheumatology Jayson Villalobos MD [address] [facility] [place] [address] 11/14/2023 Office Visit Family Medicine Louise Thornton MD [address] [place] [address] [place] [address] Scheduled Orders Name Type Priority Associated Diagnoses Orde r Schedule CBC WITH WBC DIFFERENTIAL AND ANEMIA REFLEX WORKUP Lab Routine Anemia, unspecified type Expected: 05/24/2023 (Approximate), Expires: 05/24/2024 Scheduled Procedures Name Priority Associated Diagnoses Date/Ti [...] this encounter Medical Devices Implanted Type Area Last Inserter Device Identifier Shelf Expiration Date Model / Serial / Lot Stent Synergy Xd Mr [id number] - [id number] Implanted:Qty: 1 on 05/20/2023 by Cee Ryan MD at [facility] [employer] [id number] 06/17/2023 [id number] / / [id number] documented as of this encounter Visit Diagnoses Diagnosis Hospital discharge follow-up- Primary Other follow-up examination Anemia, unspecified type Visual field loss, post-stroke Disturbances of vision, late effect of cerebrovascular disease Branch retinal artery occlusion, unspecified laterality S/P angioplasty with stent Postsurgical percutaneous transluminal coronary angioplasty status Dyslipidemia, goal LDL below 130 Other and unspecified hyperlipidemia Essential hypertension with goal blood pressure less than 140/90 documented in this encounter Advance Directives Latest Code Status on File Code Status Date Activated Date Inactivated Comments Full Code 05/20/2023 3:32 PM 05/21/2023 6:14 PM This order reflects the patients wishes and were consensually agreed upon. Question Answer Comments Discussion of Advance Directives occurred with: Patient Does the patient have a Living Will? No Does the patient have Health Care Power of Patternmaker Pressure Cast? No Care Teams Credentialing Manager Relationship Specialty Start Date End Date Louise Thornton MD [address] [place] [address] [place] [id number] PCP - General Family Medicine 07/10/15 documented as of this encounter"
--- OUTSIDE RECORDS SUMMARY | 2023-09-16 22:41 | External Medical Summary ---
Author Name Unknown Address Unknown Organization K01:[facility] [place] [facility] [address] [place] [address] Laboratory Report Ordering Provider Test Date Status ROXANA LAWSON 05/20/2023 10:09:56 Final Warfarin Therapy
INR: 2 .0-3.0 conventional anticoagulation
INR: 2.5- 3.5 high intensity anticoagulation Observation Date Value Abnormality Reference (Units ) Status PT 05/20/2023 10:09:56 13.9 11.6-15.2 (seconds) Final INR 05/20/2023 10:09:56 1.0 0.8-1.2 Final Performing Location LABOR[facility]ORY [facility] [place] - [address] [place] [address]
--- OUTSIDE RECORDS SUMMARY | 2023-09-16 22:41 | External Medical Summary ---
Author Name Unknown Address Unknown Organization K01:LAB[facility] [place] - [address] [facility] [address] Laboratory Report Ordering Provider Test Date Status FAINA SANDRA 05/21/2023 04:29:00 Final Observation Date Value Abnormality Reference (Units ) Status HbA1C 05/21/2023 04:29:00 5.7 Above high normal 4. 0-5.6 (%) Final The use of HbA1c to monitor glycemic status is based on normal hemoglobin and HbA composition. This test should not be used in patients with abnormal hemoglobin that affects the half life of the red blood cell or the in vivo glycation rates. Glucose, estimated average 05/21/2023 04:29:00 117 <126 (mg/dL) Final Performing Location LAB[facility]ORY [facility] [place] - [address] [facility] [address]
--- OUTSIDE RECORDS SUMMARY | 2023-09-16 22:41 | External Medical Summary | Summary of Care ---
Author Name Unknown Organization [facility] Address [address] [facility] [place] [address] Phone [phone] Care Team Providers Care Calibrator Barometers Name Role Phone Anne Thornton MD Primary Care Provide r Reason for Visit * Reason Onset Date Comments Hospital Follow-Up 05/21/2023 Encounter Details Date Type Department Care Team Description 05/21/2023 Telephone Family Medicine [address] [phone] Anne Thornton MD [address] [place] [address] [place] [address] Hospital Follow-Up Allergies Active [...] ons:Factor V Leiden mutation (HCC),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,[facility] current use of anticoagulant therapy take 1 [...] Oral Tablet (Brilinta)Indicati ons:Coronary artery disease involving [place] coronary artery of [place] heart without angina pectoris Take 1 Tablet [...] PPD 04/20/2000 Pneumococcal Conjugate Vacci ne, 20-valent ([id number]) 08/09/2022 Season Influenza, Cell Culte r, 18+ [...] 12:47 PM EDT Patient Name: CARLOS A BARNARD([id number]) Sex: Male : 1960 PCP: ANNE THORNTON Center: [facility] [place] Types of orders made on 05/21/2023: EKG, IP Discharge, IP Post Discharge , Lab, Medications, Referral Order Date:05/21/2023 Ordering Us er:MOLINA ROACH [[id number]] Attending Provider:Cee Ryan MD [[id number]] Authorizing Provider: Molina Roach DO [[id number]] Department:CRS EXTEND IP [facility][[id number]] Order Specific Information Order: RETURN APPT [CUSTOM: [id number]] Order #: [id number]: 1 Priority: Routine Class: Nursing Unit Department (Single Entry) -> Family Practice Released on: 05/21/2023 9 :33 AM Priority: Routine Class: Nursing Unit Department (Single Entry) -> Family Practice Released on: 05/21/2023 9:33 AM documented in this encounter Plan of Treatment Upcoming Encounters Date Type Specialty Care Team Description 05/24/2023 Office Visit Family Medicine Kym Sullivan, PAHerreraC [address] [place] [address] [place] [address] 05/26/2023 Office Visit Ophthalmology Dewey Gross DO [address] [place] [address] 06/03/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 [place] [address] 06/07/2023 Office Visit Cardiology Bonnie Akins PA-C [address] [place] [address] 10/17/2023 Office Visit Rheumatology Jayson Villalobos MD [facility] [address] 11/14/2023 Office Visit Family Medicine Anne Thornton MD [address] [place] [address] [place] [address] Scheduled Procedures Name Priority Associated Diagnoses Date/Ti [...] this encounter Medical Devices Implanted Type Area Clinical Sciences Professor Device Identifier Shelf Expiration Date Model / Serial / Lot Stent Synergy Xd Mr [id number] - [id number] Implanted:Qty: 1 on 05/20/2023 by Cee Ryan MD at [facility] [employer] [id number] 06/17/2023 [id number] / / [id number] documented as of this encounter Advance Directives [...] the patient have Health Care Power of Real Estate Paralegal? No Care Teams Calibrator Barometers Relationship Specialty Start Date End Date Anne Thornton MD [address] [place] [address] [place] [address] PCP - General Family Medicine 07/10/15 documented as of this encounter
--- OUTSIDE RECORDS SUMMARY | 2023-09-16 22:41 | External Medical Summary | Summary of Care ---
Author Name Unknown Organization [facility] Address [address] [facility] [place] [address] Phone [phone] Care Team Providers Care Petrophysical Engineer Name Role Phone Louise Thornton MD Primary Care Provide r Reason for Visit * Reason Onset Date Comments FYI 05/26/2023 Encounter Details Date Type Department Care Team Description 05/26/2023 Telephone Ophthalmology, [facility] [address] [place] [address] Dewey Gross DO [address] [place] [address] FYI Allergies Active Allergy Reactions Severity Noted Date [...] Oral Tablet (Brilinta)Indicati ons:Coronary artery disease involving [place] coronary artery of [place] heart without angina pectoris Take 1 Tablet [...] (Pfizer) 08/31/2022 Pneumococcal Conjugate Vacci ne, 20-valent ([id number]) 08/09/2022 Season Influenza, Cell Culte r, 18+ [...] Miscellaneous Notes * Telephone Encounter - PHILOMENA Fields - 05/26/2023 2:25 PM EDT Spoke to Dr. Quiroz's office - patient will be scheduled with them in the next 6 months for a follow up and Plaquenil visual field. PHILOMENA Fields 05/26/2023 2:31 PM documented in this encounter Plan of Treatment Upcoming Encounters Date Type Specialty Care Team Description 06/03/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 [place] [address] 06/07/2023 Office Visit Cardiology Bonnie Akisn PA-C [address] [place] [address] 07/19/2023 Office Visit Ophthalmology Dewey Gross DO [address] [place] [address] 10/17/2023 Office Visit Rheumatology Jayson Villalobos MD [facility] [place] [address] 11/14/2023 Office Visit Family Medicine Louise Thornton MD [address] [place] [address] [place] [address] Scheduled Procedures Name Priority Associated Diagnoses Date/Ti [...] this encounter Medical Devices Implanted Type Area Plasterer Tender Device Identifier Shelf Expiration Date Model / Serial / Lot Stent Synergy Xd Mr [id number] - [id number] Implanted:Qty: 1 on 05/20/2023 by Cee Ryan MD at [facility] [employer] [id number] 06/17/2023 [id number] 270 / / [id number] documented as of this encounter Advance Directives [...] the patient have Health Care Power of Behavioral Health Therapist? No Care Teams Petrophysical Engineer Relationship Specialty Start Date End Date Louise Thornton MD [address] [place] [address] [place] [phone] PCP - General Family Medicine 07/10/15 documented as of this encounter
--- OUTSIDE RECORDS SUMMARY | 2023-09-16 22:41 | External Medical Summary | Summary of Care ---
Author Name Unknown Organization [facility] Address [address] [facility] [place] [address] Phone [phone] Care Team Providers Care Payroll Administrative Assistant Name Role Phone Louise Thornton MD Primary Care Provide r Reason for Visit * Reason Onset Date Comments FYI 05/26/2023 Encounter Details Date Type Department Care Team Description 05/26/2023 Telephone Ophthalmology, [facility] [address] [place] [address] Dewey Gross DO [address] [place] [address] FYI Allergies Active Allergy Reactions Severity Noted Date Comments Sulfa Antibiotics 01/05/2001 rash documented as of this encounter (statuses as of 05/27/2023) Medications Medication Sig Dispensed Refills Start Date [...] Oral Tablet (Brilinta)Indicati ons:Coronary artery disease involving [place] coronary artery of [place] heart without angina pectoris Take 1 Tablet [...] as of this encounter (statuses as of 05/27/2023) Active Problems Problem Noted Date S/P angioplasty [...] as of this encounter (statuses as of 05/27/2023) Resolved Problems Problem Noted Date Resolved Date [...] as of this encounter (statuses as of 05/27/2023) Immunizations Name Administration Dates Next Due COVID-19 mRNA, LNP-s, No Pre serve, 2-Dose Series (Pfizer) 06/30/2021,12/06/2020,11/15/2020 COVID-19, LNP-s, No Preserve , Tani-sucrose, Ages 12+ (Pfizer) 03/09/2022 Covid-19, Mrna, Lnp-s, Pf, B ivalent, 30 Mcg, IM, 12 yrs and above (Pfizer) 08/31/2022 PPD 04/20/2000 Pneumococcal Conjugate Vacci ne, 20-valent ([id number]) 08/09/2022 Season Influenza, Cell Culte r, 18+ [...] * Telephone Encounter - PHILOMENA Fields - 05/27/2023 11:32 AM EDT Per [facility], patient scheduled with Dr. Quiroz on 07/28 for exam and VF for Plaquenil. PHILOMENA Fields 05/27/2023 11:33 AM * Telephone Encounter - PHILOMENA Fields - 05/26/2023 2:25 PM EDT Spoke to Dr. Quiroz's office - patient will be scheduled with them in the next 6 months for a follow up and Plaquenil visual field. PHILOMENA Fields 05/26/2023 2:31 PM documented in this encounter Plan of Treatment Upcoming Encounters Date Type Specialty Care Team Description 06/03/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 [place] [address] 06/07/2023 Office Visit Cardiology Bonnie Akins PA-C [address] [place] [address] 07/19/2023 Office Visit Ophthalmology Dewey Gross, [address] [place] [address] 10/17/2023 Office Visit Rheumatology Jayson Villalobos MD [address] [employer] [place] [address] 11/14/2023 Office Visit Family Medicine Louise Thornton MD [address] [place] [address] [place] [address] Scheduled Procedures Name Priority Associated Diagnoses Date/Ti [...] this encounter Medical Devices Implanted Type Area Event Attendant Device Identifier Shelf Expiration Date Model / Serial / Lot Stent Synergy Xd Mr [id number] - [id number] Implanted:Qty: 1 on 05/20/2023 by Cee Ryan MD at [facility] [email or web address] [id number] 06/17/2023 [id number] 270 / / [id number] documented as of this encounter Advance Directives [...] the patient have Health Care Power of Inflated Pad Buffer? No Care Teams Payroll Administrative Assistant Relationship Specialty Start Date End Date Louise Thornton MD [address] [place] [address] [place] [phone] PCP - General Family Medicine 07/10/15 documented as of this encounter
--- OUTSIDE RECORDS SUMMARY | 2023-09-16 22:41 | External Medical Summary | Summary of Care ---
Author Name Unknown Organization [facility] Address [address] [place] [address] Phone [phone] Care Team Providers Care Therapeutic Assistant Name Role Phone Louise Thornton MD [...] branch, left Molina Florez, DO [address] [place] [address] Referral ID Status Reason Start Date Expiration Date Visits Requested Visits Authorized [id number] Pending Review Specialty Services Required 05/21/[phone] Encounter Details Date Type Department Care Team Description 05/26/2023 Office Visit Ophthalmology, [facility] [address] [facility] [place] [address] Dewey Gross, DO 132 [facility] [place] [address] Retinal artery occlusion, branch, left [H34.232 (ICD-10-CM)]*; [...] ons:Factor V Leiden mutation (HCC),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,intermediate current use of anticoagulant therapy take 1 [...] Oral Tablet (Brilinta)Indicati ons:Coronary artery disease involving [place] coronary artery of [place] heart without angina pectoris Take 1 Tablet [...] mRNA, LNP-s, No Pre serve, 2-Dose Series (Tonara) 06/30/2021,12/06/2020,11/15/2020 COVID-19, LNP-s, No Preserve , Tani-sucrose, Ages 12+ (Pfizer) 03/09/2022 Covid-19, Mrna, Lnp-s, Pf, B ivalent, 30 Mcg, IM, 12 yrs and above (Pfizer) 08/31/2022 Pneumococcal Conjugate Vacci ne, 20-valent ([id number]) 08/09/2022 Season Influenza, Cell Culte r, 18+ [...] - 05/26/2023 10:30 AM EDT [facility] [place] Nursing notes reviewed. [...] recommended. Strabismus Exam Method: Alternate cover Correction: ok Observations: Ortho Distance Near Near +3DS N [...] -check if pt has had Plaquenil visual etna w/ Dr. Quiroz in the past Dewey [...] Medical History: Diagnosis Date BMI 40.0-44.9, adult ([facility]) BPH (benign prostatic hyperplasia) Displacement of lumbar intervertebral disc without myelopathy DVT (deep venous thrombosis) ([facility]) 08/09 right leg Factor V Leiden mutation ([facility]) 09/16/2014 HTN, goal below 140/90 Impaired glucose tolerance Osteoarthritis of right knee Phlebitis and thrombophlebitis of other deep vessels of lower extremities 1980s right leg 19 years ago/ coumadin therapy Phlebitis and thrombophlebitis of superficial vessels of lower extremities 07/01 right leg ongoing Pulmonary emboli ([facility]) 08/09 Sicca syndrome ([facility]) Venous stasis ulcer ([facility]) 2013 Patient Active Problem List Diagnosis Code Displacement of lumbar intervertebral disc without myelopathy M51.26 ADVANCE DIRECTIVE INFORMATION Venous insufficiency I87.2 Essential hypertension with goal blood pressure less than 140/90 I10 History of pulmonary embolism Z86.711 Factor V Leiden mutation ([facility]) D68.51 History of DVT (deep vein thrombosis) Z86.718 BPH (benign prostatic hyperplasia) N40.0 Hx of nonmelanoma skin cancer Z85.828 AK (actinic keratosis) L57.0 Elevated liver enzymes R74.8 Sjogren's syndrome with keratoconjunctivitis sicca ([facility]) M35.01 Encounter for long-term (current) use of medications Z79.899 MCTD (mixed connective tissue disease) ([facility]) M35.1 Primary osteoarthritis of both knees M17.0 [...] Type Specialty Care Team Description 06/03/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 [place] [address] 06/07/2023 Office Visit Cardiology Bonnie Akins PA-C [address] [place] [address] 07/19/2023 Office Visit Ophthalmology Dewey Gross DO [address] [place] [address] 10/17/2023 Office Visit Rheumatology Jayson Villalobos MD [address] [place], [place] [address] [address] 11/14/2023 Office Visit Family Medicine Louise Thornton MD [address] [place] [address] [place] [address] Scheduled Procedures Name Priority Associated Diagnoses Date/Ti [...] this encounter Medical Devices Implanted Type Area Sound Engineer Audio Control Device Identifier Shelf Expiration Date Model / Serial / Lot Stent Synergy Xd Mr [id number] - [id number] Implanted:Qty: 1 on 05/20/2023 by Cee Ryan MD at [facility] [employer] [id number] 06/17/2023 [id number] 270 / / [id number] documented as of this encounter Visit Diagnoses [...] the patient have Health Care Power of Cooky Packer? No Care Teams Therapeutic Assistant Relationship Specialty Start Date End Date Louise Thornton MD [address] [place] [address] [place] [address] PCP - General Family Medicine 07/10/15 documented as of this encounter
--- OUTSIDE RECORDS SUMMARY | 2023-09-16 22:42 | External Medical Summary ---
Author Name Unknown Address Unknown Organization K01:[facility] - [address] [place] [address] Laboratory Report Ordering Provider Test Date Status DEENA GAMEZ 05/03/2023 15:04:45 Final 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ion may affect t esting. Refer to [employer] Test Catalog for a list of effects. Observation Date Value Abnormality Reference (Units ) Status aPTT panel - Platelet poor plasma 05/03/2023 15:04:45 29 21-38 (seconds) Final Performing Location [facility] - [address] [place] [address]
--- OUTSIDE RECORDS SUMMARY | 2023-09-16 22:42 | External Medical Summary | Summary of Care ---
Author Name Unknown Organization [facility] Address [address] [facility] [place] [address] Phone [phone] Care Team Providers Care Gallery Or Museum Attendant Name Role Phone Louise Thornton MD Primary Care Provide r Reason for Visit * Reason Comments Dosage Adjustment Via Phone (anticoag Cl inic) Procedure Encounter Details Date Type Department Care Team Description 04/28/2023 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ion Pharmacy, [address] [place] [address] [place] [address] Factor V Leiden mutation ([facility])* Allergies Active Allergy Reactions Severity Noted Date Comments Sulfa Antibiotics 01/05/2001 rash documented as of this encounter (statuses as of 04/28/2023) Medications Medication Sig Dispensed Refills Start Date End Date Status Ammonium Lactate 12 % External Cream 0 01/06/2021 Active Atorvastatin Calcium 10 MG Oral Tablet (Lipitor)Indicatio ns:Elevated liver enzymes TAKE ONE TABLET BY MOUTH EVERY DAY 90 Tablet 3 06/10/2022 Active Multivitamin Men 50+ Oral Tablet Take by mouth as needed . 0 Active Terazosin HCl 10 MG Oral CapsuleIndications :BPH with obstruction/lower urinary tract symptoms Take 1 Capsule by mouth at bedtime. 90 Capsule 1 01/03/2023 Active Warfarin Sodium 5 MG Oral Tablet (Jantoven)Indicati ons:Factor V Leiden mutation (HCC),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,manager intermediate current use of anticoagulant therapy take [...] EVERY DAY 90 Capsule 1 04/23/2023 Active documented as of this encounter (statuses as of 04/28/2023) Active Problems Problem Noted Date Ascending aorta [...] as of this encounter (statuses as of 04/28/2023) Resolved Problems Problem Noted Date Resolved Date [...] as of this encounter (statuses as of 04/28/2023) Immunizations Name Administration Dates Next Due COVID-19 mRNA, LNP-s, No Pre serve, 2-Dose Series (Nordicplan) 06/30/2021,12/06/2020,11/15/2020 COVID-19, LNP-s, No Preserve , Tani-sucrose, Ages 12+ (Pfizer) 03/09/2022 Covid-19, Mrna, Lnp-s, Pf, B ivalent, 30 Mcg, IM, 12 yrs and above (Nordicplan) 08/31/2022 Pneumococcal Conjugate Vacci ne, 20-valent ([id number]) 08/09/2022 Seasonal Influenza, Cell Cul ture, 18 Yrs & Older 08/09/2013 Seasonal Influenza, Quadriva lent, No Preserve, 6 Mons & Above, IM 07/02/2022,08/12/2021,06/24/2020,2018,07/18/2018,09/09/2017 Seasonal Influenza, Quadriva lent, No Preserve, [...] this encounter Progress Notes * Eneida Navarro, [facility] - 04/28/2023 11:11 AM EDT Per Cardio TE on 04/20, "Pt is on chronic coumadin due to his diagnosis of pulmonary embolism and factor V Leiden mutation with his initial DVT having been diagnosed in his 20's. He is scheduled for cardiac catheterization at [facility] on 05/[address] Aranda. After review of case with Dr Aranda, it is recommenced that pt hold coumadin for 5 day prior to the procedure. Please send this encounter to the anticoagulation clinic pool to help arrange Lovenox bridge." See letters section for specific lovenox bridge instructions. Actual Body Weight 139.5kg [place] Body Weight 81kg Adjusted Body Weight 104kg Labs Drawn on 01/28/23 Serum creatinine: 1 mg/dL 01/28/23 0826 Estimated creatinine clearance: 110.3 mL/min Hemoglobin Results: Lab Results Component Value Date/Time HGB - [facility] 13.0 (L) 03/01/2022 10:10 AM HGB - [facility] 13.0 (L) 03/25/2021 08:51 AM HGB - [facility] 13.0 (L) 12/01/2020 08:53 AM [facility]GB - [facility] 12.9 (L) 10/07/2020 02:43 PM HGB - [facility] 12.8 (L) 10/07/2020 02:42 PM HGB - [facility] 12.2 (L) 03/20/2020 04:08 PM Platelets: Lab Results Component Value Date/Time PLATELET AUTO - [facility] 176 03/01/2022 10:10 AM PLATELET AUTO - [facility] 162 03/25/2021 08:51 AM PLATELET AUTO - [facility] 156 12/01/2020 08:53 AM PLATELET AUTO - [facility] 164 10/07/2020 02:43 PM PLATELET AUTO - [facility] 161 10/07/2020 02:42 PM PLATELET AUTO - [facility] 280 03/20/2020 04:08 PM Last CBC was 03/01/2022. Updated labs in chart for patient to obtain prior to procedure. Of note, patient has used Lovenox before without issue. Will plan to review at upcoming OFS. Lovenox Dose: 140mg BID Eneida Navarro RPh Clinical Pharmacist Medication Therapy Disease Management 04/28/2023, 11:12 AM documented in this encounter Plan of Treatment Upcoming Encounters Date Type Specialty Care Team Description 05/03/2023 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ion Pharmacy [address] [place] [address] 05/09/2023 Hospital Encounter Cardiac Privacy Officer Kendell Aranda, DO [address] [facility] [place] [address] 05/09/2023 Surgery Cardiac Privacy Officer Kendell Aranda, DO [address] [facility] [place] [phone] CORONARY ANGIOGRAPHY W/LEFT HEART CATH 05/09/2023 Office Visit Cardiology Telly, Cardiac Recovery Guillermo [address] [facility] [place] [address] 10/17/2023 Office Visit Rheumatology Jayson Villalboos MD [address] [place] [employer] [place] [address] 11/14/2023 Office Visit Family Medicine Louise Thornton MD [address] [place] [address] [place] [address] Scheduled Procedures Name Priority Associated Diagnoses Date/Ti me CORONARY ANGIOGRAPHY W/LEFT HEART CATH Abnormal nuclear stress test 05/09/2023 8:30 AM EDT COLONOSCOPY FLEXIBLE PROXIMAL DIAGNOSTIC Recall History of colon polyps Health Maintenance Due Date Last Done Comments Depression Screening, Annual for Pts 12 and Over 03/15/2020 03/15/2019 Influenza Vaccine (FLU shot) (#1) 2023 07/02/2022, 08/12/2021, 06/24/2020, Additional history exists GFR 01/29/2024 01/28/2023, 06/0 02/2022, 03/25/2021, Additional history exists HbA1c 01/29/2024 01/28/2023, 06/0 02/2022, 03/25/2021, Additional history exists Albumin/Creatinine Ratio 03/01/2025 03/01/2022, 02/24 COLONOSCOPY-EVERY 5 YRS AGES 18-100 06/23/2027 06/23/2022, 06/23/2022, 09/24/2016, Additional history exists Lipid Panel 01/29/2028 01/28/2023, 06/0 02/2022, 03/25/2021, Additional history exists DTaP,Tdap,and Td [...] documented as of this encounter Medical Devices Not on filedocumented as of this encounter Visit Diagnoses Diagnosis Factor V Leiden mutation (HCC)- Primary Primary hypercoagulable state Abnormal nuclear stress test Other nonspecific abnormal cardiovascular system function study documented in this encounter Care Teams Gallery Or Museum Attendant Relationship Specialty Start Date End Date Louise Thornton MD [address] [place] [address] [place] [address] PCP - General Family Medicine 07/10/15 documented as of this encounter
--- OUTSIDE RECORDS SUMMARY | 2023-09-16 22:42 | External Medical Summary | Summary of Care ---
Author Name Unknown Organization [facility] Address [address] [facility] [place] [address] Phone [phone] Care Team Providers Care Regional Retail Sales Manager Name Role Phone Louise Thornton MD Primary Care Provide r Reason for Visit * Reason Onset Date Comments Returning Call 05/09/2023 Encounter Details Date Type Department Care Team Description 05/09/2023 Telephone Pharmacy Call Center [address] [facility] [place] [address] [place] [address] Returning Call Allergies Active Allergy Reactions Severity Noted Date Comments Sulfa Antibiotics 01/05/2001 rash documented as of this encounter (statuses as of 05/11/2023) Medications Medication Sig Dispensed Refills Start Date End Date Status Ammonium Lactate 12 % External Cream 0 1 Active Atorvastatin Calcium 10 MG Oral Tablet (Lipitor)Indicatio ns:Elevated liver enzymes TAKE ONE TABLET BY MOUTH EVERY DAY 90 Tablet 3 2 Active Multivitamin Men 50+ Oral Tablet Take [...] EVERY DAY 90 Capsule 1 3 Active Enoxaparin Sodium 150 MG/ML Injection Solution Prefilled Syringe (Lovenox) Inject 140 mg under the skin up to two times daily as directed by anticoagulation clinic 10 mL 0 3 Active Enoxaparin Sodium 150 MG/ML Injection Solution Prefilled Syringe (Lovenox) Inject 140 mg under the skin up to two times daily as directed by anticoagulation clinic 10 mL 0 3 05/09/20 23 Discontinu ed(Refill) documented as of this encounter (statuses as of 05/11/2023) Active Problems Problem Noted Date Ascending aorta [...] as of this encounter (statuses as of 05/11/2023) Resolved Problems Problem Noted Date Resolved Date [...] as of this encounter (statuses as of 05/11/2023) Immunizations Name Administration Dates Next Due COVID-19 mRNA, LNP-s, No Pre serve, 2-Dose Series ([employer]) 06/30/2021,12/06/2020,11/15/2020 COVID-19, LNP-s, No Preserve , Tani-sucrose, Ages 12+ ([employer]) 03/09/2022 Covid-19, Mrna, Lnp-s, Pf, B ivalent, 30 Mcg, IM, 12 yrs and above (Pfizer) 08/31/2022 PPD 04/20/2000 Pneumococcal Conjugate Vacci ne, 20-valent ([id number]) 08/09/2022 Seasonal Influenza, Cell Cul ture, 18 [...] encounter Miscellaneous Notes * Telephone Encounter - Javon Smith DO - 05/11/2023 3:02 PM EDT Updates appreciated. Lovenox bridge timing needs to be adjusted as cardiac catheterization has beenrescheduled for 05/20/2023. Javon Smith DO * Telephone Encounter - Eneida Navarro [facility] - 05/09/2023 4:50 PM EDT Patient Phone Numbers Returned patient's call. Discussed continuing on Lovenox until time of procedure vs completing Lovenox bridge and restarting. Patient prefers to do this to reduce injection burden. New Lovenox rx resent. Bridge updated and reviewed with patient as below. OFS rescheduled to x2 weeks post procedure. Instructed to contact clinic with any additional questions or concerns. Eneida Navarro RPh, De Clinical Pharmacist - Manager Activities Medication Therapy Disease Management Clinic 05/09/2023, 4:56 PM [phone] [facility] He[facility]. Teach. Discover. Serve. 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ion Clinic Lovenox Schedule for Bridging Peter Caruso ( 1960) Last dose of Coumadin: May 14 (Tuesday) Pre-op Day 5 May 15 (Tuesday) No Coumadin No Lovenox Pre-op Day 4 May 16 (Tuesday) No Coumadin No Lovenox Pre-op Day 3 May 17 (Tuesday) No Coumadin Lovenox 140 mg injection at 8 am and 8 pm Pre-op Day 2 May 18 (Tuesday) No Coumadin Lovenox 140 mg injection at 8 am and 8 pm Pre-op Day 1 May 19 () No Coumadin Lovenox 140 mg injection at 8 AM ONLY (No injection in the evening) Surgical Date May 20 (Tuesday) (No injection in the morning) Coumadin 10 mg at usual time Post-op Day 1 May 21 (Tuesday) Lovenox 140 mg injection at 8 pm Coumadin 10 mg at usual time Post-op Day 2 May 22 (Tuesday) Lovenox 140 mg injection at 8 am and 8 pm Coumadin 7.5 mg at usual time Post-op Day 3 May 23 () Lovenox 140 mg injection at 8 am and 8 pm Restart regular dose of Coumadin: 7.5 mg every Mon, Fri; 5 mg all other days Next INR Appointment: * Telephone Encounter - JUANITA Sheriff - 05/09/2023 2:57 PM EDT Caller's name: Peter Marte call back number(OFFICE NUMBER FOR ): [phone] Reason for call: Patient letting Eneida know his procedure cardio heart catheter is for 05/[address] Day. Thank you, Goldie Royal Senior Major Gifts Officer Centralized Clinical Pharmacy Services 05/09/2023,2:57 PM documented in this encounter Plan of Treatment Upcoming Encounters Date Type Specialty Care Team Description 05/20/2023 Hospital Encounter Cardiac Toolroom Attendant Cee Ryan MD [address], [place] [phone] 05/20/2023 Surgery Cardiac Toolroom Attendant Cee Ryan MD [address] [place] [address] CORONARY ANGIOGRAPHY W/LEFT HEART CATH 05/20/2023 Office Visit Cardiology [facility] Cardiac [facility] [address], [place] [phone] 06/03/2023 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ion Pharmacy [address] [place] [address] 10/17/2023 Office Visit Rheumatology Jayson Villalobos MD [facility] [place] [address] 11/14/2023 Office Visit Family Medicine Louise Thornton MD [address] [place] [address] [place] [address] Scheduled Procedures Name Priority Associated Diagnoses Date/Ti me CORONARY ANGIOGRAPHY W/LEFT HEART CATH Abnormal nuclear stress test 05/20/2023 10:00 AM EDT COLONOSCOPY FLEXIBLE PROXIMAL DIAGNOSTIC Recall History of colon polyps Health Maintenance Due Date Last Done Comments Depression Screening, Annual for Pts 12 and Over 03/15/2020 03/15/2019 Influenza Vaccine (FLU shot) (#1) 2023 07/02/2022, 08/12/2021, 06/24/2020, Additional history exists HbA1c 01/29/2024 01/28/2023, 06/0 02/2022, 03/25/2021, Additional history exists GFR 05/03/2024 05/03/2023, 0 01/2023, 03/01/2022, Additional history exists Albumin/Creatinine Ratio 03/01/2025 03/01/2022, 02/24 COLONOSCOPY-EVERY 5 YRS AGES 18-100 06/23/2027 06/23/2022, 06/23/2022, 09/24/2016, Additional history exists Lipid Panel 01/29/2028 01/28/2023, 0 02/2022, 03/25/2021, Additional history exists DTaP,Tdap,and Td [...] study documented in this encounter Care Teams Regional Retail Sales Manager Relationship Specialty Start Date End Date Louise Thornton MD [address] [place] [address] [place] [address] PCP - General Family Medicine 07/10/15 documented as of this encounter
--- OUTSIDE RECORDS SUMMARY | 2023-09-16 22:42 | External Medical Summary ---
Author Name Unknown Address Unknown Organization K01:[facility] [place] [address] [facility] [address] Laboratory Report Ordering Provider Test Date Status DEENA GAMEZ 05/03/2023 15:04:45 Final Observation Date Value Abnormality Reference (Units ) Status WBC, Total 05/03/2023 15:04:45 4.09 4.00-10.80 (K/uL) Final RBC 05/03/2023 15:04:45 4.70 4.50-5.25 (M/uL) Final Hemoglobin 05/03/2023 15:04:45 13.9 Below low normal 14.0-16.8 (g/dL) Final HCT 05/03/2023 15:04:45 43.1 40.0-48.4 (%) Final MCV 05/03/2023 15:04:45 91.7 82.0-99.5 (fL) Final MCH 05/03/2023 15:04:45 29.6 27.0-34.0 (pg) Final MCHC 05/03/2023 15:04:45 32.3 32.0-36.0 (g/dL) Final RDW 05/03/2023 15:04:45 13.7 11.5-15.5 (%) Final Platelets 05/03/2023 15:04:45 177 140-400 (K/uL) Final MPV 05/03/2023 15:04:45 9.9 6.6-11.1 (fL) Final Nucleated erythrocytes/100 leukocytes [Ratio] in Blood by Automated count 05/03/2023 15:04:45 0 <=0 (/100 WBCs) Final Performing Location [facility] [address] [facility] [place] [address]
--- OUTSIDE RECORDS SUMMARY | 2023-09-16 22:42 | External Medical Summary | Summary of Care ---
Author Name Unknown Organization [facility] Address [address] [facility] [place] [address] Phone [phone] Care Team Providers Care Chemical Etch Operator Name Role Phone Louise Thornton MD Primary Care Provide r Reason for Visit * Reason Onset Date Comments Follow Up 04/20/2023 Encounter Details Date Type Department Care Team Description 04/20/2023 Telephone Cardiology, [facility] [address] [place] [address] Javon Smith, [address] [place] [address] Follow Up Allergies Active Allergy Reactions Severity Noted Date Comments Sulfa Antibiotics 01/05/2001 rash documented as of this encounter (statuses as of 04/22/2023) Medications Medication Sig Dispensed Refills Start Date End Date Status Ammonium Lactate 12 % External Cream 0 01/06/2021 Active hydroCHLOROthiazid e 12.5 MG Oral Capsule (Hydrodiuril) TAKE ONE CAPSULE BY MOUTH EVERY DAY 90 Capsule 2 06/02/2022 Active Atorvastatin Calcium 10 MG Oral Tablet [...] V Leiden mutation (HCC),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 6 Tablet 5 04/11/2023 Active documented as of this encounter (statuses as of 04/22/2023) Active Problems Problem Noted Date Ascending aorta [...] as of this encounter (statuses as of 04/22/2023) Resolved Problems Problem Noted Date Resolved Date [...] as of this encounter (statuses as of 04/22/2023) Immunizations Name Administration Dates Next Due COVID-19 mRNA, LNP-s, No Pre serve, 2-Dose Series ([employer]) 06/30/2021,12/06/2020,11/15/2020 COVID-19, LNP-s, No Preserve , Tani-sucrose, Ages 12+ (Pfizer) 03/09/2022 Covid-19, Mrna, Lnp-s, Pf, B ivalent, 30 Mcg, IM, 12 yrs and above ([employer]) 08/31/2022 Pneumococcal Conjugate Vacci ne, 20-valent ([id number]) 08/09/2022 Seasonal Influenza, Cell Cul ture, 18 [...] encounter Miscellaneous Notes * Telephone Encounter - Connie Lamb RP - 04/22/2023 3:16 PM EDT Noted by [facility]. Patient Phone Numbers - busy Left message to notify patient of scheduling [facility] appointment sooner. Sent MyG as well. Patient has used lovenox in the past. Placing appointment for [facility] at managing clinic to make the bridge closer to appointment date in theevent of a reschedule of procedure. Connie Lamb, PharmD Clinical Pharmacist Medication Therapy Disease Management 04/22/2023, 3:23 PM * Telephone Encounter - Javon Smith DO - 04/20/2023 6:30 PM EDT Cardiology nursing: pt is on chronic coumadin due to his diagnosis of pulmonary embolism and factorV Leiden mutation with his initial DVT having been diagnosed in his 20's. He is scheduled for cardiac catheterization at [facility] on 05/[address] Aranda. After review of case with Dr Aranda, it is recommenced that pt hold coumadin for 5 day prior to the procedure. Please send this encounter to the anticoagulation clinic [place] to help arrange Lovenox bridge. Javon Smith DO 04/20/2023 6:32 PM documented in this encounter Plan of Treatment Upcoming Encounters Date Type Specialty Care Team Description 04/28/2023 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ion Pharmacy [address] [place] [phone] 05/02/2023 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ion Pharmacy [address] [place] [address] 05/09/2023 Hospital Encounter Cardiac Automation Engineering Manager Kendell Aranda, DO [address] [place] [address] 05/09/2023 Surgery Cardiac Automation Engineering Manager Kendell Aranda, DO [address] [place] [address] CORONARY ANGIOGRAPHY W/LEFT HEART CATH 05/09/2023 Office Visit Cardiology [place], Cardiac [facility] [place] [address] [place] [address] 10/17/2023 Office Visit Rheumatology Jayson Villalobos MD [address] [place] [address] 11/14/2023 Office Visit Family Medicine Louise Thornton MD [address] [place] [address] [place] [address] Scheduled Procedures Name Priority Associated Diagnoses Date/Ti me CORONARY ANGIOGRAPHY W/LEFT HEART CATH Abnormal nuclear stress test 05/09/2023 8:30 AM EDT COLONOSCOPY FLEXIBLE PROXIMAL DIAGNOSTIC Recall History of colon polyps Health Maintenance Due Date Last Done Comments Depression Screening, Annual for Pts 12 and Over 03/15/2020 03/15/2019 Influenza Vaccine (FLU shot) (#1) 2023 07/02/2022, 08/12/2021, 06/24/2020, Additional history exists GFR 01/29/2024 01/28/2023, 0 02/2022, 03/25/2021, Additional history exists HbA1c 01/29/2024 01/28/2023, 0 02/2022, 03/25/2021, Additional history exists Albumin/Creatinine Ratio 03/01/2025 03/01/2022, 02/24 COLONOSCOPY-EVERY 5 YRS AGES 18-100 06/23/2027 06/23/2022, 06/23/2022, 09/24/2016, Additional history exists Lipid Panel 01/29/2028 01/28/2023, 02/2022, 03/25/2021, Additional history exists DTaP,Tdap,and Td [...] study documented in this encounter Care Teams Chemical Etch Operator Relationship Specialty Start Date End Date Louise Thornton MD [address] [place] [address] [place] [address] PCP - General Family Medicine 07/10/15 documented as of this encounter
--- OUTSIDE RECORDS SUMMARY | 2023-09-16 22:42 | External Medical Summary | Summary of Care ---
Author Name Unknown Organization [facility] Address [address] [facility] [place] [address] Phone [phone] Care Team Providers Care Slip Caster Name Role Phone Louise Thornton MD Primary Care Provide r Reason for Visit * Reason Onset Date Comments Follow Up 04/06/2023 Test Results 04/06/2023 Encounter Details Date Type Department Care Team Description 04/06/2023 Telephone Cardiology, [facility] [address] [place] [address] Javon Smith, [address] [place] [address] Follow Up; Test Results Allergies Active Allergy Reactions Severity Noted Date Comments Sulfa Antibiotics 01/05/2001 rash documented as of this encounter (statuses as of 04/07/2023) Medications Medication Sig Dispensed Refills Start Date [...] by mouth as needed . 0 Active predniSONE 5 MG Oral Tablet (Deltasone) take 1/2 tablet daily on tuesday, tuesday and tuesday. 18 Tablet 4 12/20/2022 Active Terazosin HCl 10 MG Oral CapsuleIndications :BPH with obstruction/lower urinary tract symptoms Take 1 Capsule by mouth at bedtime. 90 Capsule 1 01/03/2023 Active Warfarin Sodium 5 MG Oral Tablet (Jantoven)Indicati ons:Factor V Leiden mutation (HCC),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,retirement current use of anticoagulant therapy take 1 [...] A couple times a week 0 Active documented as of this encounter (statuses as of 04/07/2023) Active Problems Problem Noted Date Ascending aorta [...] as of this encounter (statuses as of 04/07/2023) Resolved Problems Problem Noted Date Resolved Date [...] as of this encounter (statuses as of 04/07/2023) Immunizations Name Administration Dates Next Due COVID-19 mRNA, LNP-s, No Pre serve, 2-Dose Series ([email or web address]) 06/30/2021,12/06/2020,11/15/2020 COVID-19, LNP-s, No Preserve , Tani-sucrose, Ages 12+ (Pfizer) 03/09/2022 Covid-19, Mrna, Lnp-s, Pf, B ivalent, 30 Mcg, IM, 12 yrs and above (Pfizer) 08/31/2022 Pneumococcal Conjugate Vacci ne, 20-valent ([id number]) 08/09/2022 Seasonal Influenza, Cell Cul ture, 18 [...] Telephone Encounter - Javon Smith DO - 04/07/2023 5:15 PM EDT Attempted to reach patient by phone to once again discuss plan with regards to his stress test. I was unable to connect with him on his home phone or mobile phone so I left a voicemail message stating that I would call back again if not tomorrow within the next few days. Javon Smith DO 5:15 PM * Telephone Encounter - Javon Smith DO - 04/06/2023 5:40 PM EDT I called patient discussed his nuclear stress test results. There is a small anteroapical abnormality. I discussed with him that I think ongoing medical management would be reasonable or cardiac catheterization. Stress test was ordered because of dyspnea on exertion noted back in January. The patient had been seen in follow-up 2 days ago and reportedly felt improved in the interim time. He is going to think about things and we are going to reconvene our conversation by phone within the next day or 2. Javon Smith DO documented in this encounter Plan of Treatment Upcoming Encounters Date Type Specialty Care Team Description 05/05/2023 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ion Pharmacy [facility] [address] [place] [address] 10/17/2023 Office Visit Rheumatology Jayson Villalobos MD [facility] [place] [facility] [address] 11/14/2023 Office Visit Family Medicine Louise Thornton MD [address] [place] [address] [place] [address] Scheduled Procedures Name Priority Associated Diagnoses Date/Ti me COLONOSCOPY FLEXIBLE PROXIMAL DIAGNOSTIC Recall History of colon polyps Health Maintenance Due Date Last Done Comments Depression Screening, Annual for Pts 12 and Over 03/15/2020 03/15/2019 Influenza Vaccine (FLU shot) (#1) 2023 07/02/2022, 08/12/2021, 06/24/2020, Additional history exists GFR 01/29/2024 01/28/2023, 060 02/2022, 03/25/2021, Additional history exists HbA1c 01/29/2024 01/28/2023, 060 02/2022, 03/25/2021, Additional history exists Albumin/Creatinine Ratio [...] Not on filedocumented as of this encounter Care Teams Slip Caster Relationship Specialty Start Date End Date Louise Thornton MD [address] [place] [address] [place] [address] PCP - General Family Medicine 07/10/15 documented as of this encounter
--- OUTSIDE RECORDS SUMMARY | 2023-09-16 22:42 | External Medical Summary ---
Author Name Unknown Address Unknown Organization K01:[facility] [place] [address] [place] [address] Laboratory Report Ordering Provider Test Date Status DEENA GAMEZ 05/03/2023 15:04:45 Final Observation Date Value Abnormality Reference (Units ) Status BUN 05/03/2023 15:04:45 15 6-20 (mg/dL) Final Creatinine 05/03/2023 15:04:45 1.0 0.6-1.2 (mg/dL) Final Glomerular filtration rate/1.73 sq M.predicted [Volume Rate/Area] in Serum, Plasma or Blood by Creatinine-based formula (CKD-EPI) 05/03/2023 15:04:45 85 >=60 (mL/min) Final eGFR is calculated based on the CKD-EPI 2020 equation SODIUM 05/03/2023 15:04:45 139 135-146 (m mol/L) Final Potassium 05/03/2023 15:04:45 4.7 3.5-5.1 (m mol/L) Final Cl 05/03/2023 15:04:45 104 98-107 (mm ol/L) Final CO2 05/03/2023 15:04:45 24 22-32 (mmo l/L) Final Anion gap 05/03/2023 15:04:45 11 7-15 (mmol /L) Final Glucose 05/03/2023 15:04:45 105 70-120 (mg /dL) Final Calcium 05/03/2023 15:04:45 9.4 8.4-10.2 ( mg/dL) Final Performing Location [facility] [place] [facility] [address] [place] [address]
--- OUTSIDE RECORDS SUMMARY | 2023-09-16 22:42 | External Medical Summary | Summary of Care ---
Author Name Unknown Organization [facility] Address [address] [facility] [place] [address] Phone [phone] Care Team Providers Care Bag Loader Machine Operator Name Role Phone Louise Thornton MD Primary Care Provide r Reason for Visit * Reason Comments Outpatient Testing Encounter Details Date Type Department Care Team Description 05/03/2023 Laboratory Laboratory [address] [place] [address] [facility] [address] [place] [address] KRISHNAN (dyspnea on exertion); Abnormal nuclear stress test Allergies Active Allergy Reactions Severity Noted Date Comments Sulfa Antibiotics 01/05/2001 rash documented as of this encounter (statuses as of 05/03/2023) Medications Medication Sig Dispensed Refills Start Date [...] as of this encounter (statuses as of 05/03/2023) Active Problems Problem Noted Date Ascending aorta [...] as of this encounter (statuses as of 05/03/2023) Resolved Problems Problem Noted Date Resolved Date [...] as of this encounter (statuses as of 05/03/2023) Immunizations Name Administration Dates Next Due COVID-19 mRNA, LNP-s, No Pre serve, 2-Dose Series ([employer]) 06/30/2021,12/06/2020,11/15/2020 COVID-19, LNP-s, No Preserve , Tani-sucrose, Ages 12+ (Pfizer) 03/09/2022 Covid-19, Mrna, Lnp-s, Pf, B ivalent, 30 Mcg, IM, 12 yrs and above ([email or web address]) 08/31/2022 Pneumococcal Conjugate Vacci ne, 20-valent ([id number]) 08/09/2022 Seasonal Influenza, Cell Cul ture, 18 [...] on file documented as of this encounter Plan of Treatment Upcoming Encounters Date Type Specialty Care Team Description 05/03/2023 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ion Pharmacy [place], [address] [place] [address] 05/09/2023 Hospital Encounter Cardiac Business Rules Developer Kendell Aranda, DO [address] [place] [address] 05/09/2023 Surgery Cardiac Business Rules Developer Kendell Aranda, DO [address] [place] [address] CORONARY ANGIOGRAPHY W/LEFT HEART CATH 05/09/2023 Office Visit Cardiology [place], Cardiac Recovery [place] [address] [place] [address] 10/17/2023 Office Visit Rheumatology Jayson [facility]obos [facility] [address] [facility] [address] 11/14/2023 Office Visit Family Medicine Louise Thornton MD [address] [place] [address] [place] [phone] Pending Results Name Type Priority Associated Diagnoses Date /Time CBC Lab Routine KRISHNAN (dyspnea on exertion) Abnormal nuclear stress test 05/03/2023 3:04 PM EDT BASIC METABOLIC PANEL Lab Routine KRISHNAN (dyspnea on exertion) Abnormal nuclear stress test 05/03/2023 3:04 PM EDT APTT Lab Routine KRISHNAN (dyspnea on exertion) Abnormal nuclear stress test 05/03/2023 3:04 PM EDT PT INR Lab Routine KRISHNAN (dyspnea on exertion) Abnormal nuclear stress test 05/03/2023 3:04 PM EDT Scheduled Procedures Name Priority Associated Diagnoses Date/Ti [...] as of this encounter Visit Diagnoses Diagnosis KRISHNAN (dyspnea on exertion) Other dyspnea and respiratory abnormality Abnormal nuclear stress test Other nonspecific abnormal cardiovascular system function study Abnormal nuclear stress test Other nonspecific abnormal cardiovascular system function study documented in this encounter Care Teams Bag Loader Machine Operator Relationship Specialty Start Date End Date Louise Thornton MD [address] [place] [address] [place] [address] PCP - General Family Medicine 07/10/15 documented as of this encounter
--- OUTSIDE RECORDS SUMMARY | 2023-09-16 22:42 | External Medical Summary | Summary of Care ---
Author Name Unknown Organization [facility] Address [address] [facility] [place] [address] Phone [phone] Care Team Providers Care Civil Structural Designer Name Role Phone Anne Thornton MD Primary Care Provide r Reason for Visit * Reason Comments eRx-Medication Refill Encounter Details Date Type Department Care Team Description 04/22/2023 Refill Family Medicine [address] [address] Anne Thornton MD [address] [place], [place] [address] [address] Allergies Active Allergy Reactions Severity Noted Date Comments Sulfa Antibiotics 01/05/2001 rash documented as of this encounter (statuses as of 04/23/2023) Medications Medication Sig Dispensed Refills Start Date End Date Status Ammonium Lactate 12 % External Cream 0 01/07/20 21 Active Atorvastatin Calcium 10 MG Oral Tablet (Lipitor)Indicati ons:Elevated liver enzymes TAKE ONE TABLET BY MOUTH EVERY DAY 90 Tablet 3 06/10/20 22 Active Multivitamin Men 50+ Oral Tablet Take by mouth as needed . 0 Active Terazosin HCl 10 MG Oral CapsuleIndication s:BPH with obstruction/lower urinary tract symptoms Take 1 Capsule by mouth at bedtime. 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 1 [...] DAY 90 Capsule 1 04/23/20 23 Active hydroCHLOROthiazi de 12.5 MG Oral Capsule (Hydrodiuril) TAKE ONE CAPSULE BY MOUTH EVERY DAY 90 Capsule 2 06/02/20 22 023 Discontinued documented as of this encounter (statuses as of 04/23/2023) Active Problems Problem Noted Date Ascending aorta [...] as of this encounter (statuses as of 04/23/2023) Resolved Problems Problem Noted Date Resolved Date [...] as of this encounter (statuses as of 04/23/2023) Immunizations Name Administration Dates Next Due COVID-19 mRNA, LNP-s, No Pre serve, 2-Dose Series ([employer]) 06/30/2021,12/06/2020,11/15/2020 COVID-19, LNP-s, No Preserve , Tani-sucrose, Ages 12+ (Pfizer) 03/09/2022 Covid-19, Mrna, Lnp-s, Pf, B ivalent, 30 Mcg, IM, 12 yrs and above (Pfizer) 08/31/2022 Pneumococcal Conjugate Vacci ne, 20-valent ([id number]) 08/09/2022 Seasonal Influenza, Cell Cul ture, 18 [...] Telephone Encounter - Agusto Way RPh - 04/23/2023 1:10 PM EDTSigned Prescriptions: Disp Refills hydroCHLOROthiazide 12.5 MG Oral Capsule (*90 Cap*1 Sig: TAKE ONE CAPSULE BY MOUTH EVERY DAYAuthorizing Provider: ANNE THORNTON User: JONI WAY documented in this encounter Plan of Treatment Upcoming Encounters Date Type Specialty Care Team Description 04/28/2023 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ion Pharmacy [address] [place] [id number] 05/02/2023 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ion Pharmacy [place], [address] [place] [address] 05/09/2023 Hospital Encounter Cardiac Green Feed Attendant Kendell Aranda, DO [address] [place] [address] 05/09/2023 Surgery Cardiac Green Feed Attendant Kendell Aranda, DO [address] [place] [address] CORONARY ANGIOGRAPHY W/LEFT HEART CATH 05/09/2023 Office Visit Cardiology [place], [facility] [address] [place], [place] [phone] 10/17/2023 Office Visit [facility] [address] 11/14/2023 Office Visit Family Medicine Anne Thornton MD [address] [place] [address] [place] [address] Scheduled Procedures Name Priority Associated Diagnoses Date/Ti me CORONARY ANGIOGRAPHY W/LEFT HEART CATH Abnormal nuclear stress test 05/09/2023 8:30 AM EDT COLONOSCOPY FLEXIBLE PROXIMAL DIAGNOSTIC Recall History of colon polyps Health Maintenance Due Date Last Done Comments Depression Screening, Annual for Pts 12 and Over 03/15/2020 03/15/2019 Influenza Vaccine (FLU shot) (#1) 2023 07/02/2022, 08/12/2021, 06/24/2020, Additional history exists GFR 01/29/2024 01/28/2023, 02/2022, 03/25/2021, Additional history exists HbA1c 01/29/2024 01/28/2023, 02/2022, 03/25/2021, Additional history exists Albumin/Creatinine Ratio [...] filedocumented as of this encounter Care Teams Civil Structural Designer Relationship Specialty Start Date End Date Anne Thornton MD [address] [place] [address] [place] [address] PCP - General Family Medicine 07/10/15 documented as of this encounter
--- OUTSIDE RECORDS SUMMARY | 2023-09-16 22:42 | External Medical Summary | Summary of Care ---
Author Name Unknown Organization [facility] Address [address] [facility] [place] [address] Phone [phone] Care Team Providers Care Spray Gun Striper Name Role Phone Louise Thornton MD Primary Care Provide r Reason for Visit * Reason Onset Date Comments Medication Question 05/09/2023 Encounter Details Date Type Department Care Team Description 05/09/2023 Telephone Pharmacy Call Center [phone] [facility] [place] [address] [place] [address] Medication Question Allergies Active Allergy Reactions Severity Noted Date Comments Sulfa Antibiotics 01/05/2001 rash documented as of this encounter (statuses as of 05/09/2023) Medications Medication Sig Dispensed Refills Start Date [...] ons:Factor V Leiden mutation (HCC),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,longterm current use of anticoagulant therapy take 1 [...] directed by anticoagulation clinic 10 mL 0 05/04/2023 Active documented as of this encounter (statuses as of 05/09/2023) Active Problems Problem Noted Date Ascending aorta [...] as of this encounter (statuses as of 05/09/2023) Resolved Problems Problem Noted Date Resolved Date [...] as of this encounter (statuses as of 05/09/2023) Immunizations Name Administration Dates Next Due COVID-19 mRNA, LNP-s, No Pre serve, 2-Dose Series ([employer]) 06/30/2021,12/06/2020,11/15/2020 COVID-19, LNP-s, No Preserve , Tani-sucrose, Ages 12+ (Pfizer) 03/09/2022 Covid-19, Mrna, Lnp-s, Pf, B ivalent, 30 Mcg, IM, 12 yrs and above (Pfizer) 08/31/2022 Pneumococcal Conjugate Vacci ne, 20-valent ([id number]) 08/09/2022 Seasonal Influenza, Cell Cul ture, 18 [...] Telephone Encounter - Eneida Navarro RPh - 05/09/2023 12:37 PM EDT Patient Phone Numbers Attempted to return call at both numbers above. Left messages at both requesting return call to clinic. Per chart review, no current documentation as to reasoning why proc was canceled. Eneida Navarro RPh, PharmD Clinical Pharmacist - Locomotive Engineer [facility] 05/09/2023, 12:38 PM Ph.[phone] * Telephone Encounter - JUANITA Sheriff - 05/09/2023 11:24 AM EDT Caller's name: Peter Preferred call back number(OFFICE NUMBER FOR ): [phone] Reason for call: Patient states his cardiac cath. Was cancelled and he has questions on the lovenoxbridging. Please return his call. Thank you, Goldie [facility] 05/09/2023,11:25 AM documented in this encounter Plan of Treatment Upcoming Encounters Date Type Specialty Care Team Description 05/23/2023 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ion Pharmacy [address] [place] [address] 10/17/2023 Office Visit Rheumatology Jayson Villalobos MD [facility] [place] [address] 11/14/2023 Office Visit Family Medicine Louise Thornton MD [address] [place] [address] [place] [address] Scheduled Procedures Name Priority Associated Diagnoses Date/Ti me CORONARY ANGIOGRAPHY W/LEFT HEART CATH Abnormal nuclear stress test COLONOSCOPY FLEXIBLE PROXIMA L DIAGNOSTIC Recall History of colon polyps Health [...] Leiden mutation (HCC)- Primary Primary hypercoagulable state documented in this encounter Care Teams Spray Gun Striper Relationship Specialty Start Date End Date Louise Thornton MD [address] [place] [address] [place] [address] PCP - General Family Medicine 07/10/15 documented as of this encounter
--- OUTSIDE RECORDS SUMMARY | 2023-09-16 22:42 | External Medical Summary | Summary of Care ---
Author Name Unknown Organization [facility] Address [address] [facility] [place] [address] Phone [phone] Care Team Providers Care Staging Technician Name Role Phone Louise Thornton MD Primary Care Provide r Reason for Visit * Reason Comments Follow Up 2 month follow up. E dory in LE is about the same. SOB ongoing with exertion but no worse then prior. Denies chest pain, palpitations and dizziness. Encounter Details Date Type Department Care Team Description 04/04/2023 Office Visit Cardiology, [facility] [address] [place] [id number] Bonnie Akins PA-C [address] [place] [address] Dyspnea on exertion*; HTN, goal below 140/90; Dyslipidemia, goal LDL below 130; History of pulmonary embolism; Essential hypertension with goal blood pressure less than 140/90; Ascending aorta dilatation (HCC) Allergies Active Allergy Reactions Severity Noted Date Comments Sulfa Antibiotics 01/05/2001 rash documented as of this encounter (statuses as of 04/04/2023) Medications Medication Sig Dispensed Refills Start Date [...] ons:Factor V Leiden mutation (HCC),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,stenotypist current use of anticoagulant therapy take 1 [...] as of this encounter (statuses as of 04/04/2023) Active Problems Problem Noted Date Ascending aorta [...] as of this encounter (statuses as of 04/04/2023) Resolved Problems Problem Noted Date Resolved Date [...] as of this encounter (statuses as of 04/04/2023) Immunizations Name Administration Dates Next Due COVID-19 mRNA, LNP-s, No Pre serve, 2-Dose Series ([employer]) 06/30/2021,12/06/2020,11/15/2020 COVID-19, LNP-s, No Preserve , Tani-sucrose, Ages 12+ ([employer]) 03/09/2022 Covid-19, Mrna, Lnp-s, Pf, B ivalent, 30 Mcg, IM, 12 yrs and above ([employer]) 08/31/2022 Pneumococcal Conjugate Vacci ne, 20-valent ([id number]) 08/09/2022 Seasonal Influenza, Cell Cul ture, 18 [...] Reading Time Taken Comments Blood Pressure 128/78 04/04/2023 2:53 PM EDT Pulse 72 04/04/2023 2:53 PM EDT Temperature - - Respiratory Rate 16 04/04/2023 2:53 PM EDT Oxygen Saturation - - Inhaled Oxygen Concentration - - Weight 139.5 kg (307 lb 8 oz) 04/04/2023 2:53 PM EDT Height - - Body Mass Index 40.02 03/22/2023 8:39 AM EDT documented in this encounter Progress Notes * Bonnie Akins PA-C - 04/04/2023 2:55 PM EDT 04/04/2023 Cardiology Follow Up CHIEF COMPLAINT: Dyspnea on exertion SUBJECTIVE: Peter Caruso is a 62 year old male here today for close cardiology f/u. Last clinic evaluation approx [address] Smith. At that time he was ordered to have a nuclear stress test. Unfortunately due to scheduling issues, this has not yet been completed and is scheduled for this week. He did have echocardiogram completed which revealed normal LVEF with mildly dilated aortic root at 4.0 and ascending aorta measuring 4.2 cm He presents today feeling relatively well. Prior complaints of intermittent chest pressure have resolved. No recent recurrences. Continues to report dyspnea, but this is stable and recovers quickly. He was gardening this morning and noted mild dyspnea after about 15 min of activity. Took a quick break and symptoms resolved. No exertional chest pain. No palpitations. Taking meds as prescribed. BP controlled. No orthopnea, PND or edema. No fever, cough, chills. History includes: 1. Hypertension 2. dyslipidemia 3. family history of coronary heart disease 4. Obesity 5. pulmonary embolism and factor V Leiden mutation with his initial DVT having been diagnosed in his 20's. He therefore remains on chronic anticoagulation with Coumadin. 6. He follows with rheumatology due to his history of mixed connective tissue disease, Sjogren's and osteoarthritis and is on chronic low-dose prednisone and Plaquenil. 7. Dilated aortic root at 4.0 and dilated ascending aorta at 4.2 cm Review of Systems: See HPI for pertinent positives. All others negative, other than those noted in HPI. Patient Active Problem List Diagnosis Code Displacement of lumbar intervertebral disc without myelopathy M51.26 ADVANCE DIRECTIVE INFORMATION Venous insufficiency I87.2 Essential hypertension with goal blood pressure less than 140/90 I10 History of pulmonary embolism Z86.711 Factor V Leiden mutation ([facility]) D68.51 History of DVT (deep vein thrombosis) Z86.718 BPH (benign prostatic hyperplasia) N40.0 Hx of nonmelanoma skin cancer Z85.828 AK (actinic keratosis) L57.0 Elevated liver enzymes R74.8 Sjogren's syndrome with keratoconjunctivitis sicca ([facility]) M35.01 Encounter for long-term (current) use of medications Z79.899 MCTD (mixed connective tissue disease) ([facility]) M35.1 Primary osteoarthritis of both knees M17.0 Prediabetes R73.03 Dyslipidemia, goal LDL below 130 E78.5 Seasonal allergic rhinitis due to pollen J30.1 Social History Tobacco Use Smoking status: Former Smokeless tobacco: Never Vaping Use Vaping Use: Never used Substance Use Topics Alcohol use: Yes Comment: social Drug use: No Family History: Mother: alive in her late 80's.H/O CAD, past coronary stents Father: in his 80's, H/O pacemaker, dementia Worked for [employer] Siblings: no heart problems Review of patient's allergies indicates: Allergen Reactions Sulfa Antibiotics rash Current Outpatient Medications Medication Sig Dispense Refill Ammonium Lactate 12 % External Cream hydroCHLOROthiazide 12.5 MG Oral Capsule (Hydrodiuril) TAKE ONE CAPSULE BY MOUTH EVERY DAY 90 Capsule 2 Atorvastatin Calcium 10 MG Oral Tablet (Lipitor) TAKE ONE TABLET BY MOUTH EVERY DAY 90 Tablet 3 Multivitamin Men 50+ Oral Tablet Take by mouth as needed . predniSONE 5 MG Oral Tablet (Deltasone) take 1/2 tablet daily on tuesday, tuesday and tuesday. 18 Tablet 4 Terazosin HCl 10 MG Oral Capsule Take [...] as needed. A couple times a week No current facility-administered medications for this visit. OBJECTIVE/PHYSICAL EXAMINATION: BP 128/78 | Pulse 72 | Resp 16 | Wt (!) 139.5 kg (307 lb 8 oz) | BMI 40.02 kg/m | BSA 2.69 m On my repeat 120/68 equal in both arms General: no acute distress and stated age [...] exam Psych: appropriate affect and insight. Data: Echocardiogram report reviewed dated January 2023: Interpretation [...] repolarization changes. Latest Reference Range & Units 01/28/23 08:26 Triglycerides <=174 mg/dL 74 Cholesterol <200 mg/dL 135 Non-HDL Cholesterol <=159 mg/dL 91 HDL Cholesterol >39 mg/dL 44 LDL Cholesterol <=129 mg/dL 76 ASSESSMENT / PLAN: 62 year old male ICD-10-CM 1. HTN, goal below 140/90 I10 2. Dyslipidemia, goal LDL below 130 E78.5 3. History of pulmonary embolism Z86.711 4. Dyspnea on exertion R06.09 5. Essential hypertension with goal blood pressure less than 140/90 I10 6. Ascending aorta dilatation (HCC) I77.810 Prior complaints of chest pressure now improved/resolved. He has nuclear stress test later this week for further evaluation of dyspnea. Echo revealed preserved LVEF with mildly dilated ascending aorta/aortic root. Will likely repeat in1 year. Weight loss encouraged. Currently appears euvolemic. BP well controlled Further recommendations pending results of nuclear lexiscan stress test. If abnormal, likely proceed with cardiac cath. If normal, I think this is reassuring that dyspnea is likely multifactorial with history of PE and underlying obesity/deconditioning. Consider pulm f/u if stress testing is unremarkable. Patient will be notified about test results when available. The patient is to continue all current medications as listed above. No changes were made at today'svisit. I spent a total of 35 minutes on the date of service in preparation, delivery, and documentation ofthe care provided to Peter Caruso excluding any time spent in the performance of separately billedservices. The patient agrees to the above plan and will call with additional questions or concerns. ER with all emergencies advised. Follow-up: Return in about 6 months (around 10/05/2023). | Check-out note: Patient needs instructions for his nuclear stress test on Tue. Please print [address] Luis Akins PA-C Department of Cardiology This chart was completed in part utilizing [employer] Speech Voice Recognition Software. Grammatical errors, random [...] in this encounter Nursing Notes * Rudy Good LPN - 04/04/2023 2:52 PM EDT Patient identified by full name and date of Chief Complaint Patient presents with Follow Up 2 month follow up. Edema in LE is about the same. SOB ongoing with exertion but no worse then prior. Denies chest pain, palpitations and dizziness. Examination Room: 1 Name: Peter Caruso Date of : (1960). Reason for Visit: 2 month follow up Interim Hospitalization(s): Denies Problems/Concerns: See chief complaint Chest Pain/SOB: See chief complaint [facility] Discussed: Not applicable [facility] is a way you can talk to [...] Encounters Date Type Specialty Care Team Description 04/06/2023 Imaging Radiology Gw, Excess Time Radiology [address] [place] [address] 05/05/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 [place] [address] 10/17/2023 Office Visit Rheumatology Jayson Villalobos MD [facility] [place] [address] 11/14/2023 Office Visit Family Medicine Louise Thornton MD [address] [place] [address] [place] [address] Scheduled Procedures Name Priority Associated Diagnoses Date/Ti [...] Additional history exists Lipid Panel 01/29/2028 01/28/2023, 0602/2022, 03/25/2021, Additional history exists DTaP,Tdap,and Td Vaccines [...] as of this encounter Visit Diagnoses Diagnosis Dyspnea on exertion- Primary Other dyspnea and respiratory abnormality HTN, goal below 140/90 Unspecified essential hypertension Dyslipidemia, goal LDL below 130 Other and unspecified hyperlipidemia History of pulmonary embolism Personal history of pulmonary embolism Essential hypertension with goal blood pressure less than 140/90 Ascending aorta dilatation (HCC) Thoracic aortic ectasia documented in this encounter Care Teams Staging Technician Relationship Specialty Start Date End Date Louise Thornton MD [address] [place] [address] [place] [address] PCP - General Family Medicine 07/10/15 documented as of this encounter"
--- OUTSIDE RECORDS SUMMARY | 2023-09-16 22:42 | External Medical Summary ---
Author Name Unknown Address Unknown Organization K01:[facility] [place] [address] [place] [address] Laboratory Report Ordering Provider Test Date Status DEENA GAMEZ 05/03/2023 15:04:45 Final Warfarin Therapy
INR: 2 .0-3.0 conventional anticoagulation
INR: 2.5- 3.5 high intensity anticoagulation Observation Date Value Abnormality Reference (Units ) Status PT 05/03/2023 15:04:45 23.3 Above high normal 11 .6-15.2 (seconds) Final INR 05/03/2023 15:04:45 2.0 Above high normal 0. 8-1.2 Final Performing Location [facility] [place] [address] [place] [address]
--- OUTSIDE RECORDS SUMMARY | 2023-09-16 22:42 | External Medical Summary | Summary of Care ---
Author Name Unknown Organization [facility] Address [address] [facility] [place] [address] Phone [phone] Care Team Providers Care Maker Up Folding Name Role Phone Louise Thornton MD Primary Care Provide r Reason for Visit * Reason Comments EKG Encounter Details Date Type Department Care Team Description 05/03/2023 Nurse Only Cardiology [address] [place] [phone] [place], Nurse Cardiology [address] [place] [address] EKG Allergies Active Allergy Reactions Severity Noted Date [...] ons:Factor V Leiden mutation (HCC),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,correction current use of anticoagulant therapy take 1 [...] mRNA, LNP-s, No Pre serve, 2-Dose Series ([employer]) 06/30/2021,12/06/2020,11/15/2020 COVID-19, LNP-s, No Preserve , Tnai-sucrose, Ages 12+ (Pfizer) 03/09/2022 Covid-19, Mrna, Lnp-s, Pf, B ivalent, 30 Mcg, IM, 12 yrs and above ([employer]) 08/31/2022 Pneumococcal Conjugate Vacci ne, 20-valent ([id number]) 08/09/2022 Seasonal Influenza, Cell Cul ture, 18 [...] as of this encounter Procedure Notes * Javon Smith DO - 05/03/2023 3:29 PM EDTAssociated Order(s): EKG REASON FOR STUDY: KRISHNAN, pre cardiac cath CONCLUSIONS: Sinus rhythm with Premature atrial complexes Otherwise normal ECG When compared with ECG of 31-JAN-2023 08:58, No significant change was found Ventricular Rate: 67 Atrial Rate: 67 TX Interval: 178 QRS Duration: 96 QT/QTc: 426/450 ms P-R-T Seadrift: 70 : 73 : 55 degrees documented in this encounter Plan of Treatment Upcoming Encounters Date Type Specialty Care Team Description 05/20/2023 Hospital Encounter Cardiac Grid Maker Cee Ryan MD [address] [place] [address] 05/20/2023 Surgery Cardiac Grid Maker Cee Ryan MD [address] [place], [place] [phone] CORONARY ANGIOGRAPHY W/LEFT HEART CATH 05/20/[address] [facility] [address] [facility] [place] [id number] 06/03/2023 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ion Pharmacy [place], [address] [place] [address] 10/17/2023 Office Visit Rheumatology Jayson Villalobos MD [address] [place] [address] 11/14/2023 Office Visit Family Medicine Louise Thornton MD [address] [place] [address] [place] [address] Scheduled Procedures Name Priority Associated Diagnoses Date/Ti me CORONARY ANGIOGRAPHY W/LEFT HEART CATH Abnormal nuclear stress test 05/20/2023 10:00 AM EDT COLONOSCOPY FLEXIBLE PROXIMAL DIAGNOSTIC Recall History of colon polyps Health Maintenance Due Date Last Done Comments Depression Screening, Annual for Pts 12 and Over 03/15/2020 03/15/2019 Influenza Vaccine (FLU shot) (#1) 2023 07/02/2022, 08/12/2021, 06/24/2020, Additional history exists HbA1c 01/29/2024 01/28/2023, 060 02/2022, 03/25/2021, Additional history exists GFR 05/03/2024 [...] Not on filedocumented as of this encounter Procedures Procedure Name Priority Date/Time Associated Diagnosis Comments TX ECG ROUTINE ECG W/LEAST 12 LDS W/I&R Routine 05/03/2023 3:29 PM EDT KRISHNAN (dyspnea on exertion) Abnormal nuclear stress test documented in this encounter Results * EKG (05/03/2023 3:29 PM EDT) 05/03/2023 3:29 PM EDT Procedure Note Javon Smith, - 05/03/2023 3:29 PM EDT REASON FOR STUDY: KRISHNAN, pre cardiac cath CONCLUSIONS: Sinus rhythm with Premature atrial complexes Otherwise normal ECG When compared with ECG of 31-JAN-2023 08:58, No significant change was found Ventricular Rate: 67 Atrial Rate: 67 TX Interval: 178 QRS Duration: 96 QT/QTc: 426/450 ms P-R-T Seadrift: 70 : 73 : 55 degrees Javon Smith DO EKG [facility] documented in this encounter Visit Diagnoses Diagnosis Abnormal nuclear stress test- Primary Other nonspecific abnormal cardiovascular system function study KRISHNAN (dyspnea on exertion) Other dyspnea and respiratory abnormality Abnormal nuclear stress test Other nonspecific abnormal cardiovascular system function study documented in this encounter Care Teams Maker Up Folding Relationship Specialty Start Date End Date Louise Thornton MD [address] [place] [address] [place] [address] PCP - General Family Medicine 07/10/15 documented as of this encounter
--- OUTSIDE RECORDS SUMMARY | 2023-09-16 22:42 | External Medical Summary ---
Author Name Unknown Address Unknown Organization : Laboratory Report Ordering Provider Test Date Status SUMA STEPHENS 05/03/2023 15:52:33 Final Therapeutic ranges for non-o perative patients:
Prophylaxsis/treatment of DVT: (Range:2.0-3.0)
Treatment of pulmonary embolism:(Range:2.0-3.0)
Prevention of systemic embolism from:
-tissue heart valves
-acute myocardial infarction
-valvular heart disease
-atrial fibrillation
(Range: 2.0-3.0)
Mechanical prosthetic valves: (Range: 2.5-3.5) Observation Date Value Abnormality Reference (Units ) Status INR in Capillary blood by Coagulation assay 05/03/2023 15:52:33 2.3 (INR) Final Performing Location
--- OUTSIDE RECORDS SUMMARY | 2023-09-16 22:42 | External Medical Summary | Summary of Care ---
Author Name Unknown Organization [facility] Address [address] [facility] [place] [address] Phone [phone] Care Team Providers Care Drying Room Attendant Name Role Phone Louise Thornton MD Primary Care Provide r Reason for Visit * Reason Onset Date Comments Medication Refill 04/06/2023 Encounter Details Date Type Department Care Team Description 04/06/2023 Refill Rheumatology [address] [place] [address] Jayson Mathews [facility] [facility] [address] Allergies Active Allergy Reactions Severity Noted Date Comments Sulfa Antibiotics 01/05/2001 rash documented as of this encounter (statuses as of 04/11/2023) Medications Medication Sig Dispensed Refills Start Date End Date Status Ammonium Lactate 12 % External Cream 0 1 Active hydroCHLOROthiazid e 12.5 MG Oral Capsule (Hydrodiuril) TAKE ONE CAPSULE BY MOUTH EVERY DAY 90 Capsule 2 2 Active Atorvastatin Calcium 10 MG Oral Tablet [...] V Leiden mutation (HCC),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,terminal gauger current use of anticoagulant therapy take 1 [...] and tuesday. 6 Tablet 5 3 Active predniSONE 5 MG Oral Tablet (Deltasone) take 1/2 tablet daily on tuesday, tuesday and tuesday. 18 Tablet 4 3 04/06/20 23 Discontinu ed(Refill) documented as of this encounter (statuses as of 04/11/2023) Active Problems Problem Noted Date Ascending aorta [...] as of this encounter (statuses as of 04/11/2023) Resolved Problems Problem Noted Date Resolved Date [...] as of this encounter (statuses as of 04/11/2023) Immunizations Name Administration Dates Next Due COVID-19 mRNA, LNP-s, No Pre serve, 2-Dose Series ([employer]) 06/30/2021,12/06/2020,11/15/2020 COVID-19, LNP-s, No Preserve , Tani-sucrose, Ages 12+ (Pfizer) 03/09/2022 Covid-19, Mrna, Lnp-s, Pf, B ivalent, 30 Mcg, IM, 12 yrs and above ([employer]) 08/31/2022 Pneumococcal Conjugate Vacci ne, 20-valent ([id number]) 08/09/2022 Seasonal Influenza, Jeferson vázquez, 18 Yrs & Older 08/09/2013 Seasonal Influenza, [...] encounter Miscellaneous Notes * Telephone Encounter - Brenden Toscano RPh - 04/11/2023 11:44 AM EDTSigned Prescriptions: Disp Refills predniSONE 5 MG Oral Tablet (Deltasone) 6 Tabl*5 Sig: take 1/2 tablet daily on tuesday, tuesday and tuesday.Authorizing Provider: JAYSON MATHEWS User: BRENDEN TOSCANO * Telephone Encounter - Brenden Toscano RPh - 04/11/2023 11:40 AM EDT Rheumatology: Refill Request(s) Per review of the refill parameters, Medication was refilled Brenden Toscano RPh [facility] Clinical Pharmacist Rheumatology Department 04/11/2023,11:40 AM * Telephone Encounter - Mookie Yeung LPN - 04/06/2023 9:09 AM EDTPending Prescriptions: Disp Refills predniSONE 5 MG Oral Tablet (Deltasone) 18 Tab*4 Sig: take 1/2 tablet daily on tuesday, tuesday and tuesday. documented in this encounter Plan of Treatment Upcoming Encounters Date Type Specialty Care Team Description 05/05/2023 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ion Pharmacy [address] [place] [address] 10/17/2023 Office Visit Rheumatology Jayson Mathews MD [address] [place] [address], [place] [address] 11/14/2023 Office Visit Family Medicine Louise Thornton MD [address] [place] [address] [place] [address] Scheduled Procedures Name Priority Associated Diagnoses Date/Ti [...] filedocumented as of this encounter Care Teams Drying Room Attendant Relationship Specialty Start Date End Date Louise Thornton MD [address] [place] [address] [place] [address] PCP - General Family Medicine 07/10/15 documented as of this encounter
--- OUTSIDE RECORDS SUMMARY | 2023-09-16 22:42 | External Medical Summary | Summary of Care ---
Author Name Unknown Organization [facility] Address [address] [facility] [place] [address] Phone [phone] Care Team Providers Care Upper Trimmer Name Role Phone Louise Thornton MD Primary Care Provide r Reason for Visit * Reason Onset Date Comments Returning Call 05/09/2023 Encounter Details Date Type Department Care Team Description 05/09/2023 Telephone Pharmacy Call Center [address] [facility] [place] [address] [place] [address] Returning Call Allergies Active Allergy Reactions Severity [...] mRNA, LNP-s, No Pre serve, 2-Dose Series ([employer]) 06/30/2021,12/06/2020,11/15/2020 COVID-19, LNP-s, No Preserve , Tani-sucrose, Ages 12+ ([employer]) 03/09/2022 Covid-19, Mrna, Lnp-s, Pf, B ivalent, 30 Mcg, IM, 12 yrs and above (Pfizer) 08/31/2022 Pneumococcal Conjugate Vacci ne, 20-valent ([id number]) 08/09/2022 Seasonal Influenza, Cell Cul kathie, 18 Yrs & Older 08/09/2013 Seasonal Influenza, [...] Encounter - Eneida Navarro RPh - 05/09/2023 4:50 PM EDT Patient Phone [...] additional questions or concerns. Eneida Navarro RPh, PharmD Clinical Pharmacist - Pairing Machine Operator Medication Therapy Disease Management Clinic 05/09/2023, 4:56 PM [phone] [facility] Heal. Teach. Discover. Serve. 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ion Clinic Lovenox [...] regular dose of Coumadin: 7.5 mg every Tue, Tue; 5 mg all other days Next INR Appointment: * Telephone Encounter - JUANITA Sheriff - 05/09/2023 2:57 PM EDT Caller's name: Peter Preferred call back number(OFFICE NUMBER FOR ): [phone] Reason for call: Patient letting Eneida know his procedure cardio heart catheter is for 05/[address] Day. Thank you, Goldie Royal Security Assurance Specialist Centralized Clinical Pharmacy Services 05/09/2023,2:57 PM documented in this encounter Plan of Treatment Upcoming Encounters Date Type Specialty Care Team Description 05/20/2023 Hospital Encounter Cardiac Double Needle Operator Cee Ryan MD [address] [place] [address] 05/20/2023 Surgery Cardiac Double Needle Operator Cee Ryan MD [address] [place] [address] CORONARY ANGIOGRAPHY W/LEFT HEART CATH 05/20/2023 Office Visit Cardiology [place], Cardiac Recovery Guillermo [address], [place] [phone] 06/03/2023 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ion Pharmacy [place], [address] [place] [phone] 10/17/2023 Office Visit Rheumatology Jayson Villalobos MD [address] [place] [address] [place] [address] 11/14/2023 Office Visit Family Medicine Louise Thornton MD [address] [place] [address] [place] [address] Scheduled Procedures Name Priority Associated Diagnoses Date/Ti me CORONARY ANGIOGRAPHY W/LEFT HEART CATH Abnormal nuclear stress test 05/20/2023 10:00 AM EDT COLONOSCOPY FLEXIBLE PROXIMAL DIAGNOSTIC Recall History of colon polyps Health Maintenance Due Date Last Done Comments Depression Screening, Annual for Pts 12 and Over 03/15/2020 03/15/2019 Influenza Vaccine (FLU shot) (#1) 2023 07/02/2022, 08/12/2021, 06/24/2020, Additional history exists HbA1c 01/29/2024 01/28/2023, 02/2022, 03/25/2021, Additional history exists GFR 05/03/2024 05/03/2023, 01/2023, 03/01/2022, Additional history exists Albumin/Creatinine Ratio [...] study documented in this encounter Care Teams Upper Trimmer Relationship Specialty Start Date End Date Louise Thornton MD [address] [place] [address] [place] [address] PCP - General Family Medicine 07/10/15 documented as of this encounter
--- OUTSIDE RECORDS SUMMARY | 2023-09-16 22:42 | External Medical Summary | Summary of Care ---
Author Name Unknown Organization [facility] Address [address] [facility] [place] [address] Phone [phone] Care Team Providers Care Oncology Consultant Name Role Phone Louise Thornton MD Primary Care Provide r Reason for Visit * Reason Comments Dosage Adjustment Via Phone (anticoag Cl inic) Procedure Encounter Details Date Type Department Care Team Description 05/04/2023 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ion Pharmacy, [address] [place] [address] [place] [address] Factor V Leiden mutation ([facility])* Allergies Active Allergy Reactions Severity Noted Date Comments Sulfa Antibiotics 01/05/2001 rash documented as of this encounter (statuses as of 05/04/2023) Medications Medication Sig Dispensed Refills Start Date [...] ons:Factor V Leiden mutation (HCC),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,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 take [...] as of this encounter (statuses as of 05/04/2023) Active Problems Problem Noted Date Ascending aorta [...] as of this encounter (statuses as of 05/04/2023) Resolved Problems Problem Noted Date Resolved Date [...] as of this encounter (statuses as of 05/04/2023) Immunizations Name Administration Dates Next Due COVID-19 mRNA, LNP-s, No Pre serve, 2-Dose Series ([employer]) 06/30/2021,12/06/2020,11/15/2020 COVID-19, LNP-s, No Preserve , Tani-sucrose, Ages 12+ (Pfizer) 03/09/2022 Covid-19, Mrna, Lnp-s, Pf, B ivalent, 30 Mcg, IM, 12 yrs and above ([employer]) 08/31/2022 Pneumococcal Conjugate Vacci ne, 20-valent ([id number]) 08/09/2022 Seasonal Influenza, Cell Cul kathie, 18 [...] Progress Notes * Eneida Navarro, [facility] - 05/04/2023 8:24 AM EDT Per Cardio TE on 04/20, "Pt is on chronic coumadin due to his diagnosis of pulmonary embolism and factor V Leiden mutation with his initial DVT having been diagnosed in his 20's. He is scheduled for cardiac catheterization at [facility] on 05/[address] Aranda. After review of case with Dr Aranda, it is recommenced that pt hold coumadin for 5 day prior to the procedure. Please send this encounter to the anticoagulation clinic pool to help arrange Lovenox bridge." See letters section for specific lovenox bridge instructions. Actual Body Weight 139.5kg [place] Body Weight 81kg Adjusted Body Weight 104kg Labs Drawn on 05/03/23 Serum creatinine: 1 mg/dL 05/03/23 1504 Estimated creatinine clearance: 110.3 mL/min Hemoglobin Results: Lab Results Component Value Date/Time HGB - [facility] 13.9 (L) 05/03/2023 03:04 PM [facility]GB - [facility] 13.0 (L) 03/01/2022 10:10 AM [facility]GB - [facility] 13.0 (L) 03/25/2021 08:51 AM [facility] 12.9 (L) 10/07/2020 02:43 PM [facility] 12.8 (L) 10/07/2020 02:42 PM [facility]GB - [facility] 12.2 (L) 03/20/2020 04:08 PM Platelets: Lab Results Component Value Date/Time PLATELET AUTO - [facility] 177 05/03/2023 03:04 PM PLATELET AUTO - [facility] 176 03/01/2022 10:10 AM PLATELET AUTO - [facility] 162 03/25/2021 08:51 AM PLATELET AUTO - [facility] 156 12/01/2020 08:53 AM PLATELET AUTO - [facility] 164 10/07/2020 02:43 PM PLATELET AUTO - [facility] 161 10/07/2020 02:42 PM PLATELET AUTO - [facility] 280 03/20/2020 04:08 PM Updated labs appropriate. Will plan to proceed with Lovenox bridge at this time. Rx sent to pharmacy. Lovenox Dose: 140mg BID Eneida Navarro RPh, PharmD Clinical Pharmacist - Form Builder Helper Medication Therapy Disease Management Clinic 05/04/2023, 8:25 AM [phone] documented in this encounter Plan of Treatment Upcoming Encounters Date Type Specialty Care Team Description 05/09/2023 Hospital Encounter Cardiac Can Marker Kendell Aranda, DO [address] [place] [address] 05/09/2023 Surgery Cardiac Can Marker Kendell Aranda, DO [address] [place] [facility] [place] [place] [address] CORONARY ANGIOGRAPHY W/LEFT HEART CATH 05/09/2023 Office Visit Cardiology [place], Cardiac [facility] Guillermo [address] [place] [address] 05/23/2023 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ion Pharmacy [address] [place] [address] 10/17/2023 Office Visit Rheumatology Jayson Villalobos MD [address] [facility] [place] [address] 11/14/2023 Office Visit Family Medicine Louise Thornton MD [address] [place] [address] [place] [address] Scheduled Procedures Name Priority Associated Diagnoses Date/Ti [...] study documented in this encounter Care Teams Oncology Consultant Relationship Specialty Start Date End Date Louise Thornton MD [address] [place] [address] [place] [address] PCP - General Family Medicine 07/10/15 documented as of this encounter
--- OUTSIDE RECORDS SUMMARY | 2023-09-16 22:42 | External Medical Summary | Summary of Care ---
Author Name Unknown Organization [facility] Address [address] [facility] [place] [address] Phone [phone] Care Team Providers Care Video Library Assistant Name Role Phone Louise Thornton MD Primary Care Provide r Reason for Visit * Reason Comments Dosage Adjustment In Person (Anticoag Cl inic) Encounter Details Date Type Department Care Team Description 03/24/2023 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ion Pharmacy, [address] [place] [address] [place] [address] Factor V Leiden mutation (HCC)*; 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ion management encounter; [facility] current use of anticoagulant therapy Allergies Active Allergy Reactions Severity Noted Date Comments Sulfa Antibiotics 01/05/2001 rash documented as of this encounter (statuses as of 03/24/2023) Medications Medication Sig Dispensed Refills Start Date [...] TWICE DAILY 180 Tablet 3 03/23/2023 Active documented as of this encounter (statuses as of 03/24/2023) Active Problems Problem Noted Date Dyslipidemia, goal LDL below 130 022 Seasonal [...] as of this encounter (statuses as of 03/24/2023) Resolved Problems Problem Noted Date Resolved Date [...] as of this encounter (statuses as of 03/24/2023) Immunizations Name Administration Dates Next Due COVID-19 mRNA, LNP-s, No Pre serve, 2-Dose Series ([employer]) 06/30/2021,12/06/2020,11/15/2020 COVID-19, LNP-s, No Preserve , Tani-sucrose, Ages 12+ (Pfizer) 03/09/2022 Covid-19, Mrna, Lnp-s, Pf, B ivalent, 30 Mcg, IM, 12 yrs and above ([employer]) 08/31/2022 Pneumococcal Conjugate Vacci ne, 20-valent ([id number]) 08/09/2022 Seasonal Influenza, Cell Cul ture, 18 [...] Progress Notes * Eneida Navarro RPh - 03/24/2023 9:50 AM EDT Medication Therapy Disease Management - 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ion Patient: Peter Caruso : 1960 Current Warfarin Dose As of 03/24/2023 Warfarin maintenance plan: 7.5 mg (5 mg x 1.5) every Mon, Fri; 5 mg (5 mg x 1) all other days Patient-Reported Symptoms: Patient Findings Negatives: Signs/symptoms of thrombosis, Signs/symptoms of bleeding, Change in health, Change in alcohol use, Change in activity, Upcoming invasive procedure, Missed doses, Extra doses, Change in medications, Change in diet/appetite, Bruising INR Result As of 03/24/2023 INR goal: 2.0-3.0 INR used for dosin.7 (03/24/2023) Warfarin Plan As of 03/24/2023 Full warfarin instructions: 7.5 mg every Mon, Fri; 5 mg all other days No change documented: Eneida Navarro RPh Next INR check: 05/05/2023 Additional Dosing Information: Repeat PT/INR in 6 week(s) Weekly dose: not changed Eneida Navarro RPh Clinical Pharmacist 03/24/2023, 9:50 AM documented in this encounter Plan of Treatment Upcoming Encounters Date Type Specialty Care Team Description 04/04/2023 Office Visit Cardiology Bonnie Akins PA-C [address] [place] [address] 04/06/2023 Imaging Radiology , Excess Time Radiology [address] [place] [address] 05/05/2023 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ion Pharmacy [address] [place] [address] 10/17/2023 Office Visit Rheumatology Jayson Villalobos MD [address] [place] [address] [place] [address] 11/14/2023 Office Visit Family Medicine Louise Thornton MD [address] [place] [address] [place] [address] Scheduled Procedures Name Priority Associated Diagnoses Date/Ti me COLONOSCOPY FLEXIBLE PROXIMAL DIAGNOSTIC Recall History of colon polyps Health Maintenance Due Date Last Done Comments Depression Screening, Annual for Pts 12 and Over 03/15/2020 03/15/2019 GFR 01/29/2024 01/28/2023, 02/2022, 03/25/2021, Additional history exists HbA1c 01/29/2024 01/28/2023, 060 02/2022, 03/25/2021, Additional history exists Albumin/Creatinine Ratio 03/01/2025 03/01/2022, 02/24 COLONOSCOPY-EVERY 5 YRS AGES 18-100 06/23/2027 06/23/2022, 06/23/2022, 09/24/2016, Additional history exists Lipid Panel 01/29/2028 01/28/2023, 0 02/2022, 03/25/2021, Additional history exists DTaP,Tdap,and Td Vaccines (3 - Td or Tdap) 09/17/2029 09/17/2019, 05/06/2009, 04/11/1995 Zoster Vaccines Completed 12/22/2020, 10/07/2020 Influenza Vaccine (FLU shot) Completed 03/2022, 08/12/2021, 06/24/2020, Additional history exists Pneumococcal Vaccine: Pediatrics (0 to 5 Years) [...] Comments INR FINGERSTICK, POINT OF CARE STAT 03/24/2023 9:58 AM EDT Factor V Leiden mutation (HCC) 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ion management encounter [facility] current use of anticoagulant therapy documented in this encounter Results * INR FINGERSTICK, POINT OF CARE (03/24/2023 9:58 AM EDT) Fingerstick INR 2.7 INR 9:59 AM EDT [facility] Blood 03/24/2023 9:58 AM EDT 03/24/2023 9:59 AM EDT [facility] LABORATORY [place] 55-00 - 03/24/2023 9:59 AM EDT Therapeutic ranges for non-operative patients: Prophylaxsis/treatment of DVT: (Range:2.0-3.0) Treatment of pulmonary embolism:(Range:2.0-3.0) Prevention of systemic embolism from: -tissue heart valves -acute myocardial infarction -valvular heart disease -atrial fibrillation (Range: 2.0-3.0) Mechanical prosthetic valves: (Range: 2.5-3.5) Eneida Navarro [facility] LAB POINT OF CARE TEST DOCKED DEVICE UNSOLICITED RESULTS LABORATORY [place] 55-[address] [place] [address] [place] [address] documented in this encounter Visit Diagnoses Diagnosis Factor V Leiden mutation (HCC)- Primary Primary hypercoagulable state 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ion management encounter 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
--- OUTSIDE RECORDS SUMMARY | 2023-09-16 22:42 | External Medical Summary | Summary of Care ---
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 Procedure will be rescheduled. Instructed to finish Lovenox bridge as patient has been holding x5 days. Instructed to contact clinic as soon as procedure date is rescheduled. Reviewed that again warfarinwill need to be held x5 days prior to that time. Patient expressed understanding. Will plan to keep [facility] updated. Eneida Navarro RPh, PharmD Clinical Pharmacist - Middle School Principal Medication Therapy Disease Management Clinic 05/09/2023, 12:56 PM [phone] * Telephone Encounter - JUANITA Lozoya - 05/09/2023 12:41 PM EDT Caller's name: Peter Preferred call back number(OFFICE NUMBER FOR ): [phone] Reason for call: Questions about Coumadin/ Lovenox dosing: Pt procedure today was cancelled, no newdate but possibly on 05/17, requesting to speak to [facility] for what to do with his lovenox. Thank you, Guillermo S[place] Sql Ssrs Ssis Developer [facility] 05/09/2023,12:41 PM documented in this encounter Plan of Treatment Upcoming Encounters Date Type Specialty Care Team Description 05/23/2023 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ion Pharmacy [address] [place] [address] 10/17/2023 Office Visit Rheumatology Jayson Vlilalobos MD [facility] [place] [address] 11/14/2023 Office Visit Family Medicine Louise Thornton MD [address] [place] [address] [place] [address] Scheduled Procedures Name Priority Associated Diagnoses Date/Ti [...] state documented in this encounter Care Teams Hot Mill Supervisor Relationship Specialty Start Date End Date Louise Thornton MD [address] [place] [address] [place] [address] PCP - General Family Medicine 07/10/15 documented as of this encounter
--- OUTSIDE RECORDS SUMMARY | 2023-09-16 22:42 | External Medical Summary | Summary of Care ---
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 Allergies Active [...] V Leiden mutation (HCC),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,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 take [...] mRNA, LNP-s, No Pre serve, 2-Dose Series ([employer]) 06/30/2021,12/06/2020,11/15/2020 COVID-19, LNP-s, No Preserve , Tani-sucrose, Ages 12+ (Pfizer) 03/09/2022 Covid-19, Mrna, Lnp-s, Pf, B ivalent, 30 Mcg, IM, 12 yrs and above (Pfizer) 08/31/2022 Pneumococcal Conjugate Vacci ne, 20-valent ([id number]) 08/09/2022 Seasonal Influenza, Cell Cul ture, 18 [...] encounter Progress Notes * Eneida Navarro, [facility] - 05/03/2023 3:41 PM EDT Medication Therapy Disease Management - 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ion Patient: Peter Kari Caruso | : 1960 Subjective Patient-Reported Symptoms: [...] documented: Eneida Navarro RPh Next INR check: 05/23/2023 Repeat PT/INR in 3 week(s) (2 weeks post proc) Weekly dose: not changed Additional Dosing Information: Patient is scheduled for cardiac catheterization at [facility] on 05/[address] Aranda[address] Dr Smith, would like to proceed with Lovenox bridge with 5-day hold. Last warfarin dose is today. Lovenox Dose: 140mg BID (patient feels comfortable wasting 10mg) Call placed to f/u on lab results tomorrow then will send in Lovenox syringes to pharmacy. Eneida Navarro RPh Clinical Pharmacist 05/03/2023, 3:41 PM documented in this encounter Plan of Treatment Upcoming Encounters Date Type Specialty Care Team Description 05/04/2023 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ion Pharmacy [address] [place] [address] 05/09/2023 Hospital Encounter Cardiac Softball Winder Kendell Aranda, DO [address] [place] [address] 05/09/2023 Surgery Cardiac Softball Winder Kendell Aranda, DO [address] [place] [address] CORONARY ANGIOGRAPHY W/LEFT HEART CATH 05/09/2023 Office Visit Cardiology [place], Cardiac Recovery Guillermo [address] [place] [address] 05/23/2023 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ion Pharmacy [address] [place] [address] 10/17/2023 Office Visit Rheumatology Jayson Villalobos MD [address] [facility] [place] [address] 11/14/2023 [facility] [address] [place] [address] [place] [address] Scheduled Procedures Name Priority Associated Diagnoses Date/Ti [...] V Leiden mutation (HCC) 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ion management encounter residential current use of anticoagulant therapy documented in this encounter Results * INR FINGERSTICK, POINT OF CARE (05/03/2023 3:52 PM EDT) Fingerstick INR 2.3 INR 3:53 PM EDT [facility] Blood 05/03/2023 3:52 PM EDT 05/03/2023 3:53 PM EDT Narrative [facility] - 05/03/2023 3:53 PM EDT Therapeutic ranges for non-operative patients: Prophylaxsis/treatment of DVT: (Range:2.0-3.0) Treatment of pulmonary embolism:(Range:2.0-3.0) Prevention of systemic embolism from: -tissue heart valves -acute myocardial infarction -valvular heart disease -atrial fibrillation (Range: 2.0-3.0) Mechanical prosthetic valves: (Range: 2.5-3.5) Eneida Navarro [facility] POINT OF CARE TEST DOCKED DEVICE UNSOLICITED RESULTS [facility] [place] [address] [place] [address] documented in this encounter Visit Diagnoses Diagnosis Factor V Leiden mutation (HCC)- Primary Primary hypercoagulable state 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ion management encounter Encounter for therapeutic drug monitoring residential current use of anticoagulant therapy Abnormal nuclear stress test Other nonspecific abnormal cardiovascular system function study documented in this encounter Care Teams Occup Therapist Relationship Specialty Start Date End Date Louise Thornton MD [address] [place] [address] [place] [phone] PCP - General Family Medicine 07/10/15 documented as of this encounter"
--- OUTSIDE RECORDS SUMMARY | 2023-09-16 22:43 | External Medical Summary ---
Author Name Unknown Address Unknown Organization : Laboratory Report Ordering Provider Test Date Status SUMA STEPHENS 03/24/2023 09:58:18 Final Therapeutic ranges for non-o perative patients:
Prophylaxsis/treatment of DVT: (Range:2.0-3.0)
Treatment of pulmonary embolism:(Range:2.0-3.0)
Prevention of systemic embolism from:
-tissue heart valves
-acute myocardial infarction
-valvular heart disease
-atrial fibrillation
(Range: 2.0-3.0)
Mechanical prosthetic valves: (Range: 2.5-3.5) Observation Date Value Abnormality Reference (Units ) Status INR in Capillary blood by Coagulation assay 03/24/2023 09:58:18 2.7 (INR) Final Performing Location
--- OUTSIDE RECORDS SUMMARY | 2023-09-16 22:43 | External Medical Summary | Summary of Care ---
Author Name Unknown Organization [facility] Address [address] [facility] [place] [address] Phone [phone] Care Team Providers Care Fur Buyer Name Role Phone Anne Thornton MD Primary Care Provide r Reason for Visit * Reason Comments eRx-Medication Refill Encounter Details Date Type Department Care Team Description 03/22/2023 Refill Family Medicine [address] [phone] Anne Thornton MD [address] [place] [address] [place] [address] Essential hypertension with goal blood pressure less than 140/90 Allergies Active Allergy Reactions Severity Noted Date Comments Sulfa Antibiotics 01/05/2001 rash documented as of this encounter (statuses as of 03/23/2023) Medications Medication Sig Dispensed Refills Start Date End Date Status Ammonium Lactate 12 % External Cream 0 01/07/20 21 Active hydroCHLOROthiazi de 12.5 MG Oral Capsule (Hydrodiuril) TAKE ONE CAPSULE BY MOUTH EVERY DAY 90 Capsule 2 06/02/20 22 Active Atorvastatin Calcium 10 MG Oral Tablet (Lipitor)Indicati ons:Elevated liver enzymes TAKE ONE TABLET BY MOUTH EVERY DAY 90 Tablet 3 06/10/20 22 Active Multivitamin Men 50+ Oral Tablet Take by mouth as needed . 0 Active predniSONE 5 MG Oral Tablet (Deltasone) take 1/2 tablet daily on tuesday, tuesday and tuesday. 18 Tablet 4 12/21/19 23 Active Terazosin HCl 10 MG Oral CapsuleIndication s:BPH with obstruction/lower urinary tract symptoms Take 1 Capsule by mouth at bedtime. 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 [...] DAILY 180 Tablet 3 03/23/20 23 Active Metoprolol Tartrate 25 MG Oral Tablet (Lopressor)Indica tions:Essential hypertension with goal blood pressure less than 140/90 TAKE ONE TABLET BY MOUTH TWICE DAILY 180 Tablet 1 08/02/20 22 023 Discontinued documented as of this encounter (statuses as of 03/23/2023) Active Problems Problem Noted Date Dyslipidemia, goal [...] as of this encounter (statuses as of 03/23/2023) Resolved Problems Problem Noted Date Resolved Date [...] as of this encounter (statuses as of 03/23/2023) Immunizations Name Administration Dates Next Due COVID-19 mRNA, LNP-s, No Pre serve, 2-Dose Series (Proenza Schouer) 06/30/2021,12/06/2020,11/15/2020 COVID-19, LNP-s, No Preserve , Tani-sucrose, Ages 12+ (Pfizer) 03/09/2022 Covid-19, Mrna, Lnp-s, Pf, B ivalent, 30 Mcg, IM, 12 yrs and above (Proenza Schouer) 08/31/2022 Pneumococcal Conjugate Vacci ne, 20-valent ([id number]) 08/09/2022 Seasonal Influenza, Cell Cul ture, 18 [...] encounter Miscellaneous Notes * Telephone Encounter - Carlos Leone RPh - 03/23/2023 1:55 PM EDTSigned Prescriptions: Disp Refills Metoprolol Tartrate 25 MG Oral Tablet (Lop*180 Ta*3 Sig: TAKE ONE TABLET BY MOUTH TWICE DAILYAuthorizing Provider: ANNE THORNTON User: CARLOS LEONE documented in this encounter Plan of Treatment Upcoming Encounters Date Type Specialty Care Team Description 03/24/2023 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ion Pharmacy [address] [place] [phone] 04/04/2023 Office Visit Cardiology Bonnie Akins PA-C [address] [place] [address] 04/06/2023 Imaging Radiology Gw, Excess Time Radiology [address] [place] [address] 10/17/2023 Office Visit Rheumatology Jayson Villalobos MD [facility], [place] [address] 11/14/2023 Office Visit Family Medicine Anne Thornton MD [address] [place] [address] [place] [phone] Scheduled Procedures Name Priority Associated Diagnoses Date/Ti me COLONOSCOPY FLEXIBLE PROXIMAL DIAGNOSTIC Recall History of colon polyps Health Maintenance Due Date Last Done Comments Depression Screening, Annual for Pts 12 and Over 03/15/2020 03/15/2019 GFR 01/29/2024 01/28/2023, 0 02/2022, 03/25/2021, Additional [...] as of this encounter Visit Diagnoses Diagnosis Essential hypertension with goal blood pressure less than 140/90 documented in this encounter Care Teams Fur Buyer Relationship Specialty Start Date End Date Anne Thornton MD [address] [place] [address] [place] [address] PCP - General Family Medicine 07/10/15 documented as of this encounter
--- OUTSIDE RECORDS SUMMARY | 2023-09-16 22:43 | External Medical Summary | Summary of Care ---
Author Name Unknown Organization [facility] Address [address] [address] Phone [phone] Care Team Providers Care Hinging Machine Operator Name Role Phone Louise Thornton MD Primary Care Provide r Reason for Visit * Reason Comments Re-Check Encounter Details Date Type Department Care Team Description 03/22/2023 Office Visit Family Medicine [address] [id number] Louise Thornton MD [address] [place] [address] [place] [address] Essential hypertension with goal blood pressure less than 140/90*; Factor V Leiden mutation ([facility]); Sjogren's syndrome with keratoconjunctivitis sicca ([facility]); MCTD (mixed connective tissue disease) ([facility]); Prediabetes; Dyslipidemia, goal LDL below 130; Venous insufficiency; Primary osteoarthritis of both knees; Seasonal allergic rhinitis due to pollen; Tinnitus of left ear Allergies Active Allergy Reactions Severity Noted Date Comments Sulfa Antibiotics 01/05/2001 rash documented as of this encounter (statuses as of 03/22/2023) Medications Medication Sig Dispensed Refills Start Date [...] by mouth as needed . 0 Active Metoprolol Tartrate 25 MG Oral Tablet (Lopressor)Indicat ions:Essential hypertension with goal blood pressure less than 140/90 TAKE ONE TABLET BY MOUTH TWICE DAILY 180 Tablet 1 08/02/2022 Active predniSONE 5 MG Oral Tablet (Deltasone) take 1/2 tablet daily on tuesday, tuesday and tuesday. 18 Tablet 4 12/20/2022 Active Terazosin HCl 10 MG Oral CapsuleIndications :BPH with obstruction/lower urinary tract symptoms Take 1 Capsule by mouth at bedtime. 90 Capsule 1 01/03/2023 Active Warfarin Sodium 5 MG Oral Tablet (Jantoven)Indicati ons:Factor V Leiden mutation (HCC),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,residential current use of anticoagulant therapy take 1 & 1/2 tablets on mondays and fridays. take 1 tablet all other days or as directed by anticoagulation clinic 110 Tablet 3 01/10/2023 Active Hydroxychloroquine Sulfate 200 MG Oral Tablet (Plaquenil) Take 2 Tablets by mouth at bedtime. 180 Tablet 3 01/28/2023 Active documented as of this encounter (statuses as of 03/22/2023) Active Problems Problem Noted Date Dyslipidemia, goal [...] as of this encounter (statuses as of 03/22/2023) Resolved Problems Problem Noted Date Resolved Date [...] as of this encounter (statuses as of 03/22/2023) Immunizations Name Administration Dates Next Due COVID-19 mRNA, LNP-s, No Pre serve, 2-Dose Series ([employer]) 06/30/2021,12/06/2020,11/15/2020 COVID-19, LNP-s, No Preserve , Tani-sucrose, Ages 12+ (Pfizer) 03/09/2022 Covid-19, Mrna, Lnp-s, Pf, B ivalent, 30 Mcg, IM, 12 yrs and above (Pfizer) 08/31/2022 Pneumococcal Conjugate Vacci ne, 20-valent ([id number]) 08/09/2022 Seasonal Influenza, Cell Cul kathie, 18 [...] Sign Reading Time Taken Comments Blood Pressure 110/72 03/22/2023 8:39 AM EDT Pulse 76 03/22/2023 8:39 AM EDT Temperature 36.4 C (97.6 F) 03/22/2023 8:39 AM ED T Respiratory Rate 16 03/22/2023 8:39 AM EDT Oxygen Saturation 97% 03/22/2023 8:39 AM EDT Inhaled Oxygen Concentration - - Weight 138.8 kg (306 lb) 03/22/2023 8:39 AM EDT Height 186.7 cm (6' 1.5") 03/22/2023 8:39 AM EDT Body Mass Index 39.82 03/22/2023 8:39 AM EDT documented in this encounter Progress Notes * Louise Thornton MD - 03/22/2023 8:47 AM EDT Subjective: Peter Caruso is a 62 year old male. Chief Complaint Patient presents with Re-Check HPI: Brief Clinical History Mr. Caruos is a 62 year old man last seen in Family Medicine 7 months ago (08-09-22). He has h/o connective tissue disease, MCTD (mixed connective tissue disease) ([facility]), RA or inflammatory connective tissue disease, and Sjogren's syndrome with keratoconjunctivitis sicca ([facility]), due for eval of FactorV Leiden mutation ([facility]). Had ringing in the left ear continuously for months. Was like crickets chirping. It stopped 2 weeksago. Does have known hearing loss and has been told he could have hearing aids. No ear pain or dizziness. Has not been checking blood pressure at home. Does follow with cardiology. His Plaquenil was reduced in the past as he was concerned about side effects but then he was getting more tired, taking naps, and having HAMPTON. That dose was increased back up to the full dose and is feeling better now. Is scheduled for stress test 04/06/23. Right knee got sore a couple weeks ago and his calf swelled. He took a few days off of his feet butthen it went away. Has been doing good with the Coumadin. Had been working in the garden and doing yardwork when it happened. Has been eating less and eating more fruits and vegetables. Has lost some weight. Cut out soda and sugars. Has severe arthritis of his knees. Has thought about having them replaced but is not quite ready topursue that yet. Has had some nasal congestion at night. Worse at night. Has been using saline nasal spray, Coricidin, and now Claritin. Started when the pollen came out on the trees this year. Takes Sudafed in the morning, which works the best. CBC Results: Results for orders placed or performed in visit on 03/01/22 CBC Result Value Ref Range WBC 3.76 (L) 4.00 - 10.80 K/uL RBC 4.40 (L) 4.50 - 5.25 M/uL HGB 13.0 (L) 14.0 - 16.8 g/dL HCT 39.7 (L) 40.0 - 48.4 % MCV 90.2 82.0 - 99.5 fL MCH 29.5 27.0 - 34.0 pg MCHC 32.7 32.0 - 36.0 g/dL RDW 13.7 11.5 - 15.5 % MPV 10.1 6.6 - 11.1 fL nRBCs 0 <=0 /100 WBCs PLT 176 140 - 400 K/uL Basic Panel Results: Results for orders placed or performed in visit on 10/07/20 BASIC METAB PANEL, BMP Result Value Ref Range BUN 14 6 - 20 mg/dL Creatinine 1.0 0.6 - 1.2 mg/dL Estimated Glomerular Filtration Rate >60.0 >60 Sodium 139 135 - 146 mmol/L Potassium 4.4 3.5 - 5.1 mmol/L Chloride 104 98 - 107 mmol/L CO2 25 22 - 32 mmol/L Anion Gap 10 7 - 15 mmol/L Glucose 101 70 - 120 mg/dL Calcium 9.2 8.4 - 10.2 mg/dL Lipid Panel Results: Results for orders placed or performed in visit on 01/28/23 LIPID PANEL WITH DIRECT LDL IF TG IS HIGH Result Value Ref Range Triglycerides 74 <=174 mg/dL Cholesterol 135 <200 mg/dL HDL Cholesterol 44 >39 mg/dL Non-HDL Cholesterol 91 <=159 mg/dL LDL Cholesterol 76 <=129 mg/dL ALT Results: Lab Results Component Value Date/Time ALT - [facility] 26 01/28/2023 08:26 AM ALT - [facility] 28 03/01/2022 10:10 AM ALT - [facility] 29 03/25/2021 08:51 AM ALT - [facility] 32 10/07/2020 02:43 PM ALT - [facility] 30 10/04/2019 08:35 AM ALT - [facility] 34 03/15/2019 08:48 AM Hemoglobin AIC Results: Lab Results Component Value Date/Time HEMOGLOBIN A1C - [facility] 5.7 (H) 01/28/2023 08:26 AM HEMOGLOBIN A1C - [facility] 6.1 (H) 03/01/2022 10:10 AM HEMOGLOBIN A1C - [facility] 6.0 (H) 03/25/2021 08:51 AM HEMOGLOBIN A1C - [facility] 5.9 (H) 10/07/2020 02:43 PM HEMOGLOBIN A1C - [facility] 5.9 (H) 10/07/2020 02:42 PM HEMOGLOBIN A1C - [facility] 6.1 (H) 10/04/2019 08:35 AM Results for orders placed or performed in visit on 02/14/23 INR FINGERSTICK, POINT OF CARE Result Value Ref Range Fingerstick INR 2.4 INR PHM: Patient Active Problem List Diagnosis Code Displacement of lumbar intervertebral disc without myelopathy M51.26 ADVANCE DIRECTIVE INFORMATION Venous insufficiency I87.2 Essential hypertension with goal blood pressure less than 140/90 I10 History of pulmonary embolism Z86.711 Factor V Leiden mutation ([facility]) D68.51 History of DVT (deep vein thrombosis) Z86.718 BPH (benign prostatic hyperplasia) N40.0 Hx of nonmelanoma skin cancer Z85.828 AK (actinic keratosis) L57.0 Elevated liver enzymes R74.8 Sjogren's syndrome with keratoconjunctivitis sicca ([facility]) M35.01 Encounter for long-term (current) use of medications Z79.899 MCTD (mixed connective tissue disease) ([facility]) M35.1 Primary osteoarthritis of both knees M17.0 Prediabetes R73.03 Dyslipidemia, goal LDL below 130 E78.5 Seasonal allergic rhinitis due to pollen J30.1 Current Outpatient Medications Medication Sig Dispense Refill Ammonium Lactate 12 % External Cream hydroCHLOROthiazide 12.5 MG Oral Capsule (Hydrodiuril) TAKE ONE CAPSULE BY MOUTH EVERY DAY 90 Capsule 2 Atorvastatin Calcium 10 MG Oral Tablet (Lipitor) TAKE ONE TABLET BY MOUTH EVERY DAY 90 Tablet 3 Multivitamin Men 50+ Oral Tablet Take by mouth as needed . Metoprolol Tartrate 25 MG Oral Tablet (Lopressor) TAKE ONE TABLET BY MOUTH TWICE DAILY 180 Tablet 1 predniSONE 5 MG Oral Tablet (Deltasone) take [...] by mouth at bedtime. 180 Tablet 3 No current facility-administered medications for this visit. Past Medical History: Diagnosis Date BMI 40.0-44.9, adult ([facility]) BPH (benign prostatic hyperplasia) Displacement of lumbar intervertebral disc without myelopathy DVT (deep venous thrombosis) ([facility]) 08/09 right leg Factor V Leiden mutation ([facility]) 09/16/2014 HTN, goal below 140/90 Impaired [...] by Raf Perez MD at ENDOSCOPY [facility] COLONOSCOPY, DIAGNOSTIC (RECTUM) 06/23/2022 MULTI POLYPS IN ASCENDING, HEPATIC , OTHERWISE NORMAL / BIOPSIE Stubulovillous adenoma / 3 YEAR RECALL / COLONOSCOPY FLEXIBLE PROXIMAL DIAGNOSTIC performed by Toshia Thorpe MD at ENDOSCOPY [facility] EGD, FLEXIBLE, DIAGNOSTIC 09/24/2016 acid reflux on bx/ESOPHAGOGASTRODUODENOSCOPY (EGD), FLEXIBLE, TRANSORAL, DIAGNOSTIC performed by Raf Perez MD at ENDOSCOPY [facility] VASC ANKLE BRACHIAL INDEX 07/22/2014 1.2 right, 1.1 left, normal VASC DUPLEX VENOUS LE BILAT 07/29/2006 venous thrombophlebitis right greater saphenous vein VASC DUPLEX VENOUS LE BILAT 08/01/2014 Positive acute DVT in right common femoral vein, superficial venous thrombosis bilaterally Social History Socioeconomic History Marital status: Spouse name: Not on file Number of children: 2 Years of education: Not on file Highest education level: Not on file Occupational History Occupation: [email or web address] Tobacco Use Smoking status: Former Smokeless tobacco: [...] on file Housing Stability: Not on file Review of patient's allergies indicates: Allergen Reactions Sulfa Antibiotics rash Objective: BP 110/72 | Pulse 76 | Temp 36.4 C (97.6 F) (Tympanic) | Resp 16 | Ht 1.867 m (6' 1.5") | Wt (!) 138.8 kg (306 lb) | SpO2 97% | BMI 39.82 kg/m | BSA 2.68 m Physical Exam: General: alert, healthy, no distress, well nourished and well developed Head: Normocephalic, No masses, lesions, tenderness or abnormalities Eye Exam: PERRLA, extraocular movements intact, conjunctiva are pink and non- injected, sclera clear Ears: External ears normal, Canals clear, TM's Normal Nose: no mucosal erythema, no purulent discharge, mucosal edema, no sinus tenderness Oropharynx: no exudate, no erythema, lips, buccal mucosa, and tongue normal and mucous membranes are moist Neck: supple, no adenopathy, no bruits Heart: regular rate & rhythm, no murmur and no gallops Lungs: chest symmetric with normal AP diameter, no chest deformities noted, no chest wall tenderness, lungs clear to auscultation Extremities: no clubbing, no cyanosis, +stable trace to 1+ lower extremity edema bilaterally Neuro Exam: alert & oriented x 3 with fluent speech, no focal motor/sensory deficits, gait normal Extensive ROS Constitutional (f/c/wt/vision/hearing): see above hpi Resp (cough/sob/hampton): see above hpi CV (cp/palp/fluttering/diaphoresis/hampton/pnd):see above hpi GI (n/v/d/hrtburn): Negative Endo (hair/cold or heat intol/ 3 p's): +prediabetes Neuro (shaking/weak/fatigu/parasthesi/): Negative Skin (rash/easy bruis/xerosis): Negative Psy (si/hi/halluc/): Negative (nocturia/hesit/drib/sexual review): Negative Lymph (swollen glands/b sx's/: Negative ASSESSMENT: Essential hypertension with goal blood pressure less than 140/90 (Primary)--well controlled with metoprolol 25 mg twice daily and HCTZ 12.5 mg daily. Factor V Leiden mutation (HCC)--h/o PE and DVT. On lifelong Coumadin. Sjogren's syndrome with keratoconjunctivitis sicca (HCC)--follows with rheumatology and on hydroxychloroquine and prednisone. MCTD (mixed connective tissue disease) (HCC)--follows with rheumatology and on hydroxychloroquine and prednisone. Prediabetes--A1C has improved. Has cut back on sugar and has lost weight. Dyslipidemia, goal LDL below 130--continue atorvastatin 10 mg daily. Venous insufficiency--swelling is stable Primary osteoarthritis of both knees--considering knee replacements but not at this time. Seasonal allergic rhinitis due to pollen--OK to add Flonase. Has been using Sudafed and saline nasal spray Tinnitus of left ear--improved. Likely due to hearing loss. TMs normal. Follow Up: Return in about 6 months (around 09/21/2023) for Clinic Visit. | For: Clinic Visit PLAN: Continue present medication(s): Patient education: Discussed allergy treatment, healthy diet and weight loss. Keep appointment for stress test as scheduled 04/06/23. Follow up: in 6 month(s). Louise Thornton MD documented in this encounter Nursing Notes * Carina Perla LPN - 03/22/2023 8:39 AM EDT Recheck Ringing/chirping sound in left ear at times for about 2 months. Recently stopped. documented in this encounter Plan of Treatment Upcoming Encounters Date Type Specialty Care Team Description 03/24/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 [place] [id number] 04/04/2023 Office Visit Cardiology Bonnie Akins PA-C [address] [place] [address] 04/06/2023 Imaging Radiology , Excess Time Radiology [address] [place] [address] 10/17/2023 Office Visit Rheumatology Jayson Villalobos MD [address] [place] [address] 11/14/2023 Office Visit Family Medicine Louise Thornton MD [address] [place] [address] [place] [address] Scheduled Procedures Name Priority Associated Diagnoses Date/Ti [...] hypertension with goal blood pressure less than 140/90- Primary Factor V Leiden mutation (HCC) Primary hypercoagulable state Sjogren's syndrome with keratoconjunctivitis sicca (HCC) MCTD (mixed connective tissue disease) (HCC) Other specified diffuse disease of connective tissue Prediabetes Other abnormal glucose Dyslipidemia, goal LDL below 130 Other and unspecified hyperlipidemia Venous insufficiency Unspecified venous (peripheral) insufficiency Primary osteoarthritis of both knees Primary localized osteoarthrosis, lower leg Seasonal allergic rhinitis due to pollen Tinnitus of left ear Unspecified tinnitus documented in this encounter Care Teams Hinging Machine Operator Relationship Specialty Start Date End Date Louise Thornton MD [address] [place] [address] [place] [phone] PCP - General Family Medicine 07/10/15 documented as of this encounter
--- NOTE | 2023-09-16 22:52 | CT Scan Report ---
Exam(s): CT CHEST Without Contrast EXAM: CT Chest Without Intravenous Contrast CLINICAL HISTORY: Reason for exam: suspicion for ILD. TECHNIQUE: Axial computed tomography images of the chest without intravenous contrast. CTDI is 28.14 mGy and DLP is 1007.31 mGy-cm. Automated exposure control was utilized for the study. A dose lowering technique was utilized adhering to the principles of ALARA. COMPARISON: No relevant prior studies available. FINDINGS: Lungs: Patchy groundglass densities are seen in the left lower lobe. 5.6 mm subpleural nodule seen in the right lower lobe. No consolidation. 2 mm nodule seen in the right major fissure on image 40, series 2. Pleural space: Unremarkable. No pneumothorax. No significant effusion. Heart: Unremarkable. No cardiomegaly. No significant pericardial effusion. No significant coronary artery calcifications. Bones/joints: Unremarkable. No acute fracture. No dislocation. Soft tissues: Unremarkable. Vasculature: Ascending aorta is ectatic, measuring 3.9 cm in diameter. No thoracic aortic aneurysm. Lymph nodes: Unremarkable. No enlarged lymph nodes. IMPRESSION: 1. No evidence of interstitial pulmonary fibrosis 2. Patchy groundglass densities in the left lung base, likely of inflammatory etiology. 3. 5.6 mm right lower lobe nodule Electronically signed by: Coy Mckenzie MD 09/16/23 22:51 PM
--- NOTE | 2023-09-17 06:55 | Electrocardiogram Report ---
Test Reason : Blood Pressure : / mmHG Vent. Rate : 081 BPM Atrial Rate : 081 BPM P-R Int : 136 ms QRS Dur : 092 ms QT Int : 388 ms P-R-T Axes : 064 071 077 degrees QTc Int : 450 ms Sinus rhythm with Premature supraventricular complexes Cannot rule out Anterior infarct , age undetermined Abnormal ECG No previous ECGs available Confirmed by Sam Miles ([id number]) on 09/17/2023 6:55:50 AM Referred By: REFERRED SELF Confirmed By:Sam Miles
[2023-09-17] MEDS: TICAGRELOR 90 MG TAB PO SCH (07:35)
[2023-09-17] MEDS: METOPROLOL TARTRATE 25 MG TAB PO SCH ×2 (07:35→19:47)
[2023-09-17] MEDS: ATORVASTATIN 40 MG TAB PO SCH (07:36)
[2023-09-17] MEDS: hydroCHLOROthiazide 25 MG TAB PO SCH (07:36)
[2023-09-17 08:39] LABS: Basophils # (auto) 0.01 K/uL (0.00-0.20); Basophils % (auto) 0.3 %; Eosinophils # (auto) 0.07 K/uL (0.00-0.50); Eosinophils % (auto) 1.9 %; Hematocrit (blood only) 36.4 % (42.0-52.0); Hemoglobin 12.3 g/dl (14.0-18.0); Immature Granulocytes # (auto) 0.01 K/uL (0.01-0.20); Immature Granulocytes % (auto) 0.3 %; Lymphocytes # (auto) 0.91 K/uL (1.20-3.40); Lymphocytes % (auto) 24.2 %; Mean Corpuscular Hgb Conc 33.8 g/dL (32.0-36.0); Mean Corpuscular Volume 85.8 fL (80.0-100.0); Mean Platelet Volume 9.6 fL (9.4-12.4); Monocytes # (auto) 0.47 K/uL (0.11-0.59); Monocytes % (auto) 12.5 %; Neutrophils # (auto) 2.29 K/uL (1.40-6.50); Neutrophils % (auto) 60.8 %; Platelet Count 190 K/uL (130-400); RDW Coefficient of Variation 14.6 % (11.5-14.5); RDW Standard Deviation 45.3 fL (36.4-46.3); Red Blood Count 4.24 M/uL (4.70-6.10); White Blood Count 3.76 K/ul (4.8-10.8)
--- NOTE | 2023-09-17 08:48 | Cardiology Consultation ---
Date of Consultation September 17, 2023 Assessment & Plan (1) Exertional dyspnea: (2) History of CAD (coronary artery disease): (3) Left lower lobe pneumonia: (4) Factor V Leiden: Plan 62-year-old male admitted with 4-week history of intermittent atypical chest discomfort. Denies exertional chest pain with ongoing/worsening dyspnea. Brilinta possibly contributing to overall symptomatology. Recommend discontinue Brilinta with transition to Plavix. Recommend loading dose of Plavix, 600 mg this evening at approximately 7 PM. Continue 75 mg daily plus warfarin thereafter. INR therapeutic. No indication for Lovenox. Abnormal CT with left lower lobe inflammatory process, possible pneumonia. Further treatment as per internal medicine. Review resting 2D transthoracic echocardiogram. ECGs without ischemic changes and high-sensitivity troponin undetectable. Consider repeat outpatient Lexiscan nuclear stress testing for further evaluation pending clinical response to treatment of pulmonary process. Thank you for allow me to participate in the care of your patient. History of Present Illness Reason for Consultation: Chest pain, history of CAD Requesting Physician: Beatriz Hung PA-C Attending Physician: Jose Roman MD History of Present Illness 62-year-old male presents to the ER with chest discomfort. History of coronary disease status post drug-eluting stent implantation to the distal LAD 04/2023 in the setting of abnormal nuclear stress testing. Patient chronically anticoagulated due to history of DVT/PE and factor V Leiden. INR therapeutic on admission. History of mixed connective tissue disease, Sjogren's and osteoarthritis treated with low-dose prednisone and Plaquenil. Currently, patient chest pain-free. Describes a mild tightness and heaviness that can last anywhere from several minutes to several hours. Discomfort typically occurs at rest in the evening often when lying supine. Denies heartburn or reflux in the past. Diagnosed with upper respiratory tract infection approxi-1 week ago and treated with doxycycline. CT of the chest demonstrating left lower lobe opacities suggesting inflammatory process. Denies any pleuritic discomfort. Notes ongoing shortness of breath dating back to prior to stent implantation in April. Dyspnea possibly exacerbated by addition of Brilinta. No orthopnea, PND, or lower extremity edema. Denies signs/symptoms of GI/ blood loss. Denies any exertional chest discomfort, however, ongoing dyspnea on exertion worsening over the past 2 weeks. No palpitations, lightheadedness, dizziness, syncope, or near syncope. Allergies Allergy/AdvReac Type Severity Reaction Status Date / Time Sulfa (Sulfonamide Allergy Hives Verified 09/16/23 17:54 Antibiotics) Home Medications Medication Instructions Recorded Confirmed Type atorvastatin 40 mg tablet 40 mg PO DAILY 09/16/23 09/16/23 History diclofenac sodium 1 % topical gel 1 ea topical BID PRN knee pain 09/16/23 09/16/23 History (Voltaren Arthritis Pain) guaifenesin 600 mg tablet, 600 mg PO BID PRN Congestion 09/16/23 09/16/23 History extended release 12 hr (Mucinex) hydrochlorothiazide 12.5 mg capsule 12.5 mg PO DAILY 09/16/23 09/16/23 History hydroxychloroquine 200 mg tablet 400 mg PO HS 09/16/23 09/16/23 History metoprolol tartrate 25 mg tablet 25 mg PO BID 09/16/23 09/16/23 History multivitamin 1 tab PO DAILY 09/16/23 09/16/23 History nitroglycerin 0.4 mg sublingual 0.4 mg sublingual UD PRN Chest Pain 09/16/23 09/16/23 History tablet prednisone 5 mg tablet 2.5 mg PO UD 09/16/23 09/16/23 History terazosin 10 mg capsule 10 mg PO HS 09/16/23 09/16/23 History ticagrelor 90 mg tablet (Brilinta) 90 mg PO BID 09/16/23 09/16/23 History warfarin 5 mg tablet (Jantoven) 5 mg PO 5XWK 09/16/23 09/16/23 History warfarin 5 mg tablet (Jantoven) 7.5 mg PO 2XWK 09/16/23 09/16/23 History Patient History Medical History History of CAD (coronary artery disease) Personal history of DVT (deep vein thrombosis) Factor V Leiden BPH (benign prostatic hyperplasia) Mixed connective tissue disease Sjogren's disease HTN (hypertension) Surgical History History of cardiac catheterization 05/20/2023. S/P [facility] [facility] [place] Social History (Reviewed 09/17/23 @ 09:48 by CHELO Huber Smoking Status: Former smoker Smoking End Date: 50 years ago; Hx Alcohol Use: Yes (4 drinks per week) Alcohol type: wine Hx Substance Use: Yes Last Used Substance Other:: 30 years ago Preferred Language: Amharic Communication Ability: Effective Manager Front Required: No Beliefs That Will Affect Care: None Current Living Situation: Spouse Other Information That Helps Us Care for You: No Feels Safe at Home: Yes Safety Concerns: Feels Safe At This Time Assistive Devices: Glasses Review of Systems Review of Systems: All systems reviewed & are unremarkable except as noted in Subjective Physical Exam Constitutional: well nourished; no acute distress Respiratory: no respiratory distress, no labored breathing and no retractions Auscultation: + crackles (Left base); no rales, no rhonchi and no wheezes Cardiovascular: Rate/Rhythm: regular rate and regular rhythm Heart Sounds: normal S1 and normal S2; no murmur Vessels: no JVD and no carotid bruit Gastrointestinal (Abdomen): Inspection/Auscultation: normal bowel sounds; abdomen not distended Percussion/Palpation: abdomen soft; abdomen nontender, no guarding and abdomen not rigid Neurologic: CN's II-XI intact bilaterally and moves all extremities; no focal motor deficits Psychiatric: A+Ox3, euthymic affect Results & Data Vital Signs (Past 12 Hours) Vital Signs Temp Pulse Pulse Resp BP Pulse Ox Pulse Ox 09/17/23 06:53 36.4 C 62 18 118/74 97 09/17/23 03:12 36.7 C 60 18 119/75 97 09/16/23 23:11 37.0 C 65 17 128/79 96 09/16/23 23:00 67 09/16/23 20:41 97 09/16/23 20:41 09/16/23 20:41 36.9 C 71 18 131/83 97 09/16/23 20:41 69 O2 Del Method O2 Del Method 09/17/23 06:53 Room Air 09/17/23 03:12 Room Air 09/16/23 23:11 Room Air 09/16/23 23:00 09/16/23 20:41 Room Air 09/16/23 20:41 Room Air 09/16/23 20:41 Room Air 09/16/23 20:41 Laboratory Results Cardiac Enzymes 09/16/23 09/16/23 09/17/23 Range/Units 15:54 19:10 00:23 AST 33 (13-39) U/L Troponin I High Sens 7.1 7.8 8.8 (0-20) pg/ml Coagulation 09/16/23 09/17/23 Range/Units 15:54 08:17 PT 25.7 H 26.6 H (9.0-12.0) Seconds APTT 35 H (21-31) Seconds Lipids 09/17/23 Range/Units 08:17 Triglycerides 87 (0-150) mg/dl Cholesterol 97 (0-200) mg/dl HDL Cholesterol 35 mg/dl Cholesterol/HDL Ratio 2.8 (0-5) CBC 09/16/23 09/17/23 Range/Units 15:54 08:17 WBC 4.31 L 3.76 L (4.8-10.8) K/ul RBC 4.60 L 4.24 L (4.70-6.10) M/uL Hgb 13.3 L 12.3 L (14.0-18.0) g/dl Hct 39.7 L 36.4 L (42.0-52.0) % Plt Count 212 190 (130-400) K/uL Neut # (Auto) 3.10 2.29 (1.40-6.50) K/uL Lymph # (Auto) 0.83 L 0.91 L (1.20-3.40) K/uL [place] # (Auto) 0.33 0.47 (0.11-0.59) K/uL Eos # (Auto) 0.02 0.07 (0.00-0.50) K/uL Baso # (Auto) 0.02 0.01 (0.00-0.20) K/uL Comprehensive Metabolic Panel 09/16/23 09/17/23 Range/Units 15:54 08:17 Sodium 139 141 (136-145) mmol/L Potassium 3.8 3.9 (3.5-5.1) mmol/L Chloride 107 109 H (98-107) mmol/L Carbon Dioxide 27 27 (21-32) mmol/L BUN 14 10 (6-23) mg/dl Creatinine 0.98 0.88 (0.6-1.4) mg/dl Glucose 99 98 (70-99(Fasting)) mg/dl Calcium 9.0 8.8 (8.6-10.3) mg/dl AST 33 (13-39) U/L ALT 32 (7-52) U/L Alkaline Phosphatase 65 (34-104) U/L Total Protein 7.4 (6.0-8.3) gm/dl Albumin 3.9 (3.4-5.0) gm/dl Intake and Output 09/16/23 09/17/23 09/17/23 22:59 06:59 14:59 Intake Total 500 / 500 Balance 500 / 500 Intake: Oral 500 / 500 Other: # Unmeasured Voids 1 2 Weight 129.5 kg 127.8 kg Weight Measurement Method [facility] Diagnostic Findings High-resolution CT chest report: 1. No evidence of interstitial pulmonary fibrosis 2. Patchy groundglass densities in the left lung base, likely of inflammatory etiology. 3. 5.6 mm right lower lobe nodule ECG Additional Comments: ECG on admission: Normal sinus rhythm with poor R wave progression. Repeat ECG today: Normal sinus rhythm with PAC, otherwise normal ECG. (3) Left lower lobe pneumonia Pneumonia type: due to unspecified organism Qualified Code(s): J18.9 - Pneumonia, unspecified organism
[2023-09-17 08:56] LABS: BUN Creatinine Ratio 11.4 (10-20); Calcium 8.8 mg/dl (8.6-10.3); Chol HDL Ratio 2.8 (0-5); Creatinine Clr Calc Pharmacy 120.5 ml/min; Est GFR (African American) 105.2 ml/min; Est GFR (Non-African American) 90.8 ml/min; Potassium 3.9 mmol/L (3.5-5.1)
[2023-09-17] MEDS ORDERED: ENOXAPARIN 150 MG/ML SYR SQ SCH (09:00)
[2023-09-17 09:03] LABS: INR 2.6 (0.9-1.1); Prothrombin Time 26.6 Seconds (9.0-12.0)
[2023-09-17] MEDS: PANTOprazole 40 MG TAB PO SCH (11:05)
--- NOTE | 2023-09-17 13:00 | Hospitalist Progress Note ---
Date of Service September 17, 2023 Assessment & Plan (1) Chest pain: (2) Exertional dyspnea: (3) History of CAD (coronary artery disease): Plan: Patient is 62 y/o M with PMH CAD s/p PCI, KIESHA to LAD on 05/20/23, Factor V Leiden, history DVT, PE, on chronic warfarin, HTN, dyslipidemia, mixed connective tissue disease, Sjogren's disease, history retinal branch occlusion presented to ER with complaint of shortness of breath for 3 months. The shortness of breath is exertional. Chest x-ray personally reviewed; no acute finding. HRCT does not show any pulmonary fibrosis. Patchy groundglass density in the left lung base. 5.6 mm right lower lung nodule. EKG personally reviewed; normal sinus rhythm with no ST or T wave changes High sensitive troponin negative The timing of the shortness of breath nearly coincides with the start of Brilinta. Shortness of breath is a known side effect of Brilinta. Patient is compliant with anticoagulation;low risks of PE CT chest does not show significant finding other than mentioned above. Plan to switch over from Brilinta to Plavix. Will need follow-up with PCP and follow-up on lung nodule as outpatient. Resume Coumadin (4) HTN (hypertension): Plan: Stable Continue metoprolol tartrate, HCTZ (5) Factor V Leiden: (6) Personal history of DVT (deep vein thrombosis): Plan: Chronically anticoagulated on warfarin INR: 2.5 Continue Coumadin (7) Mixed connective tissue disease: (8) Sjogren's disease: Plan: On chronic prednisone Continue prednisone, Plaquenil Follows with rheumatology, Dr. Cazares (9) BPH (benign prostatic hyperplasia): Plan: Continue terazosin DVT Prophylaxis Coumadin Full Code as per discussion with pt Follows with Dr Thornton for routine care Please note the above document was generated using voice recognition software. It may contain grammatical, syntax or spelling errors. Any formal questions or concerns about the content, text or information contained within the body of this dictation should be directly addressed to the provider for clarification Admission and Anticipated Discharge Date Admission Date: September 16, 2023 Subjective Patient seen and examined at bedside. He denies any shortness of breath at rest. He has increasing shortness of breath at minimal exertion. Review of Systems Review of Systems: All systems reviewed & are unremarkable except as noted in Subjective Physical Exam Physical Exam: Constitutional: WD/WN, vitals as above, NAD, sitting up in bed, pleasant, conversing easily Respiratory: Minimal crackles on left lung base. Cardiovascular: RRR, no murmur, no edema Vessels: no JVD or carotid bruit Chest: normal inspection of chest Abdomen: normal bowel sounds, soft, nontender, no hepatosplenomegaly Musculoskeletal: no cyanosis or clubbing, extremities motor strength 5/5 Skin: no rashes, warm and dry normal turgor Neurologic: PERRL, EOMI, accommodation nl, no face palsy, no dysarthria CN's II- XI intact bilaterally and moves all extremities Psychiatric: A+Ox3, euthymic affect Results & Data Results & Data Vital Signs (Past 12 Hours) Vital Signs Temp Pulse Pulse Resp BP Pulse Ox O2 Del Method 09/17/23 12:22 36.8 C 57 L 18 116/73 96 Room Air 09/17/23 10:33 59 L 09/17/23 06:53 36.4 C 62 18 118/74 97 Room Air 09/17/23 03:12 36.7 C 60 18 119/75 97 Room Air Laboratory Results Laboratory Results WBC 3.76 K/ul (4.8-10.8) L 09/17/23 08:17 RBC 4.24 M/uL (4.70-6.10) L 09/17/23 08:17 Hgb 12.3 g/dl (14.0-18.0) L 09/17/23 08:17 Hct 36.4 % (42.0-52.0) L 09/17/23 08:17 MCV 85.8 fL (80.0-100.0) 09/17/23 08:17 MCH 29.0 pg (25.0-34.0) 09/17/23 08:17 MCHC 33.8 g/dL (32.0-36.0) 09/17/23 08:17 RDW Std Deviation 45.3 fL (36.4-46.3) 09/17/23 08:17 RDW Coeff of Loly 14.6 % (11.5-14.5) H 09/17/23 08:17 Plt Count 190 K/uL (130-400) 09/17/23 08:17 MPV 9.6 fL (9.4-12.4) 09/17/23 08:17 Immature Gran % (Auto) 0.3 % 09/17/23 08:17 Neut % (Auto) 60.8 % 09/17/23 08:17 Lymph % (Auto) 24.2 % 09/17/23 08:17 [place] % (Auto) 12.5 % 09/17/23 08:17 Eos % (Auto) 1.9 % 09/17/23 08:17 Baso % (Auto) 0.3 % 09/17/23 08:17 Neut # (Auto) 2.29 K/uL (1.40-6.50) 09/17/23 08:17 Lymph # (Auto) 0.91 K/uL (1.20-3.40) L 09/17/23 08:17 [place] # (Auto) 0.47 K/uL (0.11-0.59) 09/17/23 08:17 Eos # (Auto) 0.07 K/uL (0.00-0.50) 09/17/23 08:17 Baso # (Auto) 0.01 K/uL (0.00-0.20) 09/17/23 08:17 Immature Gran # (Auto) 0.01 K/uL (0.01-0.20) 09/17/23 08:17 PT 26.6 Seconds (9.0-12.0) H 09/17/23 08:17 INR 2.6 (0.9-1.1) H 09/17/23 08:17 APTT 35 Seconds (21-31) H 09/16/23 15:54 PTT Ratio 1.2 09/16/23 15:54 Sodium 141 mmol/L (136-145) 09/17/23 08:17 Potassium 3.9 mmol/L (3.5-5.1) 09/17/23 08:17 Chloride 109 mmol/L (98-107) H 09/17/23 08:17 Carbon Dioxide 27 mmol/L (21-32) 09/17/23 08:17 Anion Gap 5 (3-11) 09/17/23 08:17 BUN 10 mg/dl (6-23) 09/17/23 08:17 Creatinine 0.88 mg/dl (0.6-1.4) 09/17/23 08:17 Est Cr Clr Drug Dosing 120.5 ml/min 09/17/23 08:17 Est GFR ( Amer) 105.2 ml/min 09/17/23 08:17 Est GFR (Non-Af Amer) 90.8 ml/min 09/17/23 08:17 BUN/Creatinine Ratio 11.4 (10-20) 09/17/23 08:17 Glucose 98 mg/dl (70-99(Fasting)) 09/17/23 08:17 Calcium 8.8 mg/dl (8.6-10.3) 09/17/23 08:17 Total Bilirubin 0.6 mg/dl (0.2-1.0) 09/16/23 15:54 AST 33 U/L (13-39) 09/16/23 15:54 ALT 32 U/L (7-52) 09/16/23 15:54 Alkaline Phosphatase 65 U/L (34-104) 09/16/23 15:54 Troponin I High Sens 8.8 pg/ml (0-20) 09/17/23 00:23 Total Protein 7.4 gm/dl (6.0-8.3) 09/16/23 15:54 Albumin 3.9 gm/dl (3.4-5.0) 09/16/23 15:54 Globulin 3.5 gm/dl (2.5-4.0) 09/16/23 15:54 Albumin/Globulin Ratio 1.1 (0.9-2) 09/16/23 15:54 Triglycerides 87 mg/dl (0-150) 09/17/23 08:17 Cholesterol 97 mg/dl (0-200) 09/17/23 08:17 LDL Cholesterol, Calc 45 mg/dl 09/17/23 08:17 VLDL Cholesterol, Calc 17 mg/dl (0-30) 09/17/23 08:17 HDL Cholesterol 35 mg/dl 09/17/23 08:17 Cholesterol/HDL Ratio 2.8 (0-5) 09/17/23 08:17 Impressions Chest X-Ray 09/16/23 15:44 XR chest 1V not portable CLINICAL HISTORY: Chest pain, nonspecific TECHNIQUE: Single frontal radiograph of the chest was obtained. Comparison: None available at the time of this dictation. FINDINGS: No lines and tubes are seen. Calcified aortic knob is seen. The lungs are clear. No evidence of pleural effusion or pneumothorax. IMPRESSION: No acute chest disease. ACT 112: Negative or not required by law. Electronically signed by: Gage Sanford M.D. 09/16/2023 4:[address] 09/16/23 19:20 Exam(s): CT CHEST Without Contrast EXAM: CT Chest Without Intravenous Contrast CLINICAL HISTORY: Reason for exam: suspicion for ILD. TECHNIQUE: Axial computed tomography images of the chest without intravenous contrast. CTDI is 28.14 mGy and DLP is 1007.31 mGy-cm. Automated exposure control was utilized for the study. A dose lowering technique was utilized adhering to the principles of ALARA. COMPARISON: No relevant prior studies available. FINDINGS: Lungs: Patchy groundglass densities are seen in the left lower lobe. 5.6 mm subpleural nodule seen in the right lower lobe. No consolidation. 2 mm nodule seen in the right major fissure on image 40, series 2. Pleural space: Unremarkable. No pneumothorax. No significant effusion. Heart: Unremarkable. No cardiomegaly. No significant pericardial effusion. No significant coronary artery calcifications. Bones/joints: Unremarkable. No acute fracture. No dislocation. Soft tissues: Unremarkable. Vasculature: Ascending aorta is ectatic, measuring 3.9 cm in diameter. No thoracic aortic aneurysm. Lymph nodes: Unremarkable. No enlarged lymph nodes. IMPRESSION: 1. No evidence of interstitial pulmonary fibrosis 2. Patchy groundglass densities in the left lung base, likely of inflammatory etiology. 3. 5.6 mm right lower lobe nodule Electronically signed by: Coy Mckenzie MD 09/16/23 22:51 PM (1) Chest pain Chest pain type: unspecified Qualified Code(s): R07.9 - Chest pain, unspecified
[2023-09-17] MEDS ORDERED: WARFARIN SOD 5 MG TAB PO SCH (16:00)
[2023-09-17] MEDS: guaiFENesin 600 MG TABCR PO PRN (18:31)
[2023-09-17] MEDS ORDERED: CLOPIDOGREL BISULFATE 300 MG TAB PO ONE (19:30)
[2023-09-17] MEDS: HYDROXYCHLOROQUINE SULFATE 200 MG TAB PO SCH (19:47)
[2023-09-17] MEDS: TERAZOSIN HCL 5 MG CAP PO SCH (19:47)
[2023-09-18 06:25] LABS: INR 2.1 (0.9-1.1); Prothrombin Time 21.6 Seconds (9.0-12.0)
[2023-09-18] MEDS: hydroCHLOROthiazide 25 MG TAB PO SCH (07:55)
[2023-09-18] MEDS: METOPROLOL TARTRATE 25 MG TAB PO SCH (07:55)
[2023-09-18] MEDS: guaiFENesin 600 MG TABCR PO PRN (07:56)
[2023-09-18] MEDS: PANTOprazole 40 MG TAB PO SCH (07:56)
[2023-09-18] MEDS: ATORVASTATIN 40 MG TAB PO SCH (07:56)
[2023-09-18] MEDS ORDERED: CLOPIDOGREL BISULFATE 75 MG TAB PO SCH (09:00)
--- NOTE | 2023-09-18 11:15 | Cardiology Progress Note ---
Date of Service September 18, 2023 Assessment & Plan (1) PSVT (paroxysmal supraventricular tachycardia): (2) Exertional dyspnea: (3) History of CAD (coronary artery disease): (4) Left lower lobe pneumonia: (5) Factor V Leiden: Plan Titrate metoprolol to 25 mg 3 times daily. Consider referral to electrophysiology as an outpatient pending clinical response. Brilinta transition to clopidogrel 09/17/2023 due to ongoing shortness of breath. Long-term plan continue clopidogrel plus warfarin at this time. Abnormal CT with left lower lobe inflammatory process, possible pneumonia. Further treatment as per internal medicine. History of coronary disease and prior LAD stenting. No evidence of acute coronary syndrome during hospitalization. Consider repeat outpatient Lexiscan nuclear stress testing. Thank you for allow me to participate in the care of your patient. Outpatient cardiology follow-up in 2 to 3 weeks. Admission and Anticipated Discharge Date Admission Date: September 16, 2023 Subjective Patient seen examined the bedside. Episode of palpitations and shortness of breath recorded this a.m. associated with evidence of paroxysmal supraventricular tachycardia. Heart rate up to 150 bpm recorded with spontaneous conversion to sinus rhythm. Patient states the symptoms have been consistently reproducible over the past 1 year while at home. In general symptoms of tachycardia and shortness of breath, mild chest pressure resolved with rest. Denies any resting chest discomfort overnight. Review of Systems Review of Systems: All systems reviewed & are unremarkable except as noted in Subjective Physical Exam Constitutional: well nourished; no acute distress Respiratory: no respiratory distress, no labored breathing and no retractions Auscultation: + crackles (Left base); no rales, no rhonchi and no wheezes Cardiovascular: Rate/Rhythm: regular rate and regular rhythm Heart Sounds: normal S1 and normal S2; no murmur Vessels: no JVD and no carotid bruit Gastrointestinal (Abdomen): Inspection/Auscultation: normal bowel sounds; abdomen not distended Percussion/Palpation: abdomen soft; abdomen nontender, no guarding and abdomen not rigid Neurologic: CN's II-XI intact bilaterally and moves all extremities; no focal motor deficits Psychiatric: A+Ox3, euthymic affect Results & Data Vital Signs (Past 12 Hours) Vital Signs Temp Pulse Pulse Resp BP Pulse Ox O2 Del Method 09/18/23 09:00 57 L 09/18/23 07:55 36.8 C 80 18 107/73 94 Room Air 09/18/23 03:13 36.6 C 69 18 120/64 97 Room Air 09/18/23 01:30 59 L Laboratory Results Coagulation 09/18/23 Range/Units 05:26 PT 21.6 H (9.0-12.0) Seconds Intake and Output 09/17/23 09/18/23 09/18/23 22:59 06:59 14:59 Intake Total 1010 / 1250 240 / 1250 Output Total Balance 1009 / 1249 240 / 1249 Intake: Oral 1010 / 1250 240 / 1250 Output: # Bowel Movements Other: # Unmeasured Voids 5 2 Weight 96.8 kg (4) Left lower lobe pneumonia Pneumonia type: due to unspecified organism Qualified Code(s): J18.9 - Pneumonia, unspecified organism
--- NOTE | 2023-09-18 13:10 | Discharge Summary ---
Date of Service September 18, 2023 Admission HPI Per Admitting Provider Patient is 62 y/o M with PMH CAD s/p PCI, KIESHA to LAD on 05/20/23, Factor V Leiden, history DVT, PE, on chronic warfarin, HTN, dyslipidemia, mixed connective tissue disease, Sjogren's disease, history retinal branch occlusion presented to ER with c/o CP and SOB. History obtained from patient, spouse and outpatient chart review. Patient reports early 2022 having intermittent central chest pressure as well as exertional SOB. He had symptoms for months and followed up with cardiology and had positive stress test. Cardiac cath on 05/20/23 coronary arteries have significant 1 vessel disease. 60% distal LAD lesion s/p PCI with KIESHA. Patient states immediately after stent exertional SOB was gone as well as chest pressure. Reports approximately 1-2 weeks after stent placement exertional SOB returned. SOB with minimal ambulation through house. Also reports chest pressure started approximately 1.5 months ago. Describes as chest pressure that lasts 30-45 minutes. Self resolves. Has nitro to use as needed but has never tried it. Denies any associated diaphoresis, N/V, dizziness, palpations. Chest pressure can occur at rest or exertion but states occurs mostly at rest in the evening or during the night. Does not feel SOB with chest pressure typically. States has had decreased appetite for months. Has been trying to cut back portion sizes and eat more balanced diet. Reports losing approximately 30 pounds in past 4 months. Does admit to a lot of stress in his life. States had rhinorrhea, yellow/green productive cough for several weeks and was treated with doxycycline and recently finished. Denies pulmonary outpatient workup recently. States taking medications as prescribed. Denies fever/chills, diaphoresis, N/V/D/C, CONLEY, dizziness, syncope, neck pain, PND, palpitations, hemoptysis, choking, otalgia, abdominal pain, paresthesias, weakness, extremity edema, rashes, urinary symptoms. Admission Exam Per Admitting Provider General: no distress, obese Head: normocephalic, atraumatic Eyes: conjunctiva non-injected, anicteric ENT: normal inspection external ears, nose, mucous membranes moist Neck: supple, trachea midline Lungs: clear, no respiratory distress, no wheezing/rhonchi/rales CV: RRR, no murmur, no pretibial edema Abd: normal BS, soft, non-tender Ext: no cyanosis, no calf tenderness Neuro: A&O x 3, no focal deficits noted, normal affect Skin: warm, dry Principal Diagnosis Shortness of breath, likely secondary to side effect from Brilinta Discharge Exam Constitutional: WD/WN, vitals as above, NAD, sitting up in bed, pleasant, conversing easily Respiratory: normal respiratory effort, lungs clear to auscultation, no wheeze, rales, rhonchi. Normal insp/exp effort, no accessory muscle use Cardiovascular: RRR, no murmur, no edema Vessels: no JVD or carotid bruit Chest: normal inspection of chest Abdomen: normal bowel sounds, soft, nontender, no hepatosplenomegaly Musculoskeletal: no cyanosis or clubbing, extremities motor strength 5/5 Skin: no rashes, warm and dry normal turgor Neurologic: PERRL, EOMI, accommodation nl, no face palsy, no dysarthria CN's II- XI intact bilaterally and moves all extremities Psychiatric: A+Ox3, euthymic affect Discharge Data Allergies Allergy/AdvReac Type Severity Reaction Status Date / Time Sulfa (Sulfonamide Allergy Hives Verified 09/16/23 17:54 Antibiotics) Consultations 09/16/23 17:53 ED Decision to Admit Stat 09/16/23 20:41 Consult Cardiology Routine Ordered Studies 09/16/23 19:20 CT chest HighRes diag wo con Routine Hospital Course (1) Chest pain: (2) Exertional dyspnea: (3) History of CAD (coronary artery disease): (4) HTN (hypertension): (5) Factor V Leiden: (6) Personal history of DVT (deep vein thrombosis): (7) Mixed connective tissue disease: (8) Sjogren's disease: (9) BPH (benign prostatic hyperplasia): Patient is 62 y/o M with PMH CAD s/p PCI, KIESHA to LAD on 05/20/23, Factor V Leiden, history DVT, PE, on chronic warfarin, HTN, dyslipidemia, mixed connective tissue disease, Sjogren's disease, history retinal branch occlusion presented to ER with complaint of shortness of breath for 3 months. The shortness of breath is exertional. Chest x-ray personally reviewed; no acute finding. HRCT does not show any pulmonary fibrosis. Patchy groundglass density in the left lung base. 5.6 mm right lower lung nodule. EKG personally reviewed; normal sinus rhythm with no ST or T wave changes High sensitive troponin negative The timing of the shortness of breath nearly coincides with the start of Brilinta. Shortness of breath is a known side effect of Brilinta. Patient is compliant with anticoagulation;low risks of PE CT chest does not show significant finding other than mentioned above. Patient switched over to Plavix during the hospitalization. Discussed with the patient regarding following up with PCP regarding the patchy groundglass density in left lower lung and lung nodule. Also discussed with him that if shortness of breath persist despite being off Brilinta. Obtain pulmonary referral as outpatient SVT (ventricular tachycardia) Patient had an episode of supraventricular tachycardia during the hospitalization on September 18, 2023. No complaint of chest pain, shortness of breath or palpitation. Cardiology recommended to increase the frequency of metoprolol to 3 times a day. Patient to follow-up with PCP and cardiology. Please note the above document was generated using voice recognition software. It may contain grammatical, syntax or spelling errors. Any formal questions or concerns about the content, text or information contained within the body of this dictation should be directly addressed to the provider for clarification Total Time Total Time Spent Total Time Spent (In Minutes): 40 Total Time Includes: Examination of the Patient, Discharge Planning, Medication Reconciliation, Communication With Other Providers and Other Discharge Plan Discharge Items Patient Disposition: Home - Self-Care Reason For Visit: CP Discharge Diagnosis: Shortness of breath possibly secondary to Brilinta Activity: Resume your previous activity Non-emergency contact: Primary Care Provider Call non-emergency contact if: you have any medication questions and your symptoms worsen Follow-up/Referrals: Louise Thornton MD [Primary Care Provider] - Diet: Regular Addtl Attending Provider Instructions: You were admitted to the hospital due to shortness of breath. CT of the chest was done showed a patchy groundglass density in the left lung base. You also have 5.6 mm right lower lobe nodule. Please follow-up with your primary care d adrian. You will need follow-up CT scan in the future to follow-up on the nodule. Brilinta has been changed over to Plavix 75 mg. Please take it once a day. The dose of metoprolol has been increased to 3 times a day. Please follow-up with your primary care doctor after discharge. Pending Studies at Discharge: No Stand-Alone Forms: My [facility], Smoking Cessation Medications and DC Order Prescriptions: New clopidogrel 75 mg Tablet 75 mg PO QAM Qty: 30 0RF Continued warfarin [Jantoven] 5 mg tablet 5 mg PO 5XWK Rx Instructions: TAKE THIS MED EVERY TUESDAY/TUESDAY/TUESDAY/TUESDAY/TUESDAY. warfarin [Jantoven] 5 mg tablet 7.5 mg PO 2XWK Rx Instructions: TAKE THIS MED EVERY TUESDAY & TUESDAY hydrochlorothiazide 12.5 mg capsule 12.5 mg PO DAILY atorvastatin 40 mg tablet 40 mg PO DAILY terazosin 10 mg capsule 10 mg PO HS hydroxychloroquine 200 mg tablet 400 mg PO HS diclofenac sodium [Voltaren Arthritis Pain] 1 % Gel 1 ea TOPICAL BID PRN (Reason: knee pain) multivitamin Tablet 1 tab PO DAILY guaifenesin [Mucinex] 600 mg Tablet Extended Release 12hr 600 mg PO BID PRN (Reason: Congestion) prednisone 5 mg tablet 2.5 mg PO UD Rx Instructions: Mon, Tue, Fri nitroglycerin 0.4 mg tablet, sublingual 0.4 mg sublingual UD PRN (Reason: Chest Pain) Rx Instructions: 1 tab SL every 5 minutes as needed for CP. May repeat 3 times Changed metoprolol tartrate 25 mg tablet 25 mg PO TID Qty: 90 0RF Discontinued Brilinta 90 mg tablet 90 mg PO BID Discharge Orders: Discharge Order (Routine); Ordered 09/18/23 Ordered By: Jose Meier/Other Patient Handouts: Your Heart Is at Risk Admission Data Admit Date/Time: 09/16/23 18:46 Attending Provider: Jose Roman Admit Provider: Nicki Cochran Primary Care Provider: Louise Thornton Other Providers: Nicki Cochran; Kendell Peters Other Interventions: Discharge Summary Assessment (RN) Last Done: 09/18/23 11:42
[2023-09-18] MEDS ORDERED: METOPROLOL TARTRATE 25 MG TAB PO SCH (14:00)
--- NOTE | 2023-09-18 20:30 | Electrocardiogram Report ---
Test Reason : Blood Pressure : / mmHG Vent. Rate : 065 BPM Atrial Rate : 065 BPM P-R Int : 176 ms QRS Dur : 100 ms QT Int : 426 ms P-R-T Axes : 060 061 047 degrees QTc Int : 443 ms Poor data quality, interpretation may be adversely affected Sinus rhythm with Premature supraventricular complexes Otherwise normal ECG When compared with ECG of 16-SEP-2023 15:46, No significant change was found Confirmed by Connor Chamorro ([id number]) on 09/18/2023 8:30:45 PM Referred By: REFERRED SELF Confirmed By:Connor Chamorro
[2023-09-19] MEDS ORDERED: predniSONE 2.5 MG TAB PO SCH (09:00)
[2023-09-19] MEDS ORDERED: WARFARIN SOD 7.5 MG TAB PO SCH (16:00)
--- NOTE | 2023-09-20 10:24 | Electrocardiogram Report ---
Test Reason : Blood Pressure : / mmHG Vent. Rate : 077 BPM Atrial Rate : 077 BPM P-R Int : 170 ms QRS Dur : 092 ms QT Int : 412 ms P-R-T Axes : 071 066 067 degrees QTc Int : 466 ms Poor data quality, interpretation may be adversely affected Sinus rhythm with occasional Premature ventricular complexes Otherwise normal ECG When compared with ECG of 17-SEP-2023 06:20, Premature ventricular complexes are now Present Premature supraventricular complexes are no longer Present Confirmed by Dewey Davis ([id number]) on 09/20/2023 10:24:27 AM Referred By: REFERRED SELF Confirmed By:Osbaldo Davis
== END 2023-09-18 14:32 | disposition home or self-care (01) ==
LOC: ED 15:38 → 2E 18:46 → SUATTDRO 18:46 → INTOOBSV 18:46 → 2E 20:18